=== PATIENT | female | born 1995 | race Caucasian/White ===

== ENCOUNTER 2020-07-20 09:58 | Outpatient (REF) | payer MEDICAID, SELFPAY ==
--- NOTE | 2020-07-20 | US_ITS ---
EXAMINATION: US ABDOMEN LIMITED CLINICAL INFORMATION: Hyperlipidemia. COMPARISON: Abdominal ultrasound dated 10/14/2014. CT abdomen and pelvis dated 04/20/2017. TECHNIQUE: Real-time imaging of the right upper quadrant abdominal viscera. FINDINGS: PANCREAS: Normal. LIVER: The liver is mildly enlarged. The liver contour is normal. There is mild increased echogenicity in focal areas of fatty sparing. No focal hepatic lesion. There is no intrahepatic biliary duct dilatation seen. GALLBLADDER: Normal. The gallbladder is physiologically distended without evidence of stones, sludge, polyps, wall thickening or pericholecystic fluid. COMMON BILE DUCT: Normal in caliber measuring 0.3 cm in diameter. RIGHT KIDNEY: Normal. No hydronephrosis. No renal calculi or focal parenchymal lesions. The kidney measures 10.2 cm in maximum dimension. FREE FLUID: None. IMPRESSION: Hepatomegaly with diffuse fatty infiltration and areas of focal fatty sparing. No focal lesion seen. Visualized pancreas, gallbladder and the right kidney appears unremarkable. CBD is normal caliber.
== END 2020-07-20 09:59 | disposition home or self-care (01) ==
LOC: HO.US 09:58
PROVIDERS: Visit Provider Nurse Practitioner Family
DX: E78.5 Hyperlipidemia, unspecified (principal); R79.89 Other specified abnormal findings of blood chemistry
CPT/HCPCS: 76705

== ENCOUNTER 2020-11-18 09:03 | Emergency (ER) | payer MEDICAID, SELFPAY ==
--- NOTE | ~2020-11-18 | CT_ITS ---
EXAMINATION: CT HEAD WITHOUT CONTRAST CLINICAL INFORMATION: Syncope. Hit head. COMPARISON: September 04, 2019 TECHNIQUE: Contiguous axial imaging was performed from the skull base to vertex without intravenous administration of contrast. This CT examination was performed using dose optimization techniques as appropriate, variously including the following: *Automated exposure control *Adjustment of mA and/or kV according to patient size (this includes techniques or standardized protocols for targeted exams where dose is matched to indication/reason for exam; i.e. extremities or head) *Use of iterative reconstruction technique DLP: 620 mGy-cm FINDINGS: There is no evidence of acute intracranial hemorrhage or territorial infarction. No abnormal mass effect or midline shift is seen. Rodríguez to white matter differentiation is well preserved. No extra-axial fluid collections are identified. The ventricles are normal in size. There is no abnormal attenuation within the brain parenchyma. The osseous structures and soft tissues are normal. The mastoid air cells and visualized portions of the paranasal sinuses are well aerated. CT/CT head/brain wo con IMPRESSION: No acute intracranial pathology.
[2020-11-18 09:08] VITALS: BP 127/76; BP 160/90; PULSE 65; PULSE 87; RESP 16; TEMP 36.5; O2SAT 98; O2SAT 99; BMI 28.2
--- NOTE | 2020-11-18 09:08 | ED.SYNCOPE ---
HPI - Syncope General Chief Complaint: Syncope Stated Complaint: EAKNESS,NO CONCERN FOR COVID PER EMS Time Seen by Provider: 11/18/20 09:07 Source: patient and EMS Mode of arrival: EMS Limitations: no limitations History of Present Illness HPI narrative: 25 yo female with hx of syncope - known adrenal insufficiency as well as panhypopituitarism off meds x 2 years - by her own choice, syncopal event with prodrome and chest pain - occurred while at work, hit head during event MD complaint: loss of consciousness, felt faint and collapsed Onset (ago): minute(s) (just [employer]) -: second(s) Prodromal symptoms: vision changes, lightheaded, chest pain and heart racing Witnessed: Yes - by Bystander Context: at rest Injuries sustained associated with event: head Current symptoms: lightheaded History: previous syncopal episode (has hx of syncopal episodes with chest pain in past known adrenal insufficiency - took herself off medications 2 years ago ) Treatments prior to arrival: IV fluids, medication (EMS gave 125mg solumedrol) and other Related Data Allergies Allergy/AdvReac Type Severity Reaction Status Date / Time cephalexin [From KEFLEX] Allergy Severe ANAPHYLAXIS Unverified 06/17/20 16:58 morphine [MORPHINE] Allergy Mild VOMITING Unverified 06/17/20 16:58 Review of Systems Review of Systems: Constitutional : No Weight loss, No Fever, No Chills ENT/Mouth : No sore throat, No Rhinorrhea Eyes: No Eye Pain, No Swelling Cardiovascular : pos Chest Pain, no SOB, no Dyspnea on Exertion, No Orthopnea, No Edema, No Palpitations Respiratory : No Cough, No Sputum Gastrointestinal : no Nausea, No Vomiting, No Diarrhea, No abdominal Pain, No Hematochezia, No Melena Genitourinary : No Dysuria, No Urinary Frequency Musculoskeletal : No joint pain, No Myalgias, No Joint Swelling Skin : No Skin Lesions, No rash Neuro : pos Weakness, No Numbness, No Dizziness, pos Headache Psych : No Anxiety/Panic, No Depression Heme/Lymph: No Bruising, No Lymphadenopathy Endocrine : No Polyuria, No Polydipsia All other systems reviewed and are negative PMFSH Past Medical History Attestation statement: The following information was validated with the patient. Medical History Adrenal insufficiency Hypothyroid Panhypopituitarism Social History Social History (Updated 11/18/20 @ 09:13 by Suly Day DO) Smoking Status: Never smoker Use of substances other than those prescribed or required for medical reasons: No Advance Directives: No Advance Directives Information Provided: Yes Physical Exam Vital Signs: Vital Signs: Last Vital Signs Temp 97.7 F 11/18/20 09:08 Pulse 65 11/18/20 09:08 Resp 16 11/18/20 09:08 BP 127/76 11/18/20 09:08 Pulse Ox 100 11/18/20 09:21 Body Mass Index 28.2 Appearance: Alert. Oriented X3. No acute distress. Eyes: Pupils equal, round and reactive to light. ENT: Pharynx normal. ttp along R parietal occipital area Neck: Normal inspection. Neck supple. CVS: Normal heart rate and rhythm. Pulses normal. Respiratory: No respiratory distress. Breath sounds normal. Abdomen: Soft and nontender. Skin: Skin warm and dry. Normal skin color. Normal skin turgor. Extremities: No lower extremity edema. No calf ttp Neuro: Oriented X 3. No motor deficit. No sensory deficit. Course Course Course Narrative: no signs of hypotension, will ambulate patient workup negative thus far, resting bed normal ambulation, BP stable MDM - Syncope MDM Narrative Medical decision making narrative: 25 yo female with hx of syncope with chest pain as well as AI and panhypopituitarism comes in with syncope with prodrome c/o headache after hitting head at this time will need labs, CT head to r/o trauma, EKG, IVF - states she does not like medications due to side effects Lab Data Result diagrams: 11/18/20 09:41 11/18/20 09:41 Labs: Lab Results 11/18/20 11/18/20 11/18/20 Range/Units 09:41 09:41 09:41 WBC 6.0 (4.8-10.8) X10*3/uL RBC 4.24 (4.20-5.50) X10*6/uL Hgb 11.9 L (12.0-16.0) g/dl Hct 35.5 L (37-47) % MCV 83.7 (80-98) fL MCH 28.1 (27.0-33.0) pg MCHC 33.5 (31.0-35.0) g/dl RDW 12.0 (11.0-16.0) % Plt Count 179 (160-400) X10*3/uL MPV 11.4 (9.4-12.3) fL Immature Gran % (Auto) 0.3 (0.0-0.4) % Neut % (Auto) 50.9 (45-73) % Lymph % (Auto) 39.5 (20-40) % [place] % (Auto) 4.5 (2-11) % Eos % (Auto) 4.0 (0-4) % Baso % (Auto) 0.8 (0-2) % Lymph # (Auto) 2.4 (1.2-4.9) X10*3/uL [place] # (Auto) 0.3 (0.1-1.2) X10*3/uL Eos # (Auto) 0.2 (0.0-0.4) X10*3/uL Baso # (Auto) 0.1 (0.0-0.2) X10*3/uL Abs Immat Gran (auto) 0.02 (0.00-0.03) X10*3/uL Absolute Neuts (auto) 3.0 (2.0-8.3) X10*3/uL Absolute Nucleated RBC 0.000 (0.0-0.012) X10*3/uL Nucleated RBC % (auto) 0.0 (0.0-0.2) /100WBC D-Dimer < 200 NG/ML Sodium 141 (135-145) mmol/L Potassium 4.1 (3.3-5.1) mmol/L Chloride 107 (96-108) mmol/L Carbon Dioxide 27 (22-29) mmol/L Anion Gap 11 L (12-20) BUN 14 (9-16) mg/dL Creatinine 0.72 (0.5-1.4) mg/dL Estim Creat Clear Calc 125.8 Estimated GFR > 60 Random Glucose 96 (60-115) mg/dL Calcium 8.7 (8.4-10.2) mg/dL Magnesium 2.1 (1.6-2.6) mg/dL Total Bilirubin 0.4 (0.0-1.0) mg/dL Direct Bilirubin 0.2 (0.0-0.5) mg/dL AST 46 H (5-31) U/L ALT 52 H (0-31) U/L Alkaline Phosphatase 101 (39-117) U/L Troponin I High Sens (<3.5-17.0) ng/L Total Protein 6.5 (6.5-8.0) g/dL Albumin 4.5 (3.5-5.0) g/dL Urine Test (NEGATIVE) COVID-19 ([facility]) (Negative) COVID-19 Clin Com 11/18/20 11/18/20 11/18/20 Range/Units 09:41 09:41 10:47 WBC (4.8-10.8) X10*3/uL RBC (4.20-5.50) X10*6/uL Hgb (12.0-16.0) g/dl Hct (37-47) % MCV (80-98) fL MCH (27.0-33.0) pg MCHC (31.0-35.0) g/dl RDW (11.0-16.0) % Plt Count (160-400) X10*3/uL MPV (9.4-12.3) fL Immature Gran % (Auto) (0.0-0.4) % Neut % (Auto) (45-73) % Lymph % (Auto) (20-40) % [place] % (Auto) (2-11) % Eos % (Auto) (0-4) % Baso % (Auto) (0-2) % Lymph # (Auto) (1.2-4.9) X10*3/uL [place] # (Auto) (0.1-1.2) X10*3/uL Eos # (Auto) (0.0-0.4) X10*3/uL Baso # (Auto) (0.0-0.2) X10*3/uL Abs Immat Gran (auto) (0.00-0.03) X10*3/uL Absolute Neuts (auto) (2.0-8.3) X10*3/uL Absolute Nucleated RBC (0.0-0.012) X10*3/uL Nucleated RBC % (auto) (0.0-0.2) /100WBC D-Dimer NG/ML Sodium (135-145) mmol/L Potassium (3.3-5.1) mmol/L Chloride (96-108) mmol/L Carbon Dioxide (22-29) mmol/L Anion Gap (12-20) BUN (9-16) mg/dL Creatinine (0.5-1.4) mg/dL Estim Creat Clear Calc Estimated GFR Random Glucose (60-115) mg/dL Calcium (8.4-10.2) mg/dL Magnesium (1.6-2.6) mg/dL Total Bilirubin (0.0-1.0) mg/dL Direct Bilirubin (0.0-0.5) mg/dL AST (5-31) U/L ALT (0-31) U/L Alkaline Phosphatase (39-117) U/L Troponin I High Sens < 3.5 (<3.5-17.0) ng/L Total Protein (6.5-8.0) g/dL Albumin (3.5-5.0) g/dL Urine Test NEGATIVE (NEGATIVE) COVID-19 ([facility]) Negative (Negative) COVID-19 Clin Com See Note ECG Data Attestation: I personally reviewed and interpreted this ECG as follows: ECG interpretation date: 11/18/20 ECG interpretation time: 09:39 Interpretation: Rate: 55 Rhythm: sinus bradycardia with 1st degree AVB [place]: normal Normal P waves. Normal JUDIE. Normal QRS complex. ST T wave : no BEBE, inverted V1 qTC: normal prior studies: no change, no acute ischemia The study has been interpreted contemporaneously by me. . Discharge Plan Discharge Clinical Impression: Syncope Qualifiers: Syncope type: unspecified Qualified Code(s): R55 - Syncope and collapse Patient Disposition: Home, Self-Care Instructions: Syncope (ED) Additional Instructions: return to ED for any worsening symptoms or concerns Referrals: [facility] [Primary Care Provider] - 1 day (if not better) Stand Alone Forms: Work/School Release
--- NOTE | 2020-11-18 09:10 | ECG_ITS ---
Test Reason : SYNCOPE Blood Pressure : / mmHG Vent. Rate : 055 BPM Atrial Rate : 055 BPM P-R Int : 204 ms QRS Dur : 100 ms QT Int : 424 ms P-R-T Axes : 049 059 043 degrees QTc Int : 405 ms Sinus bradycardia with marked sinus arrhythmia Otherwise normal ECG When compared with ECG of 06-SEP-2019 08:49, Vent. rate has decreased BY 64 BPM Non-specific change in ST segment in Anterolateral leads T wave inversion no longer evident in Inferior leads T wave inversion no longer evident in Anterolateral leads Referred By: Suly Day Electronically Signed By:Sukhdeep Burgess
[2020-11-18 09:21] VITALS: O2SAT 100
[2020-11-18] MEDS: 0.9 % Sodium Chloride 1,000 ML 999 ML IVCONT (09:31)
[2020-11-18 09:51] LABS: MANUAL DIFF FLAG NO
[2020-11-18 10:01] LABS: Basophils Absolute Auto 0.1 X10*3/uL (0.0-0.2); Basophils Percent Auto 0.8 % (0-2); Eosinophils Absolute Auto 0.2 X10*3/uL (0.0-0.4); Hematocrit 35.5 % (37-47); Hemoglobin 11.9 g/dl (12.0-16.0); Imm Gran Abs Auto 0.02 X10*3/uL (0.00-0.03); Imm Gran Pct Auto 0.3 % (0.0-0.4); Lymphocytes Absolute Auto 2.4 X10*3/uL (1.2-4.9); Lymphocytes Percent Auto 39.5 % (20-40); Mean Corpuscular HGB Conc 33.5 g/dl (31.0-35.0); Mean Corpuscular Hemoglobin 28.1 pg (27.0-33.0); Mean Corpuscular Volume 83.7 fL (80-98); Mean Platelet Volume 11.4 fL (9.4-12.3); Monocytes Absolute Auto 0.3 X10*3/uL (0.1-1.2); Monocytes Percent Auto 4.5 % (2-11); Neutrophils Percent Auto 50.9 % (45-73); Platelet Count 179 X10*3/uL (160-400); Red Blood Count 4.24 X10*6/uL (4.20-5.50)
[2020-11-18 10:19] LABS: D Dimer < 200 NG/ML
[2020-11-18 10:20] LABS: Alanine Aminotransferase 52 U/L (0-31); Albumin Level 4.5 g/dL (3.5-5.0); Alkaline Phosphatase 101 U/L (39-117); Anion Gap 11 (12-20); Aspartate Amino Transferase 46 U/L (5-31); Bilirubin Direct 0.2 mg/dL (0.0-0.5); Bilirubin Total 0.4 mg/dL (0.0-1.0); Blood Urea Nitrogen 14 mg/dL (9-16); Calcium 8.7 mg/dL (8.4-10.2); Carbon Dioxide 27 mmol/L (22-29); Chloride 107 mmol/L (96-108); Creatinine Clr Calc Pharmacy 125.8; Estimated Glomerular Filt Rate > 60; Glucose Random 96 mg/dL (60-115); Magnesium 2.1 mg/dL (1.6-2.6); Potassium 4.1 mmol/L (3.3-5.1); Sodium 141 mmol/L (135-145); Total Protein 6.5 g/dL (6.5-8.0)
[2020-11-18 10:22] LABS: COVID-19 Test Negative (Negative)
[2020-11-18 10:26] LABS: Troponin-I High Sensitivity < 3.5 ng/L (<3.5-17.0)
[2020-11-18 10:57] LABS: UPreg QC Valid YES; Urine Pregnancy NEGATIVE (NEGATIVE)
== END 2020-11-18 12:31 | disposition home or self-care (01) ==
PROVIDERS: Emergency Provider Emergency Medicine
DX: R55 Syncope and collapse (principal); Z20.822 Contact with and (suspected) exposure to COVID-19
CPT/HCPCS: 36415; 70450; 80048; 80076; 81025; 83735; 84484; 85025; 85379; 87635; 93005; 96360; 99284

== ENCOUNTER 2021-01-22 18:05 | Emergency (ER) | payer MEDICAID, SELFPAY ==
[2021-01-22] VITALS (7 sets, daily range): BP systolic 114–134; BP diastolic 71–89; PULSE 56–73; RESP 14–18; TEMP 36.7–37.1; O2SAT 97–99; BMI 32.5
--- NOTE | ~2021-01-22 | CT_ITS ---
EXAMINATION: CT HEAD WITHOUT CONTRAST CLINICAL INFORMATION: Fall with head strike. COMPARISON: 11/18/2020 TECHNIQUE: Contiguous axial imaging was performed from the skull base to vertex without intravenous administration of contrast. Imaging was repeated multiple times due to motion artifact, particularly near the calvarium. This CT examination was performed using dose optimization techniques as appropriate, variously including the following: *Automated exposure control *Adjustment of mA and/or kV according to patient size (this includes techniques or standardized protocols for targeted exams where dose is matched to indication/reason for exam; i.e. extremities or head) *Use of iterative reconstruction technique DLP: A 3 9 mGy-cm FINDINGS: There is no evidence of acute intracranial hemorrhage or territorial infarction. No abnormal mass effect or midline shift is seen. Rodríguez to white matter differentiation is well preserved. No extra-axial fluid collections are identified. The ventricles are normal in size. There is no abnormal attenuation within the brain parenchyma. The osseous structures and soft tissues are normal. The mastoid air cells and visualized portions of the paranasal sinuses are well aerated. CT/CT head/brain wo con IMPRESSION: No acute intracranial pathology.
--- NOTE | ~2021-01-22 | CT_ITS ---
EXAMINATION: CT ABDOMEN AND PELVIS WITHOUT CONTRAST CLINICAL INFORMATION: Severe abdominal pain. Nausea, vomiting/diarrhea COMPARISON: 04/20/2017 TECHNIQUE: Multidetector volumetric imaging was performed from the superior aspect of the liver through the pubic symphysis. Sagittal and coronal reformatted images were obtained on the technologist's workstation. This CT examination was performed using dose optimization techniques as appropriate, variously including the following: *Automated exposure control *Adjustment of mA and/or kV according to patient size (this includes techniques or standardized protocols for targeted exams where dose is matched to indication/reason for exam; i.e. extremities or head) *Use of iterative reconstruction technique DLP: 581 mGy-cm FINDINGS: LUNG BASES: The visualized lung bases are unremarkable. LIVER, GALLBLADDER, AND BILIARY TREE: Marked hypoattenuation of the hepatic parenchyma is consistent with hepatic steatosis. There is focal fatty sparing around the gallbladder fossa. No focal hepatic lesions are identified, though sensitivity is limited by the lack of intravenous contrast. The liver is abnormally enlarged, measuring 23 cm craniocaudal. Hepatic contour is normal. No biliary ductal dilatation. The gallbladder is unremarkable with no evidence of radiopaque gallstones, gallbladder wall thickening, or obvious pericholecystic inflammatory changes. PANCREAS: Unremarkable. SPLEEN: Unremarkable. ADRENAL GLANDS: Unremarkable. KIDNEYS AND URETERS: The kidneys are normal in size, shape, and attenuation. No hydronephrosis, hydroureter, or calculi seen. No perinephric stranding. BLADDER: Partially filled. Normal wall thickness. No stones. GASTROINTESTINAL TRACT: Stomach, small bowel, and colon are normal in caliber. No bowel wall thickening or surrounding inflammatory changes. Appendix is normal. No intraperitoneal free fluid or free air. ABDOMINAL WALL: No significant hernia is appreciated. LYMPH NODES: Normal. VASCULAR: Unremarkable. PELVIC VISCERA: The uterus and adnexa are unremarkable. OSSEOUS STRUCTURES: Bilateral L5 pars defects are noted, associated with mild retrolisthesis of L5 on S1. No acute osseous abnormalities. CT/CT abdomen pelvis wo con IMPRESSION: 1. No acute intra-abdominal or intrapelvic abnormalities. 2. Hepatomegaly and hepatic steatosis. 3. Bilateral L5 pars defects and grade 1 anterolisthesis of L5 on S1, unchanged.
[2021-01-22] MEDS: ondansetron HCL 4 MG/2 ML VIAL IVPUSH (18:40)
[2021-01-22] MEDS: 0.9 % Sodium Chloride 1,000 ML 999 ML IVCONT (18:43)
[2021-01-22 18:58] LABS: MANUAL DIFF FLAG NO
[2021-01-22 18:59] LABS: Basophils Absolute Auto 0.1 X10*3/uL (0.0-0.2); Basophils Percent Auto 0.8 % (0-2); Eosinophils Absolute Auto 0.4 X10*3/uL (0.0-0.4); Eosinophils Percent Auto 5.1 % (0-4); Hematocrit 31.6 % (37-47); Hemoglobin 11.1 g/dl (12.0-16.0); Imm Gran Abs Auto 0.02 X10*3/uL (0.00-0.03); Imm Gran Pct Auto 0.3 % (0.0-0.4); Lymphocytes Absolute Auto 2.6 X10*3/uL (1.2-4.9); Lymphocytes Percent Auto 35.5 % (20-40); Mean Corpuscular HGB Conc 35.1 g/dl (31.0-35.0); Mean Corpuscular Hemoglobin 29.4 pg (27.0-33.0); Mean Corpuscular Volume 83.6 fL (80-98); Mean Platelet Volume 11.3 fL (9.4-12.3); Monocytes Absolute Auto 0.4 X10*3/uL (0.1-1.2); Monocytes Percent Auto 5.3 % (2-11); Neutrophils Absolute Auto 3.8 X10*3/uL (2.0-8.3); Platelet Count 162 X10*3/uL (160-400); Red Blood Count 3.78 X10*6/uL (4.20-5.50); Red Cell Distribution Width 12.3 % (11.0-16.0); White Blood Count 7.2 X10*3/uL (4.8-10.8)
--- NOTE | 2021-01-22 19:03 | PC.NURSE ---
Pt sent to bathroom for urine sample. On the way back from the bathroom pt was found on floor. She was conscious and stated that she slipped on her slipper . She stated that she hit her head when she fell. She has no obvious injuries. Kirstin GAGNON is aware of the fall.
[2021-01-22] MEDS: Hydrocortisone Sod Succ/PF 100 MG VIAL IVPUSH (19:10)
--- NOTE | 2021-01-22 19:10 | ED.ABDPAIN ---
HPI - Abdominal Pain General Chief Complaint: Abdominal Pain Stated Complaint: ABD PAIN, WEAKNESS, SYNCOPE Time Seen by Provider: 01/22/21 18:25 Source: patient Mode of arrival: ambulatory Limitations: no limitations History of Present Illness HPI narrative: 25 y/o female with history of panhypopituitarism which has been untreated for the last 2 years, von Willebrands disease, fatty liver disease & ADHD who presents to the ED with 5 days of nausea, vomiting and diarrhea. She states every times she tries to eat or drink she vomits. She has had some small dark red blood in her vomit today with dry heaves and forceful vomiting. She vomited 6 times today. She also reports at least 2 episodes of liquid diarrhea daily for the last 5 days. She has right sided flank pain that wraps around her RUQ and to her epigastric area. She denies fever, chills, or urinary symptoms. She went to [facility] today but sat in the waiting room so she came here for evaluation. She reports not being on medications for her hypopituitarism for 2 years because her prior Endocrine doctor told her she was going to so she stopped going to them. She admits to having trouble getting in to see Endocrine now because of her non-compliance history and frequently missed appointments. MD elicited complaint: abdominal pain and other (N/V/D) Pertinent past history: other (panhypopituitarism, hypothyroidism, adrenal insufficiency, primary anmenorrhea) Onset (ago): day(s) (5) Pain Consistency: intermittent Location: R flank Severity: moderate Quality: cramping and stabbing Radiation: RUQ and epigastric Exacerbating factors: eating Relieving factors: nothing Context: history of similar episodes Associated symptoms: nausea, vomiting, diarrhea and hematemesis (mild) Related Data Previous Rx's Medication Instructions Recorded ondansetron HCl [Zofran] 4 mg PO Q8H PRN #10 tab 01/22/21 prednisone 10 mg PO DAILY #30 tab 01/22/21 prednisone 40 mg PO DAILY #20 tab 01/22/21 Allergies Allergy/AdvReac Type Severity Reaction Status Date / Time cephalexin [From KEFLEX] Allergy Severe ANAPHYLAXIS Verified 01/22/21 18:40 morphine [MORPHINE] Allergy Mild VOMITING Verified 01/22/21 18:40 Review of Systems Review of Systems Constitutional: No Fever, No Chills ENT/Mouth: No sore throat, No Rhinorrhea, No Swallowing Difficulty Cardiovascular: No Chest Pain, No SOB, No Orthopnea, No Edema Respiratory: No Cough, No Sputum, No Wheezing, No dyspnea Gastrointestinal: + Nausea, + Vomiting, + Diarrhea, + abdominal Pain, No Hematochezia, No Melena Genitourinary: No Dysuria, No Urinary Frequency, No Hematuria Musculoskeletal: No joint pain, No Myalgias Skin: No Skin Lesions, No rash Neuro: + Weakness, No Numbness, + Dizziness, No Headache Psych: No Anxiety/Panic, No Depression Heme/Lymph: No Bruising, No Lymphadenopathy Endocrine: No Polyuria, No Polydipsia Physical Exam Vital Signs: Vital Signs: Last Vital Signs Temp 98.7 F 01/22/21 18:10 Pulse 73 01/22/21 18:10 Resp 14 01/22/21 18:59 BP 117/89 01/22/21 18:59 Pulse Ox 97 01/22/21 18:10 Body Mass Index 32.5 Appearance: Alert. Oriented X3. No acute distress. Eyes: Pupils equal, round and reactive to light. ENT: Pharynx normal. Neck: Normal inspection. Neck supple. CVS: Normal heart rate and rhythm. Pulses normal. Respiratory: No respiratory distress. Breath sounds normal. Abdomen: RUQ tenderness with guarding, +epigastric tenderness, +BS x4 Skin: Skin warm and dry. Normal skin color. Normal skin turgor. No rashes. Extremities: No lower extremity edema. Neuro: Oriented X 3. No motor deficit. No sensory deficit. Course Course Course Narrative: 25 y/o female with history of untreated panhypopituitarism presenting with N/V/D and abdominal pain for 5 days. Her VS are normal. Given her acute illness and history of adrenal insufficiency will give a dose of stress dose steroids now. Will check labs to assess for electrolyte derangements. Does not appear to be in adrenal crisis based on her exam and labs. Will give IVF, Zofran and reassess. Reevaluation(s) Reevaluation #1: Patient went to go to the bathroom and was found in the hallway on the floor on her return. She states she slipped on her slipper and hit her head. She reports some headache. Will get CT head and orthostatic VS. Reevaluation #2: Patient's nausea is significantly improved however she still continues to complain of abdominal pain. Transaminases are up slightly which is chronic for her, normal bilirubins and lipase. She is diffusely tender. Will get CT scan for further evaluation. Patient is agreeable with plan. IV toradol ordered. Allergy to morphine noted - vomiting. Reevaluation #3: Pain improved. CT scan is negative for any acute abnormality. Utox + for marijuana, question cyclical vomiting however does not explain diarrhea. Possibly due to adrenal insufficiency. Will give PO trial now. If tolerates will plan to d/c on prednisone and PRN zofran. Advised to stop smoking marijuana. MDM - Abdominal Pain Lab Data Attestation: I reviewed the patient's lab results. Result diagrams: 01/22/21 18:52 01/22/21 18:52 Labs: Lab Results 01/22/21 01/22/21 01/22/21 Range/Units 18:52 18:52 18:52 WBC 7.2 (4.8-10.8) X10*3/uL RBC 3.78 L (4.20-5.50) X10*6/uL Hgb 11.1 L (12.0-16.0) g/dl Hct 31.6 L (37-47) % MCV 83.6 (80-98) fL MCH 29.4 (27.0-33.0) pg MCHC 35.1 H (31.0-35.0) g/dl RDW 12.3 (11.0-16.0) % Plt Count 162 (160-400) X10*3/uL MPV 11.3 (9.4-12.3) fL Immature Gran % (Auto) 0.3 (0.0-0.4) % Neut % (Auto) 53.0 (45-73) % Lymph % (Auto) 35.5 (20-40) % [place] % (Auto) 5.3 (2-11) % Eos % (Auto) 5.1 H (0-4) % Baso % (Auto) 0.8 (0-2) % Lymph # (Auto) 2.6 (1.2-4.9) X10*3/uL [place] # (Auto) 0.4 (0.1-1.2) X10*3/uL Eos # (Auto) 0.4 (0.0-0.4) X10*3/uL Baso # (Auto) 0.1 (0.0-0.2) X10*3/uL Abs Immat Gran (auto) 0.02 (0.00-0.03) X10*3/uL Absolute Neuts (auto) 3.8 (2.0-8.3) X10*3/uL Absolute Nucleated RBC 0.000 (0.0-0.012) X10*3/uL Nucleated RBC % (auto) 0.0 (0.0-0.2) /100WBC Hold Blue Top SEE NOTE Sodium 140 (135-145) mmol/L Potassium 3.7 (3.3-5.1) mmol/L Chloride 107 (96-108) mmol/L Carbon Dioxide 26 (22-29) mmol/L Anion Gap 11 L (12-20) BUN 12 (9-16) mg/dL Creatinine 0.75 (0.5-1.4) mg/dL Estim Creat Clear Calc 116.2 Estimated GFR > 60 POC Glucose (60-115) mg/dL Random Glucose 95 (60-115) mg/dL Calcium 9.5 D (8.4-10.2) mg/dL Magnesium 2.0 (1.6-2.6) mg/dL Total Bilirubin 0.4 (0.0-1.0) mg/dL Direct Bilirubin 0.2 (0.0-0.5) mg/dL AST 53 H (5-31) U/L ALT 55 H (0-31) U/L Alkaline Phosphatase 96 (39-117) U/L Total Protein 6.4 L (6.5-8.0) g/dL Albumin 4.3 (3.5-5.0) g/dL Lipase 34 (8-78) U/L Urine Color Urine Appearance Urine pH (5.0-8.0) Ur Specific Sikes (1.005-1.025) Urine Protein (NEG-TRACE) MG/DL Urine Glucose (UA) (NEG) MG/DL Urine Ketones (NEG) MG/DL Urine Blood (NEG) Urine Nitrite (NEG) Ur Leukocyte Esterase (NEG) Urine Test (NEGATIVE) Urine Opiates Screen (Not Detect) Ur Barbiturates Screen (Not Detect) Ur Phencyclidine Scrn (Not Detect) Ur Amphetamines Screen (Not Detect) U Benzodiazepines Scrn (Not Detect) Urine Cocaine Screen (Not Detect) U Marijuana (THC) Screen (Not Detect) 01/22/21 01/22/21 01/22/21 Range/Units 19:00 19:00 19:00 WBC (4.8-10.8) X10*3/uL RBC (4.20-5.50) X10*6/uL Hgb (12.0-16.0) g/dl Hct (37-47) % MCV (80-98) fL MCH (27.0-33.0) pg MCHC (31.0-35.0) g/dl RDW (11.0-16.0) % Plt Count (160-400) X10*3/uL MPV (9.4-12.3) fL Immature Gran % (Auto) (0.0-0.4) % Neut % (Auto) (45-73) % Lymph % (Auto) (20-40) % [place] % (Auto) (2-11) % Eos % (Auto) (0-4) % Baso % (Auto) (0-2) % Lymph # (Auto) (1.2-4.9) X10*3/uL [place] # (Auto) (0.1-1.2) X10*3/uL Eos # (Auto) (0.0-0.4) X10*3/uL Baso # (Auto) (0.0-0.2) X10*3/uL Abs Immat Gran (auto) (0.00-0.03) X10*3/uL Absolute Neuts (auto) (2.0-8.3) X10*3/uL Absolute Nucleated RBC (0.0-0.012) X10*3/uL Nucleated RBC % (auto) (0.0-0.2) /100WBC Hold Blue Top Sodium (135-145) mmol/L Potassium (3.3-5.1) mmol/L Chloride (96-108) mmol/L Carbon Dioxide (22-29) mmol/L Anion Gap (12-20) BUN (9-16) mg/dL Creatinine (0.5-1.4) mg/dL Estim Creat Clear Calc Estimated GFR POC Glucose (60-115) mg/dL Random Glucose (60-115) mg/dL Calcium (8.4-10.2) mg/dL Magnesium (1.6-2.6) mg/dL Total Bilirubin (0.0-1.0) mg/dL Direct Bilirubin (0.0-0.5) mg/dL AST (5-31) U/L ALT (0-31) U/L Alkaline Phosphatase (39-117) U/L Total Protein (6.5-8.0) g/dL Albumin (3.5-5.0) g/dL Lipase (8-78) U/L Urine Color YELLOW Urine Appearance HAZY Urine pH 7.5 (5.0-8.0) Ur Specific [place] 1.020 (1.005-1.025) Urine Protein NEG (NEG-TRACE) MG/DL Urine Glucose (UA) NEG (NEG) MG/DL Urine Ketones NEG (NEG) MG/DL Urine Blood NEG (NEG) Urine Nitrite NEG (NEG) Ur Leukocyte Esterase NEG (NEG) Urine Test NEGATIVE (NEGATIVE) Urine Opiates Screen Not Detected (Not Detect) Ur Barbiturates Screen Not Detected (Not Detect) Ur Phencyclidine Scrn Not Detected (Not Detect) Ur Amphetamines Screen Not Detected (Not Detect) U Benzodiazepines Scrn Not Detected (Not Detect) Urine Cocaine Screen Not Detected (Not Detect) U Marijuana (THC) Screen POSITIVE H (Not Detect) 01/22/21 Range/Units 20:12 WBC (4.8-10.8) X10*3/uL RBC (4.20-5.50) X10*6/uL Hgb (12.0-16.0) g/dl Hct (37-47) % MCV (80-98) fL MCH (27.0-33.0) pg MCHC (31.0-35.0) g/dl RDW (11.0-16.0) % Plt Count (160-400) X10*3/uL MPV (9.4-12.3) fL Immature Gran % (Auto) (0.0-0.4) % Neut % (Auto) (45-73) % Lymph % (Auto) (20-40) % [place] % (Auto) (2-11) % Eos % (Auto) (0-4) % Baso % (Auto) (0-2) % Lymph # (Auto) (1.2-4.9) X10*3/uL [place] # (Auto) (0.1-1.2) X10*3/uL Eos # (Auto) (0.0-0.4) X10*3/uL Baso # (Auto) (0.0-0.2) X10*3/uL Abs Immat Gran (auto) (0.00-0.03) X10*3/uL Absolute Neuts (auto) (2.0-8.3) X10*3/uL Absolute Nucleated RBC (0.0-0.012) X10*3/uL Nucleated RBC % (auto) (0.0-0.2) /100WBC Hold Blue Top Sodium (135-145) mmol/L Potassium (3.3-5.1) mmol/L Chloride (96-108) mmol/L Carbon Dioxide (22-29) mmol/L Anion Gap (12-20) BUN (9-16) mg/dL Creatinine (0.5-1.4) mg/dL Estim Creat Clear Calc Estimated GFR POC Glucose 85 (60-115) mg/dL Random Glucose (60-115) mg/dL Calcium (8.4-10.2) mg/dL Magnesium (1.6-2.6) mg/dL Total Bilirubin (0.0-1.0) mg/dL Direct Bilirubin (0.0-0.5) mg/dL AST (5-31) U/L ALT (0-31) U/L Alkaline Phosphatase (39-117) U/L Total Protein (6.5-8.0) g/dL Albumin (3.5-5.0) g/dL Lipase (8-78) U/L Urine Color Urine Appearance Urine pH (5.0-8.0) Ur Specific [place] (1.005-1.025) Urine Protein (NEG-TRACE) MG/DL Urine Glucose (UA) (NEG) MG/DL Urine Ketones (NEG) MG/DL Urine Blood (NEG) Urine Nitrite (NEG) Ur Leukocyte Esterase (NEG) Urine Test (NEGATIVE) Urine Opiates Screen (Not Detect) Ur Barbiturates Screen (Not Detect) Ur Phencyclidine Scrn (Not Detect) Ur Amphetamines Screen (Not Detect) U Benzodiazepines Scrn (Not Detect) Urine Cocaine Screen (Not Detect) U Marijuana (THC) Screen (Not Detect) ECG Data Attestation: I personally reviewed and interpreted this ECG as follows: ECG interpretation date: 01/22/21 ECG interpretation time: 20:29 Prior ECG tracings: available for review Interpretation: sinus bradycardia, HR 51 bpm, NE interval prolonged 200 ms, consistent with possible 1st degree AV block, normal QTc, T-wave inversion in V1, no ST segment elevations. Unchanged from Nov 2020 Discharge Plan Discharge Clinical Impression: Nausea & vomiting Qualifiers: Vomiting type: unspecified Vomiting Intractability: intractable Qualified Code(s): R11.2 - Nausea with vomiting, unspecified Patient Disposition: Home, Self-Care Instructions: Acute Nausea and Vomiting (ED), Hypopituitarism (DC) Additional Instructions: Your lab workup today was unremarkable. Your CT scan did not show any causes of your symptoms. Recommend STOP smoking marijuana. This can cause cyclical vomiting that can be very hard to control. Take Prednisone 40 mg per day for the next 10 days. After that take Prednisone 10 mg once daily until you are able to see an [employer]. You were given a 1 month supply of this. You NEED to see Endocrinology [facility]. Prescriptions: New prednisone 20 mg tablet 40 mg PO DAILY Qty: 20 RF: 0 prednisone 10 mg tablet 10 mg PO DAILY Qty: 30 RF: 0 ondansetron HCl [Zofran] 4 mg tablet 4 mg PO Q8H PRN (Reason: nausea and vomiting) Qty: 10 RF: 0 Referrals: Orville Rivera MD [Physician] - 2 days (panhypopit OFF MEDS) [facility] Past Medical History Attestation statement: The following information was validated with the patient. Medical History Adrenal insufficiency Hypothyroid Panhypopituitarism Social History Social History (Updated 11/18/20 @ 09:13 by Suly Day DO) Smoking Status: Never smoker Advance Directives: No Advance Directives Information Provided: Yes
[2021-01-22 19:11] LABS: Glucose Urine UA NEG (NEG); Leukocyte Esterase Urine NEG (NEG); Nitrite Urine NEG (NEG); PH 7.5 (5.0-8.0); Urine Blood NEG (NEG); Urine Ketones NEG (NEG); Urine Protein NEG (NEG-TRACE)
[2021-01-22 19:12] LABS: Appearance Urine HAZY; Color Urine YELLOW
[2021-01-22 19:13] LABS: UPreg QC Valid YES; Urine Pregnancy NEGATIVE (NEGATIVE)
[2021-01-22 19:21] LABS: Alanine Aminotransferase 55 U/L (0-31); Albumin Level 4.3 g/dL (3.5-5.0); Alkaline Phosphatase 96 U/L (39-117); Anion Gap 11 (12-20); Aspartate Amino Transferase 53 U/L (5-31); Bilirubin Direct 0.2 mg/dL (0.0-0.5); Bilirubin Total 0.4 mg/dL (0.0-1.0); Blood Urea Nitrogen 12 mg/dL (9-16); Calcium 9.5 mg/dL (8.4-10.2); Carbon Dioxide 26 mmol/L (22-29); Chloride 107 mmol/L (96-108); Creatinine Clr Calc Pharmacy 116.2; Estimated Glomerular Filt Rate > 60; Glucose Random 95 mg/dL (60-115); Lipase 34 U/L (8-78); Potassium 3.7 mmol/L (3.3-5.1); Sodium 140 mmol/L (135-145); Total Protein 6.4 g/dL (6.5-8.0)
--- NOTE | 2021-01-22 19:24 | ECG_ITS ---
Test Reason : DIZZINESS Blood Pressure : / mmHG Vent. Rate : 051 BPM Atrial Rate : 051 BPM P-R Int : 200 ms QRS Dur : 098 ms QT Int : 436 ms P-R-T Axes : 060 058 051 degrees QTc Int : 401 ms Sinus bradycardia with sinus arrhythmia Otherwise normal ECG When compared with ECG of 18-NOV-2020 09:34, No significant change was found Referred By: Kirstin Schmitt Electronically Signed By:AKANKSHA IGLESIAS MD
--- NOTE | 2021-01-22 19:26 | PC.NURSE ---
Pt resting in stretcher, NS up and running, site intact. Pt states i fell in hallway and hit right side of head no bruising or bumps to head. PA Kirstin aware of fall. Pt awake and alert, respirations easy, n/l. skin w/d. pt denies any pain/complaints to head. Pt medicated as per emar. Will continue to monitor pt.
[2021-01-22 19:31] LABS: Amphetamine Screen Urine Not Detected (Not Detect); Barbiturates, Urine Not Detected (Not Detect); Benzodiazepines Screen Urine Not Detected (Not Detect); Cannabinoid Screen Urine POSITIVE (Not Detect); Cocaine Screen Urine Not Detected (Not Detect); Opiate Screen Urine Not Detected (Not Detect); Phencyclidine Screen Urine Not Detected (Not Detect)
[2021-01-22] MEDS: Ketorolac Tromethamine 30 MG/ML VIAL IVPUSH (20:11)
[2021-01-22 20:16] LABS: Glucose, Whole Blood 85 mg/dL (60-115)
== END 2021-01-22 22:10 | disposition home or self-care (01) ==
PROVIDERS: Physician Assistant; Emergency Provider Emergency Medicine Emergency Medical Services
DX: R10.9 Unspecified abdominal pain (principal); R11.2 Nausea with vomiting, unspecified; R19.7 Diarrhea, unspecified; E27.40 Unspecified adrenocortical insufficiency; E23.0 Hypopituitarism; F12.90 Cannabis use, unspecified, uncomplicated; K76.0 Fatty (change of) liver, not elsewhere classified; Z91.14 Patient's other noncompliance with medication regimen; S09.90XA Unspecified injury of head, initial encounter; W01.0XXA Fall on same level from slipping, tripping and stumbling without subsequent striking against object, initial encounter; Y93.01 Activity, walking, marching and hiking; Y92.238 Other place in hospital as the place of occurrence of the external cause; Y99.9 Unspecified external cause status
CPT/HCPCS: 36415; 70450; 74176; 80048; 80076; 80307; 81003; 81025; 82947; 83690; 83735; 85025; 93005; 96361; 96374; 96375; 99284; J1885; J2405

== ENCOUNTER 2021-02-14 10:53 | Emergency (ER) | payer MEDICAID, SELFPAY ==
[2021-02-14 11:08] VITALS: BP 120/79; PULSE 91; RESP 18; TEMP 36.8; O2SAT 98; BMI 32.8
--- NOTE | 2021-02-14 11:31 | ED.URI ---
HPI - URI/Sore Throat General Chief Complaint: Upper Respiratory Symptoms Stated Complaint: COVID SYMPTOMS Time Seen by Provider: 02/14/21 11:04 Source: patient Mode of arrival: ambulatory Limitations: no limitations History of Present Illness HPI Narrative: 25-year-old female came in for evaluation of upper respiratory infection. Presented with generalized body aches, chills, nonproductive cough, subjective fever. No exposure to sick contact, did not receive her vaccination for COVID yet. Related Data Previous Rx's Medication Instructions Recorded ondansetron HCl [Zofran] 4 mg PO Q8H PRN #10 tab 01/22/21 prednisone 10 mg PO DAILY #30 tab 01/22/21 prednisone 40 mg PO DAILY #20 tab 01/22/21 Allergies Allergy/AdvReac Type Severity Reaction Status Date / Time cephalexin [From KEFLEX] Allergy Severe ANAPHYLAXIS Verified 01/22/21 18:40 morphine [MORPHINE] Allergy Mild VOMITING Verified 01/22/21 18:40 Review of Systems Review of Systems: All other systems are reviewed and are negative Constitutional: Reports as per HPI and Reports no additional constitutional complaints Eyes: Reports as per HPI and Reports no additional eye complaints Reports system reviewed and no additional complaints, except as documented Cardiovascular: Reports as per HPI and Reports no additional cardiovascular complaints Respiratory: Reports as per HPI and Reports no additional respiratory complaints Gastrointestinal: Reports as per HPI and Reports no additional gastrointestinal complaints Genitourinary: Reports no additional female genitourinary complaints Musculoskeletal: Reports no additional musculoskeletal complaints Skin/Breast: Reports system reviewed and no additional complaints, except as docu Psychiatric: Reports no additional psychiatric complaints Endocrine: Reports no additional endocrine complaints Hematologic/Lymphatic: Reports no additional hematologic/lymphatic complaints Allergic/Immunologic: Reports no additional allergic/immunologic complaints Reports system reviewed and no additional complaints, except as documented and Reports Abnormal speech present [facility] Past Medical History Medical History Adrenal insufficiency Hypothyroid Panhypopituitarism Social History Social History Smoking Status: Never smoker Advance Directives: No Advance Directives Information Provided: No Physical Exam Vital Signs: Vital Signs: Last Vital Signs Temp 98.3 F 02/14/21 11:08 Pulse 91 05/17/21 11:08 Resp 18 02/14/21 11:08 BP 120/79 02/14/21 11:08 Pulse Ox 98 02/14/21 11:08 Body Mass Index 32.8 Vital signs have been reviewed as appeared to be correct. Blood pressure normal. Heart rate normal. Respiration rate normal. Temperature normal. Oxygen saturation normal. Appearance: Alert. Oriented X3. No acute distress. Head: Normal external exam. Normocephalic. Atraumatic. No Cheema signs noted. No raccoon eyes noted Eyes: PERRLA. EOMI. Conjunctiva and sclera normal. Eyelids normal. ENT: TM's Normal. Pharynx normal. Uvula midline. Moist mucous membranes. No trismus noted. No drooling noted. No muffled voice noted. Neck: Normal inspection. Neck supple. FROM. No adenopathy. Thyroid Normal. No meningeal signs. No neck mass noted. CVS: Normal heart rate and rhythm. Heart sound normal. No murmurs noted. Pulses normal throughout. Respiratory: No respiratory distress. Painless inspiration. Breath sounds normal. No wheezes/rales/rhonchi noted. Chest nontender. No accessory muscle usage noted or decreased air movement noted. Abdomen: Soft and nontender. Bowel sounds normal in all 4 quadrants. No distention noted. No organomegaly noted. No visible injury noted. Back: No CVA tenderness. Full range of motion noted. Skin: Skin warm and dry. Normal skin color. Normal skin turgor. No rashes/lesions/lacerations noted. Extremities: No lower extremity edema. Extremities exhibit normal range of motion. Extremities nontender. Neuro: Oriented X 3. No motor deficit. No sensory deficit. Reflexes normal. Course Course Course Narrative: 25-year-old female came in with a viral symptoms syndrome. COVID was negative. Discharge encouraged to drink plenty of fluids, take ibuprofen/Tylenol if needed. MDM - URI/Sore Throat Lab Data Attestation: I reviewed the patient's lab results. Labs: Lab Results 02/14/21 Range/Units 12:17 Coronavirus (PCR) NEGATIVE (Negative) Influenza Type A (PCR) NEGATIVE (Negative) Influenza Type B (PCR) NEGATIVE (Negative) RSV RNA Qual (PCR) NEGATIVE (Negative) Discharge Plan Discharge Clinical Impression: Viral infection Patient Disposition: Home, Self-Care Instructions: Viral Syndrome (ED) Prescriptions: No Action prednisone 20 mg tablet 40 mg PO DAILY Qty: 20 RF: 0 prednisone 10 mg tablet 10 mg PO DAILY Qty: 30 RF: 0 ondansetron HCl [Zofran] 4 mg tablet 4 mg PO Q8H PRN (Reason: nausea and vomiting) Qty: 10 RF: 0 Referrals: [facility] [Primary Care Provider] - 2 days
[2021-02-14 13:04] LABS: Influenza A PCR NEGATIVE (Negative); Influenza B PCR NEGATIVE (Negative); Resp Syncy Virus RNA Qual PCR NEGATIVE (Negative); SARS COV2 PCR INHOUSE NEGATIVE (Negative)
== END 2021-02-14 14:38 | disposition home or self-care (01) ==
PROVIDERS: Emergency Provider Emergency Medicine
DX: B34.9 Viral infection, unspecified (principal); M79.10 Myalgia, unspecified site; R50.9 Fever, unspecified; Z20.822 Contact with and (suspected) exposure to COVID-19; Z79.899 Other long term (current) drug therapy
CPT/HCPCS: 0241U; 36415; 99283

== ENCOUNTER 2021-03-09 09:54 | Outpatient (REF) | payer MEDICAID, SELFPAY ==
--- NOTE | 2021-03-09 | EMG_ITS ---
This is a 25-year-old woman who had a syncopal episode about 9 months ago and since then, when she stands and walks, she has some tingling in her lower extremities and has constant pain. Her neurological examination is entirely normal including strength, reflexes. IMPRESSION: Rule out peripheral neuropathy. Rule out nerve entrapment. Nerve conduction EMG study: Normal electrodiagnostic study of both lower extremities with no evidence of nerve entrapment or generalized neuropathy. Normal EMG of the right L4-S1 innervated muscles. MD VALERIE Maguire/NILAY / [phone]
== END 2021-03-09 09:55 | disposition home or self-care (01) ==
LOC: HO.NEURO 09:54
PROVIDERS: Visit Provider Nurse Practitioner Family
DX: M79.604 Pain in right leg (principal); M79.605 Pain in left leg
CPT/HCPCS: 95885; 95912

== ENCOUNTER 2021-04-20 09:09 | Outpatient (REF) | payer MEDICAID, SELFPAY ==
[2021-04-21 02:40] LABS: CT PCR NOT DETECTED (Not Detect.); NG PCR NOT DETECTED (Not Detect.)
[2021-04-21 13:03] LABS: BV Int Neg Control Negative (Negative); BV Int Pos Control Positive (Positive)
== END 2021-04-20 09:10 | disposition home or self-care (01) ==
LOC: HO.LAB 09:09
PROVIDERS: Visit Provider Advanced Practice Midwife
DX: Z01.411 Encounter for gynecological examination (general) (routine) with abnormal findings (principal); Z11.3 Encounter for screening for infections with a predominantly sexual mode of transmission; N95.2 Postmenopausal atrophic vaginitis; N91.2 Amenorrhea, unspecified; Z20.2 Contact with and (suspected) exposure to infections with a predominantly sexual mode of transmission; Z72.0 Tobacco use
CPT/HCPCS: 81025; 87480; 87491; 87510; 87591; 87660

== ENCOUNTER 2021-05-18 17:34 | Emergency (ER) | payer MEDICAID, SELFPAY ==
--- NOTE | ~2021-05-18 | XR_ITS ---
EXAMINATION: XR CHEST CLINICAL INFORMATION: Syncope COMPARISON: 11/17/2019 TECHNIQUE: Frontal view of the chest was obtained. FINDINGS: No acute finding. No obvious failure or infiltrate. There is no effusion. Mediastinal contours are comparable. XR/XR chest 1V IMPRESSION: No acute finding.
--- NOTE | ~2021-05-18 | CT_ITS ---
Indication: Syncope and severe neck pain status post loss of consciousness. EXAMINATION: CT brain, CT cervical spine. Axial imaging with coronal and sagittal reformatted images. Radiation dose [address] brain; There is no midline shift. There is no mass effect. There is no hemorrhage. The basilar cisterns appear patent. The posterior fossa risk grossly within normal limits. There is no extra-axial collection. Ventricles are within normal limits. Rodríguez-white matter is felt to be within normal limits. There is no evidence for fracture on the bone windows. CT cervical spine; Mild straightening of the normal lordosis. There is no acute fracture or dislocation. CT/CT cervical spine wo con IMPRESSION: Negative acute noncontrast CT of the brain. No acute fracture or dislocation of the cervical spine.
--- NOTE | ~2021-05-18 | CT_ITS ---
Indication: Syncope and severe neck pain status post loss of consciousness. EXAMINATION: CT brain, CT cervical spine. Axial imaging with coronal and sagittal reformatted images. Radiation dose [address] brain; There is no midline shift. There is no mass effect. There is no hemorrhage. The basilar cisterns appear patent. The posterior fossa risk grossly within normal limits. There is no extra-axial collection. Ventricles are within normal limits. Rodríguez-white matter is felt to be within normal limits. There is no evidence for fracture on the bone windows. CT cervical spine; Mild straightening of the normal lordosis. There is no acute fracture or dislocation. CT/CT head/brain wo con IMPRESSION: Negative acute noncontrast CT of the brain. No acute fracture or dislocation of the cervical spine.
[2021-05-18 17:54] VITALS: BP 141/70; BP 143/80; PULSE 82; PULSE 85; RESP 16; O2SAT 98; O2SAT 99; BMI 32.8
--- NOTE | 2021-05-18 18:12 | ED.SYNCOPE ---
HPI - Syncope General Chief Complaint: Syncope Stated Complaint: FALL,+HEAD STRIKE,MUSCLE CONVULSIONS Source: patient and EMS Mode of arrival: EMS Limitations: no limitations History of Present Illness HPI narrative: 26-year-old female presents via EMS in a C-collar after being found on the bathroom floor by family member. States that she does not recall falling, does have a past history of seizures. Unknown if she hit her head, and does have a history of adrenal insufficiency. MD complaint: loss of consciousness Onset (ago): hour(s) (Within the hour of arrival) Prodromal symptoms: none Witnessed: No Injuries sustained associated with event: neck History: seizure disorder and previous syncopal episode Treatments prior to arrival: medication Related Data Previous Rx's Medication Instructions Recorded ondansetron HCl 4 mg tablet 4 mg PO Q8H PRN #10 tab 01/22/21 (Zofran) prednisone 10 mg tablet 10 mg PO DAILY #30 tab 01/22/21 prednisone 20 mg tablet 40 mg PO DAILY #20 tab 01/22/21 estradiol (Estrace) 1 g VAGINAL 2XW #42.5 g 04/20/21 norelgestromin 150 mcg-e.estradiol 1 patch TRANSDERMAL QWEEK #3 ea 04/20/21 35 mcg/24 hr weekly transderm patch (Xulane) metronidazole 500 mg tablet 500 mg PO BID 7 Days #14 tab 04/25/21 (Flagyl) Allergies Allergy/AdvReac Type Severity Reaction Status Date / Time cephalexin [From KEFLEX] Allergy Severe ANAPHYLAXIS Verified 05/18/21 17:59 morphine [MORPHINE] Allergy Mild VOMITING Verified 05/18/21 17:59 Review of Systems Review of Systems: Constitutional: Positive syncope, No Fever, No Chills ENT/Mouth: No Ear Pain, No Hoarseness, No sore throat Eyes: No Eye Pain, No Swelling, No Redness, No Foreign Body Cardiovascular: No Chest Pain, No SOB Respiratory: No Cough, No Dyspnea Gastrointestinal: No Nausea, No Vomiting, No Diarrhea, No abdominal Pain Genitourinary: No Dysuria, No Hematuria Musculoskeletal: positive neck pain, No Myalgias, No Joint Swelling Skin: No Skin lacerations, No rash Neuro: No Weakness, No Numbness, No Paresthesias, No Loss of Consciousness, No Dizziness, No Headache Psych: No Anxiety/Panic, No Depression Heme/Lymph: no easy bruising, no Lymphadenopathy Endocrine: No Polyuria, No Polydipsia Yes all other systems are reviewed and are negative [facility] Past Medical History Attestation statement: The following information was validated with the patient. Source: old records reviewed Medical History (Updated 05/19/21 @ 00:03 by Gilles Spear) Adrenal insufficiency Amenorrhea Hypothyroid Panhypopituitarism Family History Family History Maternal Grandmother History of breast cancer Maternal Aunt Ovarian cancer Maternal Grandfather Colon cancer Social History Social History Household Members Other:: Adopted her brother at 1.5yo (mother ). Polyamory-plans surrogate Alcohol intake: never Patient Tobacco Use Status: Current everyday Tobacco user Tobacco use type: Cigarette Cigarettes Per Day: 6 Use of substances other than those prescribed or required for medical reasons: No Advance Directives: No Advance Directives Information Provided: No Sexual orientation: Bisexual Gender identity: female Physical Exam Vital Signs: Vital Signs: Last Vital Signs Pulse 82 05/18/21 17:54 Resp 16 05/18/21 17:54 BP 141/70 H 05/18/21 17:54 Pulse Ox 98 05/18/21 17:54 Body Mass Index 32.8 Appearance: Alert. Oriented X3. No acute distress. Head: Normal external exam. Normocephalic. Atraumatic. No Cheema signs noted. No raccoon eyes noted Eyes: PERRLA. EOMI. Conjunctiva and sclera normal. Eyelids normal. ENT: TM's Normal. Pharynx normal. Uvula midline. Moist mucous membranes. No trismus noted. No drooling noted. No muffled voice noted. Neck: Normal inspection. Neck supple. No adenopathy. Thyroid Normal. No meningeal signs. No neck mass noted. Positive vertebral tenderness, negative step-offs. CVS: Normal heart rate and rhythm. Heart sound normal. No murmurs noted. Pulses equal to all extremities. Respiratory: No respiratory distress. Painless inspiration. Breath sounds normal. No wheezes/rales/rhonchi noted. Chest nontender. No accessory muscle usage noted or decreased air movement noted. Abdomen: Soft and nontender. Bowel sounds normal in all 4 quadrants. No distention noted. No organomegaly noted. No visible injury noted. Back: No CVA tenderness. Full range of motion noted. Skin: Skin warm and dry. Normal skin color. Normal skin turgor. No rashes/lesions/lacerations noted. Extremities: No lower extremity edema. Extremities exhibit normal range of motion. Extremities nontender. Neuro: cranial nerves 2-12 intact, no focal neural deficits, strength 5/5 to all extremities, No motor deficit. No sensory deficit. Reflexes normal. Course Course Course Narrative: 26-year-old female presents with syncopal episode versus seizure. Has a history of adrenal insufficiency. Last seen at [facility] in January, records are pending. Will order labs, CT scan of head cervical spine. Records reviewed from 02/17/2021 from [facility], has a history of congenital panhypopituitarism, hypothyroidism, adrenal insufficiency, septo-optic dysplasia, multiple syncopal episodes and possible seizure disorder, has not been taking any of her medications because she did not like the side effects and continues to be med noncompliant has transferred her care to [facility] endocrinology. Wells PE score is 0. Labs are unremarkable, EKG normal sinus, CT scan of head and neck are negative. Plan of care to discharge home with follow-up with Neurology as well as her it portfolio manager. Patient verbalized understanding of and agrees plan of care discharge home. MDM - Syncope Differential Diagnosis Differential diagnosis: Likely syncope due to orthostatic hypotension, vasovagal syncope, subarachnoid hemorrhage and dehydration Medical Records Attestation: I reviewed the patient's medical records. Lab Data Attestation: I reviewed the patient's lab results. Result diagrams: 05/18/21 18:52 05/18/21 18:52 Labs: Lab Results 05/18/21 05/18/21 05/18/21 Range/Units 18:52 18:52 18:52 WBC 7.1 (4.8-10.8) X10*3/uL RBC 4.06 L (4.20-5.50) X10*6/uL Hgb 11.7 L (12.0-16.0) g/dl Hct 33.8 L (37-47) % MCV 83.3 (80-98) fL MCH 28.8 (27.0-33.0) pg MCHC 34.6 (31.0-35.0) g/dl RDW 12.5 (11.0-16.0) % Plt Count 200 (160-400) X10*3/uL MPV 10.7 (9.4-12.3) fL Immature Gran % (Auto) 0.4 (0.0-0.4) % Neut % (Auto) 69.3 (45-73) % Lymph % (Auto) 23.3 (20-40) % [place] % (Auto) 3.1 (2-11) % Eos % (Auto) 3.2 (0-4) % Baso % (Auto) 0.7 (0-2) % Lymph # (Auto) 1.7 (1.2-4.9) X10*3/uL [place] # (Auto) 0.2 (0.1-1.2) X10*3/uL Eos # (Auto) 0.2 (0.0-0.4) X10*3/uL Baso # (Auto) 0.1 (0.0-0.2) X10*3/uL Abs Immat Gran (auto) 0.03 (0.00-0.03) X10*3/uL Absolute Neuts (auto) 4.9 (2.0-8.3) X10*3/uL Absolute Nucleated RBC 0.000 (0.0-0.012) X10*3/uL Nucleated RBC % (auto) 0.0 (0.0-0.2) /100WBC Sodium 139 (135-145) mmol/L Potassium 3.8 (3.3-5.1) mmol/L Chloride 106 (96-108) mmol/L Carbon Dioxide 25 (22-29) mmol/L Anion Gap 12 (12-20) BUN 11 (9-16) mg/dL Creatinine 0.81 (0.5-1.4) mg/dL Estim Creat Clear Calc 107.0 Estimated GFR > 60 Random Glucose 108 (60-115) mg/dL Calcium 9.7 (8.4-10.2) mg/dL Troponin I High Sens < 3.5 (<3.5-17.0) ng/L Urine Color Urine Appearance Urine pH (5.0-8.0) Ur Specific [place] (1.005-1.025) Urine Protein (NEG-TRACE) MG/DL Urine Glucose (UA) (NEG) MG/DL Urine Ketones (NEG) MG/DL Urine Blood (NEG) Urine Nitrite (NEG) Ur Leukocyte Esterase (NEG) Urine Opiates Screen (Not Detect) Urine Fentanyl Screen (Not Detect) Ur Barbiturates Screen (Not Detect) Ur Phencyclidine Scrn (Not Detect) Ur Amphetamines Screen (Not Detect) U Benzodiazepines Scrn (Not Detect) Urine Cocaine Screen (Not Detect) U Marijuana (THC) Screen (Not Detect) Ethyl Alcohol mg/dL 05/18/21 05/18/21 05/18/21 Range/Units 18:52 19:48 19:48 WBC (4.8-10.8) X10*3/uL RBC (4.20-5.50) X10*6/uL Hgb (12.0-16.0) g/dl Hct (37-47) % MCV (80-98) fL MCH (27.0-33.0) pg MCHC (31.0-35.0) g/dl RDW (11.0-16.0) % Plt Count (160-400) X10*3/uL MPV (9.4-12.3) fL Immature Gran % (Auto) (0.0-0.4) % Neut % (Auto) (45-73) % Lymph % (Auto) (20-40) % [place] % (Auto) (2-11) % Eos % (Auto) (0-4) % Baso % (Auto) (0-2) % Lymph # (Auto) (1.2-4.9) X10*3/uL [place] # (Auto) (0.1-1.2) X10*3/uL Eos # (Auto) (0.0-0.4) X10*3/uL Baso # (Auto) (0.0-0.2) X10*3/uL Abs Immat Gran (auto) (0.00-0.03) X10*3/uL Absolute Neuts (auto) (2.0-8.3) X10*3/uL Absolute Nucleated RBC (0.0-0.012) X10*3/uL Nucleated RBC % (auto) (0.0-0.2) /100WBC Sodium (135-145) mmol/L Potassium (3.3-5.1) mmol/L Chloride (96-108) mmol/L Carbon Dioxide (22-29) mmol/L Anion Gap (12-20) BUN (9-16) mg/dL Creatinine (0.5-1.4) mg/dL Estim Creat Clear Calc Estimated GFR Random Glucose (60-115) mg/dL Calcium (8.4-10.2) mg/dL Troponin I High Sens (<3.5-17.0) ng/L Urine Color YELLOW Urine Appearance CLEAR Urine pH 7.5 (5.0-8.0) Ur Specific [place] 1.015 (1.005-1.025) Urine Protein NEG (NEG-TRACE) MG/DL Urine Glucose (UA) NEG (NEG) MG/DL Urine Ketones NEG (NEG) MG/DL Urine Blood NEG (NEG) Urine Nitrite NEG (NEG) Ur Leukocyte Esterase NEG (NEG) Urine Opiates Screen Not Detected (Not Detect) Urine Fentanyl Screen Not Detected (Not Detect) Ur Barbiturates Screen Not Detected (Not Detect) Ur Phencyclidine Scrn Not Detected (Not Detect) Ur Amphetamines Screen Not Detected (Not Detect) U Benzodiazepines Scrn Not Detected (Not Detect) Urine Cocaine Screen Not Detected (Not Detect) U Marijuana (THC) Screen POSITIVE H (Not Detect) Ethyl Alcohol < 10 mg/dL Imaging Data CT head neck: Attestation: I personally reviewed and interpreted this imaging study as follows: Radiologist's impression: Indication: Syncope and severe neck pain status post loss of consciousness. EXAMINATION: CT brain, CT cervical spine. Axial imaging with coronal and sagittal reformatted images. Radiation dose [address] brain; There is no midline shift. There is no mass effect. There is no hemorrhage. The basilar cisterns appear patent. The posterior fossa risk grossly within normal limits. There is no extra-axial collection. Ventricles are within normal limits. Rodríguez-white matter is felt to be within normal limits. There is no evidence for fracture on the bone windows. CT cervical spine; Mild straightening of the normal lordosis. There is no acute fracture or dislocation. CT/CT head/brain wo con IMPRESSION: Negative acute noncontrast CT of the brain. ? No acute fracture or dislocation of the cervical spine. Chest x-ray: Attestation: I personally reviewed and interpreted this imaging study as follows: Radiologist's impression: EXAMINATION: XR CHEST CLINICAL INFORMATION: Syncope COMPARISON: 11/17/2019 TECHNIQUE: Frontal view of the chest was obtained. FINDINGS: No acute finding. No obvious failure or infiltrate. There is no effusion. Mediastinal contours are comparable. XR/XR chest 1V IMPRESSION: No acute findin ECG Data Attestation: I personally reviewed and interpreted this ECG as follows: ECG interpretation date: 05/18/21 ECG interpretation time: 18:23 Prior ECG tracings: available for review Interpretation: Vent. rate 73 BPM NE interval 194 ms QRS duration 94 ms QT/QTc 384/423 ms P-R-T axes 61 65 47 Normal sinus rhythm Normal ECG When compared with ECG of 22-JAN-2021 20:08, No significant change was found Scores Heart Score History: -0- slightly suspicious ECG: -0- normal Age: -0- < or = 45 Risk factory: -0- no risk factors known Troponin: -0- < or = normal limit Score: 0 Risk: 1.7% Discharge Plan Discharge Clinical Impression: Syncope, History of seizure Patient Disposition: Home, Self-Care Instructions: Syncope (ED), Recurrent Seizures in Adults (ED) Additional Instructions: You were evaluated for an episode of loss of consciousness. It is unknown if this was a seizure or a syncopal episode. Your lab values are normal. Your head CT and cervical spine CT are negative for acute findings requiring emergent intervention. Your chest x-ray was normal. You do have a history of seizures, you must follow-up with Neurology for further workup. Please do not drive for 6 months per [place] state Law after seizure. You were given a copy of the State Law regarding [place] driving restrictions after seizure. Thank you for choosing this emergency department for evaluation. Please follow-up with primary care physician as needed. Return to the emergency department for any new, concerning, or worsening symptoms. Prescriptions: No Action metronidazole [Flagyl] 500 mg tablet 500 mg PO BID 7 Days Qty: 14 RF: 0 prednisone 20 mg tablet 40 mg PO DAILY Qty: 20 RF: 0 prednisone 10 mg tablet 10 mg PO DAILY Qty: 30 RF: 0 ondansetron HCl [Zofran] 4 mg tablet 4 mg PO Q8H PRN (Reason: nausea and vomiting) Qty: 10 RF: 0 Xulane 150-35 mcg/24 hr patch weekly 1 patch transdermal QWEEK Qty: 3 RF: 11 estradiol [Estrace] 0.01 % (0.1 mg/gram) cream 1 g vaginal 2XW Qty: 42.5 RF: 0 Referrals: Denzel Baker MD [Physician] - 2 days (Seizure workup) Interventions: ED Discharge Assessment Last Done: 05/18/21 21:21 Discharge Date/Time: 05/18/21 21:22
--- NOTE | 2021-05-18 18:13 | ECG_ITS ---
Test Reason : SYNCOPE Blood Pressure : / mmHG Vent. Rate : 073 BPM Atrial Rate : 073 BPM P-R Int : 194 ms QRS Dur : 094 ms QT Int : 384 ms P-R-T Axes : 061 065 047 degrees QTc Int : 423 ms Normal sinus rhythm Normal ECG When compared with ECG of 22-JAN-2021 20:08, Heart rate has increased Referred By: Mayte Fung Electronically Signed By:KANDI CAVAZOS
[2021-05-18] MEDS: dexAMETHasone sod phosphate 10 MG/ML VIAL IVPUSH (18:35)
[2021-05-18 18:56] LABS: MANUAL DIFF FLAG NO
[2021-05-18 18:58] LABS: Basophils Absolute Auto 0.1 X10*3/uL (0.0-0.2); Basophils Percent Auto 0.7 % (0-2); Eosinophils Absolute Auto 0.2 X10*3/uL (0.0-0.4); Eosinophils Percent Auto 3.2 % (0-4); Hematocrit 33.8 % (37-47); Hemoglobin 11.7 g/dl (12.0-16.0); Imm Gran Abs Auto 0.03 X10*3/uL (0.00-0.03); Imm Gran Pct Auto 0.4 % (0.0-0.4); Lymphocytes Absolute Auto 1.7 X10*3/uL (1.2-4.9); Lymphocytes Percent Auto 23.3 % (20-40); Mean Corpuscular HGB Conc 34.6 g/dl (31.0-35.0); Mean Corpuscular Hemoglobin 28.8 pg (27.0-33.0); Mean Corpuscular Volume 83.3 fL (80-98); Mean Platelet Volume 10.7 fL (9.4-12.3); Monocytes Absolute Auto 0.2 X10*3/uL (0.1-1.2); Monocytes Percent Auto 3.1 % (2-11); Neutrophils Absolute Auto 4.9 X10*3/uL (2.0-8.3); Neutrophils Percent Auto 69.3 % (45-73); Platelet Count 200 X10*3/uL (160-400); Red Blood Count 4.06 X10*6/uL (4.20-5.50); Red Cell Distribution Width 12.5 % (11.0-16.0); White Blood Count 7.1 X10*3/uL (4.8-10.8)
--- NOTE | 2021-05-18 19:07 | PC.NURSE ---
Report taken from MEME Hoang. Syncopal episode with head strike. Hx of adrenal insufficiency and patient non compliant with medication. Has C-collar and awaiting imaging results
[2021-05-18 19:24] LABS: Ethanol < 10 mg/dL
[2021-05-18 19:27] LABS: Anion Gap 12 (12-20); Calcium 9.7 mg/dL (8.4-10.2); Chloride 106 mmol/L (96-108); Estimated Glomerular Filt Rate > 60; Glucose Random 108 mg/dL (60-115); Potassium 3.8 mmol/L (3.3-5.1); Sodium 139 mmol/L (135-145)
[2021-05-18 19:31] LABS: Troponin-I High Sensitivity < 3.5 ng/L (<3.5-17.0)
[2021-05-18 19:38] LABS: Blood Urea Nitrogen 11 mg/dL (9-16); Carbon Dioxide 25 mmol/L (22-29)
[2021-05-18 20:00] LABS: Glucose Urine UA NEG (NEG); Leukocyte Esterase Urine NEG (NEG); Nitrite Urine NEG (NEG); PH 7.5 (5.0-8.0); Specific Gravity - Urine 1.015 (1.005-1.025); Urine Blood NEG (NEG); Urine Ketones NEG (NEG); Urine Protein NEG (NEG-TRACE)
[2021-05-18 20:09] LABS: Appearance Urine CLEAR; Color Urine YELLOW
[2021-05-18 20:21] LABS: Amphetamine Screen Urine Not Detected (Not Detect); Barbiturates, Urine Not Detected (Not Detect); Benzodiazepines Screen Urine Not Detected (Not Detect); Cannabinoid Screen Urine POSITIVE (Not Detect); Cocaine Screen Urine Not Detected (Not Detect); Fentanyl, urine Not Detected (Not Detect); Opiate Screen Urine Not Detected (Not Detect); Phencyclidine Screen Urine Not Detected (Not Detect)
== END 2021-05-18 21:22 | disposition home or self-care (01) ==
PROVIDERS: Nurse Practitioner Family; Emergency Provider Emergency Medicine
DX: R55 Syncope and collapse (principal); Z79.899 Other long term (current) drug therapy; F17.210 Nicotine dependence, cigarettes, uncomplicated; Z71.6 Tobacco abuse counseling
CPT/HCPCS: 36415; 70450; 71045; 72125; 80048; 80307; 81003; 82077; 84484; 85025; 93005; 96374; 99284; 99285; J1100

== ENCOUNTER 2021-06-13 08:41 | Emergency (ER) | payer MEDICAID, SELFPAY ==
--- NOTE | 2021-06-13 12:10 | ED.GENADULT ---
HPI - General Adult General Stated complaint: FEVER Time Seen by Provider: 06/13/21 09:56 Source: patient Mode of arrival: ambulatory Limitations: no limitations History of Present Illness HPI narrative: Patient comes emergency room complaining of fever. Patient states that her son also has fever, runny nose. Denies chest pain or shortness of breath Related Data Previous Rx's Medication Instructions Recorded ondansetron HCl 4 mg tablet 4 mg PO Q8H PRN #10 tab 01/22/21 (Zofran) prednisone 10 mg tablet 10 mg PO DAILY #30 tab 01/22/21 prednisone 20 mg tablet 40 mg PO DAILY #20 tab 01/22/21 estradiol (Estrace) 1 g VAGINAL 2XW #42.5 g 04/20/21 norelgestromin 150 mcg-e.estradiol 1 patch TRANSDERMAL QWEEK #3 ea 04/20/21 35 mcg/24 hr weekly transderm patch (Xulane) metronidazole 500 mg tablet 500 mg PO BID 7 Days #14 tab 04/25/21 (Flagyl) Allergies Allergy/AdvReac Type Severity Reaction Status Date / Time cephalexin [From KEFLEX] Allergy Severe ANAPHYLAXIS Verified 05/18/21 17:59 morphine [MORPHINE] Allergy Mild VOMITING Verified 05/18/21 17:59 Review of Systems Review of Systems: Constitutional : No Weight loss, complaining of fever ENT/Mouth : No Hearing loss, No Ear Pain, No Nasal Congestion, No Sinus Pain, No Hoarseness, No sore throat, No Rhinorrhea, No Swallowing Difficulty Eyes: No Eye Pain, No Swelling, No Redness, No Foreign Body, No Discharge, No Vision Changes Cardiovascular : No Chest Pain, No SOB, No Dyspnea on Exertion, No Orthopnea, No Edema, No Palpitations Respiratory : Complaining of Cough, No Sputum, No Wheezing, No Smoke Exposure, No Dyspnea Gastrointestinal : No Nausea, No Vomiting, No Diarrhea, No Constipation, No abdominal Pain, No Hematochezia, No Melena Genitourinary : no irregular bleeding, No Dysuria, No Urinary Frequency, No Hematuria, No Urinary Incontinence, No Urgency, No Flank Pain, No Urinary Flow Changes, No Hesitancy Musculoskeletal : No joint pain, No Myalgias, No Joint Swelling Skin : No Skin Lesions, No rash Neuro : No Weakness, No Numbness, No Paresthesias, No Loss of Consciousness, No Dizziness, No Headache Psych : No Anxiety/Panic, No Depression, No SI/HI/AH/VH, No Social Issues, Heme/Lymph: No Bruising, No Bleeding,No Lymphadenopathy Endocrine : No Polyuria, No Polydipsia, No Temperature Intolerance [facility] Past Medical History Medical History (Updated 06/13/21 @ 12:12 by Shell Bush MD) Adrenal insufficiency Amenorrhea Hypothyroid Panhypopituitarism Family History Family History Maternal Grandmother History of breast cancer Maternal Aunt Ovarian cancer Maternal Grandfather Colon cancer Social History Social History Household Members Other:: Adopted her brother at 1.5yo (mother ). Polyamory-plans surrogate Alcohol intake: never Patient Tobacco Use Status: Current everyday Tobacco user Tobacco use type: Cigarette Cigarettes Per Day: 6 Advance Directives: Yes Advance Directives Information Provided: No Advance Directives on File: No Sexual orientation: Bisexual Gender identity: Female Course Course Course Narrative: I was informed by the patient's nurse that the patient did not wait for her COVID test and did not get her x-ray either. Patient eloped Discharge Plan Discharge Clinical Impression: Upper respiratory infection Patient Disposition: Elopement Prescriptions: No Action metronidazole [Flagyl] 500 mg tablet 500 mg PO BID 7 Days Qty: 14 RF: 0 prednisone 20 mg tablet 40 mg PO DAILY Qty: 20 RF: 0 prednisone 10 mg tablet 10 mg PO DAILY Qty: 30 RF: 0 ondansetron HCl [Zofran] 4 mg tablet 4 mg PO Q8H PRN (Reason: nausea and vomiting) Qty: 10 RF: 0 Xulane 150-35 mcg/24 hr patch weekly 1 patch transdermal QWEEK Qty: 3 RF: 11 estradiol [Estrace] 0.01 % (0.1 mg/gram) cream 1 g vaginal 2XW Qty: 42.5 RF: 0
== END 2021-06-13 12:23 | disposition left against medical advice (07) ==
PROVIDERS: Emergency Provider Emergency Medicine; PCP Nurse Practitioner Primary Care
DX: J06.9 Acute upper respiratory infection, unspecified (principal); R50.9 Fever, unspecified; F17.210 Nicotine dependence, cigarettes, uncomplicated; Z71.6 Tobacco abuse counseling; Z79.899 Other long term (current) drug therapy

== ENCOUNTER → 2021-06-23 09:13 | Outpatient (BNVA) | payer MEDICAID, SELFPAY | PROVIDERS: PCP Nurse Practitioner Primary Care; Visit Provider Advanced Practice Midwife ==

== ENCOUNTER 2021-06-23 09:47 | Emergency (ER) | payer MEDICAID, SELFPAY ==
--- NOTE | ~2021-06-23 | CT_ITS ---
EXAMINATION: CT HEAD WITHOUT CONTRAST CT CERVICAL SPINE WITHOUT CONTRAST CLINICAL INFORMATION: Fall. COMPARISON: CT head and cervical spine dated from 05/18/2021. TECHNIQUE: Contiguous axial imaging was performed from the skull base to vertex without intravenous administration of contrast. Contiguous axial imaging was performed from the upper chest through the skull base without intravenous administration of contrast. Coronal and sagittal reformats were obtained at the acquisition workstation. This CT examination was performed using dose optimization techniques as appropriate, variously including the following: *Automated exposure control *Adjustment of mA and or kV according to patient size (this includes techniques or standardized protocols for targeted exams where dose is matched to indication/reason for exam; i.e. extremities or head) *Use of iterative reconstruction technique DLP: 404 mGy-cm FINDINGS: Head: There is no evidence of acute intracranial hemorrhage or edematous territorial infarction. There is no abnormal attenuation within the brain parenchyma. Rodríguez-white matter differentiation is preserved. The ventricles are normal in size and configuration. No evidence for obstructive hydrocephalus. No abnormal mass effect or midline shift. No extra-axial fluid collections. No acute soft tissue or osseous abnormalities. There is mild mucoperiosteal thickening of the frontal sinuses and ethmoid air cells. The mastoids are well aerated. Cervical Spine: The atlantooccipital and atlantoaxial articulations remain well aligned. Straightening of the normal cervical lordosis. Otherwise, there is anatomic alignment of the vertebral bodies and posterior elements. No evidence of acute fracture or subluxation. The vertebral body heights and disc spaces are maintained. There is no prevertebral soft tissue swelling. The thyroid gland and remaining cervical soft tissues are normal in appearance. The lung apices demonstrate no abnormalities. CT/CT cervical spine wo con IMPRESSION: No acute intracranial pathology. No acute cervical abnormalities.
--- NOTE | 2021-06-23 09:52 | ECG_ITS ---
Test Reason : SEIZURE Blood Pressure : / mmHG Vent. Rate : 059 BPM Atrial Rate : 059 BPM P-R Int : 194 ms QRS Dur : 102 ms QT Int : 434 ms P-R-T Axes : 066 064 040 degrees QTc Int : 429 ms Sinus bradycardia with sinus arrhythmia Otherwise normal ECG When compared with ECG of 18-MAY-2021 18:23, Heart rate has decreased Referred By: Suly Day Electronically Signed By:KANDI CAVAZOS
--- NOTE | 2021-06-23 09:59 | ED_ITS ---
HPI - General Adult General Chief complaint: Seizure Stated complaint: Seizure Time Seen by Provider: 06/23/21 09:51 Source: patient Mode of arrival: other (outpatient response) Limitations: no limitations History of Present Illness HPI narrative: reported witnessed GTC activity in office not postictal no tongue biting, no incontinence, being worked up for possible seizures not on AEDs, hx of falls and spells related to anxiety in the past MD complaint: reported seizure activity and fall Onset (ago): minute(s) Location: head and neck Radiation: neck Severity: moderate Quality: aching Pain Consistency: constant Relieving factors: none Exacerbating factors: movement Associated symptoms: other (possible seizure activity) Treatments prior to arrival: other (cervical collar) Related Data Previous Rx's Medication Instructions Recorded ondansetron HCl 4 mg tablet 4 mg PO Q8H PRN #10 tab 01/22/21 (Zofran) prednisone 10 mg tablet 10 mg PO DAILY #30 tab 01/22/21 prednisone 20 mg tablet 40 mg PO DAILY #20 tab 01/22/21 estradiol (Estrace) 1 g VAGINAL 2XW #42.5 g 04/20/21 norelgestromin 150 mcg-e.estradiol 1 patch TRANSDERMAL QWEEK #3 ea 04/20/21 35 mcg/24 hr weekly transderm patch (Xulane) metronidazole 500 mg tablet 500 mg PO BID 7 Days #14 tab 04/25/21 (Flagyl) Allergies Allergy/AdvReac Type Severity Reaction Status Date / Time cephalexin [From KEFLEX] Allergy Severe ANAPHYLAXIS Verified 06/23/21 09:22 morphine [MORPHINE] Allergy Mild VOMITING Verified 06/23/21 09:22 Review of Systems Review of Systems: Constitutional : No Weight loss, No Fever, No Chills, No Fatigue, No Malaise ENT/Mouth : No sore throat, No Rhinorrhea Eyes: No Eye Pain, No Swelling, No Redness Cardiovascular : No Chest Pain, No SOB, No Dyspnea on Exertion, No Orthopnea, No Edema, No Palpitations Respiratory : No Cough, No Sputum, No Wheezing Gastrointestinal : No Nausea, No Vomiting, No Diarrhea, No Constipation, No abdominal Pain, No Hematochezia, No Melena Genitourinary : No Dysuria, No Urinary Frequency, No Hematuria, Musculoskeletal : No joint pain, No Myalgias, No Joint Swelling, pos neck pain Skin : No Skin Lesions, No rash Neuro : No Weakness, No Numbness, No Dizziness, pos Headache, pos seizure like movements Psych : No Anxiety/Panic, No Depression Heme/Lymph: No Bruising, No Bleeding,No Lymphadenopathy Endocrine : No Polyuria, No Polydipsia All other systems reviewed and are negative [facility] Past Medical History Attestation statement: The following information was validated with the patient. Medical History Adrenal insufficiency Amenorrhea Hypothyroid Panhypopituitarism Family History Family History Maternal Grandmother History of breast cancer Maternal Aunt Ovarian cancer Maternal Grandfather Colon cancer Social History Social History Household Members Other:: Adopted her brother at 1.5yo (mother ). Polyamory-plans surrogate Alcohol intake: never Patient Tobacco Use Status: Current everyday Tobacco user Tobacco use type: Cigarette Cigarettes Per Day: 6 Advance Directives: No Advance Directives Information Provided: Yes Patient : No Sexual orientation: Bisexual Gender identity: Female Physical Exam Vital Signs: Vital Signs: Last Vital Signs Temp 98.5 F 06/23/21 10:00 Pulse 66 06/23/21 10:00 Resp 15 06/23/21 10:00 BP 99/55 L 06/23/21 10:00 Pulse Ox 96 06/23/21 10:00 Body Mass Index 32.8 Appearance: Alert. Oriented X3. No acute distress. Eyes: Pupils equal, round and reactive to light. ENT: Pharynx normal. no tongue biting Neck: in collar CVS: Normal heart rate and rhythm. Pulses normal. Respiratory: No respiratory distress. Breath sounds normal. Abdomen: Soft and nontender. : no incontinence Skin: Skin warm and dry. Normal skin color. Normal skin turgor. Extremities: No lower extremity edema. No calf ttp Neuro: Oriented X 3. No motor deficit. No sensory deficit. not postictal Course Course Course Narrative: EKG negative, BP stable, up and walking returned to baseline can be DC at this time Medical Decision Making MDM Narrative Medical decision making narrative: 26 yo female with hx of panhypopituitarism, AI not on medications, possible seizure disorder comes in with c/o seizure movements but not postictal did hit head and c/o neck pain - labs, IVF, observat ion, CT scan of head/neck for trauma, unsure this was true epileptic seizures Lab Data Result diagrams: 06/23/21 10:02 06/23/21 10:02 Labs: Lab Results 06/23/21 06/23/21 06/23/21 Range/Units 10:02 10:02 10:39 WBC 5.7 (4.8-10.8) X10*3/uL RBC 4.22 (4.20-5.50) X10*6/uL Hgb 12.1 (12.0-16.0) g/dl Hct 35.3 L (37-47) % MCV 83.6 (80-98) fL MCH 28.7 (27.0-33.0) pg MCHC 34.3 (31.0-35.0) g/dl RDW 12.5 (11.0-16.0) % Plt Count 172 (160-400) X10*3/uL MPV 11.0 (9.4-12.3) fL Immature Gran % (Auto) 0.4 (0.0-0.4) % Neut % (Auto) 44.7 L (45-73) % Lymph % (Auto) 42.5 H (20-40) % Nelson % (Auto) 5.5 (2-11) % Eos % (Auto) 6.2 H (0-4) % Baso % (Auto) 0.7 (0-2) % Lymph # (Auto) 2.4 (1.2-4.9) X10*3/uL Nelson # (Auto) 0.3 (0.1-1.2) X10*3/uL Eos # (Auto) 0.4 (0.0-0.4) X10*3/uL Baso # (Auto) 0.0 (0.0-0.2) X10*3/uL Abs Immat Gran (auto) 0.02 (0.00-0.03) X10*3/uL Absolute Neuts (auto) 2.5 (2.0-8.3) X10*3/uL Absolute Nucleated RBC 0.000 (0.0-0.012) X10*3/uL Nucleated RBC % (auto) 0.0 (0.0-0.2) /100WBC Sodium 140 (135-145) mmol/L Potassium 3.8 (3.3-5.1) mmol/L Chloride 107 (96-108) mmol/L Carbon Dioxide 23 (22-29) mmol/L Anion Gap 14 (12-20) BUN 9 (9-16) mg/dL Creatinine 0.74 (0.5-1.4) mg/dL Estim Creat Clear Calc 117.1 Estimated GFR > 60 Random Glucose 103 (60-115) mg/dL Calcium 9.6 (8.4-10.2) mg/dL Magnesium 1.9 (1.6-2.6) mg/dL Total Bilirubin 0.3 (0.0-1.0) mg/dL Direct Bilirubin < 0.2 (0.0-0.5) mg/dL AST 57 H (5-31) U/L ALT 60 H (0-31) U/L Alkaline Phosphatase 96 (39-117) U/L Total Protein 6.6 (6.5-8.0) g/dL Albumin 4.4 (3.5-5.0) g/dL Lipase 21 (8-78) U/L Beta HCG, Quant < 2 mIU/mL COVID-19 ([facility]) Negative (Negative) COVID-19 Clin Com See Note ECG Data Attestation: I personally reviewed and interpreted this ECG as follows: Interpretation: Rate: 59 Rhythm: sinus bradycardia [place]: normal Normal P waves. Normal JUDEI. Normal QRS complex. ST T wave : normal no BEBE qTC: normal prior studies: no acute ischemi The study has been interpreted contemporaneously by me. . Discharge Plan Discharge Clinical Impression: Seizure-like activity Patient Disposition: Home, Self-Care Instructions: Recurrent Seizures in Adults (ED), Syncope (ED) Additional Instructions: return to ED for any worsening symptoms or concerns please follow up with your primary care provider and your debt counselor Prescriptions: No Action metronidazole [Flagyl] 500 mg tablet 500 mg PO BID 7 Days Qty: 14 RF: 0 prednisone 20 mg tablet 40 mg PO DAILY Qty: 20 RF: 0 prednisone 10 mg tablet 10 mg PO DAILY Qty: 30 RF: 0 ondansetron HCl [Zofran] 4 mg tablet 4 mg PO Q8H PRN (Reason: nausea and vomiting) Qty: 10 RF: 0 Xulane 150-35 mcg/24 hr patch weekly 1 patch transdermal QWEEK Qty: 3 RF: 11 estradiol [Estrace] 0.01 % (0.1 mg/gram) cream 1 g vaginal 2XW Qty: 42.5 RF: 0 Stand Alone Forms: Work/School Release
[2021-06-23 10:00] VITALS: BP 99/55; PULSE 66; RESP 15; TEMP 36.9; O2SAT 96; BMI 32.8
[2021-06-23 10:06] LABS: MANUAL DIFF FLAG NO
[2021-06-23 10:11] LABS: Basophils Percent Auto 0.7 % (0-2); Eosinophils Absolute Auto 0.4 X10*3/uL (0.0-0.4); Eosinophils Percent Auto 6.2 % (0-4); Hematocrit 35.3 % (37-47); Hemoglobin 12.1 g/dl (12.0-16.0); Imm Gran Abs Auto 0.02 X10*3/uL (0.00-0.03); Imm Gran Pct Auto 0.4 % (0.0-0.4); Lymphocytes Absolute Auto 2.4 X10*3/uL (1.2-4.9); Lymphocytes Percent Auto 42.5 % (20-40); Mean Corpuscular HGB Conc 34.3 g/dl (31.0-35.0); Mean Corpuscular Hemoglobin 28.7 pg (27.0-33.0); Mean Corpuscular Volume 83.6 fL (80-98); Monocytes Absolute Auto 0.3 X10*3/uL (0.1-1.2); Monocytes Percent Auto 5.5 % (2-11); Neutrophils Absolute Auto 2.5 X10*3/uL (2.0-8.3); Neutrophils Percent Auto 44.7 % (45-73); Platelet Count 172 X10*3/uL (160-400); Red Blood Count 4.22 X10*6/uL (4.20-5.50); Red Cell Distribution Width 12.5 % (11.0-16.0); White Blood Count 5.7 X10*3/uL (4.8-10.8)
[2021-06-23 10:22] LABS: Alanine Aminotransferase 60 U/L (0-31); Albumin Level 4.4 g/dL (3.5-5.0); Alkaline Phosphatase 96 U/L (39-117); Anion Gap 14 (12-20); Aspartate Amino Transferase 57 U/L (5-31); Bilirubin Direct < 0.2 mg/dL (0.0-0.5); Bilirubin Total 0.3 mg/dL (0.0-1.0); Blood Urea Nitrogen 9 mg/dL (9-16); Calcium 9.6 mg/dL (8.4-10.2); Carbon Dioxide 23 mmol/L (22-29); Chloride 107 mmol/L (96-108); Creatinine Clr Calc Pharmacy 117.1; Estimated Glomerular Filt Rate > 60; Glucose Random 103 mg/dL (60-115); Lipase 21 U/L (8-78); Magnesium 1.9 mg/dL (1.6-2.6); Potassium 3.8 mmol/L (3.3-5.1); Sodium 140 mmol/L (135-145); Total Protein 6.6 g/dL (6.5-8.0)
[2021-06-23] MEDS: 0.9 % Sodium Chloride 1,000 ML 999 ML IVCONT (10:28)
[2021-06-23 10:29] LABS: HCG Quantitative < 2 mIU/mL
[2021-06-23 11:08] LABS: COVID-19 Test Negative (Negative); IDNOW Serial# 08D9AD1C
[2021-06-23] MEDS: Ibuprofen 600 MG TABLET PO (11:57)
[2021-06-23 12:32] VITALS: BP 115/80; PULSE 72; RESP 15
== END 2021-06-23 12:36 | disposition home or self-care (01) ==
PROVIDERS: Emergency Provider Emergency Medicine; PCP Pediatrics
DX: R56.9 Unspecified convulsions (principal); F17.200 Nicotine dependence, unspecified, uncomplicated; Z20.822 Contact with and (suspected) exposure to COVID-19; Z71.6 Tobacco abuse counseling; Z79.899 Other long term (current) drug therapy
CPT/HCPCS: 36415; 70450; 72125; 80048; 80076; 83690; 83735; 84702; 85025; 87635; 93005; 96360; 99284

== ENCOUNTER 2021-07-18 12:57 | Outpatient (REF) | payer MEDICAID, SELFPAY ==
--- NOTE | ~2021-07-18 | MR_ITS ---
EXAMINATION: MR BRAIN WITHOUT AND WITH CONTRAST CLINICAL INFORMATION: Seizures. Hypopituitarism. COMPARISON: Head CT 06/23/2021. TECHNIQUE: Multiplanar, multisequence imaging of the brain was performed before and after the intravenous administration of 4.5 mL of Gadavist. FINDINGS: There is no acute infarction, mass, hemorrhage, or extra-axial collection. No abnormal or unexpected intracranial enhancement is seen. The ventricles, sulci, and basilar cisterns are normal in size and configuration. The brain parenchyma signal appears normal. The corpus callosum is fully formed. The cerebellar tonsils terminate normally above the foramen magnum. The upper cervical cord is normal in caliber. The hippocampi demonstrate normal size, signal, and morphology and appear symmetric. There is no evidence of focal cortical dysplasia. No heterotopic encinas matter is seen. The pituitary gland is small in size and demonstrates a partially empty configuration. The posterior pituitary bright spot/neurohypophysis is ectopic and seen along the third ventricular floor. The infundibulum is not definitively present. The flow voids of the major intracranial arteries appear intact. The bones and extracranial soft tissues are within normal limits. MR/MR head/brain wo/w con IMPRESSION: Ectopic positioning of the posterior pituitary which is seen along the floor of the third ventricle. Adenohypophysis is small in size. Infundibulum is not definitively seen. 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 No acute intracranial abnormality. No discrete epileptogenic nidus identified.
== END 2021-07-18 12:58 | disposition home or self-care (01) ==
LOC: HO.MRI 12:57
PROVIDERS: Visit Provider Psychiatry & Neurology Neurology
DX: R56.9 Unspecified convulsions (principal); E23.0 Hypopituitarism
CPT/HCPCS: 70553; A9585

== ENCOUNTER 2021-08-09 13:05 | Outpatient (REF) | payer MEDICAID, SELFPAY ==
--- NOTE | 2021-08-09 13:09 | EEG_ITS ---
24-hour ambulatory EEG: The waking background activity consists of a moderate voltage posterior 8 to 9 hertz alpha frequency, intermixed with low voltage fast frequencies anteriorly. Drowsiness is characterized by diffuse theta slowing. During sleep, symmetrical, frontal, central sleep spindles and vertex sharp transients developed over both hemispheres. During deeper stages of sleep, frontal central and frontally accentuated delta is seen. Arousals are frequent and unremarkable. Some frontal rhythmic delta with blinking are noted. At times, there was some surging of theta intermittently, left greater than right. The patient remained asymptomatic and no diary was returned. IMPRESSION: This 24-hour ambulatory EEG is considered within normal limits. MD VALERIE Maguire/NILAY / [id number]
== END 2021-08-09 13:06 | disposition home or self-care (01) ==
LOC: HO.NEURO 13:05
PROVIDERS: PCP Pediatrics; Visit Provider Psychiatry & Neurology Neurology
DX: R56.9 Unspecified convulsions (principal)
CPT/HCPCS: 95708; 95957

== ENCOUNTER 2021-08-27 06:28 | Emergency (ER) | payer MEDICAID, SELFPAY ==
--- NOTE | ~2021-08-27 | XR_ITS ---
EXAMINATION: RIGHT KNEE, RIGHT ANKLE AND RIGHT FOOT. CLINICAL INFORMATION: Fall. Pain. COMPARISON: None TECHNIQUE: Right foot 3 views. Right ankle 4 views. Right knee 4 views. FINDINGS: Right foot: There is no visible acute fracture, dislocation or subluxation. The soft tissues are normal. Right ankle: The subtalar joint and the ankle mortise is intact. There is no visible acute fracture or dislocation. There is mild lateral malleolar soft tissue swelling. Right knee: The tricompartment joint space is normal. No visible acute fracture, dislocation or subluxation seen. The soft tissues are normal.. XR/XR knee RT 4V IMPRESSION: Mild lateral malleolar soft tissue swelling. There is no acute fracture or dislocation right ankle and right foot. Unremarkable right knee exam.
--- NOTE | ~2021-08-27 | XR_ITS ---
EXAMINATION: RIGHT KNEE, RIGHT ANKLE AND RIGHT FOOT. CLINICAL INFORMATION: Fall. Pain. COMPARISON: None TECHNIQUE: Right foot 3 views. Right ankle 4 views. Right knee 4 views. FINDINGS: Right foot: There is no visible acute fracture, dislocation or subluxation. The soft tissues are normal. Right ankle: The subtalar joint and the ankle mortise is intact. There is no visible acute fracture or dislocation. There is mild lateral malleolar soft tissue swelling. Right knee: The tricompartment joint space is normal. No visible acute fracture, dislocation or subluxation seen. The soft tissues are normal.. XR/XR ankle RT min 3V IMPRESSION: Mild lateral malleolar soft tissue swelling. There is no acute fracture or dislocation right ankle and right foot. Unremarkable right knee exam.
--- NOTE | ~2021-08-27 | XR_ITS ---
EXAMINATION: RIGHT KNEE, RIGHT ANKLE AND RIGHT FOOT. CLINICAL INFORMATION: Fall. Pain. COMPARISON: None TECHNIQUE: Right foot 3 views. Right ankle 4 views. Right knee 4 views. FINDINGS: Right foot: There is no visible acute fracture, dislocation or subluxation. The soft tissues are normal. Right ankle: The subtalar joint and the ankle mortise is intact. There is no visible acute fracture or dislocation. There is mild lateral malleolar soft tissue swelling. Right knee: The tricompartment joint space is normal. No visible acute fracture, dislocation or subluxation seen. The soft tissues are normal.. XR/XR foot RT 2V IMPRESSION: Mild lateral malleolar soft tissue swelling. There is no acute fracture or dislocation right ankle and right foot. Unremarkable right knee exam.
[2021-08-27 07:00] VITALS: BP 128/78; PULSE 66; RESP 16; TEMP 36.6; O2SAT 96; BMI 30.9
--- NOTE | 2021-08-27 07:04 | ED.FALL ---
HPI - Fall General Chief Complaint: Fall Stated Complaint: leg injury + fall Time Seen by Provider: 08/27/21 06:41 Source: patient Mode of arrival: ambulatory Limitations: no limitations History of Present Illness MD complaint: fall Onset (ago): day(s) (yesterday ) Fall from: standing Fall witnessed: no Place fall occurred: home Loss of consciousness: none Prolonged down time: no Symptoms prior to fall: none Context: tripped/slipped Location of injury - extremities: right: knee, ankle and foot Severity: severe Quality: throbbing Associated symptoms (after fall): denies Related Data Previous Rx's Medication Instructions Recorded ondansetron HCl 4 mg tablet 4 mg PO Q8H PRN #10 tab 01/22/21 (Zofran) prednisone 10 mg tablet 10 mg PO DAILY #30 tab 01/22/21 prednisone 20 mg tablet 40 mg PO DAILY #20 tab 01/22/21 estradiol (Estrace) 1 g VAGINAL 2XW #42.5 g 04/20/21 norelgestromin 150 mcg-e.estradiol 1 patch TRANSDERMAL QWEEK #3 ea 04/20/21 35 mcg/24 hr weekly transderm patch (Xulane) metronidazole 500 mg tablet 500 mg PO BID 7 Days #14 tab 04/25/21 (Flagyl) cyclobenzaprine 10 mg tablet 10 mg PO TID PRN #14 tab 08/27/21 hydrocodone 5 mg-acetaminophen 325 1 tab PO Q6H PRN #8 tab 08/27/21 mg tablet ibuprofen 600 mg tablet 600 mg PO Q6H PRN #30 tab 08/27/21 ondansetron 4 mg disintegrating 4 mg PO Q8H PRN #20 tab 08/27/21 tablet Allergies Allergy/AdvReac Type Severity Reaction Status Date / Time cephalexin [From KEFLEX] Allergy Severe ANAPHYLAXIS Verified 06/23/21 09:22 morphine [MORPHINE] Allergy Mild VOMITING Verified 06/23/21 09:22 Review of Systems Review of Systems: Constitutional : No Fever, No Chills ENT/Mouth : No Ear Pain, No Hoarseness, No sore throat Eyes: No Eye Pain, No Swelling, No Redness, No Foreign Body Cardiovascular : No Chest Pain, No SOB Respiratory : No Cough, No Dyspnea Gastrointestinal : No Nausea, No Vomiting, No Diarrhea, No abdominal Pain Genitourinary : No Dysuria, No Hematuria Musculoskeletal : positive joint pain, No Myalgias, pos Joint Swelling Skin : No Skin lacerations, No rash Neuro : No Weakness, No Numbness, No Loss of Consciousness, No Dizziness, No Headache Psych : No Anxiety/Panic, No Depression PMFSH Past Medical History Attestation statement: The following information was validated with the patient. Medical History Adrenal insufficiency Amenorrhea Hypothyroid Panhypopituitarism Family History Family History Maternal Grandmother History of breast cancer Maternal Aunt Ovarian cancer Maternal Grandfather Colon cancer Social History Social History Household Members Other:: Adopted her brother at 1.5yo (mother ). Polyamory-plans surrogate Alcohol intake: never Patient Tobacco Use Status: Current everyday Tobacco user Tobacco use type: Cigarette Cigarettes Per Day: 6 Advance Directives: No Advance Directives Information Provided: Yes Sexual orientation: Bisexual Gender identity: Female Physical Exam Vital Signs: Vital Signs: Last Vital Signs Temp 97.8 F 08/27/21 07:00 Pulse 66 08/27/21 07:00 Resp 16 08/27/21 07:00 BP 128/78 08/27/21 07:00 Pulse Ox 96 08/27/21 07:00 Body Mass Index 30.9 Appearance: Alert. Oriented X3. No acute distress. Eyes: Pupils equal, round and reactive to light. ENT: Pharynx normal. Neck: Normal inspection. Neck supple. CVS: Normal heart rate and rhythm. Pulses normal. Respiratory: No respiratory distress. Breath sounds normal. Abdomen: Soft and nontender. Skin: Skin warm and dry. Normal skin color. Normal skin turgor. Extremities: R knee moderate effusion cannot range due to pain, R ankle mild swelling lateral malleolus, R foot swelling on dorsum - distal NV intact BCR in toes bounding DP/PT pulses compartments are soft and compressible, SILT intact Neuro: Oriented X 3. No motor deficit. No sensory deficit. Course Course Course Narrative: pain greatly improved with knee immobilizer Procedures Orthopedic Splinting/Casting Injury #1: Side: right Lower Extremity Injury Location: knee Lower Extremity Immobilizer: knee immobilizer Other Orthopedic Equipment: crutches MDM - Fall MDM Narrative Medical decision making narrative: 26 yo female mechanical fall - R knee ankle foot pain she is distal NV intact no other injuries reported suspect internal knee injury and ligamentous injury - will obtain xrays and provide analgesia, knee immobilizer ordered at this time. Discharge Plan Discharge Clinical Impression: Knee sprain Qualifiers: Encounter type: initial encounter Involved ligament of knee: unspecified ligament Laterality: right Qualified Code(s): S83.91XA - Sprain of unspecified site of right knee, initial encounter Effusion of knee Qualifiers: Laterality: right Qualified Code(s): M25.461 - Effusion, right knee Ankle sprain Qualifiers: Encounter type: initial encounter Involved ligament of ankle: unspecified ligament Laterality: right Qualified Code(s): S93.401A - Sprain of unspecified ligament of right ankle, initial encounter Foot sprain Qualifiers: Encounter type: initial encounter Laterality: right Qualified Code(s): S93.601A - Unspecified sprain of right foot, initial encounter Patient Disposition: Home, Self-Care Instructions: Ankle Sprain (ED), Knee Sprain (ED), Crutch Instructions (ED), Foot Sprain (ED), Swollen Knee Joint (ED), R.I.C.E. Treatment (ED) Additional Instructions: return to ED for any worsening symptoms or concerns no weight bearing until released, wear immobilizer you can take it off to shower. you will need MRI to assess the internal damage to your knee Prescriptions: New cyclobenzaprine 10 mg tablet 10 mg PO TID PRN (Reason: muscle spasm) Qty: 14 RF: 0 hydrocodone-acetaminophen 5-325 mg tablet 1 tab PO Q6H PRN (Reason: pain) Qty: 8 RF: 0 ibuprofen 600 mg tablet 600 mg PO Q6H PRN (Reason: pain) Qty: 30 RF: 0 ondansetron 4 mg tablet,disintegrating 4 mg PO Q8H PRN (Reason: nausea and vomiting) Qty: 20 RF: 0 No Action metronidazole [Flagyl] 500 mg tablet 500 mg PO BID 7 Days Qty: 14 RF: 0 prednisone 20 mg tablet 40 mg PO DAILY Qty: 20 RF: 0 prednisone 10 mg tablet 10 mg PO DAILY Qty: 30 RF: 0 ondansetron HCl [Zofran] 4 mg tablet 4 mg PO Q8H PRN (Reason: nausea and vomiting) Qty: 10 RF: 0 Xulane 150-35 mcg/24 hr patch weekly 1 patch transdermal QWEEK Qty: 3 RF: 11 estradiol [Estrace] 0.01 % (0.1 mg/gram) cream 1 g vaginal 2XW Qty: 42.5 RF: 0 Referrals: [facility] [Primary Care Provider] - 2 days
[2021-08-27] MEDS: Ketorolac Tromethamine 60 MG/2 ML VIAL IM (07:30)
[2021-08-27] MEDS: Ondansetron ODT 4 MG TAB.RAPDIS TRANSLINGU (07:30)
[2021-08-27] MEDS: Cyclobenzaprine HCl 10 MG TABLET PO (07:30)
== END 2021-08-27 08:15 | disposition home or self-care (01) ==
PROVIDERS: Emergency Provider Emergency Medicine
DX: S83.91XA Sprain of unspecified site of right knee, initial encounter (principal); M25.461 Effusion, right knee; S93.401A Sprain of unspecified ligament of right ankle, initial encounter; S93.601A Unspecified sprain of right foot, initial encounter; W01.0XXA Fall on same level from slipping, tripping and stumbling without subsequent striking against object, initial encounter; Y93.9 Activity, unspecified; Y92.009 Unspecified place in unspecified non-institutional (private) residence as the place of occurrence of the external cause; Y99.9 Unspecified external cause status
CPT/HCPCS: 73564; 73610; 73620; 96372; 99283; 99284; J1885

== ENCOUNTER 2021-09-05 13:36 | Outpatient (REF) | payer MEDICAID, SELFPAY | END 2021-09-05 13:37 | disposition home or self-care (01) | LOC: HO.HMGCLDS 13:36 | PROVIDERS: Visit Provider Internal Medicine | DX: Z20.822 Contact with and (suspected) exposure to COVID-19 (principal) | CPT/HCPCS: C9803; U0003; U0005 ==

== ENCOUNTER 2021-09-09 06:07 | Emergency (ER) | payer MEDICAID, SELFPAY ==
--- NOTE | ~2021-09-09 | CT_ITS ---
EXAMINATION: CT HEAD WITHOUT CONTRAST CLINICAL INFORMATION: Headache. Nausea and vomiting. COMPARISON: Previous head CT most recent June 2021 and brain MRI July 2021 TECHNIQUE: Contiguous axial imaging was performed from the skull base to vertex without intravenous administration of contrast. This CT examination was performed using dose optimization techniques as appropriate, variously including the following: *Automated exposure control *Adjustment of mA and/or kV according to patient size (this includes techniques or standardized protocols for targeted exams where dose is matched to indication/reason for exam; i.e. extremities or head) *Use of iterative reconstruction technique DLP: 632 mGy-cm FINDINGS: There is no evidence of acute intracranial hemorrhage or territorial infarction. No abnormal mass effect or midline shift is seen. Rodríguez to white matter differentiation is well preserved. No extra-axial fluid collections are identified. The ventricles are normal in size. There is no abnormal attenuation within the brain parenchyma. The osseous structures and soft tissues are normal. The mastoid air cells and visualized portions of the paranasal sinuses are well aerated. CT/CT head/brain wo con IMPRESSION: Unremarkable exam.
[2021-09-09 06:22] VITALS: BP 134/85; PULSE 72; RESP 18; TEMP 35.9; O2SAT 98; BMI 31.8
--- NOTE | 2021-09-09 06:49 | ED_ITS ---
HPI - General Adult General Chief complaint: General Medical Stated complaint: Vomiting, migraine Time Seen by Provider: 09/09/21 06:43 Source: patient Limitations: no limitations History of Present Illness HPI narrative: This is a 26-year-old female who has been waking up the last few mornings with a severe headache and vomiting. The headache gets better over the course the day and is gone in the afternoon. Patient denies any fever. She does have some pain down to her neck but denies neck stiffness. She denies any visual change sore numbness or weakness in her arms or legs or face. She denies any increased stress. She did have a COVID exposure but was tested 4 days ago and was negative. She denies being . She denies any cough or shortness of breath. She denies abdominal pain except soreness associated with vomiting and dry heaving. She denies diarrhea. She denies urinary symptoms. She does note the light bothers her eyes. Related Data Previous Rx's Medication Instructions Recorded ondansetron HCl 4 mg tablet 4 mg PO Q8H PRN #10 tab 01/22/21 (Zofran) prednisone 10 mg tablet 10 mg PO DAILY #30 tab 01/22/21 prednisone 20 mg tablet 40 mg PO DAILY #20 tab 01/22/21 estradiol (Estrace) 1 g VAGINAL 2XW #42.5 g 04/20/21 norelgestromin 150 mcg-e.estradiol 1 patch TRANSDERMAL QWEEK #3 ea 04/20/21 35 mcg/24 hr weekly transderm patch (Xulane) metronidazole 500 mg tablet 500 mg PO BID 7 Days #14 tab 04/25/21 (Flagyl) cyclobenzaprine 10 mg tablet 10 mg PO TID PRN #14 tab 08/27/21 hydrocodone 5 mg-acetaminophen 325 1 tab PO Q6H PRN #8 tab 08/27/21 mg tablet ibuprofen 600 mg tablet 600 mg PO Q6H PRN #30 tab 08/27/21 ondansetron 4 mg disintegrating 4 mg PO Q8H PRN #20 tab 08/27/21 tablet xycqpkcxfl-lqmqhivtyoovm-scctgoge 1 cap PO Q4H PRN #12 cap 09/09/21 50 mg-300 mg-40 mg capsule (Fioricet) prochlorperazine 25 mg rectal 25 mg UT Q12H PRN #12 ea 09/09/21 suppository (Compazine) Allergies Allergy/AdvReac Type Severity Reaction Status Date / Time cephalexin [From KEFLEX] Allergy Severe ANAPHYLAXIS Verified 06/23/21 09:22 morphine [MORPHINE] Allergy Mild VOMITING Verified 06/23/21 09:22 Review of Systems Review of Systems: Yes all other systems are reviewed and are negative Constitutional: Constitutional: Reports as per HPI, Denies fever(s) and Reports headache(s) Eyes: Eyes: Reports as per HPI and Reports no additional eye complaints ENT: Reports system reviewed and no additional complaints, except as documented, Reports as per HPI, Reports headache(s), Denies nasal congestion, Denies nasal discharge and Denies sore throat Cardiovascular: Cardiovascular: Reports as per HPI, Denies chest pain and Denies dyspnea Respiratory: Respiratory: Reports as per HPI, Denies cough and Denies dyspnea Gastrointestinal: Gastrointestinal: Reports as per HPI, Reports abdominal rigoberto n, Denies diarrhea, Reports nausea and Reports vomiting Genitourinary: Genitourinary: Reports as per HPI, Denies hematuria, Denies urinary frequency and Denies dysuria Musculoskeletal: Musculoskeletal: Reports no additional musculoskeletal complaints and Denies numbness Integumentary/Breasts: Skin/Breast: Reports as per HPI and Denies rash Neurologic: Reports headache(s), Denies focal weakness, Denies numbness and Denies Sensory deficit (Neuro) Psychiatric: Psychiatric: Reports no additional psychiatric complaints and Reports as per HPI Endocrine: Endocrine: Reports no additional endocrine complaints and Reports as per HPI Hematologic/Lymphatic: Hematologic/Lymphatic: Reports no additional hematologic/lymphatic complaints, Reports as per HPI and Reports other (No peripheral edema) [facility] Past Medical History Medical History Adrenal insufficiency Amenorrhea Hypothyroid Panhypopituitarism Family History Family History Maternal Grandmother History of breast cancer Maternal Aunt Ovarian cancer Maternal Grandfather Colon cancer Social History Social History Household Members Other:: Adopted her brother at 1.5yo (mother ). Polyamory-plans surrogate Alcohol intake: never Patient Tobacco Use Status: Never used Tobacco Tobacco use type: Cigarette Cigarettes Per Day: 6 Use of substances other than those prescribed or required for medical reasons: No Advance Directives: No Advance Directives Information Provided: Yes Patient : No Sexual orientation: Bisexual Gender identity: Female Physical Exam Vital Signs: Vital Signs: Last Vital Signs Temp 98.0 F 09/09/21 11:27 Pulse 60 09/09/21 11:27 Resp 16 09/09/21 11:27 BP 106/49 L 09/09/21 11:27 Pulse Ox 96 09/09/21 11:27 BMI result Body Mass Index 31.8 Const: Other: Patient dry heaving, appears uncomfortable General: cooperative, no acute distress and alert Orientation/consciousness: patient oriented x3 HENMT: Head: Yes normal to inspection Eyes: General: appearance normal, both eyes and all related structures Eyelids: Yes eyelids normal Conjunctivae: conjunctivae normal Pupils: Equal, round and reactive pupils present Neck: Neck: Yes normal visual inspection and Yes supple Chest: Chest palpation & inspection: normal inspection of the chest Resp: Effort & Inspection: normal respiratory effort Auscultation: clear to auscultation bilaterally Cardio: Rate: regular rate Rhythm: regular rhythm Heart sounds: S1 normal heart sound present, S2 normal heart sound present, no gallops, no murmurs and no rubs GI: Palpation (GI): Soft to palpation, nontender and Other GI palpation findings present (Non-distended) Auscultation: normal bowel sounds Skin: General skin exam: no rashes or lesions noted Neuro: General: patient oriented x3, no focal motor deficits and CN's II-XI intact bilaterally Cranial nerves: Yes Equal, round and reactive pupils present Cognition (Neuro): normal cognition Motor exam (neuro): 5/5 motor strength present throughout Sensory Exam: No Sensory deficit (Neuro) Extrem: General: Yes normal to inspection and Yes no pedal edema Psych: Appearance: grossly normal Affect: normal affect Medical Decision Making MDM Narrative Medical decision making narrative: Patient was re-evaluated at 10:20. Patient feeling somewhat better. Headache is improved but still about a 7/10. Nausea and vomiting are improved. CT of the brain negative. White blood cell count mildly elevated, likely secondary to vomiting. Mild elevation of liver transaminases, otherwise normal chemistry. Urinalysis pending Patient's workup was negative for any acute finding. Urinalysis was negative. Patient improved with medication in the ED. Patient had [employer] ?thunderclap headache?. Headache has been in the mornings recurrent not [address] negative. Low suspicion for subarachnoid hemorrhage. Discussed lumbar puncture with the patient and she declined. Will treat with Fioricet and Compazine Lab Data Result diagrams: 09/09/21 07:57 09/09/21 09:45 Labs: Lab Results 09/09/21 09/09/21 09/09/21 Range/Units 07:16 07:57 09:45 WBC 13.4 H (4.8-10.8) X10*3/uL RBC 4.63 (4.20-5.50) X10*6/uL Hgb 13.1 (12.0-16.0) g/dl Hct 39.8 (37.0-47.0) % MCV 86.0 (80.0-98.0) fL MCH 28.3 (27.0-33.0) pg MCHC 32.9 (31.0-35.0) g/dl RDW 12.7 (11.0-16.0) % Plt Count 230 (160-400) X10*3/uL MPV 10.8 (9.4-12.3) fL Immature Gran % (Auto) 0.5 H (0.0-0.4) % Neut % (Auto) 74.1 H (45-73) % Lymph % (Auto) 20.3 (20-40) % [place] % (Auto) 3.9 (2-11) % Eos % (Auto) 0.9 (0-4) % Baso % (Auto) 0.3 (0-2) % Lymph # (Auto) 2.7 (1.2-4.9) X10*3/uL [place] # (Auto) 0.5 (0.1-1.2) X10*3/uL Eos # (Auto) 0.1 (0.0-0.4) X10*3/uL Baso # (Auto) 0.0 (0.0-0.2) X10*3/uL Abs Immat Gran (auto) 0.07 H (0.00-0.03) X10*3/uL Absolute Neuts (auto) 10.0 H (2.0-8.3) x10*3/uL Absolute Nucleated RBC 0.000 (0.0-0.012) X10*3/uL Nucleated RBC % (auto) 0.0 (0.0-0.2) /100WBC Sodium 141 (135-145) mmol/L Potassium 4.1 (3.3-5.1) mmol/L Chloride 107 (96-108) mmol/L Carbon Dioxide 22 (22-29) mmol/L Anion Gap 16 (12-20) BUN 16 (9-16) mg/dL Creatinine 0.72 (0.5-1.4) mg/dL Estim Creat Clear Calc 118.7 Estimated GFR > 60 Random Glucose 70 (60-115) mg/dL Calcium 9.4 (8.4-10.2) mg/dL Total Bilirubin 0.4 (0.0-1.0) mg/dL AST 40 H (5-31) U/L ALT 47 H (0-31) U/L Alkaline Phosphatase 64 D (39-117) U/L Total Protein 7.3 (6.5-8.0) g/dL Albumin 4.6 (3.5-5.0) g/dL Beta HCG, Quant < 2 mIU/mL Urine Color Urine Appearance Urine pH (5.0-8.0) Ur Specific [place] (1.005-1.025) Urine Protein (NEG-TRACE) MG/DL Urine Glucose (UA) (NEG) MG/DL Urine Ketones (NEG) MG/DL Urine Blood (NEG) Urine Nitrite (NEG) Ur Leukocyte Esterase (NEG) Urine RBC (0) /HPF Urine WBC (0-4) /HPF Ur Squamous Epith Cells /LPF Urine Bacteria /LPF COVID-19 ([facility]) Negative (Negative) COVID-19 Clin Com See Note 09/09/21 Range/Units 11:25 WBC (4.8-10.8) X10*3/uL RBC (4.20-5.50) X10*6/uL Hgb (12.0-16.0) g/dl Hct (37.0-47.0) % MCV (80.0-98.0) fL MCH (27.0-33.0) pg MCHC (31.0-35.0) g/dl RDW (11.0-16.0) % Plt Count (160-400) X10*3/uL MPV (9.4-12.3) fL Immature Gran % (Auto) (0.0-0.4) % Neut % (Auto) (45-73) % Lymph % (Auto) (20-40) % [place] % (Auto) (2-11) % Eos % (Auto) (0-4) % Baso % (Auto) (0-2) % Lymph # (Auto) (1.2-4.9) X10*3/uL [place] # (Auto) (0.1-1.2) X10*3/uL Eos # (Auto) (0.0-0.4) X10*3/uL Baso # (Auto) (0.0-0.2) X10*3/uL Abs Immat Gran (auto) (0.00-0.03) X10*3/uL Absolute Neuts (auto) (2.0-8.3) x10*3/uL Absolute Nucleated RBC (0.0-0.012) X10*3/uL Nucleated RBC % (auto) (0.0-0.2) /100WBC Sodium (135-145) mmol/L Potassium (3.3-5.1) mmol/L Chloride (96-108) mmol/L Carbon Dioxide (22-29) mmol/L Anion Gap (12-20) BUN (9-16) mg/dL Creatinine (0.5-1.4) mg/dL Estim Creat Clear Calc Estimated GFR Random Glucose (60-115) mg/dL Calcium (8.4-10.2) mg/dL Total Bilirubin (0.0-1.0) mg/dL AST (5-31) U/L ALT (0-31) U/L Alkaline Phosphatase (39-117) U/L Total Protein (6.5-8.0) g/dL Albumin (3.5-5.0) g/dL Beta HCG, Quant mIU/mL Urine Color YELLOW Urine Appearance CLEAR Urine pH 6.5 (5.0-8.0) Ur Specific [place] 1.020 (1.005-1.025) Urine Protein NEG (NEG-TRACE) MG/DL Urine Glucose (UA) NEG (NEG) MG/DL Urine Ketones NEG (NEG) MG/DL Urine Blood TRACE (NEG) Urine Nitrite NEG (NEG) Ur Leukocyte Esterase NEG (NEG) Urine RBC 0-2 (0) /HPF Urine WBC 0-2 (0-4) /HPF Ur Squamous Epith Cells 1+ /LPF Urine Bacteria TRACE /LPF COVID-19 ([facility]) (Negative) COVID-19 Clin Com Discharge Plan Discharge Clinical Impression: Headache, Vomiting Patient Disposition: Home, Self-Care Instructions: Acute Headache (ED), Acute Nausea and Vomiting (ED) Additional Instructions: Use the Compazine suppositories for nausea and headache. You can also use the Fioricet tablets, as well as ibuprofen. Follow up with her primary care physician. Return for any new or worsened symptoms such as worse or more persistent headache, fever or neck stiffness Prescriptions: New prochlorperazine [Compazine] 25 mg suppository 25 mg UT Q12H PRN (Reason: nausea and vomiting) Qty: 12 RF: 0 cfupxrbvij-thrkikhvrlexu-nwwx [Fioricet] 50-300-40 mg capsule 1 cap PO Q4H PRN (Reason: pain) Qty: 12 RF: 0 No Action metronidazole [Flagyl] 500 mg tablet 500 mg PO BID 7 Days Qty: 14 RF: 0 prednisone 20 mg tablet 40 mg PO DAILY Qty: 20 RF: 0 prednisone 10 mg tablet 10 mg PO DAILY Qty: 30 RF: 0 ondansetron HCl [Zofran] 4 mg tablet 4 mg PO Q8H PRN (Reason: nausea and vomiting) Qty: 10 RF: 0 cyclobenzaprine 10 mg tablet 10 mg PO TID PRN (Reason: muscle spasm) Qty: 14 RF: 0 hydrocodone-acetaminophen 5-325 mg tablet 1 tab PO Q6H PRN (Reason: pain) Qty: 8 RF: 0 ibuprofen 600 mg tablet 600 mg PO Q6H PRN (Reason: pain) Qty: 30 RF: 0 ondansetron 4 mg tablet,disintegrating 4 mg PO Q8H PRN (Reason: nausea and vomiting) Qty: 20 RF: 0 Xulane 150-35 mcg/24 hr patch weekly 1 patch transdermal QWEEK Qty: 3 RF: 11 estradiol [Estrace] 0.01 % (0.1 mg/gram) cream 1 g vaginal 2XW Qty: 42.5 RF: 0 Interventions: ED Discharge Assessment Last Done: 09/09/21 11:58 Discharge Date/Time: 09/09/21 11:58
[2021-09-09 08:03] LABS: Basophils Percent Auto 0.3 % (0-2); Eosinophils Absolute Auto 0.1 X10*3/uL (0.0-0.4); Eosinophils Percent Auto 0.9 % (0-4); Hematocrit 39.8 % (37.0-47.0); Hemoglobin 13.1 g/dl (12.0-16.0); Imm Gran Abs Auto 0.07 X10*3/uL (0.00-0.03); Imm Gran Pct Auto 0.5 % (0.0-0.4); Lymphocytes Absolute Auto 2.7 X10*3/uL (1.2-4.9); Lymphocytes Percent Auto 20.3 % (20-40); MANUAL DIFF FLAG NO; Mean Corpuscular HGB Conc 32.9 g/dl (31.0-35.0); Mean Corpuscular Hemoglobin 28.3 pg (27.0-33.0); Mean Platelet Volume 10.8 fL (9.4-12.3); Monocytes Absolute Auto 0.5 X10*3/uL (0.1-1.2); Monocytes Percent Auto 3.9 % (2-11); Neutrophils Percent Auto 74.1 % (45-73); Platelet Count 230 X10*3/uL (160-400); Red Blood Count 4.63 X10*6/uL (4.20-5.50); Red Cell Distribution Width 12.7 % (11.0-16.0); White Blood Count 13.4 X10*3/uL (4.8-10.8)
[2021-09-09 08:22] LABS: COVID-19 Test Negative (Negative); IDNOW Serial# 55D5AD1C
[2021-09-09] MEDS: 0.9 % Sodium Chloride 1,000 ML 999 ML IV (08:23)
[2021-09-09] MEDS: Ketorolac Tromethamine 30 MG/ML VIAL 15 MG IVPUSH (08:25)
[2021-09-09] MEDS: Prochlorperazine Edisylate 10 MG/2 ML VIAL IVPUSH (08:27)
[2021-09-09] MEDS: 0.9 % Sodium Chloride 500 ML 999 ML IV (08:30)
[2021-09-09] MEDS: diazePAM 5 MG TABLET PO (08:30)
[2021-09-09] MEDS: Hydrocortisone Sod Succ/PF 100 MG VIAL IVPUSH (09:07)
[2021-09-09 09:59] VITALS: BP 113/54; PULSE 64; RESP 16; TEMP 36.7; O2SAT 99
[2021-09-09 10:15] LABS: Alanine Aminotransferase 47 U/L (0-31); Albumin Level 4.6 g/dL (3.5-5.0); Alkaline Phosphatase 64 U/L (39-117); Anion Gap 16 (12-20); Aspartate Amino Transferase 40 U/L (5-31); Bilirubin Total 0.4 mg/dL (0.0-1.0); Blood Urea Nitrogen 16 mg/dL (9-16); Calcium 9.4 mg/dL (8.4-10.2); Carbon Dioxide 22 mmol/L (22-29); Chloride 107 mmol/L (96-108); Creatinine Clr Calc Pharmacy 118.7; Estimated Glomerular Filt Rate > 60; Glucose Random 70 mg/dL (60-115); Potassium 4.1 mmol/L (3.3-5.1); Sodium 141 mmol/L (135-145); Total Protein 7.3 g/dL (6.5-8.0)
[2021-09-09 10:19] LABS: HCG Quantitative < 2 mIU/mL
[2021-09-09] MEDS: HYDROmorphone HCl 0.5 MG/0.5 ML SYRINGE IVPUSH (11:17)
[2021-09-09 11:27] VITALS: BP 106/49; PULSE 60; RESP 16; TEMP 36.7; O2SAT 96
[2021-09-09 11:36] LABS: Appearance Urine CLEAR; Color Urine YELLOW; Glucose Urine UA NEG (NEG); Leukocyte Esterase Urine NEG (NEG); Nitrite Urine NEG (NEG); PH 6.5 (5.0-8.0); UACC Culture Trigger NO; Urine Blood TRACE (NEG); Urine Ketones NEG (NEG); Urine Protein NEG (NEG-TRACE)
[2021-09-09 11:44] LABS: Squamous Epithelial Cell Urine 1+ /LPF; WBC Urine 0-2 /HPF (0-4)
[2021-09-09 11:45] LABS: Bacteria Urine TRACE /LPF; RBC Urine 0-2 /HPF (0)
== END 2021-09-09 11:58 | disposition home or self-care (01) ==
PROVIDERS: Emergency Provider Emergency Medicine; PCP Nurse Practitioner Primary Care
DX: R51.9 Headache, unspecified (principal); R11.10 Vomiting, unspecified; Z20.822 Contact with and (suspected) exposure to COVID-19; F17.210 Nicotine dependence, cigarettes, uncomplicated; Z71.6 Tobacco abuse counseling; Z79.899 Other long term (current) drug therapy
CPT/HCPCS: 36415; 70450; 80053; 81001; 84702; 85025; 87635; 96361; 96374; 96375; 99284; J1170; J1790; J1885

== ENCOUNTER 2021-09-11 07:32 | Emergency (ER) | payer MEDICAID, SELFPAY ==
[2021-09-11 07:36] VITALS: BP 118/80; PULSE 43; RESP 18; TEMP 36.9; O2SAT 97; BMI 32.5
--- NOTE | 2021-09-11 08:45 | ED.HA ---
HPI - Headache General Chief Complaint: Headache Stated Complaint: HEADACHE SEIZURE Time Seen by Provider: 09/11/21 08:45 Source: patient Mode of arrival: ambulatory Limitations: no limitations History of Present Illness HPI Narrative: patient was seen recently for headache. Had a head CT that was negative, now with continual headache. MD elicited complaint: headache Onset (ago): day(s) (6) Onset description: gradually Location: frontal Severity: moderate Quality & Timing: aching Context: occurred at rest Associated symptoms: nausea, vomiting and photophobia Related Data Previous Rx's Medication Instructions Recorded ondansetron HCl 4 mg tablet 4 mg PO Q8H PRN #10 tab 01/22/21 (Zofran) prednisone 10 mg tablet 10 mg PO DAILY #30 tab 01/22/21 prednisone 20 mg tablet 40 mg PO DAILY #20 tab 01/22/21 estradiol (Estrace) 1 g VAGINAL 2XW #42.5 g 04/20/21 norelgestromin 150 mcg-e.estradiol 1 patch TRANSDERMAL QWEEK #3 ea 04/20/21 35 mcg/24 hr weekly transderm patch (Xulane) metronidazole 500 mg tablet 500 mg PO BID 7 Days #14 tab 04/25/21 (Flagyl) cyclobenzaprine 10 mg tablet 10 mg PO TID PRN #14 tab 08/27/21 hydrocodone 5 mg-acetaminophen 325 1 tab PO Q6H PRN #8 tab 08/27/21 mg tablet ibuprofen 600 mg tablet 600 mg PO Q6H PRN #30 tab 08/27/21 ondansetron 4 mg disintegrating 4 mg PO Q8H PRN #20 tab 08/27/21 tablet boyiztejud-qdeaxvfeiqdlm-qcdwnbfa 1 cap PO Q4H PRN #12 cap 09/09/21 50 mg-300 mg-40 mg capsule (Fioricet) prochlorperazine 25 mg rectal 25 mg DE Q12H PRN #12 ea 09/09/21 suppository (Compazine) naproxen 500 mg tablet (Naprosyn) 500 mg PO BID #20 tab 09/11/21 Allergies Allergy/AdvReac Type Severity Reaction Status Date / Time cephalexin [From KEFLEX] Allergy Severe ANAPHYLAXIS Verified 06/23/21 09:22 morphine [MORPHINE] Allergy Mild VOMITING Verified 06/23/21 09:22 Review of Systems Constitutional: Constitutional: Reports no additional constitutional complaints Eyes: Eyes: Reports no additional eye complaints ENT: Denies dizziness Cardiovascular: Cardiovascular: Reports no additional cardiovascular complaints Respiratory: Respiratory: Reports as per HPI Gastrointestinal: Gastrointestinal: Reports no additional gastrointestinal complaints Genitourinary: Genitourinary: Reports no additional female genitourinary complaints Musculoskeletal: Musculoskeletal: Reports no additional musculoskeletal complaints Integumentary/Breasts: Skin/Breast: Denies rash Neurologic: Reports system reviewed and no additional complaints, except as documented, Denies dizziness and Denies Sensory deficit (Neuro) Psychiatric: Psychiatric: Denies anxiety [facility] Past Medical History Medical History Adrenal insufficiency Amenorrhea Hypothyroid Panhypopituitarism Family History Family History Maternal Grandmother History of breast cancer Maternal Aunt Ovarian cancer Maternal Grandfather Colon cancer Social History Social History Household Members Other:: Adopted her brother at 1.5yo (mother ). Polyamory-plans surrogate Alcohol intake: never Patient Tobacco Use Status: Never used Tobacco Tobacco use type: Cigarette Cigarettes Per Day: 6 Advance Directives: No Advance Directives Information Provided: No Sexual orientation: Bisexual Gender identity: Female Physical Exam Vital Signs: Vital Signs: Last Vital Signs Temp 98.4 F 09/11/21 07:36 Pulse 43 L 09/11/21 07:36 Resp 18 09/11/21 07:36 BP 118/80 09/11/21 07:36 Pulse Ox 97 09/11/21 07:36 BMI result Body Mass Index 32.5 Const: General: healthy appearing Nutritional Appearance: average body habitus Orientation/consciousness: oriented to person and patient oriented x3 Limitations: no limitations HENMT: Head: Yes normal to inspection Ears: external ears normal General nose exam: Normal external nose present Mouth: Normal oral and palatal mucosa present and oropharynx normal Throat: Yes posterior oropharynx normal Eyes: Other: right eye blind, 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 Neck: Other: supple Neck: Yes normal visual inspection Chest: Chest palpation & inspection: normal inspection of the chest Resp: Auscultation: clear to auscultation bilaterally Cardio: Jugular venous distension: no JVD Rate: regular rate Rhythm: regular rhythm Heart sounds: S1 normal heart sound present and S2 normal heart sound present GI: Inspection: Yes normal to inspection Palpation (GI): Soft to palpation, nontender and No hepatosplenomegaly present Auscultation: normal bowel sounds : General: Yes no CVA tenderness Back/Spine/Pelvis: Back: no CVA tenderness Skin: General skin exam: no rashes or lesions noted Neuro: General: oriented to person and patient oriented x3 Cranial nerves: Yes CN's II-XII intact bilaterally Motor exam (neuro): 5/5 motor strength present throughout Sensory Exam: No Sensory deficit (Neuro) Extrem: General: Yes normal to inspection Psych: Appearance: grossly normal Course Reevaluation(s) Reevaluation #1: patient sleeping, resting comfortably will dc home Time: 11:09 MDM - Headache Lab Data Result diagrams: 09/11/21 09:10 09/11/21 09:10 Labs: Lab Results 09/11/21 09/11/21 Range/Units 09:10 09:10 WBC 11.0 H (4.8-10.8) X10*3/uL RBC 4.43 (4.20-5.50) X10*6/uL Hgb 12.5 (12.0-16.0) g/dl Hct 38.5 (37.0-47.0) % MCV 86.9 (80.0-98.0) fL MCH 28.2 (27.0-33.0) pg MCHC 32.5 (31.0-35.0) g/dl RDW 12.7 (11.0-16.0) % Plt Count 199 (160-400) X10*3/uL MPV 10.6 (9.4-12.3) fL Immature Gran % (Auto) 0.5 H (0.0-0.4) % Neut % (Auto) 67.0 (45-73) % Lymph % (Auto) 25.2 (20-40) % [place] % (Auto) 5.0 (2-11) % Eos % (Auto) 1.8 (0-4) % Baso % (Auto) 0.5 (0-2) % Lymph # (Auto) 2.8 (1.2-4.9) X10*3/uL [place] # (Auto) 0.6 (0.1-1.2) X10*3/uL Eos # (Auto) 0.2 (0.0-0.4) X10*3/uL Baso # (Auto) 0.1 (0.0-0.2) X10*3/uL Abs Immat Gran (auto) 0.05 H (0.00-0.03) X10*3/uL Absolute Neuts (auto) 7.4 (2.0-8.3) x10*3/uL Absolute Nucleated RBC 0.000 (0.0-0.012) X10*3/uL Nucleated RBC % (auto) 0.0 (0.0-0.2) /100WBC Sodium 140 (135-145) mmol/L Potassium 3.8 (3.3-5.1) mmol/L Chloride 105 (96-108) mmol/L Carbon Dioxide 26 (22-29) mmol/L Anion Gap 13 (12-20) BUN 17 H (9-16) mg/dL Creatinine 0.88 (0.5-1.4) mg/dL Estim Creat Clear Calc 102.0 Estimated GFR > 60 Random Glucose 81 (60-115) mg/dL Calcium 9.6 (8.4-10.2) mg/dL Discharge Plan Discharge Clinical Impression: Migraine Qualifiers: Migraine type: with aura Status migrainosus presence: with status migrainosus Intractability: not intractable Qualified Code(s): G43.101 - Migraine with aura, not intractable, with status migrainosus Patient Disposition: Home, Self-Care Instructions: Migraine Headache (ED) Prescriptions: New naproxen [Naprosyn] 500 mg tablet 500 mg PO BID Qty: 20 RF: 0 No Action metronidazole [Flagyl] 500 mg tablet 500 mg PO BID 7 Days Qty: 14 RF: 0 prednisone 20 mg tablet 40 mg PO DAILY Qty: 20 RF: 0 prednisone 10 mg tablet 10 mg PO DAILY Qty: 30 RF: 0 ondansetron HCl [Zofran] 4 mg tablet 4 mg PO Q8H PRN (Reason: nausea and vomiting) Qty: 10 RF: 0 cyclobenzaprine 10 mg tablet 10 mg PO TID PRN (Reason: muscle spasm) Qty: 14 RF: 0 hydrocodone-acetaminophen 5-325 mg tablet 1 tab PO Q6H PRN (Reason: pain) Qty: 8 RF: 0 ibuprofen 600 mg tablet 600 mg PO Q6H PRN (Reason: pain) Qty: 30 RF: 0 ondansetron 4 mg tablet,disintegrating 4 mg PO Q8H PRN (Reason: nausea and vomiting) Qty: 20 RF: 0 prochlorperazine [Compazine] 25 mg suppository 25 mg [place] Q12H PRN (Reason: nausea and vomiting) Qty: 12 RF: 0 rwramvpxph-leoutpjxkkgde-cqqh [Fioricet] 50-300-40 mg capsule 1 cap PO Q4H PRN (Reason: pain) Qty: 12 RF: 0 Xulane 150-35 mcg/24 hr patch weekly 1 patch transdermal QWEEK Qty: 3 RF: 11 estradiol [Estrace] 0.01 % (0.1 mg/gram) cream 1 g vaginal 2XW Qty: 42.5 RF: 0 Referrals: Jeane Bah NP [Primary Care Provider] - 5 days
[2021-09-11 09:16] LABS: Basophils Absolute Auto 0.1 X10*3/uL (0.0-0.2); Basophils Percent Auto 0.5 % (0-2); Eosinophils Absolute Auto 0.2 X10*3/uL (0.0-0.4); Eosinophils Percent Auto 1.8 % (0-4); Hematocrit 38.5 % (37.0-47.0); Hemoglobin 12.5 g/dl (12.0-16.0); Imm Gran Abs Auto 0.05 X10*3/uL (0.00-0.03); Imm Gran Pct Auto 0.5 % (0.0-0.4); Lymphocytes Absolute Auto 2.8 X10*3/uL (1.2-4.9); Lymphocytes Percent Auto 25.2 % (20-40); MANUAL DIFF FLAG NO; Mean Corpuscular HGB Conc 32.5 g/dl (31.0-35.0); Mean Corpuscular Hemoglobin 28.2 pg (27.0-33.0); Mean Corpuscular Volume 86.9 fL (80.0-98.0); Mean Platelet Volume 10.6 fL (9.4-12.3); Monocytes Absolute Auto 0.6 X10*3/uL (0.1-1.2); Neutrophils Absolute Auto 7.4 x10*3/uL (2.0-8.3); Platelet Count 199 X10*3/uL (160-400); Red Blood Count 4.43 X10*6/uL (4.20-5.50); Red Cell Distribution Width 12.7 % (11.0-16.0)
[2021-09-11 09:31] LABS: Anion Gap 13 (12-20); Blood Urea Nitrogen 17 mg/dL (9-16); Calcium 9.6 mg/dL (8.4-10.2); Carbon Dioxide 26 mmol/L (22-29); Chloride 105 mmol/L (96-108); Estimated Glomerular Filt Rate > 60; Glucose Random 81 mg/dL (60-115); Potassium 3.8 mmol/L (3.3-5.1); Sodium 140 mmol/L (135-145)
[2021-09-11] MEDS: Ketorolac Tromethamine 30 MG/ML VIAL IVPUSH (09:41)
[2021-09-11] MEDS: 0.9 % Sodium Chloride 1,000 ML 999 ML IVCONT ×2 (09:41→11:05)
== END 2021-09-11 11:27 | disposition home or self-care (01) ==
PROVIDERS: Emergency Provider Emergency Medicine; PCP Nurse Practitioner Primary Care
DX: G43.101 Migraine with aura, not intractable, with status migrainosus (principal); F17.200 Nicotine dependence, unspecified, uncomplicated
CPT/HCPCS: 36415; 80048; 85025; 96361; 96374; 96375; 99284; J1885; J2550

== ENCOUNTER 2021-10-17 08:52 | Outpatient (REF) | payer MEDICAID, SELFPAY ==
--- NOTE | ~2021-10-17 | MR_ITS ---
EXAMINATION: MR KNEE WITHOUT CONTRAST, RIGHT CLINICAL INFORMATION: Joint laxity, popping, stable. 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 COMPARISON: X-ray 08/27/2021 TECHNIQUE: MRI of the knee without contrast was performed using routine sequences on a high-field scanner. FINDINGS: MENISCI: Medial Meniscus: Intact Lateral Meniscus: Intact LIGAMENTS: Cruciate: Intact Collateral: Intact EXTENSOR MECHANISM: Intact . Edema in the superolateral Hoffa's fat pad suggestive of patellar tendon-lateral femoral condyle friction syndrome. ARTICULAR CARTILAGE/BONE: Patellofemoral Compartment: Mild lateral patellar subluxation. Cartilage heterogeneity, thinning and fissuring in the mid/inferior aspect of the central patella. This measures approximately 0.9 cm transverse, 1 cm craniocaudal. There is a slight cortical depression of the medial aspect of the patella, with mild marrow edema. Mild T2 signal from sprain of the anterior aspect of the MPFL. There is edema in the lateral aspect lateral femoral condyle. The constellation of findings is suggestive of sequela of lateral patellar dislocation. Medial Compartment: No focal cartilage loss Lateral Compartment: No focal cartilage loss There is a T2 bright focus in the distal femoral metaphysis measuring 0.9 x 0.5 x 1.6 cm (transverse, AP, craniocaudal). The margins are slightly lobulated. Focus is T2 bright, with some internal low signal foci. There is internal T1 bright signal, which may reflect fat. No surrounding marrow edema. Overall, the appearance appears nonaggressive. This focus is not clearly evident on the prior x-ray of 08/27/2021. JOINT FLUID AND BURSAE: Small effusion. MR/MR knee RT wo con IMPRESSION: 1. Mild lateral patellar subluxation. Findings in the patellofemoral joint, retinaculum, and edema in the lateral aspect lateral femoral condyle, suggestive of sequela of lateral patellar dislocation. There is chondromalacia in the central patella measuring 0.9 x 1 cm. 2. Lesion in the distal femoral metaphysis measuring 0.9 x 0.5 x 1.6 cm, with imaging characteristics as detailed above. Overall, the appearance is suggestive of a nonaggressive lesion. This focus not clearly evident on the prior MRI. Differential consideration include low-grade chondroid lesion. Consider follow-up MRI to ensure stability. 3.Edema in the superolateral Hoffa's fat pad suggestive of patellar tendon-lateral femoral condyle friction syndrome.
== END 2021-10-17 08:53 | disposition home or self-care (01) ==
LOC: HO.MRI 08:52
PROVIDERS: Visit Provider Nurse Practitioner Primary Care
DX: M25.561 Pain in right knee (principal)
CPT/HCPCS: 73721

== ENCOUNTER 2021-11-08 09:00 | Outpatient (RCR) | payer MEDICAID, SELFPAY | END 2021-12-08 13:34 | disposition home or self-care (01) | LOC: HO.PT 09:00 | PROVIDERS: PCP Nurse Practitioner Primary Care; Visit Provider Orthopaedic Surgery | DX: M22.41 Chondromalacia patellae, right knee (principal) | CPT/HCPCS: 97110; 97162 ==

== ENCOUNTER 2022-03-01 14:17 | Emergency (ER) | payer MEDICAID, SELFPAY ==
[2022-03-01 14:27] VITALS: BP 105/69; PULSE 78; PULSE 80; TEMP 35.9; O2SAT 100; O2SAT 97; BMI 32.5
--- NOTE | 2022-03-01 14:44 | ED.GENADULT ---
HPI - General Adult General Chief complaint: Seizure Stated complaint: psedoseizure Time Seen by Provider: 03/01/22 14:31 Source: patient, family and old records reviewed Limitations: no limitations History of Present Illness HPI narrative: Patient has a long history of nonepileptic type seizures. She states they are often brought on by stress or physical exertion. She does not take anti epileptic medication. She sees her neurologist, Dr. Chris. She states yesterday she drank alcohol which is very unusual for her. This morning she was very nauseous and vomited multiple times. Positive diarrhea as well. Generalized abdominal discomfort. No fevers or chills. She states afterwards she had multiple episodes of seizure witnessed by her . No tongue biting or incontinence. He states she was not obviously conscious during her seizure activity which is unusual for her. She also had about 7 episodes in several minutes which is also unusual. No other new complaints. She attributes today's seizure activity to feeling sick post alcohol intoxication yesterday. Related Data Home Medications Medication Instructions Recorded Confirmed albuterol sulfate 90 mcg/actuation 2 puff INHALATION Q4-6H PRN 11/24/21 11/24/21 aerosol inhaler diclofenac sodium 1 % topical gel 2 g TOPICAL QID 11/24/21 11/24/21 duloxetine 20 mg capsule,delayed 1 cap PO DAILY 11/24/21 11/24/21 release levothyroxine 75 mcg tablet 1 tab PO DAILY 11/24/21 11/24/21 melatonin 3 mg capsule 3 mg PO BEDTIME PRN 11/24/21 11/24/21 omega 8-zcq-qie-fish oil 1,000 mg 1 cap PO DAILY 11/24/21 11/24/21 (120 mg-180 mg) capsule (Fish Oil) prednisone 5 mg tablet 1 tab PO DAILY 11/24/21 11/24/21 sumatriptan 20 mg/actuation nasal 20 mg INTRANASAL Q2H PRN 11/24/21 11/24/21 spray Previous Rx's Medication Instructions Recorded ondansetron HCl 4 mg tablet 4 mg PO Q8H PRN #10 tab 01/22/21 (Zofran) estradiol (Estrace) 1 g VAGINAL 2XW #42.5 g 04/20/21 norelgestromin 150 mcg-e.estradiol 1 patch TRANSDERMAL QWEEK #3 ea 04/20/21 35 mcg/24 hr weekly transderm patch (Xulane) metronidazole 500 mg tablet 500 mg PO BID 7 Days #14 tab 04/25/21 (Flagyl) cyclobenzaprine 10 mg tablet 10 mg PO TID PRN #14 tab 08/27/21 hydrocodone 5 mg-acetaminophen 325 1 tab PO Q6H PRN #8 tab 08/27/21 mg tablet ibuprofen 600 mg tablet 600 mg PO Q6H PRN #30 tab 08/27/21 zxksdvoxyu-gjbbzyaweqxzi-kplsmjex 1 cap PO Q4H PRN #12 cap 09/09/21 50 mg-300 mg-40 mg capsule (Fioricet) prochlorperazine 25 mg rectal 25 mg OH Q12H PRN #12 ea 09/09/21 suppository (Compazine) naproxen 500 mg tablet (Naprosyn) 500 mg PO BID #20 tab 09/11/21 Allergies Allergy/AdvReac Type Severity Reaction Status Date / Time cephalexin [From KEFLEX] Allergy Severe ANAPHYLAXIS Verified 06/23/21 09:22 morphine [MORPHINE] Allergy Mild VOMITING Verified 06/23/21 09:22 Review of Systems Constitutional: Comments: No fevers or chills. Positive general malaise. Cardiovascular: Comments: No chest pain Respiratory: Comments: No shortness of breath Gastrointestinal: Comments: Nausea vomiting diarrhea and abdominal pain as described Genitourinary: Comments: No urinary symptoms Integumentary/Breasts: Comments: She states her skin feels as if it is on fire. 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 Polyamory-plans surrogate Alcohol intake: never Patient Tobacco Use Status: Never used Tobacco Tobacco use type: Cigarette Cigarettes Per Day: 6 Advance Directives: No Advance Directives Information Provided: No Sexual orientation: Bisexual Gender identity: Female Physical Exam ED Vital Signs: Vital Signs - 24 hr 03/01/22 14:27 Temperature 96.6 F L Pulse Rate 78 Blood Pressure 105/69 Pulse Oximetry 97 BMI result Body Mass Index 32.5 Const Other: Awake and alert in no acute distress Resp Other: No respiratory distress GI Other: Abdomen is soft and nondistended. Mild tenderness throughout. No guarding or rebound. No focal tenderness. Skin Other: Warm pink and dry without rash Neuro Other: No focal weakness Course Course Course Narrative: Nonepileptic seizure disorder Less likely epileptic seizures Vomiting diarrhea Alcohol toxicity Gastroenteritis Pancreatitis Hepatitis Dehydration Patient had an episode here in the emergency department. Duration approximately 20 seconds. Diffuse shaking and tremors with occasional purposeful movements such as holding onto her 's hand. She awoke at the end without any postictal symptoms. No tongue biting or incontinence. Episode consistent with nonepileptic type seizure. IV fluids IV Zofran IV Ativan 18:33. Re-evaluation shows patient is feeling much better. She is currently eating a sandwich. Stable for discharge home Medical Decision Making Lab Data Result diagrams: 03/01/22 15:00 03/01/22 15:00 Labs: Lab Results 03/01/22 03/01/22 Range/Units 15:00 15:00 WBC 10.7 (4.8-10.8) X10*3/uL RBC 4.70 (4.20-5.50) X10*6/uL Hgb 13.3 (12.0-16.0) g/dl Hct 39.9 (37.0-47.0) % MCV 84.9 (80.0-98.0) fL MCH 28.3 (27.0-33.0) pg MCHC 33.3 (31.0-35.0) g/dl RDW 13.2 (11.0-16.0) % Plt Count 212 (160-400) X10*3/uL MPV 11.1 (9.4-12.3) fL Immature Gran % (Auto) 0.5 H (0.0-0.4) % Neut % (Auto) 68.5 (45-73) % Lymph % (Auto) 24.3 (20-40) % Patrick % (Auto) 5.2 (2-11) % Eos % (Auto) 1.0 (0-4) % Baso % (Auto) 0.5 (0-2) % Lymph # (Auto) 2.6 (1.2-4.9) X10*3/uL Patrick # (Auto) 0.6 (0.1-1.2) X10*3/uL Eos # (Auto) 0.1 (0.0-0.4) X10*3/uL Baso # (Auto) 0.1 (0.0-0.2) X10*3/uL Abs Immat Gran (auto) 0.05 H (0.00-0.03) X10*3/uL Absolute Neuts (auto) 7.3 (2.0-8.3) x10*3/uL Absolute Nucleated RBC 0.000 (0.0-0.012) X10*3/uL Nucleated RBC % (auto) 0.0 (0.0-0.2) /100WBC Sodium 141 (135-145) mmol/L Potassium 4.3 (3.3-5.1) mmol/L Chloride 103 (96-108) mmol/L Carbon Dioxide 24 (22-29) mmol/L Anion Gap 18 (12-20) BUN 18 H (9-16) mg/dL Creatinine 0.83 (0.5-1.4) mg/dL Estim Creat Clear Calc 108.1 Estimated GFR > 60 Random Glucose 79 (60-115) mg/dL Calcium 9.9 (8.4-10.2) mg/dL Total Bilirubin 0.6 (0.0-1.0) mg/dL AST 48 H (5-31) U/L ALT 61 H (0-31) U/L Alkaline Phosphatase 74 (39-117) U/L Total Protein 8.1 H (6.5-8.0) g/dL Albumin 5.0 (3.5-5.0) g/dL Lipase 20 (8-78) U/L Discharge Plan Discharge Clinical Impression: Seizure-like activity, Vomiting Patient Disposition: Home, Self-Care Instructions: Nonepileptic Seizures (ED), Acute Nausea and Vomiting (ED) Prescriptions: No Action metronidazole [Flagyl] 500 mg tablet 500 mg PO BID 7 Days Qty: 14 0RF Rx Instructions: Take with food, Avoid alcohol and vinegar products ondansetron HCl [Zofran] 4 mg tablet 4 mg PO Q8H PRN (Reason: nausea and vomiting) Qty: 10 0RF cyclobenzaprine 10 mg tablet 10 mg PO TID PRN (Reason: muscle spasm) Qty: 14 0RF hydrocodone-acetaminophen 5-325 mg tablet 1 tab PO Q6H PRN (Reason: pain) Qty: 8 0RF ibuprofen 600 mg tablet 600 mg PO Q6H PRN (Reason: pain) Qty: 30 0RF prochlorperazine [Compazine] 25 mg suppository 25 mg [place] Q12H PRN (Reason: nausea and vomiting) Qty: 12 0RF dwsfivbegd-rfolfsydbyocu-qkng [Fioricet] 50-300-40 mg capsule 1 cap PO Q4H PRN (Reason: pain) Qty: 12 0RF naproxen [Naprosyn] 500 mg tablet 500 mg PO BID Qty: 20 0RF prednisone 5 mg tablet 1 tab PO DAILY 0RF levothyroxine 75 mcg tablet 1 tab PO DAILY 0RF albuterol sulfate 90 mcg/actuation Hfa Aerosol Inhaler 2 puff INHALATION Q4-6H PRN (Reason: Shortness Of Breath) 0RF sumatriptan 20 mg/actuation [place],Non-Aerosol 20 mg INTRANASAL Q2H PRN (Reason: Headache) 0RF Rx Instructions: administer into one nostril as a single dose; if 2nd dose needed,administer into other nostril after at least 2 hrs, NTE 2 doses (40 mg) per episode omega 4-ypt-jil-fish oil [Fish Oil] 1,000 mg (120 mg-180 mg) Capsule 1 cap PO DAILY 0RF duloxetine 20 mg capsule,delayed release(DR/EC) 1 cap PO DAILY 0RF diclofenac sodium 1 % gel 2 g topical QID 0RF melatonin 3 mg Capsule 3 mg PO BEDTIME PRN (Reason: Insomnia) 0RF Xulane 150-35 mcg/24 hr patch weekly 1 patch transdermal QWEEK Qty: 3 11RF Rx Instructions: apply once weekly for 3 weeks of a 4-week cycle estradiol [Estrace] 0.01 % (0.1 mg/gram) cream 1 g vaginal 2XW Qty: 42.5 0RF Rx Instructions: use nightly for two weeks, then twice a week
[2022-03-01 15:05] LABS: MANUAL DIFF FLAG NO
[2022-03-01] MEDS: ondansetron HCL 4 MG/2 ML VIAL IVPUSH (15:11)
[2022-03-01] MEDS: LORazepam 2 MG/ML VIAL 1 MG IVPUSH (15:12)
[2022-03-01] MEDS: 0.9 % Sodium Chloride 1,000 ML 999 ML IV (15:12)
[2022-03-01 15:16] LABS: Basophils Absolute Auto 0.1 X10*3/uL (0.0-0.2); Basophils Percent Auto 0.5 % (0-2); Eosinophils Absolute Auto 0.1 X10*3/uL (0.0-0.4); Hematocrit 39.9 % (37.0-47.0); Hemoglobin 13.3 g/dl (12.0-16.0); Imm Gran Abs Auto 0.05 X10*3/uL (0.00-0.03); Imm Gran Pct Auto 0.5 % (0.0-0.4); Lymphocytes Absolute Auto 2.6 X10*3/uL (1.2-4.9); Lymphocytes Percent Auto 24.3 % (20-40); Mean Corpuscular HGB Conc 33.3 g/dl (31.0-35.0); Mean Corpuscular Hemoglobin 28.3 pg (27.0-33.0); Mean Corpuscular Volume 84.9 fL (80.0-98.0); Mean Platelet Volume 11.1 fL (9.4-12.3); Monocytes Absolute Auto 0.6 X10*3/uL (0.1-1.2); Monocytes Percent Auto 5.2 % (2-11); Neutrophils Absolute Auto 7.3 x10*3/uL (2.0-8.3); Neutrophils Percent Auto 68.5 % (45-73); Platelet Count 212 X10*3/uL (160-400); Red Cell Distribution Width 13.2 % (11.0-16.0); White Blood Count 10.7 X10*3/uL (4.8-10.8)
[2022-03-01 15:33] LABS: Alanine Aminotransferase 61 U/L (0-31); Alkaline Phosphatase 74 U/L (39-117); Anion Gap 18 (12-20); Aspartate Amino Transferase 48 U/L (5-31); Bilirubin Total 0.6 mg/dL (0.0-1.0); Blood Urea Nitrogen 18 mg/dL (9-16); Calcium 9.9 mg/dL (8.4-10.2); Carbon Dioxide 24 mmol/L (22-29); Chloride 103 mmol/L (96-108); Creatinine Clr Calc Pharmacy 108.1; Estimated Glomerular Filt Rate > 60; Glucose Random 79 mg/dL (60-115); Lipase 20 U/L (8-78); Potassium 4.3 mmol/L (3.3-5.1); Sodium 141 mmol/L (135-145); Total Protein 8.1 g/dL (6.5-8.0)
[2022-03-01] MEDS: Ketorolac Tromethamine 15 MG/ML VIAL 30 MG IVPUSH (16:38)
--- NOTE | 2022-03-01 18:54 | PC.NURSE ---
pt alert and verbal being d/c home. no c/o pain or dizziness.
== END 2022-03-01 18:55 | disposition home or self-care (01) ==
PROVIDERS: Emergency Provider Emergency Medicine; PCP Nurse Practitioner Primary Care
DX: R56.9 Unspecified convulsions (principal); R11.10 Vomiting, unspecified; R19.7 Diarrhea, unspecified
CPT/HCPCS: 36415; 80053; 83690; 85025; 96361; 96374; 96375; 99282; 99284; J1885; J2060; J2405

== ENCOUNTER 2022-07-21 22:56 | Emergency (ER) | payer MEDICAID, SELFPAY ==
[2022-07-21 23:26] VITALS: BP 116/64; PULSE 66; RESP 14; TEMP 38.4; O2SAT 95; BMI 34.3
[2022-07-22] MEDS: Acetaminophen 325 MG TABLET 975 MG PO (00:01)
[2022-07-22 00:11] LABS: COVID-19 Test Negative (Negative)
[2022-07-22 00:27] LABS: Influenza A Negative (Negative); Influenza B2 Negative (Negative)
--- NOTE | 2022-07-22 00:38 | ED.GENADULT ---
HPI - General Adult General Chief complaint: General Medical Stated complaint: passed out/ seizure ? Time Seen by Provider: 07/21/22 23:34 Source: patient Mode of arrival: ambulatory History of Present Illness HPI narrative: 27-year-old female with history of pseudoseizures, adrenal insufficiency presents with complaints ?not feeling well? and also stating that she has not been taking her medication for a number of days for her adrenal insufficiency because she does not like the fact that the steroids make her ?very hungry and gain weight?. She states she has had a sore throat with with fevers/chills and according to the triage note says that she has had difficulty swallowing with drooling/fever/nausea/vomiting/diarrhea/falls. Patient confirms that she does not take medication for seizures as they are considered to be ?pseudoseizures?. Related Data Home Medications Medication Instructions Recorded Confirmed albuterol sulfate 90 mcg/actuation 2 puff inhalation Q4-6H PRN 11/24/21 11/24/21 aerosol inhaler Shortness Of Breath diclofenac sodium 1 % topical gel 2 g topical QID 11/24/21 11/24/21 duloxetine 20 mg capsule,delayed 1 cap PO DAILY 11/24/21 11/24/21 release levothyroxine 75 mcg tablet 1 tab PO DAILY 11/24/21 11/24/21 melatonin 3 mg capsule 3 mg PO BEDTIME PRN Insomnia 11/24/21 11/24/21 omega 9-ldl-tfa-fish oil 1,000 mg 1 cap PO DAILY 11/24/21 11/24/21 (120 mg-180 mg) capsule (Fish Oil) prednisone 5 mg tablet 1 tab PO DAILY 11/24/21 11/24/21 sumatriptan 20 mg/actuation nasal 20 mg intranasal Q2H PRN Headache 11/24/21 11/24/21 spray Previous Rx's Medication Instructions Recorded ondansetron HCl 4 mg tablet 4 mg PO Q8H PRN nausea and 01/22/21 (Zofran) vomiting #10 tabs estradiol 0.01% (0.1 mg/gram) 1 g vaginal 2XW #42.5 grams 04/20/21 vaginal cream (Estrace) norelgestromin 150 mcg-e.estradiol 1 patch transdermal QWEEK #3 ea 04/20/21 35 mcg/24 hr weekly transderm patch (Xulane) metronidazole 500 mg tablet 500 mg PO BID 7 days #14 tabs 04/25/21 (Flagyl) cyclobenzaprine 10 mg tablet 10 mg PO TID PRN muscle spasm #14 08/27/21 tabs hydrocodone 5 mg-acetaminophen 325 1 tab PO Q6H PRN pain #8 tabs 08/27/21 mg tablet ibuprofen 600 mg tablet 600 mg PO Q6H PRN pain #30 tabs 08/27/21 scxcmwgkdf-dzgxyhrlkqagr-upfhntfk 1 cap PO Q4H PRN pain #12 caps 09/09/21 50 mg-300 mg-40 mg capsule (Fioricet) prochlorperazine 25 mg rectal 25 mg OK Q12H PRN nausea and 09/09/21 suppository (Compazine) vomiting #12 ea naproxen 500 mg tablet (Naprosyn) 500 mg PO BID #20 tabs 09/11/21 nitrofurantoin 100 mg PO Q12H 5 days #10 caps 07/22/22 monohydrate/macrocrystals 100 mg capsule (Macrobid) Allergies Allergy/AdvReac Type Severity Reaction Status Date / Time cephalexin [From KEFLEX] Allergy Severe ANAPHYLAXIS Verified 06/23/21 09:22 morphine [MORPHINE] Allergy Mild VOMITING Verified 06/23/21 09:22 Review of Systems Review of Systems: Pertinent positives and negatives as stated in HPI 10 point review of systems is otherwise negative. 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 Polyamory-plans surrogate Alcohol intake: never Patient Tobacco Use Status: Never used Tobacco Tobacco use type: Cigarette Cigarettes Per Day: 6 Advance Directives: No Advance Directives Information Provided: No Sexual orientation: Bisexual Gender identity: Female Physical Exam ED Vital Signs: Vital Signs - 24 hr 07/21/22 23:26 07/22/22 01:08 Temperature 101.2 F H 97.8 F Pulse Rate 66 73 Respiratory Rate 14 Blood Pressure 116/64 98/54 L Pulse Oximetry 95 95 Oxygen Delivery Method Room Air BMI result Body Mass Index 34.3 VITAL SIGNS: Reviewed. GENERAL: Well developed, well nourished, in no acute distress. HEAD: Normocephalic/atraumatic EYES: PERRLA, EOMI EARS: Ext canals without abnormality, TMs non-bulging and non-erythematous NOSE: Nares patent bilateral OROPHARYNX: no oral lesions noted, posterior pharynx clear but erythematous with noted tonsillar enlargement/erythema but no exudates NECK: Supple, + adenopathy LUNGS: Normal breath sounds. No adventitious sounds or accessory muscle use. SpO2<95> CARDIOVASCULAR: Regular rate and rhythm without noted murmurs ABDOMEN: Soft, non-tender, non-distended with bowel sounds. MUSCULOSKELETAL: No tenderness, deformities, or effusions noted on gross inspection. EXTREMITIES: No cyanosis, clubbing or edema. SKIN: Inspection of the skin reveals no rashes NEUROLOGIC: Alert and oriented x 4. Strength and sensation to light touch were grossly intact x 4. Course Course Course Narrative: 27-year-old female with history and clinical presentation most suspicious for possible strep throat and will rule out COVID-19 infection. Patient has endorsed that she suffers from pseudoseizures and there is no evidence of postictal symptoms. Patient also endorses that she has been off of her adrenal medication, and on review of her medication list I do not find any steroids. Will obtain lab work as well to ascertain that patient is stable for discharge to home. Review of all investigations negative for acute findings to suggest strep pharyngitis or evidence to suggest acute adrenal insufficiency. Patient does have a UTI for which she received initial antibiotics and will be discharged home in stable condition with a prescription for the remaining course. She was also strictly instructed to resume her prescribed medications. Medical Decision Making Lab Data Result diagrams: 07/22/22 00:53 07/22/22 00:53 Labs: Lab Results 07/21/22 07/22/22 07/22/22 Range/Units 23:50 00:00 00:53 WBC (4.8-10.8) X10*3/uL RBC (4.20-5.50) X10*6/uL Hgb (12.0-16.0) g/dl Hct (37.0-47.0) % MCV (80.0-98.0) fL MCH (27.0-33.0) pg MCHC (31.0-35.0) g/dl RDW (11.0-16.0) % Plt Count (160-400) X10*3/uL MPV (9.4-12.3) fL Immature Gran % (Auto) (0.0-0.4) % Neut % (Auto) (45-73) % Lymph % (Auto) (20-40) % [place] % (Auto) (2-11) % Eos % (Auto) (0-4) % Baso % (Auto) (0-2) % Lymph # (Auto) (1.2-4.9) X10*3/uL [place] # (Auto) (0.1-1.2) X10*3/uL Eos # (Auto) (0.0-0.4) X10*3/uL Baso # (Auto) (0.0-0.2) X10*3/uL Abs Immat Gran (auto) (0.00-0.03) X10*3/uL Absolute Neuts (auto) (2.0-8.3) x10*3/uL Absolute Nucleated RBC (0.0-0.012) X10*3/uL Nucleated RBC % (auto) (0.0-0.2) /100WBC Sodium (135-145) mmol/L Potassium (3.3-5.1) mmol/L Chloride (96-108) mmol/L Carbon Dioxide (22-29) mmol/L Anion Gap (12-20) BUN (9-16) mg/dL Creatinine (0.5-1.4) mg/dL Estim Creat Clear Calc Estimated GFR Random Glucose (60-115) mg/dL Calcium (8.4-10.2) mg/dL Total Bilirubin (0.0-1.0) mg/dL AST (5-31) U/L ALT (0-31) U/L Alkaline Phosphatase (39-117) U/L Total Protein (6.5-8.0) g/dL Albumin (3.5-5.0) g/dL TSH (0.32-4.0) uIU/mL Urine Color Yellow Urine Appearance Cloudy Urine pH 5.5 (5.0-9.0) Ur Specific [place] >= 1.030 H (1.005-1.025) Urine Protein Negative (Neg-Trace) mg/dL Urine Glucose (UA) Negative (Negative) mg/dL Urine Ketones Negative (Negative) mg/dL Urine Blood Negative (Negative) Urine Nitrite Negative (Negative) Ur Leukocyte Esterase Small (1+) H (Negative) Urine RBC 0-2 (0-2) /HPF Urine WBC 21-50 H (0-5) /HPF Ur Squamous Epith Cells 3-5 (0-2) /HPF Calcium Oxalate Crystal Present Urine Bacteria 1+ (None Seen) Hyaline Casts 0-2 (0-2) /LPF Urine Test (NEGATIVE) COVID-19 ([facility]) Negative (Negative) COVID-19 Clin Com See Note Monoscreen (Negative) Influenza Type A (TONY) Negative (Negative) Influenza Type B (TONY) Negative (Negative) Influenza A & B Note See Note S. pyogenes GrpA TONY (Negative) 07/22/22 07/22/22 07/22/22 Range/Units 00:53 00:53 00:53 WBC 10.0 (4.8-10.8) X10*3/uL RBC 4.35 (4.20-5.50) X10*6/uL Hgb 12.2 (12.0-16.0) g/dl Hct 36.2 L (37.0-47.0) % MCV 83.2 (80.0-98.0) fL MCH 28.0 (27.0-33.0) pg MCHC 33.7 (31.0-35.0) g/dl RDW 12.5 (11.0-16.0) % Plt Count 190 (160-400) X10*3/uL MPV 11.2 (9.4-12.3) fL Immature Gran % (Auto) 0.2 (0.0-0.4) % Neut % (Auto) 60.5 (45-73) % Lymph % (Auto) 30.9 (20-40) % [place] % (Auto) 4.6 (2-11) % Eos % (Auto) 3.2 (0-4) % Baso % (Auto) 0.6 (0-2) % Lymph # (Auto) 3.1 (1.2-4.9) X10*3/uL [place] # (Auto) 0.5 (0.1-1.2) X10*3/uL Eos # (Auto) 0.3 (0.0-0.4) X10*3/uL Baso # (Auto) 0.1 (0.0-0.2) X10*3/uL Abs Immat Gran (auto) 0.02 (0.00-0.03) X10*3/uL Absolute Neuts (auto) 6.1 (2.0-8.3) x10*3/uL Absolute Nucleated RBC 0.000 (0.0-0.012) X10*3/uL Nucleated RBC % (auto) 0.0 (0.0-0.2) /100WBC Sodium 138 (135-145) mmol/L Potassium 3.9 (3.3-5.1) mmol/L Chloride 105 (96-108) mmol/L Carbon Dioxide 22 (22-29) mmol/L Anion Gap 15 (12-20) BUN 14 (9-16) mg/dL Creatinine 0.69 (0.5-1.4) mg/dL Estim Creat Clear Calc 132.3 Estimated GFR > 60 Random Glucose 102 (60-115) mg/dL Calcium 9.6 (8.4-10.2) mg/dL Total Bilirubin 0.3 (0.0-1.0) mg/dL AST 54 H (5-31) U/L ALT 54 H (0-31) U/L Alkaline Phosphatase 68 (39-117) U/L Total Protein 7.0 (6.5-8.0) g/dL Albumin 4.6 (3.5-5.0) g/dL TSH 1.74 (0.32-4.0) uIU/mL Urine Color Urine Appearance Urine pH (5.0-9.0) Ur Specific [place] (1.005-1.025) Urine Protein (Neg-Trace) mg/dL Urine Glucose (UA) (Negative) mg/dL Urine Ketones (Negative) mg/dL Urine Blood (Negative) Urine Nitrite (Negative) Ur Leukocyte Esterase (Negative) Urine RBC (0-2) /HPF Urine WBC (0-5) /HPF Ur Squamous Epith Cells (0-2) /HPF Calcium Oxalate Crystal Urine Bacteria (None Seen) Hyaline Casts (0-2) /LPF Urine Test NEGATIVE (NEGATIVE) COVID-19 ([facility]) (Negative) COVID-19 Clin Com Monoscreen (Negative) Influenza Type A (TONY) (Negative) Influenza Type B (TONY) (Negative) Influenza A & B Note S. pyogenes GrpA TONY (Negative) 07/22/22 07/22/22 Range/Units 00:53 01:20 WBC (4.8-10.8) X10*3/uL RBC (4.20-5.50) X10*6/uL Hgb (12.0-16.0) g/dl Hct (37.0-47.0) % MCV (80.0-98.0) fL MCH (27.0-33.0) pg MCHC (31.0-35.0) g/dl RDW (11.0-16.0) % Plt Count (160-400) X10*3/uL MPV (9.4-12.3) fL Immature Gran % (Auto) (0.0-0.4) % Neut % (Auto) (45-73) % Lymph % (Auto) (20-40) % [place] % (Auto) (2-11) % Eos % (Auto) (0-4) % Baso % (Auto) (0-2) % Lymph # (Auto) (1.2-4.9) X10*3/uL [place] # (Auto) (0.1-1.2) X10*3/uL Eos # (Auto) (0.0-0.4) X10*3/uL Baso # (Auto) (0.0-0.2) X10*3/uL Abs Immat Gran (auto) (0.00-0.03) X10*3/uL Absolute Neuts (auto) (2.0-8.3) x10*3/uL Absolute Nucleated RBC (0.0-0.012) X10*3/uL Nucleated RBC % (auto) (0.0-0.2) /100WBC Sodium (135-145) mmol/L Potassium (3.3-5.1) mmol/L Chloride (96-108) mmol/L Carbon Dioxide (22-29) mmol/L Anion Gap (12-20) BUN (9-16) mg/dL Creatinine (0.5-1.4) mg/dL Estim Creat Clear Calc Estimated GFR Random Glucose (60-115) mg/dL Calcium (8.4-10.2) mg/dL Total Bilirubin (0.0-1.0) mg/dL AST (5-31) U/L ALT (0-31) U/L Alkaline Phosphatase (39-117) U/L Total Protein (6.5-8.0) g/dL Albumin (3.5-5.0) g/dL TSH (0.32-4.0) uIU/mL Urine Color Urine Appearance Urine pH (5.0-9.0) Ur Specific [place] (1.005-1.025) Urine Protein (Neg-Trace) mg/dL Urine Glucose (UA) (Negative) mg/dL Urine Ketones (Negative) mg/dL Urine Blood (Negative) Urine Nitrite (Negative) Ur Leukocyte Esterase (Negative) Urine RBC (0-2) /HPF Urine WBC (0-5) /HPF Ur Squamous Epith Cells (0-2) /HPF Calcium Oxalate Crystal Urine Bacteria (None Seen) Hyaline Casts (0-2) /LPF Urine Test (NEGATIVE) COVID-19 ([facility]) (Negative) COVID-19 Clin Com Monoscreen Negative (Negative) Influenza Type A (TONY) (Negative) Influenza Type B (TONY) (Negative) Influenza A & B Note S. pyogenes GrpA TONY Negative (Negative) Discharge Plan Discharge Clinical Impression: Pharyngitis, Pseudoseizures, Dehydration, UTI (urinary tract infection) Patient Disposition: Home, Self-Care Instructions: Dehydration (ED), Urinary Tract Infection in Women (ED), Pharyngitis (ED), Nonepileptic Seizures (ED) Additional Instructions: 1. Resume all home medications as prescribed. 2. Recommend saline gargles with warm tap water mixed with table salt, 5 minutes, 3 to 4 times a day. 3. Recommend unvn-jgz-lenjdno Tylenol/ibuprofen as needed for sore throat or body aches. 4. Recommend that you follow-up with your primary care provider by calling the office on Sunday morning. Return to the ER for worsening symptoms. Prescriptions: New nitrofurantoin monohyd/m-cryst [Macrobid] 100 mg capsule 100 mg PO Q12H 5 Days Qty: 10 0RF Rx Instructions: must administer with a meal/food No Action metronidazole [Flagyl] 500 mg tablet 500 mg PO BID 7 Days Qty: 14 0RF Rx Instructions: Take with food, Avoid alcohol and vinegar products ondansetron HCl [Zofran] 4 mg tablet 4 mg PO Q8H PRN (Reason: nausea and vomiting) Qty: 10 0RF cyclobenzaprine 10 mg tablet 10 mg PO TID PRN (Reason: muscle spasm) Qty: 14 0RF hydrocodone-acetaminophen 5-325 mg tablet 1 tab PO Q6H PRN (Reason: pain) Qty: 8 0RF ibuprofen 600 mg tablet 600 mg PO Q6H PRN (Reason: pain) Qty: 30 0RF prochlorperazine [Compazine] 25 mg suppository 25 mg OK Q12H PRN (Reason: nausea and vomiting) Qty: 12 0RF qswovztyor-rzxldxkfzbknr-cbqz [Fioricet] 50-300-40 mg capsule 1 cap PO Q4H PRN (Reason: pain) Qty: 12 0RF naproxen [Naprosyn] 500 mg tablet 500 mg PO BID Qty: 20 0RF prednisone 5 mg tablet 1 tab PO DAILY levothyroxine 75 mcg tablet 1 tab PO DAILY albuterol sulfate 90 mcg/actuation Hfa Aerosol Inhaler 2 puff INHALATION Q4-6H PRN (Reason: Shortness Of Breath) sumatriptan 20 mg/actuation [place],Non-Aerosol 20 mg INTRANASAL Q2H PRN (Reason: Headache) Rx Instructions: administer into one nostril as a single dose; if 2nd dose needed,administer into other nostril after at least 2 hrs, NTE 2 doses (40 mg) per episode omega 0-tup-cpy-fish oil [Fish Oil] 1,000 mg (120 mg-180 mg) Capsule 1 cap PO DAILY duloxetine 20 mg capsule,delayed release(DR/EC) 1 cap PO DAILY diclofenac sodium 1 % gel 2 g topical QID melatonin 3 mg Capsule 3 mg PO BEDTIME PRN (Reason: Insomnia) Xulane 150-35 mcg/24 hr patch weekly 1 patch transdermal QWEEK Qty: 3 11RF Rx Instructions: apply once weekly for 3 weeks of a 4-week cycle estradiol [Estrace] 0.01 % (0.1 mg/gram) cream 1 g vaginal 2XW Qty: 42.5 0RF Rx Instructions: use nightly for two weeks, then twice a week Referrals: Jeane Bah [employer] [Primary Care Provider] -
[2022-07-22 00:59] LABS: MANUAL DIFF FLAG NO
[2022-07-22 01:01] LABS: Appearance Urine Cloudy; Basophils Absolute Auto 0.1 X10*3/uL (0.0-0.2); Basophils Percent Auto 0.6 % (0-2); Color Urine Yellow; Eosinophils Absolute Auto 0.3 X10*3/uL (0.0-0.4); Eosinophils Percent Auto 3.2 % (0-4); Glucose Urine UA Negative (Negative); Hematocrit 36.2 % (37.0-47.0); Hemoglobin 12.2 g/dl (12.0-16.0); Imm Gran Abs Auto 0.02 X10*3/uL (0.00-0.03); Imm Gran Pct Auto 0.2 % (0.0-0.4); Leukocyte Esterase Urine Small (1+) (Negative); Lymphocytes Absolute Auto 3.1 X10*3/uL (1.2-4.9); Lymphocytes Percent Auto 30.9 % (20-40); Mean Corpuscular HGB Conc 33.7 g/dl (31.0-35.0); Mean Corpuscular Volume 83.2 fL (80.0-98.0); Mean Platelet Volume 11.2 fL (9.4-12.3); Monocytes Absolute Auto 0.5 X10*3/uL (0.1-1.2); Monocytes Percent Auto 4.6 % (2-11); Neutrophils Absolute Auto 6.1 x10*3/uL (2.0-8.3); Neutrophils Percent Auto 60.5 % (45-73); Nitrite Urine Negative (Negative); PH 5.5 (5.0-9.0); Platelet Count 190 X10*3/uL (160-400); Red Blood Count 4.35 X10*6/uL (4.20-5.50); Red Cell Distribution Width 12.5 % (11.0-16.0); Specific Gravity - Urine >= 1.030 (1.005-1.025); UMIC TRIGGER UACC YES; Urine Blood Negative (Negative); Urine Ketones Negative (Negative); Urine Protein Negative (Neg-Trace)
[2022-07-22 01:03] LABS: UPreg QC Valid YES; Urine Pregnancy NEGATIVE (NEGATIVE)
[2022-07-22 01:08] VITALS: BP 98/54; PULSE 73; TEMP 36.6; O2SAT 95
[2022-07-22 01:15] LABS: Monotest Negative (Negative)
[2022-07-22 01:17] LABS: Bacteria Urine 1+ (None Seen); Calcium Oxalate Crystals Urine Present; Hyaline Casts Urine 0-2 /LPF (0-2); RBC Urine 0-2 /HPF (0-2); UACC Culture Trigger YES; WBC Urine 21-50 /HPF (0-5)
[2022-07-22] MEDS: 0.9 % Sodium Chloride 1,000 ML 999 ML IV (01:19)
[2022-07-22 01:20] LABS: Alanine Aminotransferase 54 U/L (0-31); Albumin Level 4.6 g/dL (3.5-5.0); Alkaline Phosphatase 68 U/L (39-117); Anion Gap 15 (12-20); Aspartate Amino Transferase 54 U/L (5-31); Bilirubin Total 0.3 mg/dL (0.0-1.0); Blood Urea Nitrogen 14 mg/dL (9-16); Calcium 9.6 mg/dL (8.4-10.2); Carbon Dioxide 22 mmol/L (22-29); Chloride 105 mmol/L (96-108); Creatinine Clr Calc Pharmacy 132.3; Estimated Glomerular Filt Rate > 60; Glucose Random 102 mg/dL (60-115); Potassium 3.9 mmol/L (3.3-5.1); Sodium 138 mmol/L (135-145)
[2022-07-22 01:37] LABS: Strep A Nucleic Acid Negative (Negative)
[2022-07-22 01:40] LABS: Thyroid Stimulating Hormone 1.74 uIU/mL (0.32-4.0)
[2022-07-22] MEDS: Nitrofurantoin Monohyd/M-Cryst 100 MG CAPSULE PO (02:19)
== END 2022-07-22 02:38 | disposition home or self-care (01) ==
PROVIDERS: Emergency Provider Student in an Organized Health Care Education/Training Program; PCP Nurse Practitioner Primary Care
DX: J02.9 Acute pharyngitis, unspecified (principal); R56.9 Unspecified convulsions; N39.0 Urinary tract infection, site not specified; E86.0 Dehydration; Z20.822 Contact with and (suspected) exposure to COVID-19
CPT/HCPCS: 36415; 80053; 81001; 81003; 81025; 84443; 85025; 86308; 87086; 87502; 87635; 87651; 99283

== ENCOUNTER 2022-11-05 12:27 | Emergency (ER) | payer MEDICAID, SELFPAY ==
[2022-11-05 12:58] VITALS: BP 118/76; PULSE 82; RESP 16; TEMP 36.7; O2SAT 96; BMI 33.6
--- NOTE | 2022-11-05 12:58 | ED.GENADULT ---
HPI - General Adult General Chief complaint: Headache <KALIN Matta - Last Filed: 11/05/22 13:04> Stated complaint: headache, dizzy, light headed, blurry vision <KALIN Matta - Last Filed: 11/05/22 13:04> Time Seen by Provider: 11/05/22 15:57 <KALIN Matta - Last Filed: 11/05/22 13:04> Source: patient <Mayte Fung NP - Last Filed: 11/05/22 19:53> Mode of arrival: ambulatory <Mayte Fung NP - Last Filed: 11/05/22 19:53> Limitations: no limitations <Mayte Fung NP - Last Filed: 11/05/22 19:53> History of Present Illness HPI narrative: 27-year-old female presents with multiple concerns. States that she has been experiencing nausea, vomiting, headaches increasing intensity, blurred vision, and lightheadedness. also reports a recent contraceptive patch, and has adrenal insufficiency. <Mayte Fung NP - Last Filed: 11/05/22 19:53> Onset (ago): day(s) (3) <Mayte Fung NP - Last Filed: 11/05/22 19:53> Location: head and eyes <Mayte Fung NP - Last Filed: 11/05/22 19:53> Radiation: non-radiation <Mayte Fung NP - Last Filed: 11/05/22 19:53> Severity: severe <Mayte Fung NP - Last Filed: 11/05/22 19:53> Severity scale (1-10): 10 <Mayte Fung NP - Last Filed: 11/05/22 19:53> Quality: constant <Mayte Fung NP - Last Filed: 11/05/22 19:53> Pain Consistency: constant <Mayte Fung NP - Last Filed: 11/05/22 19:53> Relieving factors: none <Mayte Fung NP - Last Filed: 11/05/22 19:53> Exacerbating factors: movement <Mayte Fung NP - Last Filed: 11/05/22 19:53> Associated symptoms: headaches, nausea/vomiting and other ( Changes in vision) <Mayte Fung NP - Last Filed: 11/05/22 19:53> Related Data Home medications: Home Medications Medication Instructions Recorded Confirmed albuterol sulfate 90 mcg/actuation 2 puff inhalation Q4-6H PRN 11/24/21 11/24/21 aerosol inhaler Shortness Of Breath diclofenac sodium 1 % topical gel 2 g topical QID 11/24/21 11/24/21 duloxetine 20 mg capsule,delayed 1 cap PO DAILY 11/24/21 11/24/21 release levothyroxine 75 mcg tablet 1 tab PO DAILY 11/24/21 11/24/21 melatonin 3 mg capsule 3 mg PO BEDTIME PRN Insomnia 11/24/21 11/24/21 omega 7-anx-qqc-fish oil 1,000 mg 1 cap PO DAILY 11/24/21 11/24/21 (120 mg-180 mg) capsule (Fish Oil) prednisone 5 mg tablet 1 tab PO DAILY 11/24/21 11/24/21 sumatriptan 20 mg/actuation nasal 20 mg intranasal Q2H PRN Headache 11/24/21 11/24/21 spray Previous Rx's Medication Instructions Recorded ondansetron HCl 4 mg tablet 4 mg PO Q8H PRN nausea and 01/22/21 (Zofran) vomiting #10 tabs estradiol 0.01% (0.1 mg/gram) 1 g vaginal 2XW #42.5 grams 04/20/21 vaginal cream (Estrace) norelgestromin 150 mcg-e.estradiol 1 patch transdermal QWEEK #3 ea 04/20/21 35 mcg/24 hr weekly transderm patch (Xulane) metronidazole 500 mg tablet 500 mg PO BID 7 days #14 tabs 04/25/21 (Flagyl) cyclobenzaprine 10 mg tablet 10 mg PO TID PRN muscle spasm #14 08/27/21 tabs hydrocodone 5 mg-acetaminophen 325 1 tab PO Q6H PRN pain #8 tabs 08/27/21 mg tablet ibuprofen 600 mg tablet 600 mg PO Q6H PRN pain #30 tabs 08/27/21 yjpmxhjxcq-vrusufnkaytyi-rrdytmst 1 cap PO Q4H PRN pain #12 caps 09/09/21 50 mg-300 mg-40 mg capsule (Fioricet) prochlorperazine 25 mg rectal 25 mg MD Q12H PRN nausea and 09/09/21 suppository (Compazine) vomiting #12 ea naproxen 500 mg tablet (Naprosyn) 500 mg PO BID #20 tabs 09/11/21 nitrofurantoin 100 mg PO Q12H 5 days #10 caps 07/22/22 monohydrate/macrocrystals 100 mg capsule (Macrobid) hmahhohhzb-myufzsygyfuuo-zwlfiklz 1 cap PO Q4-6H PRN migraine 11/05/22 50 mg-300 mg-40 mg capsule headache #10 caps (Fioricet) <KALIN Matta Last Filed: 11/05/22 13:04> Allergies/adverse reactions: Allergies Allergy/AdvReac Type Severity Reaction Status Date / Time cephalexin [From KEFLEX] Allergy Severe ANAPHYLAXIS Verified 11/05/22 13:04 morphine [MORPHINE] Allergy Mild VOMITING Verified 11/05/22 13:04 kiwi Allergy Facial Verified 11/05/22 13:04 Swelling <KALIN Matta Last Filed: 11/05/22 13:04> Review of Systems Review of Systems: Constitutional: No Fever, No Chills ENT/Mouth: No Ear Pain, No Hoarseness, No sore throat Eyes: positive changes in vision, No Eye Pain, No Swelling, No Redness, No Foreign Body Cardiovascular: No Chest Pain, No SOB Respiratory: No Cough, No Dyspnea Gastrointestinal: positive Nausea, No Vomiting, No Diarrhea, No abdominal Pain Genitourinary: No Dysuria, No Hematuria Musculoskeletal: now joint pain, No Myalgias, No Joint Swelling Skin: No Skin lacerations, No rash Neuro: No Weakness, No Numbness, No Paresthesias, No Loss of Consciousness, No Dizziness, positive Headache <STEFANIA Sharp Last Filed: 11/05/22 19:53> Yes all other systems are reviewed and are negative <STEFANIA Sharp Last Filed: 11/05/22 19:53> [facility] Past Medical History Attestation statement: The following information was validated with the patient. 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 Polyamory-plans surrogate Alcohol intake: never Patient Tobacco Use Status: Never used Tobacco Tobacco use type: Cigarette Cigarettes Per Day: 6 Advance Directives: No Advance Directives Information Provided: No Sexual orientation: Bisexual Gender identity: Female <KALIN Matta - Last Filed: 11/05/22 13:04> Physical Exam ED Vital Signs: Vital Signs - 24 hr 11/05/22 12:58 11/05/22 15:09 Temperature 98.1 F 98.1 F Pulse Rate 82 66 Respiratory Rate 16 18 Blood Pressure 118/76 103/40 L Pulse Oximetry 96 97 Oxygen Delivery Method Room Air Room Air BMI result Body Mass Index 33.6 <KALIN Matta - Last Filed: 11/05/22 13:04> Vital Signs - 24 hr 11/05/22 12:58 11/05/22 15:09 Temperature 98.1 F 98.1 F Pulse Rate 82 66 Respiratory Rate 16 18 Blood Pressure 118/76 103/40 L Pulse Oximetry 96 97 Oxygen Delivery Method Room Air Room Air BMI result Body Mass Index 33.6 <Mayte Fung NP - Last Filed: 11/05/22 19:53> Appearance: Alert. Oriented X3. No acute distress. Eyes: Pupils equal, round and reactive to light. EOMI. No nystagmus. No indication of entrapment. ENT: Pharynx normal. Moist mucous membranes. Neck: Normal inspection. Neck supple. Full range of motion. CVS: Normal heart rate and rhythm. Pulses normal. Respiratory: No respiratory distress. Breath sounds normal. Skin: Skin warm and dry. Normal skin color. Normal skin turgor. Extremities: No lower extremity edema. Gait well-balanced well coordinated. Neuro: No motor deficit. No sensory deficit. Cranial nerves 2-12 intact. <Mayte Fugn NP - Last Filed: 11/05/22 19:53> Course Course Course Narrative: RME-- 27yo F w/PMHx adrenal insufficiency, anxiety, depression, HLD, hypothyroid, insomnia, von Willebrand's disease, presenting to the ED complaining of nausea and vomiting w/ inability to keep her meds down (concerned about her adrenal insufficiency meds) x2 days. Also reports central RIOS with assoc blurry vision x2-3 days. Not maximal at onset. Taking ibuprofen with mild relief. Takes Prednisone daily Nontoxic appearing, ambulating with steady gait EKG, labs, UA, , COVID/flu/RSV, IVF and Zofran ordered <KALIN Matta - Last Filed: 11/05/22 13:04> RME-- 27yo F w/PMHx adrenal insufficiency, anxiety, depression, HLD, hypothyroid, insomnia, von Willebrand's disease, presenting to the ED complaining of nausea and vomiting w/ inability to keep her meds down (concerned about her adrenal insufficiency meds) x2 days. Also reports central RIOS with assoc blurry vision x2-3 days. Not maximal at onset. Taking ibuprofen with mild relief. Takes Prednisone daily Nontoxic appearing, ambulating with steady gait EKG, labs, UA, , COVID/flu/RSV, IVF and Zofran ordered 27-year-old female presents with 3 days of nausea, vomiting, gradually worsening headache with changes in vision, lightheadedness, recently started a contraceptive patch. 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 Patient is describing left eye vision changes, but is neurovascularly and neurologically intact. Eye exam is Physically normal. visual acuity not completed as patient is legally blind to the right eye. Patient is able to use her phone without difficulty. NIH stroke scale is 0. [place] coma scale is 15. Will order medications for migraine headache. Shortly after my assessment, RN called this [facility] to states that patient no longer has vision in her left eye, interesting to note that patient is able to follow my finger, and pupils are reactive. Patient then amended her statement to say that she can see light, but that her peripheral vision is poor. Attending physician to assess this patient, patient has no visual field defects, funduscopic exam is normal, most likely to be complex migraine syndrome. Low to no likelihood of amaurosis fugax. patient has had multiple CT scans, 7 over the past year, and MRI of brain 2 years ago all with negative workup. Migraine medications affective. Patient states to feel significantly better. Plan of care is discharged home with migraine medications. Patient does understand that she must follow-up with primary care physician and Neurology. <Mayte Fung NP - Last Filed: 11/05/22 19:53> Medications Administered Discontinued Medications Generic Name Dose Route Start Last Admin Trade Name Elia PRN Reason Stop Dose Admin Acetaminophen/Butalbital/Caffeine 1 tab 11/05/22 16:06 11/05/22 16:25 Butalb/Acetamin/Caff 50/325/40 Tablet PO 11/05/22 16:07 1 tab ONCE ONE Administration Sodium Chloride 1,000 mls @ 999 mls/hr 11/05/22 13:00 11/05/22 17:46 Ns IV 11/05/22 14:00 Infused .Q1H1M RAYSA Infusion Ketorolac Tromethamine 15 mg 11/05/22 16:06 11/05/22 16:24 Ketorolac Tromethamine 15 Mg/Ml Vial IVPUSH 11/05/22 16:07 15 mg ONCE ONE Administration Ondansetron HCl 4 mg 11/05/22 12:58 11/05/22 15:35 Ondansetron Hcl 4 Mg/2 Ml Vial IVPUSH 11/05/22 12:59 4 mg ONCE ONE Administration Sumatriptan Succinate 6 mg 11/05/22 17:53 11/05/22 18:01 Sumatriptan Succinate 6 Mg/0.5 Ml Vial SUBCUT 11/05/22 17:54 6 mg ONCE ONE Administration <KALIN Matta - Last Filed: 11/05/22 13:04> Medications Administered Discontinued Medications Generic Name Dose Route Start Last Admin Trade Name Elia PRN Reason Stop Dose Admin Acetaminophen/Butalbital/Caffeine 1 tab 11/05/22 16:06 11/05/22 16:25 Butalb/Acetamin/Caff 50/325/40 Tablet PO 11/05/22 16:07 1 tab ONCE ONE Administration Sodium Chloride 1,000 mls @ 999 mls/hr 11/05/22 13:00 11/05/22 17:46 Ns IV 11/05/22 14:00 Infused .Q1H1M RAYSA Infusion Ketorolac Tromethamine 15 mg 11/05/22 16:06 11/05/22 16:24 Ketorolac Tromethamine 15 Mg/Ml Vial IVPUSH 11/05/22 16:07 15 mg ONCE ONE Administration Ondansetron HCl 4 mg 11/05/22 12:58 11/05/22 15:35 Ondansetron Hcl 4 Mg/2 Ml Vial IVPUSH 11/05/22 12:59 4 mg ONCE ONE Administration Sumatriptan Succinate 6 mg 11/05/22 17:53 11/05/22 18:01 Sumatriptan Succinate 6 Mg/0.5 Ml Vial SUBCUT 11/05/22 17:54 6 mg ONCE ONE Administration <Mayte Fung NP - Last Filed: 11/05/22 19:53> Medical Decision Making Differential Diagnosis Differential Diagnoses: The differential diagnosis associated with the presentation includes <Mayte Fung NP - Last Filed: 11/05/22 19:53> Optic neuritis, amaurosis fugax, migraine <Mayte Fung NP - Last Filed: 11/05/22 19:53> Lab Data MDM Lab Attestation statement: I reviewed the patient's lab results. <Mayte Fung NP - Last Filed: 11/05/22 19:53> Result Diagrams: 11/05/22 13:24 11/05/22 13:24 <KALIN Matta - Last Filed: 11/05/22 13:04> Labs: Lab Results 11/05/22 11/05/22 11/05/22 Range/Units 13:23 13:24 13:24 WBC 7.6 (4.8-10.8) X10*3/uL RBC 4.71 (4.20-5.50) X10*6/uL Hgb 13.2 (12.0-16.0) g/dl Hct 39.7 (37.0-47.0) % MCV 84.3 (80.0-98.0) fL MCH 28.0 (27.0-33.0) pg MCHC 33.2 (31.0-35.0) g/dl RDW 12.6 (11.0-16.0) % Plt Count 177 (160-400) X10*3/uL MPV 11.1 (9.4-12.3) fL Immature Gran % (Auto) 0.1 (0.0-0.4) % Neut % (Auto) 54.2 (45-73) % Lymph % (Auto) 36.6 (20-40) % [place] % (Auto) 4.1 (2-11) % Eos % (Auto) 4.3 H (0-4) % Baso % (Auto) 0.7 (0-2) % Lymph # (Auto) 2.8 (1.2-4.9) X10*3/uL [place] # (Auto) 0.3 (0.1-1.2) X10*3/uL Eos # (Auto) 0.3 (0.0-0.4) X10*3/uL Baso # (Auto) 0.1 (0.0-0.2) X10*3/uL Abs Immat Gran (auto) 0.01 (0.00-0.03) X10*3/uL Absolute Neuts (auto) 4.1 (2.0-8.3) x10*3/uL Absolute Nucleated RBC 0.000 (0.0-0.012) X10*3/uL Nucleated RBC % (auto) 0.0 (0.0-0.2) /100WBC Sodium 139 (135-145) mmol/L Potassium 4.3 (3.3-5.1) mmol/L Chloride 106 (96-108) mmol/L Carbon Dioxide 21 L (22-29) mmol/L Anion Gap 16 (12-20) BUN 13 (9-16) mg/dL Creatinine 0.82 (0.5-1.4) mg/dL Estim Creat Clear Calc 106.3 Estimated GFR > 60 Random Glucose 99 (60-115) mg/dL Calcium 10.0 (8.4-10.2) mg/dL Magnesium 2.1 (1.6-2.6) mg/dL Total Bilirubin 0.3 (0.0-1.0) mg/dL Direct Bilirubin < 0.2 (0.0-0.5) mg/dL AST 35 H (5-31) U/L ALT 39 H (0-31) U/L Alkaline Phosphatase 92 (39-117) U/L Total Protein 7.4 (6.5-8.0) g/dL Albumin 5.0 (3.5-5.0) g/dL Lipase 21 (8-78) U/L Urine Color Urine Appearance Urine pH (5.0-9.0) Ur Specific [place] (1.005-1.025) Urine Protein (Neg-Trace) mg/dL Urine Glucose (UA) (Negative) mg/dL Urine Ketones (Negative) mg/dL Urine Blood (Negative) Urine Nitrite (Negative) Ur Leukocyte Esterase (Negative) Urine RBC (0-2) /HPF Urine WBC (0-5) /HPF Ur Squamous Epith Cells (0-2) /HPF Urine Bacteria (None Seen) Hyaline Casts (0-2) /LPF Urine Test (NEGATIVE) Influenza Type A (PCR) NEGATIVE (Negative) Influenza Type B (PCR) NEGATIVE (Negative) RSV RNA Qual (PCR) NEGATIVE (Negative) SARS-CoV-2 RNA (RT-PCR) NEGATIVE (Negative) 11/05/22 11/05/22 Range/Units 15:34 15:34 WBC (4.8-10.8) X10*3/uL RBC (4.20-5.50) X10*6/uL Hgb (12.0-16.0) g/dl Hct (37.0-47.0) % MCV (80.0-98.0) fL MCH (27.0-33.0) pg MCHC (31.0-35.0) g/dl RDW (11.0-16.0) % Plt Count (160-400) X10*3/uL MPV (9.4-12.3) fL Immature Gran % (Auto) (0.0-0.4) % Neut % (Auto) (45-73) % Lymph % (Auto) (20-40) % [place] % (Auto) (2-11) % Eos % (Auto) (0-4) % Baso % (Auto) (0-2) % Lymph # (Auto) (1.2-4.9) X10*3/uL [place] # (Auto) (0.1-1.2) X10*3/uL Eos # (Auto) (0.0-0.4) X10*3/uL Baso # (Auto) (0.0-0.2) X10*3/uL Abs Immat Gran (auto) (0.00-0.03) X10*3/uL Absolute Neuts (auto) (2.0-8.3) x10*3/uL Absolute Nucleated RBC (0.0-0.012) X10*3/uL Nucleated RBC % (auto) (0.0-0.2) /100WBC Sodium (135-145) mmol/L Potassium (3.3-5.1) mmol/L Chloride (96-108) mmol/L Carbon Dioxide (22-29) mmol/L Anion Gap (12-20) BUN (9-16) mg/dL Creatinine (0.5-1.4) mg/dL Estim Creat Clear Calc Estimated GFR Random Glucose (60-115) mg/dL Calcium (8.4-10.2) mg/dL Magnesium (1.6-2.6) mg/dL Total Bilirubin (0.0-1.0) mg/dL Direct Bilirubin (0.0-0.5) mg/dL AST (5-31) U/L ALT (0-31) U/L Alkaline Phosphatase (39-117) U/L Total Protein (6.5-8.0) g/dL Albumin (3.5-5.0) g/dL Lipase (8-78) U/L Urine Color Yellow Urine Appearance Clear Urine pH 6.5 (5.0-9.0) Ur Specific [place] 1.020 (1.005-1.025) Urine Protein Negative (Neg-Trace) mg/dL Urine Glucose (UA) Negative (Negative) mg/dL Urine Ketones Negative (Negative) mg/dL Urine Blood Negative (Negative) Urine Nitrite Negative (Negative) Ur Leukocyte Esterase Small (1+) H (Negative) Urine RBC 0-2 (0-2) /HPF Urine WBC 0-5 (0-5) /HPF Ur Squamous Epith Cells 3-5 (0-2) /HPF Urine Bacteria Trace (None Seen) Hyaline Casts 0-2 (0-2) /LPF Urine Test NEGATIVE (NEGATIVE) Influenza Type A (PCR) (Negative) Influenza Type B (PCR) (Negative) RSV RNA Qual (PCR) (Negative) SARS-CoV-2 RNA (RT-PCR) (Negative) <KALIN Matta - Last Filed: 11/05/22 13:04> Lab Results 11/05/22 11/05/22 11/05/22 Range/Units 13:23 13:24 13:24 WBC 7.6 (4.8-10.8) X10*3/uL RBC 4.71 (4.20-5.50) X10*6/uL Hgb 13.2 (12.0-16.0) g/dl Hct 39.7 (37.0-47.0) % MCV 84.3 (80.0-98.0) fL MCH 28.0 (27.0-33.0) pg MCHC 33.2 (31.0-35.0) g/dl RDW 12.6 (11.0-16.0) % Plt Count 177 (160-400) X10*3/uL MPV 11.1 (9.4-12.3) fL Immature Gran % (Auto) 0.1 (0.0-0.4) % Neut % (Auto) 54.2 (45-73) % Lymph % (Auto) 36.6 (20-40) % [place] % (Auto) 4.1 (2-11) % Eos % (Auto) 4.3 H (0-4) % Baso % (Auto) 0.7 (0-2) % Lymph # (Auto) 2.8 (1.2-4.9) X10*3/uL [place] # (Auto) 0.3 (0.1-1.2) X10*3/uL Eos # (Auto) 0.3 (0.0-0.4) X10*3/uL Baso # (Auto) 0.1 (0.0-0.2) X10*3/uL Abs Immat Gran (auto) 0.01 (0.00-0.03) X10*3/uL Absolute Neuts (auto) 4.1 (2.0-8.3) x10*3/uL Absolute Nucleated RBC 0.000 (0.0-0.012) X10*3/uL Nucleated RBC % (auto) 0.0 (0.0-0.2) /100WBC Sodium 139 (135-145) mmol/L Potassium 4.3 (3.3-5.1) mmol/L Chloride 106 (96-108) mmol/L Carbon Dioxide 21 L (22-29) mmol/L Anion Gap 16 (12-20) BUN 13 (9-16) mg/dL Creatinine 0.82 (0.5-1.4) mg/dL Estim Creat Clear Calc 106.3 Estimated GFR > 60 Random Glucose 99 (60-115) mg/dL Calcium 10.0 (8.4-10.2) mg/dL Magnesium 2.1 (1.6-2.6) mg/dL Total Bilirubin 0.3 (0.0-1.0) mg/dL Direct Bilirubin < 0.2 (0.0-0.5) mg/dL AST 35 H (5-31) U/L ALT 39 H (0-31) U/L Alkaline Phosphatase 92 (39-117) U/L Total Protein 7.4 (6.5-8.0) g/dL Albumin 5.0 (3.5-5.0) g/dL Lipase 21 (8-78) U/L Urine Color Urine Appearance Urine pH (5.0-9.0) Ur Specific [place] (1.005-1.025) Urine Protein (Neg-Trace) mg/dL Urine Glucose (UA) (Negative) mg/dL Urine Ketones (Negative) mg/dL Urine Blood (Negative) Urine Nitrite (Negative) Ur Leukocyte Esterase (Negative) Urine RBC (0-2) /HPF Urine WBC (0-5) /HPF Ur Squamous Epith Cells (0-2) /HPF Urine Bacteria (None Seen) Hyaline Casts (0-2) /LPF Urine Test (NEGATIVE) Influenza Type A (PCR) NEGATIVE (Negative) Influenza Type B (PCR) NEGATIVE (Negative) RSV RNA Qual (PCR) NEGATIVE (Negative) SARS-CoV-2 RNA (RT-PCR) NEGATIVE (Negative) 11/05/22 11/05/22 Range/Units 15:34 15:34 WBC (4.8-10.8) X10*3/uL RBC (4.20-5.50) X10*6/uL Hgb (12.0-16.0) g/dl Hct (37.0-47.0) % MCV (80.0-98.0) fL MCH (27.0-33.0) pg MCHC (31.0-35.0) g/dl RDW (11.0-16.0) % Plt Count (160-400) X10*3/uL MPV (9.4-12.3) fL Immature Gran % (Auto) (0.0-0.4) % Neut % (Auto) (45-73) % Lymph % (Auto) (20-40) % [place] % (Auto) (2-11) % Eos % (Auto) (0-4) % Baso % (Auto) (0-2) % Lymph # (Auto) (1.2-4.9) X10*3/uL [place] # (Auto) (0.1-1.2) X10*3/uL Eos # (Auto) (0.0-0.4) X10*3/uL Baso # (Auto) (0.0-0.2) X10*3/uL Abs Immat Gran (auto) (0.00-0.03) X10*3/uL Absolute Neuts (auto) (2.0-8.3) x10*3/uL Absolute Nucleated RBC (0.0-0.012) X10*3/uL Nucleated RBC % (auto) (0.0-0.2) /100WBC Sodium (135-145) mmol/L Potassium (3.3-5.1) mmol/L Chloride (96-108) mmol/L Carbon Dioxide (22-29) mmol/L Anion Gap (12-20) BUN (9-16) mg/dL Creatinine (0.5-1.4) mg/dL Estim Creat Clear Calc Estimated GFR Random Glucose (60-115) mg/dL Calcium (8.4-10.2) mg/dL Magnesium (1.6-2.6) mg/dL Total Bilirubin (0.0-1.0) mg/dL Direct Bilirubin (0.0-0.5) mg/dL AST (5-31) U/L ALT (0-31) U/L Alkaline Phosphatase (39-117) U/L Total Protein (6.5-8.0) g/dL Albumin (3.5-5.0) g/dL Lipase (8-78) U/L Urine Color Yellow Urine Appearance Clear Urine pH 6.5 (5.0-9.0) Ur Specific [place] 1.020 (1.005-1.025) Urine Protein Negative (Neg-Trace) mg/dL Urine Glucose (UA) Negative (Negative) mg/dL Urine Ketones Negative (Negative) mg/dL Urine Blood Negative (Negative) Urine Nitrite Negative (Negative) Ur Leukocyte Esterase Small (1+) H (Negative) Urine RBC 0-2 (0-2) /HPF Urine WBC 0-5 (0-5) /HPF Ur Squamous Epith Cells 3-5 (0-2) /HPF Urine Bacteria Trace (None Seen) Hyaline Casts 0-2 (0-2) /LPF Urine Test NEGATIVE (NEGATIVE) Influenza Type A (PCR) (Negative) Influenza Type B (PCR) (Negative) RSV RNA Qual (PCR) (Negative) SARS-CoV-2 RNA (RT-PCR) (Negative) <Mayte Fung NP - Last Filed: 11/05/22 19:53> External Record Review External record reviewed: Outpatient record, Prior outpatient labs and Prior outpatient radiology <Mayte Fung NP - Last Filed: 11/05/22 19:53> Tests considered The following testing was considered but not selected: CT scan of head, patient has had multiple CT scans and MRI of her head over the past 2 years with negative workup. <Mayte Fung NP - Last Filed: 11/05/22 19:53> Prescription Management I considered prescription management with: Pain Medication <Mayte Fung NP - Last Filed: 11/05/22 19:53> Migraine medications <Mayte Fung NP - Last Filed: 11/05/22 19:53> Discharge Plan Discharge Clinical Impression: Migraine <KALIN Matta - Last Filed: 11/05/22 13:04> Patient Disposition: Home, Self-Care <KALIN Matta - Last Filed: 11/05/22 13:04> Instructions: Migraine Headache (ED) <KALIN Matta - Last Filed: 11/05/22 13:04> Additional Instructions: you were evaluated for Symptoms consistent with complex migraine syndrome. Please take Fioricet as directed. Follow-up with primary care physician for neurology referral. Thank you for choosing this emergency department for evaluation. Please follow-up with primary care physician as needed. Return to the emergency department for any new, concerning, or worsening symptoms. <KALIN Matta - Last Filed: 11/05/22 13:04> Prescriptions: New pknqevssas-nfulgxmxhcepb-cbeh [Fioricet] 50-300-40 mg capsule 1 cap PO Q4-6H PRN (Reason: migraine headache) Qty: 10 0RF No Action metronidazole [Flagyl] 500 mg tablet 500 mg PO BID 7 Days Qty: 14 0RF Rx Instructions: Take with food, Avoid alcohol and vinegar products ondansetron HCl [Zofran] 4 mg tablet 4 mg PO Q8H PRN (Reason: nausea and vomiting) Qty: 10 0RF cyclobenzaprine 10 mg tablet 10 mg PO TID PRN (Reason: muscle spasm) Qty: 14 0RF hydrocodone-acetaminophen 5-325 mg tablet 1 tab PO Q6H PRN (Reason: pain) Qty: 8 0RF ibuprofen 600 mg tablet 600 mg PO Q6H PRN (Reason: pain) Qty: 30 0RF prochlorperazine [Compazine] 25 mg suppository 25 mg MD Q12H PRN (Reason: nausea and vomiting) Qty: 12 0RF fvoodibpgn-wevfldcuvbhbg-wqqv [Fioricet] 50-300-40 mg capsule 1 cap PO Q4H PRN (Reason: pain) Qty: 12 0RF naproxen [Naprosyn] 500 mg tablet 500 mg PO BID Qty: 20 0RF prednisone 5 mg tablet 1 tab PO DAILY levothyroxine 75 mcg tablet 1 tab PO DAILY albuterol sulfate 90 mcg/actuation Hfa Aerosol Inhaler 2 puff INHALATION Q4-6H PRN (Reason: Shortness Of Breath) sumatriptan 20 mg/actuation [place],Non-Aerosol 20 mg INTRANASAL Q2H PRN (Reason: Headache) Rx Instructions: administer into one nostril as a single dose; if 2nd dose needed,administer into other nostril after at least 2 hrs, NTE 2 doses (40 mg) per episode omega 1-spk-poc-fish oil [Fish Oil] 1,000 mg (120 mg-180 mg) Capsule 1 cap PO DAILY duloxetine 20 mg capsule,delayed release(DR/EC) 1 cap PO DAILY diclofenac sodium 1 % gel 2 g topical QID melatonin 3 mg Capsule 3 mg PO BEDTIME PRN (Reason: Insomnia) nitrofurantoin monohyd/m-cryst [Macrobid] 100 mg capsule 100 mg PO Q12H 5 Days Qty: 10 0RF Rx Instructions: must administer with a meal/food Xulane 150-35 mcg/24 hr patch weekly 1 patch transdermal QWEEK Qty: 3 11RF Rx Instructions: apply once weekly for 3 weeks of a 4-week cycle estradiol [Estrace] 0.01 % (0.1 mg/gram) cream 1 g vaginal 2XW Qty: 42.5 0RF Rx Instructions: use nightly for two weeks, then twice a week <KALIN Matta - Last Filed: 11/05/22 13:04> Interventions: ED Discharge Assessment Last Done: 11/05/22 19:22 <KALIN Matta - Last Filed: 11/05/22 13:04> Discharge Date/Time: 11/05/22 19:22 <KALIN Matta - Last Filed: 11/05/22 13:04>
--- NOTE | 2022-11-05 12:59 | ECG_ITS ---
Test Reason : DIZZINESS Blood Pressure : / mmHG Vent. Rate : 079 BPM Atrial Rate : 079 BPM P-R Int : 172 ms QRS Dur : 088 ms QT Int : 376 ms P-R-T Axes : 059 052 023 degrees QTc Int : 431 ms Normal sinus rhythm Normal ECG When compared with ECG of 23-JUN-2021 10:36, No significant change was found Referred By: Tsering Cervantes Electronically Signed By:AKANKSHA IGLESIAS MD
[2022-11-05 13:29] LABS: MANUAL DIFF FLAG NO
--- OUTSIDE RECORDS SUMMARY | 2022-11-05 13:30 | XMS_ITS | Continuity of Care Document ---
:1994 Author Organization [facility] Address [address] [place] [address]- Care Team Providers Name Role Phone Nigel SPENCE, Orin Devries Primary Care Physician Encounter [facility] [place] Date(s): 07/05/21 - 08/04/21 [facility] Endocrinology and Diabetes [address] [place] [id number] Allergies, Adverse Reactions, Alerts Substance Reaction Severity Status morphine Active Keflex Active Medications Colace sodium 100 mg oral capsule 1 capsule = 100 mg, By Mouth, 2 times a day, PRN for constipation, # 20 capsule, 0 Refills, Maintenance, 03/26/14 2:59:47, Capsule Start Date: 03/26/14 Status: Orderedlevothyroxine 75 mcg (0.075 mg) oral tablet 1 tablet = 75 mcg, By Mouth, Daily, # 30 tablet, 4 Refills, Maintenance, 06/15/21 15:03:00 EDT, [facility] #[id number], 162, cm, 01/22/21 13:36:00 EDT, Height Start Date: 06/15/21 Status: OrderedpredniSONE 5 mg oral tablet 1 tablet = 5 mg, By Mouth, Daily, # 90 tablet, 3 Refills, Maintenance, 06/15/21 15:05:00 EDT, [facility] #[id number], Partial fill upon patient request if the prescription is for a schedule II opioid drug., 162, cm, 01/22/21 13:36:00 EDT, Height Start Date: 06/15/21 Status: OrderedRitalin Tablet By Mouth, 0, 0, 08/10/08 9:28:00, Print GUCCI Number, Constant Indicator Start Date: 08/10/08 Status: OrderedSolu-CORTEF 100 mg preservative-free injection = 50 mg, IV Infusion, Once, Please take 50 mg for stress dose for fever, surgery, trauma, # 3 each, 5 Refills, Soft Stop, 07/25/21 14:45:00 EDT, [facility] #[id number], 162, cm, 01/22/21 13:36:00 EDT, Height Start Date: 07/25/21 Status: OrderedZafemy 150 mcg-35 mcg/24 hr transdermal film, extended release See Instructions, 1 patch Topically apply a new patch weekly for 3 weeks, remove for 1 week, then repeat cycle, # 3 each, 3 Refills, Maintenance, 06/15/21 15:07:00 EDT, [facility] #[id number], Partial fill upon patient request if the prescriptio... 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
--- OUTSIDE RECORDS SUMMARY | 2022-11-05 13:30 | XMS_ITS | Continuity of Care Document ---
:1994 Author Organization [facility] Address [address] [place] [address]- Care Team Providers Name Role Phone Nigel SPENCE, Orin Devries Primary Care Physician [phone] Encounter [facility] Date(s): 11/04/21 - 12/04/21 [facility] Endocrinology and Diabetes [address] [place] [id number] Attending Physician: Admtr, [id number] Admitting Physician: Admtr, Ar8 Referring Physician: Admtr, Ar8 Allergies, Adverse Reactions, Alerts Substance Reaction Severity Status morphine Active Keflex Active Medications 3ml 23 G 1 needle 3ml 23 G 1 needle, See Instructions, # 5 each, Refills 0, Tot. Refills 0, Maintenance, Use to inject hydrocortisone for adrenal crisis, 09/16/21 10:52:00 EST, Supply, 162, cm, 01/22/21 13:36:00 EDT, Height Start Date: 09/16/21 Status: Orderedacetaminophen 325 mg oral tablet 650 mg, 2, tablet, By Mouth, Every 4 hours, PRN, Refills 0, Maintenance, Pain , Moderate, 02/19/21 10:57:00 EDT, Partial fill upon patient request if the prescription is for a schedule II opioid drug. Start Date: 02/19/21 Status: OrderedAlbuterol 0.083% inhalation ravinder 2.5 mg, 3, mL, BAND Nebulizer, Every 4 hours, PRN, Refills 0, Maintenance, Wheezing/Shortness of Breath, 02/19/21 10:57:00 EDT, Inhalation Solution Start Date: 02/19/21 Status: OrderedColace sodium 100 mg oral capsule 1 capsule = 100 mg, By Mouth, 2 times a day, PRN for constipation, # 20 capsule, 0 Refills, Maintenance, 03/26/14 2:59:47, Capsule Start Date: 03/26/14 Status: Orderedlevothyroxine 75 mcg (0.075 mg) oral tablet 1 tablet = 75 mcg, By Mouth, Daily, # 30 tablet, 4 Refills, Maintenance, 06/15/21 15:03:00 EDT, [facility] #[id number], 162, cm, 01/22/21 13:36:00 EDT, Height Start Date: 06/15/21 Status: OrderedpredniSONE 10 mg oral tablet 1 tablet = 10 mg, By Mouth, Daily, # 30 tablet, 0 Refills, Maintenance, 02/19/21 10:52:00 EDT, Tablet, [facility], Partial fill upon patient request if the prescription is for a schedule II opioid drug. Start Date: 02/19/21 Stop Date: 03/21/21 Status: OrderedpredniSONE 5 mg oral tablet 1 tablet = 5 mg, By Mouth, Daily, # 90 tablet, 5 Refills, Maintenance, 09/16/21 10:54:00 EST, [facility] #[id number], Partial fill upon patient request if the prescription is for a schedule II opioid drug., 162, cm, 01/22/21 13:36:00 EDT, Height Start Date: 09/16/21 Status: OrderedRitalin Tablet By Mouth, 0, 0, 08/10/08 9:28:00, Print GUCCI Number, Constant Indicator Start Date: 08/10/08 Status: OrderedSolu-CORTEF 100 mg preservative-free injection = 50 mg, IV Infusion, Once, Please take 50 mg for stress dose for fever, surgery, trauma, # 3 each, 5 Refills, Soft Stop, 07/25/21 14:45:00 EDT, [facility] #[id number], 162, cm, 01/22/21 13:36:00 EDT, Height Start Date: 07/25/21 Status: OrderedSolu-CORTEF Act-O-Vial 100 mg injection = 100 mg, Intramuscular, Once, Give one dose IM if unable to tolerate oral steroid for adrenal crisis, # 1 each, 2 Refills, Soft Stop, 11/11/21 10:37:00 EST, Powder, [facility] #[id number], Partial fill upon patient request if the prescription is... Start Date: 11/11/21 Status: OrderedYaz 3 mg-0.02 mg oral tablet 1 tablet, By Mouth, Daily, # 28 tablet, 11 Refills, Maintenance, 11/11/21 10:34:00 EST, Tablet, [facility] #[id number], Partial fill upon patient request if the prescription is for a schedule II opioid drug., 1 tablet By Mouth Daily,x28 days, 162... Start Date: 11/11/21 Stop Date: 10/13/22 Status: OrderedZafemy 150 mcg-35 mcg/24 hr transdermal film, extended release See Instructions, 1 patch Topically apply a new patch weekly for 3 weeks, remove for 1 week, then repeat cycle, # 3 each, 3 Refills, Maintenance, 06/15/21 15:07:00 EDT, [facility] #[id number], Partial fill upon patient request if the [...] History Social History Type Response Smoking Status 10 or more cigarettes (1/2 p ack or more)/day in last 30 days; Tobacco use times per day: 8+ per day; Number of years: 14; Started at age: 10; entered on: 02/18/21 Sex
--- OUTSIDE RECORDS SUMMARY | 2022-11-05 13:30 | XMS_ITS | Continuity of Care Document ---
:1994 Author Organization [facility] Address [address] [place] [address]- Care Team Providers Name Role Phone Nigel SPENCE, Orin Devries Primary Care Physician [phone] Encounter [facility] [place] ACCT R [id number] Date(s): 03/22/22 - 04/21/22 [facility] Endocrinology and Diabetes [address] [place] [id number] Attending Physician: AdmNavya gonzalez Admitting Physician: Admtr, Ar8 Referring Physician: Admtr, [...] 03/26/14 2:59:47, Capsule Start Date: 03/26/14 Status: OrderedEstradiol Patch 0.1 mg/24 hours weekly transdermal film, extended release 1 patch, Topically, Every week, # 12 patch, 4 Refills, Maintenance, 03/22/22 16:36:00 EDT, Patch, [facility] #[id number], Partial fill upon patient request if the prescription is for a schedule IIopioid drug., 162, cm, 01/22/21 13:36:00 EDT, Height Start Date: 03/22/22 Status: Orderedlevothyroxine 0.1 mg oral tablet 1 tablet = 100 mcg, By Mouth, Daily, # 30 tablet, 8 Refills, Maintenance, 03/22/22 16:30:00 EDT, Tablet, [facility] #[id number], Partial fill upon patient request if the prescription is for a schedule II opioid drug., 162, cm, 01/22/21 13:36:00 E... Start Date: 03/22/22 Status: OrderedpredniSONE 10 mg oral tablet 1 tablet = 10 mg, By Mouth, Daily, # 30 tablet, 0 Refills, Maintenance, 02/19/21 10:52:00 EDT, Tablet, [facility] 3, Partial fill upon patient request if the prescription is for a schedule II opioid drug. Start Date: 02/19/21 Stop Date: 03/21/21 Status: OrderedpredniSONE 5 mg oral tablet 1 tablet = 5 mg, By Mouth, Daily, # 90 tablet, 5 Refills, Maintenance, 03/22/22 16:29:00 EDT, [facility] #[id number], Partial fill upon patient request if the prescription is for a schedule II opioid drug., 162, cm, 01/22/21 13:36:00 EDT, Height Start Date: 03/22/22 Status: Orderedprogesterone 200 mg oral capsule 1 capsule = 200 mg, By Mouth, Daily, for 14 days, # 14 capsule, 11 Refills, Acute 09/06/22 16:36:00 EST, 03/22/22 16:36:00 EDT, Capsule, [facility] #[id number], Partial fill upon patient request if the prescription is for a schedule II opioid shwetha... Start Date: 03/22/22 Stop Date: 09/06/22 Status: OrderedRitalin Tablet By Mouth, 0, 0, 08/10/08 9:28:00, Print GUCCI Number, Constant Indicator Start Date: 08/10/08 Status: OrderedSolu-CORTEF 100 mg preservative-free injection = 50 mg, IV Infusion, Once, Please take 50 mg for stress dose for fever, surgery, trauma, # 3 each, 5 Refills, Soft Stop, 07/25/21 14:45:00 EDT, [facility] #[id number], 162, cm, 01/22/21 13:36:00 EDT, Height Start Date: 07/25/21 Status: OrderedSolu-CORTEF Act-O-Vial 100 mg injection = 100 mg, Intramuscular, Once, Give one dose IM if unable to tolerate oral steroid for adrenal crisis, # 1 each, 2 Refills, Soft Stop, 11/11/21 10:37:00 EST, Pow[facility], [facility] #[id number], Partial fill upon patient request if the prescription is... Start Date: 11/11/21 Status: OrderedYaz 3 mg-0.02 mg oral tablet 1 tablet, By Mouth, Daily, # 28 tablet, 11 Refills, Maintenance, 11/11/21 10:34:00 EST, Tablet, [facility] #[id number], Partial fill upon patient request if the [...] each, 3 Refills, Maintenance, 06/15/21 15:07:00 EDT, [facility] #[id number], Partial fill upon patient request if the [...]
--- OUTSIDE RECORDS SUMMARY | 2022-11-05 13:30 | XMS_ITS | Continuity of Care Document ---
:1994 Author Organization [facility] Address [address] [place] [address]- Care Team Providers Name Role Phone Nigel SPENCE, Orin Devries Primary Care Physician [phone] [place] [facility] [place] 10/21[place]21 [place] 12[place]04/21 [facility] Endocrinology and Diabetes [address] [place] [id number] Attending Physician: Heather Lake MD Admitting Physician: Heather Lake MD Referring Physician: Orin Manning MD Allergies, Adverse Reactions, Alerts Substance Reaction Severity [...] tablet, 4 Refills, Maintenance, 06/15/21 15:03:00 EDT, [facility] #[id number], 162, cm, 01/22/21 13:36:00 EDT, Height Start Date: 06/15/21 Status: OrderedpredniSONE 10 mg oral tablet 1 tablet = 10 mg, By Mouth, Daily, # 30 tablet, 0 Refills, Maintenance, 02/19/21 10:52:00 EDT, Tablet, [facility], Partial fill upon patient request if the prescription is for a schedule II opioid drug. Start Date: 02/19/21 Stop Date: 03/21/21 Status: OrderedpredniSONE 5 mg oral tablet 1 tablet = 5 mg, By Mouth, Daily, # 90 tablet, 5 Refills, Maintenance, 09/16/21 10:54:00 EST, [facility] #[id number], Partial fill upon patient request if the [...] 5 Refills, Soft Stop, 07/25/21 14:45:00 EDT, [facility] #[id number], 162, cm, 01/22/21 13:36:00 EDT, Height Start Date: 07/25/21 Status: OrderedSolu-CORTEF Act-O-Vial 100 mg injection = 100 mg, Intramuscular, Once, Give one dose IM if unable to tolerate oral steroid for adrenal crisis, # 1 each, 2 Refills, Soft Stop, 11/11/21 10:37:00 EST, Powder, [facility] #[id number], Partial fill upon patient request if the prescription is... Start Date: 11/11/21 Status: OrderedYaz 3 mg-0.02 mg oral tablet 1 tablet, By Mouth, Daily, # 28 tablet, 11 Refills, Maintenance, 11/11/21 10:34:00 EST, Tablet, [facility] #[id number], Partial fill upon patient request if the [...] each, 3 Refills, Maintenance, 06/15/21 15:07:00 EDT, [facility] #[id number], Partial fill upon patient request if the [...]
--- OUTSIDE RECORDS SUMMARY | 2022-11-05 13:30 | XMS_ITS | Continuity of Care Document ---
:1994 Author Organization [facility] Address [address] [place] [address]- Care Team Providers Name Role Phone Nigel SPECNE, Orin Devries Primary Care Physician Encounter [facility] [place] Date(s): 06/17/21 - 10/15/21 [facility] Endocrinology and Diabetes [address] [place] [id number] Attending Physician: Wei Whitt MD Admitting Physician: Wei Whitt MD Referring Physician: Olvin ENTRY LEVEL ACCOUNTANT, Jeane Kalyan Allergies, Adverse Reactions, Alerts Substance Reaction Severity Status morphine Active Keflex Active Medications 3ml 23 G 1 needle 3ml 23 G 1 needle, See Instructions, # 5 each, Refills 0, Tot. Refills 0, Maintenance, Use to inject hydrocortisone for adrenal crisis, 09/16/21 10:52:00 EST, Supply, 162, cm, 01/22/21 13:36:00 EDT, Height Start Date: 09/16/21 Status: OrderedColace sodium 100 mg oral capsule 1 capsule = 100 mg, By Mouth, 2 times a day, PRN for constipation, # 20 capsule, 0 Refills, Maintenance, 03/26/14 2:59:47, Capsule Start Date: 03/26/14 Status: Orderedlevothyroxine 75 mcg (0.075 mg) oral tablet 1 tablet = 75 mcg, By Mouth, Daily, # 30 tablet, 4 Refills, Maintenance, 06/15/21 15:03:00 EDT, [facility] #[id number], 162, cm, 01/22/21 13:36:00 EDT, Height Start Date: 06/15/21 Status: OrderedpredniSONE 5 mg oral tablet 1 tablet = 5 mg, By Mouth, Daily, # 90 tablet, 5 Refills, Maintenance, 09/16/21 10:54:00 EST, [facility] #[id number], Partial fill upon patient request if the [...] 5 Refills, Soft Stop, 07/25/21 14:45:00 EDT, [facility] #[id number], 162, cm, 01/22/21 13:36:00 EDT, Height Start Date: 07/25/21 Status: OrderedSolu-CORTEF Act-O-Vial 100 mg injection = 100 mg, Intramuscular, Once, Give one dose IM if unable to tolerate oral steroid for adrenal crisis, # 1 each, 2 Refills, Soft Stop, 09/16/21 10:51:00 EST, Powder, [facility] #[id number], Partial fill upon patient request if the prescription is... Start Date: 09/16/21 Status: OrderedZafemy 150 mcg-35 mcg/24 hr transdermal film, extended release See Instructions, 1 patch Topically apply a new patch weekly for 3 weeks, remove for 1 week, then repeat cycle, # 3 each, 3 Refills, Maintenance, 06/15/21 15:07:00 EDT, [facility] #[id number], Partial fill upon patient request if the [...]
--- OUTSIDE RECORDS SUMMARY | 2022-11-05 13:30 | XMS_ITS | Continuity of Care Document ---
:1994 Author Organization [facility] Address [address] [place] [address]- Care Team Providers Name Role Phone Nigel SPENCE, Orin Devries Primary Care Physician [phone] Encounter [facility] [place] Date(s): 07/25/21 - 08/24/21 [facility] Endocrinology and Diabetes [address] [place] [id number] Allergies, Adverse Reactions, Alerts Substance Reaction [...] tablet, 4 Refills, Maintenance, 06/15/21 15:03:00 EDT, [facility] #[id number], 162, cm, 01/22/21 13:36:00 EDT, Height Start Date: 06/15/21 Status: OrderedpredniSONE 5 mg oral tablet 1 tablet = 5 mg, By Mouth, Daily, # 90 tablet, 3 Refills, Maintenance, 06/15/21 15:05:00 EDT, [facility] #[id number], Partial fill upon patient request if the [...] 5 Refills, Soft Stop, 07/25/21 14:45:00 EDT, [facility] #[id number], 162, cm, 01/22/21 13:36:00 EDT, Height Start Date: 07/25/21 Status: OrderedZafemy 150 mcg-35 mcg/24 hr transdermal film, extended release See Instructions, 1 patch Topically apply a new patch weekly for 3 weeks, remove for 1 week, then repeat cycle, # 3 each, 3 Refills, Maintenance, 06/15/21 15:07:00 EDT, [facility] #[id number], Partial fill upon patient request if the [...]
--- OUTSIDE RECORDS SUMMARY | 2022-11-05 13:30 | XMS_ITS | Continuity of Care Document ---
:1994 Author Organization [facility] Address [address] [place] [address]- Care Team Providers Name Role Phone Nigel SPENCE, Orin Devries Primary Care Physician Encounter [facility] AC[facility] R [id number] Date(s): 12/22/21 - 04/21/22 [facility] Endocrinology and Diabetes [address] [place] [id number] Attending Physician: Ju Kim MD Admitting Physician: Ju Kim MD Referring Physician: Orin Manning MD Allergies, [...] 4 Refills, Maintenance, 03/22/22 16:36:00 EDT, Patch, [facility] #[id number], Partial fill upon patient request if the prescription is for a schedule IIopioid drug., 162, cm, 01/22/21 13:36:00 EDT, Height Start Date: 03/22/22 Status: Orderedlevothyroxine 0.1 mg oral tablet 1 tablet = 100 mcg, By Mouth, Daily, # 30 tablet, 8 Refills, Maintenance, 03/22/22 16:30:00 EDT, Tablet, [facility] #[id number], Partial fill upon patient request if the prescription is for a schedule II opioid drug., 162, cm, 01/22/21 13:36:00 E... Start Date: 03/22/22 Status: OrderedpredniSONE 10 mg oral tablet 1 tablet = 10 mg, By Mouth, Daily, # 30 tablet, 0 Refills, Maintenance, 02/19/21 10:52:00 EDT, Tablet, [facility] 3, Partial fill upon patient request if the prescription is for a schedule II opioid drug. Start Date: 02/19/21 Stop Date: 03/21/21 Status: OrderedpredniSONE 5 mg oral tablet 1 tablet = 5 mg, By Mouth, Daily, # 90 tablet, 5 Refills, Maintenance, 03/22/22 16:29:00 EDT, [facility] #[id number], Partial fill upon patient request if the prescription is for a schedule II opioid drug., 162, cm, 01/22/21 13:36:00 EDT, Height Start Date: 03/22/22 Status: Orderedprogesterone 200 mg oral capsule 1 capsule = 200 mg, By Mouth, Daily, for 14 days, # 14 capsule, 11 Refills, Acute 09/06/22 16:36:00 EST, 03/22/22 16:36:00 EDT, Capsule, [facility] #[id number], Partial fill upon patient request if the [...] 5 Refills, Soft Stop, 07/25/21 14:45:00 EDT, [facility] #[id number], 162, cm, 01/22/21 13:36:00 EDT, Height Start Date: 07/25/21 Status: OrderedSolu-CORTEF Act-O-Vial 100 mg injection = 100 mg, Intramuscular, Once, Give one dose IM if unable to tolerate oral steroid for adrenal crisis, # 1 each, 2 Refills, Soft Stop, 11/11/21 10:37:00 EST, Powder, [facility] #[id number], Partial fill upon patient request if the prescription is... Start Date: 11/11/21 Status: OrderedYaz 3 mg-0.02 mg oral tablet 1 tablet, By Mouth, Daily, # 28 tablet, 11 Refills, Maintenance, 11/11/21 10:34:00 EST, Tablet, [facility] #[id number], Partial fill upon patient request if the [...] each, 3 Refills, Maintenance, 06/15/21 15:07:00 EDT, [facility] #[id number], Partial fill upon patient request if the [...]
--- OUTSIDE RECORDS SUMMARY | 2022-11-05 13:30 | XMS_ITS | Continuity of Care Document ---
:1994 Author Organization [facility] Address [address] [place] [address]- Care Team Providers Name Role Phone Nigel SPENCE, Orin Devries Primary Care Physician [place] [facility] [place] Date(s): 06/13/22 - 07/13/22 [facility] Endocrinology and Diabetes [address] [place] [id number] Allergies, Adverse Reactions, Alerts Substance Reaction Severity [...] 4 Refills, Maintenance, 03/22/22 16:36:00 EDT, Patch, [facility] #[id number], Partial fill upon patient request if the prescription is for a schedule IIopioid drug., 162, cm, 01/22/21 13:36:00 EDT, Height Start Date: 03/22/22 Status: Orderedlevothyroxine 0.1 mg oral tablet 1 tablet = 100 mcg, By Mouth, Daily, # 30 tablet, 8 Refills, Maintenance, 03/22/22 16:30:00 EDT, Tablet, [facility] #[id number], Partial fill upon patient request if the prescription is for a schedule II opioid drug., 162, cm, 01/22/21 13:36:00 E... Start Date: 03/22/22 Status: OrderedpredniSONE 10 mg oral tablet 1 tablet = 10 mg, By Mouth, Daily, # 30 tablet, 0 Refills, Maintenance, 02/19/21 10:52:00 EDT, Tablet, [facility] 3, Partial fill upon patient request if the prescription is for a schedule II opioid drug. Start Date: 02/19/21 Stop Date: 03/21/21 Status: OrderedpredniSONE 5 mg oral tablet 1 tablet = 5 mg, By Mouth, Daily, # 90 tablet, 5 Refills, Maintenance, 03/22/22 16:29:00 EDT, [facility] #[id number], Partial fill upon patient request if the prescription is for a schedule II opioid drug., 162, cm, 01/22/21 13:36:00 EDT, Height Start Date: 03/22/22 Status: Orderedprogesterone 200 mg oral capsule 1 capsule = 200 mg, By Mouth, Daily, for 14 days, # 14 capsule, 11 Refills, Acute 09/06/22 16:36:00 EST, 03/22/22 16:36:00 EDT, Capsule, [facility] #[id number], Partial fill upon patient request if the prescription is for a schedule II opioid shwetha... Start Date: 03/22/22 Stop Date: 09/06/22 Status: OrderedRitalin Tablet By Mouth, 0, 0, 11/10/08 9:28:00, Print GUCCI Number, Constant Indicator Start Date: 08/10/08 Status: OrderedSolu-CORTEF 100 mg preservative-free injection = 50 mg, IV Infusion, Once, Please take 50 mg for stress dose for fever, surgery, trauma, # 3 each, 5 Refills, Soft Stop, 07/25/21 14:45:00 EDT, [facility] #[id number], 162, cm, 01/22/21 13:36:00 EDT, Height Start Date: 07/25/21 Status: OrderedSolu-CORTEF Act-O-Vial 100 mg injection = 100 mg, Intramuscular, Once, Give one dose IM if unable to tolerate oral steroid for adrenal crisis, # 1 each, 2 Refills, Soft Stop, 06/13/22 17:13:00 EDT, Powder, [facility] #[id number], Partial fill upon patient request if the prescription is... Start Date: 06/13/22 Status: OrderedYaz 3 mg-0.02 mg oral tablet 1 tablet, By Mouth, Daily, # 28 tablet, 11 Refills, Maintenance, 11/11/21 10:34:00 EST, Tablet, [facility] #[id number], Partial fill upon patient request if the [...] each, 3 Refills, Maintenance, 06/15/21 15:07:00 EDT, [facility] #[id number], Partial fill upon patient request if the prescriptio... Start Date: 06/15/21 Status: OrderedZofran ODT 4 mg oral tablet, disintegrating 1 tablet = 4 mg, By Mouth, Every 8 hours, PRN Nausea & Vomiting, # 10 tablet, 0 Refills, Maintenance, 03/26/14 2:59:44, Tablet Start Date: 03/26/14 Status: Ordered Problem List Condition Confirmation Course Effective Dates Status Health I nformant Status Hypopituitarism Confirmed Active Septo-optic dysplasia Confirmed Active Social History Social History Type Response Smoking Status 10 or more cigarettes (1/2 p ack or more)/day in last 30 days; Tobacco use times per day: 8+ per day; Number of years: 14; Started at age: 10; entered on: 02/18/21 Sex Patient Care team information PersonnelName: Nigel SPENCE, Orin Devries Address: Address: [address] [place] [id number]
--- OUTSIDE RECORDS SUMMARY | 2022-11-05 13:30 | XMS_ITS | Continuity of Care Document ---
:1995 Author Organization [facility] Address [address] [place] [id number]- Care Team Providers Name Role Phone Orin Manning MD Primary Care Physician Encounter [facility] [place] Date(s): 01/22/21 - 01/22/[address] [address]- Discharge Disposition: A-D/C Walkout Attending Physician: Not on Staff, Attending MD Admitting Physician: Not on Staff, Admitting MD Referring Physician: Not on Staff, Referring MD Allergies, Adverse Reactions, Alerts Substance Reaction [...] Daily, # 30 tablet, 4 Refills, Maintenance, 08/12/14 11:15:57, 1 tabletBy Mouth Daily Start Date: 08/12/14 Status: OrderedRitalin Tablet By Mouth, 0, 0, 08/10/08 9:28:00, Print GUCCI Number, Constant Indicator Start Date: 08/10/08 Status: OrderedSolu-Cortef 100 mg preservative-free injection = 50 mg, IV Infusion, Once, Please take 50 mg for stress dose for fever, surgery, trauma, # 1 kit, 5Refills, Soft Stop, 08/12/14 11:23:54, 50 mg IV Infusion Once,Instr:Please take 50 mg for stress dose for fever, surgery, trauma Start Date: 08/12/14 Status: OrderedZofran ODT 4 mg oral tablet, disintegrating 1 tablet = 4 mg, By Mouth, Every 8 hours, PRN Nausea & Vomiting, # 10 tablet, 0 Refills, Maintenance, 03/26/14 2:59:44, Tablet Start Date: 03/26/14 Status: Ordered Problem List Condition Effective Dates Status Health Status Informant 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 Vital Signs Most recent to oldest [Reference Range]: 1 2 Height 162 cm (01/22/21 1:36 PM) Weight 162 kg (01/22/21 1:36 PM) Oxygen Saturation [94-100 %] 100 % 100 % (01/22/21 1:36 PM) (01/22/21 1:23 PM) Pulse Rate [55-90 bpm] 65 bpm 71 bpm (01/22/21 1:36 PM) (01/22/21 1:23 PM) Blood Pressure [90-138/55-84 mm Hg] 131/68 mm Hg (01/22/21 1:36 PM) Temperature [96.8-100.4 DegF] 97.7 DegF (01/22/21 1:36 PM) Mode of Delivery (Oxygen) Room air Room air (01/22/21 1:36 PM) (01/22/21 1:23 PM) Blood pressure sites Arm, right (01/22/21 1:36 PM) Temperature Route Oral (01/22/21 1:36 PM) Social History Social History Type Response Smoking Status Current every day smoker entered on: 07/11/17 Sex
--- OUTSIDE RECORDS SUMMARY | 2022-11-05 13:30 | XMS_ITS | Continuity of Care Document ---
:1995 Author Organization [facility] Address [address] [place] [address]- Care Team Providers Name Role Phone Not on Staff, PCP Primary Care Physician Unavailable Encounter [facility] [place] Date(s): 02/17/21 - 02/19/[address] [address] Encounter Diagnosis Dyspnea (Final) - 02/17/21 Discharge Disposition: A-D/C Home Attending Physician: Tracy Medina MD Admitting Physician: Sangeeta Sousa MD Referring Physician: Not on Staff, Referring MD Allergies, Adverse Reactions, Alerts Substance Reaction Severity Status morphine Active Keflex Active Medications acetaminophen 325 mg oral tablet 650 mg, 2, [...] EDT, Inhalation Solution Start Date: 02/19/21 Status: OrderedguaiFENesin 100 mg/5 mL oral liquid 10 mL = 200 mg, By Mouth, 4 times a day, PRN Cough, for 3 days, # 120 mL, 0 Refills, Acute 02/22/21 10:58:00 EDT, 02/19/21 10:58:00 EDT, Syrup, [facility], Partial fill upon patient request if the prescription is for a schedule II opioid... Start Date: 02/19/21 Stop Date: 02/22/21 Status: Orderedlevothyroxine 75 mcg (0.075 mg) oral tablet 1 tablet = 75 mcg, By Mouth, Daily, # 30 tablet, 0 Refills, Maintenance, 02/19/21 10:57:00 EDT, Tablet, [facility], Partial fill upon patient request if the prescription is for a scheduleII opioid drug. Start Date: 02/19/21 Stop Date: 03/21/21 Status: Orderedmelatonin 5 mg oral tablet 1 tablet = 5 mg, By Mouth, Daily at bedtime, PRN Sleep, for 7 days, # 7 tablet, 0 Refills, Acute 02/26/21 10:58:00 EDT, 02/19/21 10:58:00 EDT, Tablet, [facility], Partial fill upon patient request if the prescription is for a schedule II... Start Date: 02/19/21 Stop Date: 02/26/21 Status: OrderedpredniSONE 10 mg oral tablet 1 tablet = 10 mg, By Mouth, Daily, # 30 tablet, 0 Refills, Maintenance, 02/19/21 10:52:00 EDT, Tablet, [facility], Partial fill upon patient request if the prescription is for a schedule II opioid drug. Start Date: 02/19/21 Stop Date: 03/21/21 Status: Ordered Results Radiology Reports Exam Date Time Procedure Performing Provider Status 02/17/21 5:01 PM Chest Portable Jos Irwin (Verified) Notes:(Chest Portable) Reason For Exam: Shortness of BreathRESULT: Chest Portable Chest Portable Hx of Present Illness: SOB; Reason: Shortness of Breath; Clinical Question(s): CHF COMPARISON: None. FINDINGS: LINES AND TUBES: None. LUNGS AND PLEURA: Clear lungs. Normal pulmonary vascularity. No pleural effusion. No pneumothorax. HEART, MEDIASTINUM AND LES: Heart is normal in size. Normal upper mediastinal and hilar contour. BONES AND SOFT TISSUES: No acute abnormality. IMPRESSION: No acute abnormality. WSN: [id number] Ordering Physician: Ulices Thakur Dictated By: Ramandeep Hardin MD Dictated Date/Time: 02/17/21 5:08 pm Reviewed By: Ramandeep Hardin MD Signed By: Ramandeep Hardin MD Signed Date/Time: 02/17/21 5:08 pm Transcribed By: ELSA Transcribed Date/Time: 02/17/21 5:07 pm Vital Signs Most recent to oldest 1 2 3 [Reference Range]: Oxygen Saturation [94-100 %] 98 % 97 % 99 % (02/19/21 7:59 AM) (02/19/21 4:07 AM) (02/18/21 11: 20 PM) Pulse Rate [55-90 bpm] 68 bpm 73 bpm 67 bpm (02/19/21 7:59 AM) (02/19/21 4:07 AM) (02/19/21 1:4 7 AM) Blood Pressure [90-138/55-84 110/56 mm Hg 124/54 mm Hg 103 /56 mm Hg mm Hg] (02/19/21 7:59 AM) (02/19/21 4:07 AM) (02/19/21 1:4 7 AM) Respiratory Rate [16-30 18 br/min 18 br/min 20 br/mi n br/min] (02/19/21 11:15 AM) (02/19/21 7:59 AM) (02/19/21 4: 07 AM) Temperature [96.8-100.4 DegF] 98.1 DegF 98.2 DegF 98 .2 DegF (02/19/21 7:59 AM) (02/19/21 4:07 AM) (02/18/21 11: 20 PM) Mode of Delivery (Oxygen) Room air Room air Room a ir (02/19/21 7:59 AM) (02/19/21 4:07 AM) (02/18/21 11: 20 PM) Blood pressure sites Arm, right Arm, left Arm, right (02/19/21 7:59 AM) (02/19/21 4:07 AM) (02/19/21 1:4 7 AM) Temperature Route Oral Oral Oral (02/19/21 7:59 AM) (02/19/21 4:07 AM) (02/18/21 11: 20 PM) Social History Social History Type Response Smoking Status 10 or more cigarettes (1/2 p ack or more)/day in last 30 days; Tobacco use times per day: 8+ per day; Number of years: 14; Started at age: 10; entered on: 02/18/21 Sex
--- OUTSIDE RECORDS SUMMARY | 2022-11-05 13:30 | XMS_ITS | Continuity of Care Document ---
:1995 Author Organization [facility] Address [address] [place] [address]- Care Team Providers Name Role Phone Nigel SPENCE, Orin Devries Primary Care Physician Encounter [facility] [place] Date(s): 11/11/21 - 12/11/21 [facility] [address] [place] [address] Attending Physician: Admtr, [id number] Admitting Physician: [...] tablet, 4 Refills, Maintenance, 06/15/21 15:03:00 EDT, [id number], 162, cm, 01/22/21 13:36:00 EDT, Height Start Date: 06/15/21 Status: OrderedpredniSONE 10 mg oral tablet 1 tablet = 10 mg, By Mouth, Daily, # 30 tablet, 0 Refills, Maintenance, 02/19/21 10:52:00 EDT, Tablet, [facility], Partial fill upon patient request if the prescription is for a schedule II opioid drug. Start Date: 02/19/21 Stop Date: 03/21/21 Status: OrderedpredniSONE 5 mg oral tablet 1 tablet = 5 mg, By Mouth, Daily, # 90 tablet, 5 Refills, Maintenance, 09/16/21 10:54:00 EST, [facility][id number], Partial fill upon patient request if the [...] 5 Refills, Soft Stop, 07/25/21 14:45:00 EDT, [facility][id number], 162, cm, 01/22/21 13:36:00 EDT, Height Start Date: 07/25/21 Status: OrderedSolu-CORTEF Act-O-Vial 100 mg injection = 100 mg, Intramuscular, Once, Give one dose IM if unable to tolerate oral steroid for adrenal crisis, # 1 each, 2 Refills, Soft Stop, 11/11/21 10:37:00 EST, Powder, [facility][id number], Partial fill upon patient request if the prescription is... Start Date: 11/11/21 Status: OrderedYaz 3 mg-0.02 mg oral tablet 1 tablet, By Mouth, Daily, # 28 tablet, 11 Refills, Maintenance, 11/11/21 10:34:00 EST, Tablet, [id number], Partial fill upon patient request if the [...] each, 3 Refills, Maintenance, 06/15/21 15:07:00 EDT, [facility][id number], Partial fill upon patient request if the [...]
[2022-11-05 13:31] LABS: Basophils Absolute Auto 0.1 X10*3/uL (0.0-0.2); Basophils Percent Auto 0.7 % (0-2); Eosinophils Absolute Auto 0.3 X10*3/uL (0.0-0.4); Eosinophils Percent Auto 4.3 % (0-4); Hematocrit 39.7 % (37.0-47.0); Hemoglobin 13.2 g/dl (12.0-16.0); Imm Gran Abs Auto 0.01 X10*3/uL (0.00-0.03); Imm Gran Pct Auto 0.1 % (0.0-0.4); Lymphocytes Absolute Auto 2.8 X10*3/uL (1.2-4.9); Lymphocytes Percent Auto 36.6 % (20-40); Mean Corpuscular HGB Conc 33.2 g/dl (31.0-35.0); Mean Corpuscular Volume 84.3 fL (80.0-98.0); Mean Platelet Volume 11.1 fL (9.4-12.3); Monocytes Absolute Auto 0.3 X10*3/uL (0.1-1.2); Monocytes Percent Auto 4.1 % (2-11); Neutrophils Absolute Auto 4.1 x10*3/uL (2.0-8.3); Neutrophils Percent Auto 54.2 % (45-73); Platelet Count 177 X10*3/uL (160-400); Red Blood Count 4.71 X10*6/uL (4.20-5.50); Red Cell Distribution Width 12.6 % (11.0-16.0); White Blood Count 7.6 X10*3/uL (4.8-10.8)
[2022-11-05 13:53] LABS: Alanine Aminotransferase 39 U/L (0-31); Alkaline Phosphatase 92 U/L (39-117); Anion Gap 16 (12-20); Aspartate Amino Transferase 35 U/L (5-31); Bilirubin Direct < 0.2 mg/dL (0.0-0.5); Bilirubin Total 0.3 mg/dL (0.0-1.0); Blood Urea Nitrogen 13 mg/dL (9-16); Carbon Dioxide 21 mmol/L (22-29); Chloride 106 mmol/L (96-108); Creatinine Clr Calc Pharmacy 106.3; Estimated Glomerular Filt Rate > 60; Glucose Random 99 mg/dL (60-115); Lipase 21 U/L (8-78); Magnesium 2.1 mg/dL (1.6-2.6); Potassium 4.3 mmol/L (3.3-5.1); Sodium 139 mmol/L (135-145); Total Protein 7.4 g/dL (6.5-8.0)
[2022-11-05 14:12] LABS: Influenza A PCR NEGATIVE (Negative); Influenza B PCR NEGATIVE (Negative); Resp Syncy Virus RNA Qual PCR NEGATIVE (Negative); SARS COV2 PCR INHOUSE NEGATIVE (Negative)
[2022-11-05 15:09] VITALS: BP 103/40; PULSE 66; RESP 18; TEMP 36.7; O2SAT 97
[2022-11-05] MEDS: 0.9 % Sodium Chloride 1,000 ML 999 ML IV (15:35)
[2022-11-05] MEDS: ondansetron HCL 4 MG/2 ML VIAL IVPUSH (15:35)
[2022-11-05 15:44] LABS: Appearance Urine Clear; Color Urine Yellow; Glucose Urine UA Negative (Negative); Leukocyte Esterase Urine Small (1+) (Negative); Nitrite Urine Negative (Negative); PH 6.5 (5.0-9.0); UMIC TRIGGER UACC YES; Urine Blood Negative (Negative); Urine Ketones Negative (Negative); Urine Protein Negative (Neg-Trace)
[2022-11-05 15:48] LABS: UPreg QC Valid YES; Urine Pregnancy NEGATIVE (NEGATIVE)
[2022-11-05 15:51] LABS: Bacteria Urine Trace (None Seen); Hyaline Casts Urine 0-2 /LPF (0-2); RBC Urine 0-2 /HPF (0-2); UACC Culture Trigger YES; WBC Urine 0-5 /HPF (0-5)
[2022-11-05] MEDS: Ketorolac Tromethamine 15 MG/ML VIAL IVPUSH (16:24)
[2022-11-05] MEDS: Butalb/Acetamin/Caff 50/325/40 TABLET 1 TAB PO (16:25)
--- NOTE | 2022-11-05 16:44 | PC.NURSE ---
Patient states sister is coming to get her son. She will be here in 5 mins.
[2022-11-05] MEDS: SUMAtriptan succinate 6 MG/0.5 ML VIAL SUBCUT (18:01)
== END 2022-11-05 19:22 | disposition home or self-care (01) ==
PROVIDERS: Physician Assistant; Emergency Provider Internal Medicine; PCP Nurse Practitioner Primary Care
DX: G43.909 Migraine, unspecified, not intractable, without status migrainosus (principal); R42 Dizziness and giddiness; H53.8 Other visual disturbances; Z20.822 Contact with and (suspected) exposure to COVID-19; Z20.828 Contact with and (suspected) exposure to other viral communicable diseases; Z87.891 Personal history of nicotine dependence; Z79.899 Other long term (current) drug therapy
CPT/HCPCS: 0241U; 80048; 80076; 81001; 81025; 83690; 83735; 85025; 87086; 93005; 96361; 96372; 96374; 96375; 96376; 99284; J1885; J2405; J3030

== ENCOUNTER 2022-12-24 16:32 | Emergency (ER) | payer MEDICAID, SELFPAY ==
--- NOTE | ~2022-12-24 | CT_ITS ---
EXAMINATION: CT CERVICAL SPINE WITHOUT CONTRAST CLINICAL INFORMATION: Neck pain COMPARISON: 12/24/2022 TECHNIQUE: Contiguous helical images of the cervical spine were obtained without IV contrast. Multiplanar reconstructions were performed. This CT examination was performed using dose optimization techniques as appropriate, variously including the following: *Automated exposure control *Adjustment of mA and/or kV according to patient size (this includes techniques or standardized protocols for targeted exams where dose is matched to indication/reason for exam; i.e. extremities or head) *Use of iterative reconstruction technique DLP: 449 mGy-cm FINDINGS: There is anatomic alignment of the vertebral bodies and posterior elements. The atlantoaxial and atlantooccipital articulations are intact. Vertebral body heights and intervertebral disc spaces are maintained. No evidence of acute fracture. No prevertebral soft tissue swelling. There is no cervical lymphadenopathy. The visualized thyroid gland is unremarkable. The visualized base of the brain is unremarkable. The visualized lung apices are clear. CT/CT cervical spine wo IV con IMPRESSION: No evidence for acute injury to the cervical spine.
--- NOTE | ~2022-12-24 | XR_ITS ---
EXAMINATION: XR CERVICAL SPINE CLINICAL INFORMATION: Neck pain COMPARISON: None available. TECHNIQUE: 4 views of the cervical spine were obtained. FINDINGS: The study is suboptimal secondary to marked inability to position the patient for the exam. C5, C6 and C7 are very poorly seen. Soft tissues cannot be adequately assessed. There is marked curvature of the cervical spine on the AP view to the right. No definite fractures or dislocations are seen XR/XR cervical spine 3V IMPRESSION: Markedly limited study with poor visualization of C5, C6 and C7. No definite fractures are seen. If suspicion is high, recommend CT scan of the cervical spine.
[2022-12-24 16:48] VITALS: BP 136/84; PULSE 78; O2SAT 97
[2022-12-24 19:05] VITALS: BP 120/78; PULSE 82; RESP 16; TEMP 36.6; O2SAT 99; BMI 34.3
--- NOTE | 2022-12-24 20:33 | ED.NECK ---
HPI - Neck Pain/Injury General Chief Complaint: Neck Pain/Injury Stated Complaint: NECK PAIN Time Seen by Provider: 12/24/22 20:10 Source: patient and EMS Mode of arrival: EMS Limitations: no limitations History of Present Illness HPI Narrative: 27-year-old female history of ocular migraines, legally blind, seizures, hypothyroidism, panhypopituitarism, adrenal insufficiency presenting to the emergency department for evaluation of atraumatic left-sided neck pain, started 3 days ago after she woke up, she tells me she feels like her neck is tight and spasming, she tells me she can only keep her neck to the right side because that is the only comfortable position. Pain is worsened by movement better at rest. Denies headache, vision changes, dizziness, nausea, vomiting, blunt trauma, fevers, chills. Related Data Home Medications Medication Instructions Recorded Confirmed albuterol sulfate 90 mcg/actuation 2 puff inhalation Q4-6H PRN 11/24/21 11/24/21 aerosol inhaler Shortness Of Breath diclofenac sodium 1 % topical gel 2 g topical QID 11/24/21 11/24/21 duloxetine 20 mg capsule,delayed 1 cap PO DAILY 11/24/21 11/24/21 release levothyroxine 75 mcg tablet 1 tab PO DAILY 11/24/21 11/24/21 melatonin 3 mg capsule 3 mg PO BEDTIME PRN Insomnia 11/24/21 11/24/21 omega 7-iml-ydz-fish oil 1,000 mg 1 cap PO DAILY 11/24/21 11/24/21 (120 mg-180 mg) capsule (Fish Oil) prednisone 5 mg tablet 1 tab PO DAILY 11/24/21 11/24/21 sumatriptan 20 mg/actuation nasal 20 mg intranasal Q2H PRN Headache 11/24/21 11/24/21 spray Previous Rx's Medication Instructions Recorded ondansetron HCl 4 mg tablet 4 mg PO Q8H PRN nausea and 01/22/21 (Zofran) vomiting #10 tabs estradiol 0.01% (0.1 mg/gram) 1 g vaginal 2XW #42.5 grams 04/20/21 vaginal cream (Estrace) norelgestromin 150 mcg-e.estradiol 1 patch transdermal QWEEK #3 ea 04/20/21 35 mcg/24 hr weekly transderm patch (Xulane) metronidazole 500 mg tablet 500 mg PO BID 7 days #14 tabs 04/25/21 (Flagyl) cyclobenzaprine 10 mg tablet 10 mg PO TID PRN muscle spasm #14 08/27/21 tabs hydrocodone 5 mg-acetaminophen 325 1 tab PO Q6H PRN pain #8 tabs 08/27/21 mg tablet ibuprofen 600 mg tablet 600 mg PO Q6H PRN pain #30 tabs 08/27/21 dqobzowugo-mptsolwrntbce-datfxmvq 1 cap PO Q4H PRN pain #12 caps 09/09/21 50 mg-300 mg-40 mg capsule (Fioricet) prochlorperazine 25 mg rectal 25 mg WA Q12H PRN nausea and 09/09/21 suppository (Compazine) vomiting #12 ea naproxen 500 mg tablet (Naprosyn) 500 mg PO BID #20 tabs 09/11/21 nitrofurantoin 100 mg PO Q12H 5 days #10 caps 07/22/22 monohydrate/macrocrystals 100 mg capsule (Macrobid) nwyoczzond-uxfytmolbdbsm-icenqfhk 1 cap PO Q4-6H PRN migraine 11/05/22 50 mg-300 mg-40 mg capsule headache #10 caps (Fioricet) cyclobenzaprine 10 mg tablet 10 mg PO BEDTIME PRN muscle spasm 12/24/22 #7 tabs lidocaine 5 % topical patch 1 patch topical DAILY PRN pain #15 12/24/22 ea Allergies Allergy/AdvReac Type Severity Reaction Status Date / Time cephalexin [From KEFLEX] Allergy Severe ANAPHYLAXIS Verified 12/24/22 19:05 morphine [MORPHINE] Allergy Mild VOMITING Verified 12/24/22 19:05 kiwi Allergy Facial Verified 12/24/22 19:05 Swelling Review of Systems Review of Systems: Constitutional : No Weight loss, No Fever, No Chills, No Fatigue, No Malaise ENT/Mouth : No sore throat, No Rhinorrhea Eyes: No Eye Pain, No Swelling, No Redness Cardiovascular : No Chest Pain, No SOB, No Dyspnea on Exertion, No Orthopnea, No Edema, No Palpitations Respiratory : No Cough, No Sputum, No Wheezing Gastrointestinal : No Nausea, No Vomiting, No Diarrhea, No Constipation, No abdominal Pain, No Hematochezia, No Melena Genitourinary : No Dysuria, No Urinary Frequency, No Hematuria, Musculoskeletal : + joint pain, No Myalgias, No Joint Swelling Skin : No Skin Lesions, No rash Neuro : No Weakness, No Numbness, No Dizziness, No Headache Psych : No Anxiety/Panic, No Depression All other systems reviewed and are negative Yes all other systems are reviewed and are negative [facility] Past Medical History Attestation statement: The following information was validated with the patient. Source: old records reviewed and nursing notes reviewed Medical History Adrenal insufficiency Amenorrhea Anxiety Depression Dyslipidemia Hypothyroid Insomnia 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 Polyamory-plans surrogate Alcohol intake: never Patient Tobacco Use Status: Never used Tobacco Tobacco use type: Cigarette Cigarettes Per Day: 6 Advance Directives: No Advance Directives Information Provided: Yes Sexual orientation: Bisexual Gender identity: Female Physical Exam Vital Signs: Vital Signs: Last Vital Signs Temp 97.7 F 12/24/22 22:08 Pulse 61 12/24/22 23:08 Resp 16 12/24/22 23:08 BP 119/57 L 12/24/22 23:08 Pulse Ox 94 12/24/22 23:08 O2 Del Method Room Air 12/24/22 23:08 BMI result Body Mass Index 34.3 vss Appearance: Alert.? Oriented X3.? No acute distress.? Head: Normocephalic, atraumatic, no step-offs or deformities Eyes: Pupils equal, round and reactive to light.? ENT: Pharynx normal.? Neck: Normal inspection. Patient has her neck favoring the right side. There is bilateral cervical paraspinous tenderness on palpation. No midline tenderness. No meningeal signs, negative Kernig and Brudzinski. CVS: Normal heart rate and rhythm.? Pulses normal.? Respiratory: No respiratory distress.? Breath sounds normal.? Abdomen: Soft and nontender.? Skin: Skin warm and dry.? Normal skin color.? Normal skin turgor.? Extremities: No lower extremity edema.? No calf ttp. 5/5 strength to bilateral upper and lower extremities Back: No midline tenderness, no C-spine tenderness, full range of motion, no CVA tenderness bilaterally Neuro: Oriented X 3.? No motor deficit.? No sensory deficit. CN 2-12 intact Course Reevaluation(s) Reevaluation #1: X-ray of cervical spine limited due to poorly visualized C5-6, 6 and 7. No definite fractures noted however. Patient is still complaining of pain therefore Dilaudid was given. CT of the cervical spine pending. Pain Time: 22:18 Reevaluation #2: Patient reports significant improvement in symptoms. Moving freely. Tells me this is the best she has felt all day. Pending CT scan read Time: 23:50 Reevaluation #3: CT scan of cervical spine with no acute findings. Patient feeling much better at this time. Resting comfortably tells me pain has pretty much resolved, freely moving neck. Will give her follow-up for [facility]. Will discharge in cyclobenzaprine, Lidoderm. Educated patient on diagnosis and treatment plan, answered all question, patient verbalizes understanding. At this time patient will be discharged home, advised to return with new or worsening symptoms. Educated on worrisome signs and symptoms and when to return. At this time I feel comfortable discharge home. Time: 00:19 Medications Administered Discontinued Medications Generic Name Dose Route Start Last Admin Trade Name Elia PRN Reason Stop Dose Admin Acetaminophen 650 mg 12/24/22 20:30 12/24/22 20:51 Acetaminophen 325 Mg Tablet PO 12/24/22 20:31 650 mg ONCE ONE Administration Diazepam 2 mg 12/24/22 20:30 12/24/22 20:52 Diazepam 2 Mg Tablet PO 12/24/22 20:31 2 mg ONCE ONE Administration Hydromorphone HCl 0.5 mg 12/24/22 22:18 12/24/22 22:37 Hydromorphone Hcl 0.5 Mg/0.5 Ml Syringe IVPUSH 12/24/22 22:19 0.5 mg ONCE ONE Administration Protocol Lidocaine 1 patch 12/24/22 20:30 12/24/22 20:49 Lidocaine 4 % Patch Adh..Patch TRANSDERMA 12/24/22 20:31 1 patch ONCE ONE Administration Protocol Oxycodone HCl 5 mg 12/24/22 20:32 12/24/22 20:51 Oxycodone Hcl Immed Release 5 Mg Tablet PO 12/24/22 20:33 5 mg ONCE ONE Administration Medical Decision Making Medical Decision Making MDM Narrative: 2030 27-year-old female presents with left-sided neck pain, described as sore/spasming pain x3 days not improving. Physical exam with Normal inspection. Patient has her neck favoring the right side. There is bilateral cervical paraspinous tenderness on palpation. No midline tenderness. No meningeal signs. Likely torticollis verses cervical paraspinous muscle spasms. Unlikely meningitis, encephalitis, fracture, dislocation or traumatic subluxations. Plan imaging and will medicate for pain/discomfort. Differential Diagnosis Differential Diagnoses: The differential diagnosis associated with the presentation includes Likely torticollis verses cervical paraspinous muscle spasms. Unlikely meningitis, encephalitis, fracture, dislocation or traumatic subluxations. Admission/Observation Consideration of admission/observation: Escalation of care including admission/observation considered Independent Interpretation I performed an independent interpretation of an: Plain X-Ray Radiology Impression Discussion of test interpretation with radiology: I have reviewed the radiologist's reading. Core Measures AMI core measures followed: Yes Measure exclusions: not indicated Critical Care Time Critical Care Time Critical Care Time: No Discharge Plan Discharge Clinical Impression: Acute torticollis Patient Disposition: Home, Self-Care Instructions: Muscle Spasm (ED), Acute Neck Pain (ED) Additional Instructions: Take your medications as prescribed. If you were prescribed antibiotics today, it is important that you take your medication to their entirety, do not skip any doses, do not finish them early. Follow-up with your primary care provider this week. Follow-up with [facility]. Return to the emergency department with new or worsening symptoms. Such as fevers, chills, chest pain, shortness of breath, nausea, vomiting, dizziness, headache, vision changes, lethargy, vision changes, dizziness weakness In case of emergency call 911 XR/XR cervical spine 3V IMPRESSION: Markedly limited study with poor visualization of C5, C6 and C7. No definite fractures are seen. If suspicion is high, recommend CT scan of the cervical spine. ? CT/CT cervical spine wo IV con IMPRESSION: No evidence for acute injury to the cervical spine. Prescriptions: New cyclobenzaprine 10 mg tablet 10 mg PO BEDTIME PRN (Reason: muscle spasm) Qty: 7 0RF lidocaine 5 % adhesive patch,medicated 1 patch topical DAILY PRN (Reason: pain) Qty: 15 0RF Rx Instructions: leave on most painful area for up to 12 hrs No Action metronidazole [Flagyl] 500 mg tablet 500 mg PO BID 7 Days Qty: 14 0RF Rx Instructions: Take with food, Avoid alcohol and vinegar products ondansetron HCl [Zofran] 4 mg tablet 4 mg PO Q8H PRN (Reason: nausea and vomiting) Qty: 10 0RF cyclobenzaprine 10 mg tablet 10 mg PO TID PRN (Reason: muscle spasm) Qty: 14 0RF hydrocodone-acetaminophen 5-325 mg tablet 1 tab PO Q6H PRN (Reason: pain) Qty: 8 0RF ibuprofen 600 mg tablet 600 mg PO Q6H PRN (Reason: pain) Qty: 30 0RF prochlorperazine [Compazine] 25 mg suppository 25 mg WA Q12H PRN (Reason: nausea and vomiting) Qty: 12 0RF vqmxylxzcn-xcokrpoyfguvk-mkmp [Fioricet] 50-300-40 mg capsule 1 cap PO Q4H PRN (Reason: pain) Qty: 12 0RF naproxen [Naprosyn] 500 mg tablet 500 mg PO BID Qty: 20 0RF prednisone 5 mg tablet 1 tab PO DAILY levothyroxine 75 mcg tablet 1 tab PO DAILY albuterol sulfate 90 mcg/actuation Hfa Aerosol Inhaler 2 puff INHALATION Q4-6H PRN (Reason: Shortness Of Breath) sumatriptan 20 mg/actuation [place],Non-Aerosol 20 mg INTRANASAL Q2H PRN (Reason: Headache) Rx Instructions: administer into one nostril as a single dose; if 2nd dose needed,administer into other nostril after at least 2 hrs, NTE 2 doses (40 mg) per episode omega 5-hbz-whq-fish oil [Fish Oil] 1,000 mg (120 mg-180 mg) Capsule 1 cap PO DAILY duloxetine 20 mg capsule,delayed release(DR/EC) 1 cap PO DAILY diclofenac sodium 1 % gel 2 g topical QID melatonin 3 mg Capsule 3 mg PO BEDTIME PRN (Reason: Insomnia) nitrofurantoin monohyd/m-cryst [Macrobid] 100 mg capsule 100 mg PO Q12H 5 Days Qty: 10 0RF Rx Instructions: must administer with a meal/food jzjrfsefmm-lsekkyykmdlbh-fkkk [Fioricet] 50-300-40 mg capsule 1 cap PO Q4-6H PRN (Reason: migraine headache) Qty: 10 0RF Xulane 150-35 mcg/24 hr patch weekly 1 patch transdermal QWEEK Qty: 3 11RF Rx Instructions: apply once weekly for 3 weeks of a 4-week cycle estradiol [Estrace] 0.01 % (0.1 mg/gram) cream 1 g vaginal 2XW Qty: 42.5 0RF Rx Instructions: use nightly for two weeks, then twice a week Referrals: [facility] [Provider Group] - 1 week Jeane Bah [employer] [Primary Care Provider] - 2 days
[2022-12-24] MEDS: Lidocaine 4 % Patch ADH..PATCH 1 PATCH TRANSDERMA (20:49)
[2022-12-24] MEDS: Acetaminophen 325 MG TABLET 650 MG PO (20:51)
[2022-12-24] MEDS: oxyCODONE HCl Immed Release 5 MG TABLET PO (20:51)
[2022-12-24] MEDS: diazePAM 2 MG TABLET PO (20:52)
[2022-12-24 22:08] VITALS: BP 125/69; PULSE 70; RESP 16; TEMP 36.5; O2SAT 96
[2022-12-24] MEDS: HYDROmorphone HCl 0.5 MG/0.5 ML SYRINGE IVPUSH (22:37)
--- NOTE | 2022-12-24 22:39 | PC.NURSE ---
pt medicated per provider order for 6/10 neck pain.
--- NOTE | 2022-12-24 22:41 | PC.NURSE ---
22g Iv placed in left wrist, pt given 0.5mg of dilaudid per order, pt resting comfortably, call hooks within reach WCTM
[2022-12-24 23:08] VITALS: BP 119/57; PULSE 61; RESP 16; O2SAT 94
--- NOTE | 2022-12-25 01:18 | PC.NURSE ---
pt a&o, no sob or chest pain, pt report improvement of symptoms. Reviewed discharge instructions, Pt verbalized understanding.
== END 2022-12-25 01:20 | disposition home or self-care (01) ==
PROVIDERS: Emergency Provider Internal Medicine; PCP Nurse Practitioner Primary Care
DX: M43.6 Torticollis (principal); M54.2 Cervicalgia; R51.9 Headache, unspecified; Z79.899 Other long term (current) drug therapy
CPT/HCPCS: 72040; 72125; 96372; 96374; 99284; J1170

== ENCOUNTER 2023-02-09 00:29 | Emergency (ER) | payer MEDICAID, SELFPAY ==
[2023-02-09 00:30] VITALS: BP 138/75; PULSE 77; RESP 18; TEMP 36.8; O2SAT 98; BMI 23.5
[2023-02-09] MEDS: Ibuprofen 600 MG TABLET PO (01:05)
--- NOTE | 2023-02-09 01:33 | PC.NURSE ---
assumed care of pt aox4 no apparent distress resting quietly while on personal phone
--- NOTE | 2023-02-09 02:23 | ED_ITS ---
HPI - Extremity Injury (Lower) General Chief Complaint: Extremity Injury, Lower Stated Complaint: Wood sticking out of foot Time Seen by Provider: 02/09/23 02:20 Source: patient Mode of arrival: ambulatory Limitations: no limitations History of Present Illness HPI Narrative: Patient comes to the emergency room complaining of left heel pain. Patient states that she was walking in her house, the floor is not finished, she got a big splinter on the left heel. Denies any other injuries Related Data Home Medications Medication Instructions Recorded Confirmed albuterol sulfate 90 mcg/actuation 2 puff inhalation Q4-6H PRN 11/24/21 11/24/21 aerosol inhaler Shortness Of Breath diclofenac sodium 1 % topical gel 2 g topical QID 11/24/21 11/24/21 duloxetine 20 mg capsule,delayed 1 cap PO DAILY 11/24/21 11/24/21 release levothyroxine 75 mcg tablet 1 tab PO DAILY 11/24/21 11/24/21 melatonin 3 mg capsule 3 mg PO BEDTIME PRN Insomnia 11/24/21 11/24/21 omega 4-tpq-mty-fish oil 1,000 mg 1 cap PO DAILY 11/24/21 11/24/21 (120 mg-180 mg) capsule (Fish Oil) prednisone 5 mg tablet 1 tab PO DAILY 11/24/21 11/24/21 sumatriptan 20 mg/actuation nasal 20 mg intranasal Q2H PRN Headache 11/24/21 11/24/21 spray Previous Rx's Medication Instructions Recorded ondansetron HCl 4 mg tablet 4 mg PO Q8H PRN nausea and 01/22/21 (Zofran) vomiting #10 tabs estradiol 0.01% (0.1 mg/gram) 1 g vaginal 2XW #42.5 grams 04/20/21 vaginal cream (Estrace) norelgestromin 150 mcg-e.estradiol 1 patch transdermal QWEEK #3 ea 04/20/21 35 mcg/24 hr weekly transderm patch (Xulane) metronidazole 500 mg tablet 500 mg PO BID 7 days #14 tabs 04/25/21 (Flagyl) cyclobenzaprine 10 mg tablet 10 mg PO TID PRN muscle spasm #14 08/27/21 tabs hydrocodone 5 mg-acetaminophen 325 1 tab PO Q6H PRN pain #8 tabs 08/27/21 mg tablet ibuprofen 600 mg tablet 600 mg PO Q6H PRN pain #30 tabs 08/27/21 ranfekmgeo-jbwhusfmwockm-awvjqewm 1 cap PO Q4H PRN pain #12 caps 09/09/21 50 mg-300 mg-40 mg capsule (Fioricet) prochlorperazine 25 mg rectal 25 mg DC Q12H PRN nausea and 09/09/21 suppository (Compazine) vomiting #12 ea naproxen 500 mg tablet (Naprosyn) 500 mg PO BID #20 tabs 09/11/21 nitrofurantoin 100 mg PO Q12H 5 days #10 caps 07/22/22 monohydrate/macrocrystals 100 mg capsule (Macrobid) noukxxgiza-feccybktdkgyc-lbsxobqo 1 cap PO Q4-6H PRN migraine 11/05/22 50 mg-300 mg-40 mg capsule headache #10 caps (Fioricet) cyclobenzaprine 10 mg tablet 10 mg PO BEDTIME PRN muscle spasm 12/24/22 #7 tabs lidocaine 5 % topical patch 1 patch topical DAILY PRN pain #15 12/24/22 ea Allergies Allergy/AdvReac Type Severity Reaction Status Date / Time cephalexin [From KEFLEX] Allergy Severe ANAPHYLAXIS Verified 12/24/22 19:05 morphine [MORPHINE] Allergy Mild VOMITING Verified 12/24/22 19:05 kiwi Allergy Facial Verified 12/24/22 19:05 Swelling Review of Systems Review of Systems: Constitutional : No Weight loss, No Fever, No Chills, No Night Sweats, No Fatigue, No Malaise ENT/Mouth : No Hearing loss, No Ear Pain, No Nasal Congestion, No Sinus Pain, No Hoarseness, No sore throat, No Rhinorrhea, No Swallowing Difficulty Eyes: No Eye Pain, No Swelling, No Redness, No Foreign Body, No Discharge, No Vision Changes Cardiovascular : No Chest Pain, No SOB, No Dyspnea on Exertion, No Orthopnea, No Edema, No Palpitations Respiratory : No Cough, No Sputum, No Wheezing, No Smoke Exposure, No Dyspnea Gastrointestinal : No Nausea, No Vomiting, No Diarrhea, No Constipation, No abdominal Pain, No Hematochezia, No Melena Genitourinary : no irregular bleeding, No Dysuria, No Urinary Frequency, No Hematuria, No Urinary Incontinence, No Urgency, No Flank Pain, No Urinary Flow Changes, No Hesitancy Musculoskeletal : No joint pain, No Myalgias, No Joint Swelling Skin : No Skin Lesions, No rash, complaining of tender in the left heel Neuro : No Weakness, No Numbness, No Paresthesias, No Loss of Consciousness, No Dizziness, No Headache Psych : No Anxiety/Panic, No Depression, No SI/HI/AH/VH, No Social Issues, Heme/Lymph: No Bruising, No Bleeding,No Lymphadenopathy Endocrine : No Polyuria, No Polydipsia, No Temperature Intolerance [facility] Past Medical History Medical History Adrenal insufficiency Amenorrhea Anxiety Depression Dyslipidemia Hypothyroid Insomnia 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 Polyamory-plans surrogate Alcohol intake: never Patient Tobacco Use Status: Never used Tobacco Tobacco use type: Cigarette Cigarettes Per Day: 6 Advance Directives: No Advance Directives Information Provided: Yes Sexual orientation: Bisexual Gender identity: Female Physical Exam Vital Signs: Vital Signs: Last Vital Signs Temp 98.2 F 02/09/23 00:30 Pulse 77 02/09/23 00:30 Resp 18 02/09/23 00:30 BP 138/75 02/09/23 00:30 Pulse Ox 98 02/09/23 00:30 O2 Del Method Room Air 02/09/23 00:30 BMI result Body Mass Index 23.5 Const: Other: Appearance: Alert. Oriented X3. No acute distress. Eyes: Pupils equal, round and reactive to light. ENT: Pharynx normal. Neck: Normal inspection. Neck supple. No lymph nodes noted. No crepitus CVS: Normal heart rate and rhythm. Pulses normal. Normal S1 and S2 Respiratory: No respiratory distress. Breath sounds normal. No Wheezing. No rales Abdomen: Soft and nontender. No rigidity. No distention. Skin: Skin warm and dry. Normal skin color. Normal skin turgor. Extremities: No lower extremity edema. No Lacerations. No Rash. There is a large splinter, approximately 4 cm in the left heel Neuro: Oriented X 3. No motor deficit. No sensory deficit. Moving all extremities. No slurred speech. CN 2 through 12 grossly intact Psych: calm, cooperative, normal affect Course Course Course Narrative: -patient requesting lidocaine prior to starting the procedure Medications Administered Discontinued Medications Generic Name Dose Route Start Last Admin Trade Name Freq PRN Reason Stop Dose Admin Ibuprofen 600 mg 02/09/23 01:00 02/09/23 01:05 Ibuprofen 600 Mg Tablet PO 02/09/23 01:01 600 mg ONCE ONE Administration Lidocaine HCl 6 ml 02/09/23 02:22 02/09/23 03:02 Lidocaine Hcl 2% 2 Ml Vial INFILTRATI 02/09/23 02:23 6 ml ONCE ONE Administration Medical Decision Making Medical Decision Making [facility] Narrative: -the left heel was infiltrated with 3 mL of 2% lidocaine without epi. -with Madina clamps, the splinter was pulled, it was approximately 3 cm long. -the heel was cleaned thoroughly Discharge Plan Discharge Clinical Impression: Splinter of foot Patient Disposition: Home, Self-Care Instructions: Puncture Wound (ED) Additional Instructions: Please follow-up with your primary care physician tomorrow. If you have any worsening or new symptoms, please return to the emergency room or call 911 Prescriptions: No Action metronidazole [Flagyl] 500 mg tablet 500 mg PO BID 7 Days Qty: 14 0RF Rx Instructions: Take with food, Avoid alcohol and vinegar products ondansetron HCl [Zofran] 4 mg tablet 4 mg PO Q8H PRN (Reason: nausea and vomiting) Qty: 10 0RF cyclobenzaprine 10 mg tablet 10 mg PO TID PRN (Reason: muscle spasm) Qty: 14 0RF hydrocodone-acetaminophen 5-325 mg tablet 1 tab PO Q6H PRN (Reason: pain) Qty: 8 0RF ibuprofen 600 mg tablet 600 mg PO Q6H PRN (Reason: pain) Qty: 30 0RF prochlorperazine [Compazine] 25 mg suppository 25 mg DC Q12H PRN (Reason: nausea and vomiting) Qty: 12 0RF ubnmufjrag-rxxvmeqlmxnau-ymxg [Fioricet] 50-300-40 mg capsule 1 cap PO Q4H PRN (Reason: pain) Qty: 12 0RF naproxen [Naprosyn] 500 mg tablet 500 mg PO BID Qty: 20 0RF prednisone 5 mg tablet 1 tab PO DAILY levothyroxine 75 mcg tablet 1 tab PO DAILY albuterol sulfate 90 mcg/actuation Hfa Aerosol Inhaler 2 puff INHALATION Q4-6H PRN (Reason: Shortness Of Breath) sumatriptan 20 mg/actuation [place],Non-Aerosol 20 mg INTRANASAL Q2H PRN (Reason: Headache) Rx Instructions: administer into one nostril as a single dose; if 2nd dose needed,administer into other nostril after at least 2 hrs, NTE 2 doses (40 mg) per episode omega 5-szv-uwa-fish oil [Fish Oil] 1,000 mg (120 mg-180 mg) Capsule 1 cap PO DAILY duloxetine 20 mg capsule,delayed release(DR/EC) 1 cap PO DAILY diclofenac sodium 1 % gel 2 g topical QID melatonin 3 mg Capsule 3 mg PO BEDTIME PRN (Reason: Insomnia) nitrofurantoin monohyd/m-cryst [Macrobid] 100 mg capsule 100 mg PO Q12H 5 Days Qty: 10 0RF Rx Instructions: must administer with a meal/food vljwtxukdu-hddmarrugkury-klfj [Fioricet] 50-300-40 mg capsule 1 cap PO Q4-6H PRN (Reason: migraine headache) Qty: 10 0RF cyclobenzaprine 10 mg tablet 10 mg PO BEDTIME PRN (Reason: muscle spasm) Qty: 7 0RF lidocaine 5 % adhesive patch,medicated 1 patch topical DAILY PRN (Reason: pain) Qty: 15 0RF Rx Instructions: leave on most painful area for up to 12 hrs Xulane 150-35 mcg/24 hr patch weekly 1 patch transdermal QWEEK Qty: 3 11RF Rx Instructions: apply once weekly for 3 weeks of a 4-week cycle estradiol [Estrace] 0.01 % (0.1 mg/gram) cream 1 g vaginal 2XW Qty: 42.5 0RF Rx Instructions: use nightly for two weeks, then twice a week
== END 2023-02-09 03:30 | disposition home or self-care (01) ==
PROVIDERS: Emergency Provider Emergency Medicine
DX: S91.342A Puncture wound with foreign body, left foot, initial encounter (principal); W45.8XXA Other foreign body or object entering through skin, initial encounter; Y93.89 Activity, other specified; Y92.039 Unspecified place in apartment as the place of occurrence of the external cause; Y99.9 Unspecified external cause status
CPT/HCPCS: 99284

== ENCOUNTER 2023-03-01 15:16 | Emergency (ER) | payer MEDICAID, SELFPAY ==
--- NOTE | ~2023-03-01 | CT_ITS ---
EXAMINATION: CT HEAD WITHOUT CONTRAST CLINICAL INFORMATION: Status post seizure with closed head injury COMPARISON: Previous dated 09/09/2021 TECHNIQUE: Contiguous axial imaging was performed from the skull base to vertex without intravenous administration of contrast. This CT examination was performed using dose optimization techniques as appropriate, variously including the following: *Automated exposure control *Adjustment of mA and/or kV according to patient size (this includes techniques or standardized protocols for targeted exams where dose is matched to indication/reason for exam; i.e. extremities or head) *Use of iterative reconstruction technique DLP: 630 mGy-cm FINDINGS: There is no midline shift. There is no mass effect. There is no hemorrhage. The basal cisterns appear patent. The posterior fossa is grossly within normal limits. No extra-axial collection. . The ventricular system is within normal limits. There is involving the left parieto-occipital region accentuated sulci. This was not the case previously. This is seen from image 29 to image 38. Findings suggest volume loss from previous and possible area of infarction or other abnormality Review of the bone windows demonstrates grossly clear sinuses. Minimal sinus disease. CT/CT head/brain wo IV con IMPRESSION: There is no midline shift, mass effect or hemorrhage. There is a new finding in the high left posterior parietal region which is new from previous. Etiology is indeterminate. This could possibly represent an area of infarction, white and/or encinas matter, or volume loss of other etiology. An underlying lesion cannot be completely excluded but this is not creating definitive mass effect in the region. Recommendation is pre and postcontrast MR to fully evaluate at this time
[2023-03-01 15:30] VITALS: BP 124/72; PULSE 74; O2SAT 100
[2023-03-01 16:10] VITALS: BP 111/68; PULSE 80; RESP 14; TEMP 36.8; O2SAT 98; BMI 36.8
--- NOTE | 2023-03-01 16:23 | PC.NURSE ---
30 sec pseudo seizure witnessed by Greg VALENTINE, no post ictal noted.
--- NOTE | 2023-03-01 16:24 | ED_ITS ---
HPI - Seizure General Chief Complaint: Seizure Stated Complaint: Seizure Time Seen by Provider: 03/01/23 16:21 Source: patient Mode of arrival: ambulatory Limitations: no limitations History of Present Illness HPI Narrative: Patient 27 years old with history of pseudoseizures/vasovagal episodes was of walking outside in the sun under the groceries to felt lightheaded with blurred vision tried to sit down then had a seizure lasted only for few seconds with slight confusion postictal no significant injuries hit her head to the ground slowly does have a history of Von Willebrand disease and adrenal insufficiency has not taken her prednisone for last 2 days Seizure History: Yes Related Data Home Medications Medication Instructions Recorded Confirmed albuterol sulfate 90 mcg/actuation 2 puff inhalation Q4-6H PRN 11/24/21 11/24/21 aerosol inhaler Shortness Of Breath diclofenac sodium 1 % topical gel 2 g topical QID 11/24/21 11/24/21 duloxetine 20 mg capsule,delayed 1 cap PO DAILY 11/24/21 11/24/21 release levothyroxine 75 mcg tablet 1 tab PO DAILY 11/24/21 11/24/21 melatonin 3 mg capsule 3 mg PO BEDTIME PRN Insomnia 11/24/21 11/24/21 omega 3-zqz-nmr-fish oil 1,000 mg 1 cap PO DAILY 11/24/21 11/24/21 (120 mg-180 mg) capsule (Fish Oil) prednisone 5 mg tablet 1 tab PO DAILY 11/24/21 11/24/21 sumatriptan 20 mg/actuation nasal 20 mg intranasal Q2H PRN Headache 11/24/21 11/24/21 spray Previous Rx's Medication Instructions Recorded ondansetron HCl 4 mg tablet 4 mg PO Q8H PRN nausea and 01/22/21 (Zofran) vomiting #10 tabs estradiol 0.01% (0.1 mg/gram) 1 g vaginal 2XW #42.5 grams 04/20/21 vaginal cream (Estrace) norelgestromin 150 mcg-e.estradiol 1 patch transdermal QWEEK #3 ea 04/20/21 35 mcg/24 hr weekly transderm patch (Xulane) metronidazole 500 mg tablet 500 mg PO BID 7 days #14 tabs 04/25/21 (Flagyl) cyclobenzaprine 10 mg tablet 10 mg PO TID PRN muscle spasm #14 08/27/21 tabs hydrocodone 5 mg-acetaminophen 325 1 tab PO Q6H PRN pain #8 tabs 08/27/21 mg tablet ibuprofen 600 mg tablet 600 mg PO Q6H PRN pain #30 tabs 08/27/21 cwxlfegzad-rscwuyraewqis-ipzeguco 1 cap PO Q4H PRN pain #12 caps 09/09/21 50 mg-300 mg-40 mg capsule (Fioricet) prochlorperazine 25 mg rectal 25 mg [place] Q12H PRN nausea and 09/09/21 suppository (Compazine) vomiting #12 ea naproxen 500 mg tablet (Naprosyn) 500 mg PO BID #20 tabs 09/11/21 nitrofurantoin 100 mg PO Q12H 5 days #10 caps 07/22/22 monohydrate/macrocrystals 100 mg capsule (Macrobid) xehodshrqf-zuoidcesyrufr-dzsyhaml 1 cap PO Q4-6H PRN migraine 11/05/22 50 mg-300 mg-40 mg capsule headache #10 caps (Fioricet) cyclobenzaprine 10 mg tablet 10 mg PO BEDTIME PRN muscle spasm 12/24/22 #7 tabs lidocaine 5 % topical patch 1 patch topical DAILY PRN pain #15 12/24/22 ea Allergies Allergy/AdvReac Type Severity Reaction Status Date / Time cephalexin [From KEFLEX] Allergy Severe ANAPHYLAXIS Verified 12/24/22 19:05 morphine [MORPHINE] Allergy Mild VOMITING Verified 12/24/22 19:05 kiwi Allergy Facial Verified 12/24/22 19:05 Swelling Review of Systems Review of Systems: Yes all other systems are reviewed and are negative 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 Polya shaw-plans surrogate Alcohol intake: never Patient Tobacco Use Status: Never used Tobacco Tobacco use type: Cigarette Cigarettes Per Day: 6 Sexual orientation: Bisexual Gender identity: Female Physical Exam Vital Signs: Vital Signs: Last Vital Signs Temp 98.2 F 03/01/23 16:10 Pulse 80 03/01/23 16:10 Resp 14 03/01/23 16:10 BP 109/66 03/01/23 16:39 Pulse Ox 98 03/01/23 16:10 O2 Del Method Room Air 03/01/23 16:10 BMI result Body Mass Index 36.8 Appearance: Alert. Oriented X3. No acute distress. Eyes: PERRLA, No Nystagmus ENT: Pharynx normal. Oral Mucosa moist Neck: Normal inspection. Neck supple. AT NC no midline tenderness CVS: Normal heart rate and rhythm. Pulses normal. Respiratory: No respiratory distress. Equal air entry bilateral, no wheezing/rales/rhonchi Abdomen: Soft and nontender. Bowel sounds are present, no mass palpable, no CVA tenderness Skin: Skin warm and dry. Normal skin color. Normal skin turgor. Extremities: No lower extremity edema. No calf tenderness Neuro: Oriented X 3. No motor deficit. No sensory deficit.No cerebellar signs , cranial nerves II-XII intact Medications Administered Discontinued Medications Generic Name Dose Route Start Last Admin Trade Name Michelq PRN Reason Stop Dose Admin Hydrocortisone Sodium Succinate 100 mg 03/01/23 16:38 03/01/23 17:17 Hydrocortisone Sod Succ/Pf 100 Mg Vial IVPUSH 03/01/23 16:39 100 mg ONCE ONE Administration Medical Decision Making Medical Decision Making [facility] Narrative: Patient likely vasovagal syncope with seizure CT scan showed nonspecific changes patient has neurologist Dr. Chris she will follow-up with him patient was given stress dose of Solu-Cortef as she missed her prednisone she does have prescription should get the medicine tomorrow Lab Data [facility] Lab Attestation statement: I reviewed the patient's lab results. 03/01/23 16:50 03/01/23 16:50 Labs: Lab Results 03/01/23 03/01/23 03/01/23 Range/Units 16:49 16:50 16:50 WBC 8.1 (4.8-10.8) X10*3/uL RBC 4.35 (4.20-5.50) X10*6/uL Hgb 12.3 (12.0-16.0) g/dl Hct 36.7 L (37.0-47.0) % MCV 84.4 (80.0-98.0) fL MCH 28.3 (27.0-33.0) pg MCHC 33.5 (31.0-35.0) g/dl RDW 12.4 (11.0-16.0) % Plt Count 191 (160-400) X10*3/uL MPV 10.5 (9.4-12.3) fL Immature Gran % (Auto) 0.2 (0.0-0.4) % Neut % (Auto) 57.4 (45-73) % Lymph % (Auto) 35.3 (20-40) % [place] % (Auto) 4.8 (2-11) % Eos % (Auto) 1.7 (0-4) % Baso % (Auto) 0.6 (0-2) % Lymph # (Auto) 2.9 (1.2-4.9) X10*3/uL [place] # (Auto) 0.4 (0.1-1.2) X10*3/uL Eos # (Auto) 0.1 (0.0-0.4) X10*3/uL Baso # (Auto) 0.1 (0.0-0.2) X10*3/uL Abs Immat Gran (auto) 0.02 (0.00-0.03) X10*3/uL Absolute Neuts (auto) 4.6 (2.0-8.3) x10*3/uL Absolute Nucleated RBC 0.000 (0.0-0.012) X10*3/uL Nucleated RBC % (auto) 0.0 (0.0-0.2) /100WBC Sodium 140 (135-145) mmol/L Potassium 3.7 (3.3-5.1) mmol/L Chloride 109 H (96-108) mmol/L Carbon Dioxide 24 (22-29) mmol/L Anion Gap 11 L (12-20) BUN 9 (9-16) mg/dL Creatinine 0.75 (0.5-1.4) mg/dL Estim Creat Clear Calc 131.0 Estimated GFR > 60 Random Glucose 96 (60-115) mg/dL Calcium 9.6 (8.4-10.2) mg/dL Total Bilirubin 0.5 (0.0-1.0) mg/dL AST 38 H (5-31) U/L ALT 44 H (0-31) U/L Alkaline Phosphatase 67 (39-117) U/L Total Protein 7.1 (6.5-8.0) g/dL Albumin 4.6 (3.5-5.0) g/dL Beta HCG, Quant < 2 mIU/mL Discharge Plan Discharge Clinical Impression: Vasovagal syncope, Seizure disorder Patient Disposition: Home, Self-Care Instructions: Syncope (ED), Recurrent Seizures in Adults (ED) Additional Instructions: Drink plenty of fluids Follow with neurologist for further management for CT scan review Taking your medication on time Prescriptions: No Action metronidazole [Flagyl] 500 mg tablet 500 mg PO BID 7 Days Qty: 14 0RF Rx Instructions: Take with food, Avoid alcohol and vinegar products ondansetron HCl [Zofran] 4 mg tablet 4 mg PO Q8H PRN (Reason: nausea and vomiting) Qty: 10 0RF cyclobenzaprine 10 mg tablet 10 mg PO TID PRN (Reason: muscle spasm) Qty: 14 0RF hydrocodone-acetaminophen 5-325 mg tablet 1 tab PO Q6H PRN (Reason: pain) Qty: 8 0RF ibuprofen 600 mg tablet 600 mg PO Q6H PRN (Reason: pain) Qty: 30 0RF prochlorperazine [Compazine] 25 mg suppository 25 mg [place] Q12H PRN (Reason: nausea and vomiting) Qty: 12 0RF xmxcrmhdkq-hugnqeqdunazd-lidb [Fioricet] 50-300-40 mg capsule 1 cap PO Q4H PRN (Reason: pain) Qty: 12 0RF naproxen [Naprosyn] 500 mg tablet 500 mg PO BID Qty: 20 0RF prednisone 5 mg tablet 1 tab PO DAILY levothyroxine 75 mcg tablet 1 tab PO DAILY albuterol sulfate 90 mcg/actuation Hfa Aerosol Inhaler 2 puff INHALATION Q4-6H PRN (Reason: Shortness Of Breath) sumatriptan 20 mg/actuation [place],Non-Aerosol 20 mg INTRANASAL Q2H PRN (Reason: Headache) Rx Instructions: administer into one nostril as a single dose; if 2nd dose needed,administer into other nostril after at least 2 hrs, NTE 2 doses (40 mg) per episode omega 8-ebf-ush-fish oil [Fish Oil] 1,000 mg (120 mg-180 mg) Capsule 1 cap PO DAILY duloxetine 20 mg capsule,delayed release(DR/EC) 1 cap PO DAILY diclofenac sodium 1 % gel 2 g topical QID melatonin 3 mg Capsule 3 mg PO BEDTIME PRN (Reason: Insomnia) nitrofurantoin monohyd/m-cryst [Macrobid] 100 mg capsule 100 mg PO Q12H 5 Days Qty: 10 0RF Rx Instructions: must administer with a meal/food dzjxyonefh-qijeeixotlwzj-pcpb [Fioricet] 50-300-40 mg capsule 1 cap PO Q4-6H PRN (Reason: migraine headache) Qty: 10 0RF cyclobenzaprine 10 mg tablet 10 mg PO BEDTIME PRN (Reason: muscle spasm) Qty: 7 0RF lidocaine 5 % adhesive patch,medicated 1 patch topical DAILY PRN (Reason: pain) Qty: 15 0RF Rx Instructions: leave on most painful area for up to 12 hrs Xulane 150-35 mcg/24 hr patch weekly 1 patch transdermal QWEEK Qty: 3 11RF Rx Instructions: apply once weekly for 3 weeks of a 4-week cycle estradiol [Estrace] 0.01 % (0.1 mg/gram) cream 1 g vaginal 2XW Qty: 42.5 0RF Rx Instructions: use nightly for two weeks, then twice a week Referrals: Denzel Baker MD [Physician] - 1 week Interventions: ED Discharge Assessment Last Done: 03/01/23 18:07
[2023-03-01 16:39] VITALS: BP 109/66
[2023-03-01 16:54] LABS: MANUAL DIFF FLAG NO
[2023-03-01 16:56] LABS: Basophils Absolute Auto 0.1 X10*3/uL (0.0-0.2); Basophils Percent Auto 0.6 % (0-2); Eosinophils Absolute Auto 0.1 X10*3/uL (0.0-0.4); Eosinophils Percent Auto 1.7 % (0-4); Hematocrit 36.7 % (37.0-47.0); Hemoglobin 12.3 g/dl (12.0-16.0); Imm Gran Abs Auto 0.02 X10*3/uL (0.00-0.03); Imm Gran Pct Auto 0.2 % (0.0-0.4); Lymphocytes Absolute Auto 2.9 X10*3/uL (1.2-4.9); Lymphocytes Percent Auto 35.3 % (20-40); Mean Corpuscular HGB Conc 33.5 g/dl (31.0-35.0); Mean Corpuscular Hemoglobin 28.3 pg (27.0-33.0); Mean Corpuscular Volume 84.4 fL (80.0-98.0); Mean Platelet Volume 10.5 fL (9.4-12.3); Monocytes Absolute Auto 0.4 X10*3/uL (0.1-1.2); Monocytes Percent Auto 4.8 % (2-11); Neutrophils Absolute Auto 4.6 x10*3/uL (2.0-8.3); Neutrophils Percent Auto 57.4 % (45-73); Platelet Count 191 X10*3/uL (160-400); Red Blood Count 4.35 X10*6/uL (4.20-5.50); Red Cell Distribution Width 12.4 % (11.0-16.0); White Blood Count 8.1 X10*3/uL (4.8-10.8)
[2023-03-01 17:17] LABS: Alanine Aminotransferase 44 U/L (0-31); Albumin Level 4.6 g/dL (3.5-5.0); Alkaline Phosphatase 67 U/L (39-117); Anion Gap 11 (12-20); Aspartate Amino Transferase 38 U/L (5-31); Bilirubin Total 0.5 mg/dL (0.0-1.0); Blood Urea Nitrogen 9 mg/dL (9-16); Calcium 9.6 mg/dL (8.4-10.2); Carbon Dioxide 24 mmol/L (22-29); Chloride 109 mmol/L (96-108); Estimated Glomerular Filt Rate > 60; Glucose Random 96 mg/dL (60-115); Potassium 3.7 mmol/L (3.3-5.1); Sodium 140 mmol/L (135-145); Total Protein 7.1 g/dL (6.5-8.0)
[2023-03-01] MEDS: Hydrocortisone Sod Succ/PF 100 MG VIAL IVPUSH (17:17)
[2023-03-01 17:33] LABS: HCG Quantitative < 2 mIU/mL
[2023-03-01 18:07] VITALS: BP 117/76; PULSE 88; RESP 18; TEMP 36.7; O2SAT 98
== END 2023-03-01 18:12 | disposition home or self-care (01) ==
PROVIDERS: Emergency Provider Internal Medicine; PCP Nurse Practitioner Primary Care
DX: R56.9 Unspecified convulsions (principal); R55 Syncope and collapse; F17.210 Nicotine dependence, cigarettes, uncomplicated; Z71.6 Tobacco abuse counseling; Z79.899 Other long term (current) drug therapy
CPT/HCPCS: 36415; 70450; 80053; 84702; 85025; 96374; 99284

== ENCOUNTER 2023-03-12 09:59 | Outpatient (REF) | payer MEDICAID, SELFPAY | END 2023-03-12 10:00 | disposition home or self-care (01) | LOC: HO.HOSX 09:59 | PROVIDERS: Visit Provider Orthopaedic Surgery | DX: Z13.89 Encounter for screening for other disorder (principal) ==

== ENCOUNTER → 2023-03-30 11:01 | Outpatient (BNVA) | payer MEDICAID, SELFPAY | PROVIDERS: PCP Nurse Practitioner Primary Care; Visit Provider Orthopaedic Surgery | DX: M25.461 Effusion, right knee (principal) | CPT/HCPCS: 99202 ==

== ENCOUNTER 2023-04-13 09:42 | Outpatient (REF) | payer MEDICAID, SELFPAY ==
--- NOTE | ~2023-04-13 | MR_ITS ---
EXAMINATION: MR KNEE WITHOUT AND WITH CONTRAST, RIGHT CLINICAL INFORMATION: Right knee pain, difficulty walking, with stairs. Pain and swelling. Lump/mass. Bone cyst/chondromalacia. COMPARISON: Most recent right knee MRI dated 10/17/2021. TECHNIQUE: MRI of the knee was performed before and after the intravenous administration of 9 mL Gadavist on a high-field scanner. FINDINGS: MENISCI: Medial meniscus: Intact. Lateral meniscus: Intact. LIGAMENTS: Cruciate: Intact. Collateral: Intact. 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 Elevated TT-TG distance measuring 2 cm. The patella is currently laterally subluxed. Intact quadriceps and patellar tendons. Edema within the superolateral aspect of Hoffa's fat pad, which can be seen in the setting of patellar tendon-lateral femoral condyle friction syndrome. ARTICULAR CARTILAGE/BONE: Patellofemoral compartment: Articular cartilage signal heterogeneity with full-thickness fissuring and underlying subchondral cystic change at the inferior aspect of the patellar median ridge measuring up to 1.3 cm in craniocaudal dimension. Minimal subchondral cystic change. Findings have slightly increased when compared to the prior examination. Medial compartment: Intact articular cartilage. Lateral compartment: Intact articular cartilage. No concerning lytic or blastic osseous lesion. No abnormal marrow enhancement. JOINT FLUID AND BURSAE: Trace joint effusion. MR/MR knee RT wo/w con IMPRESSION: 1. 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 Edema within the superolateral aspect of Hoffa's fat pad, which can be seen in the setting of patellar tendon-lateral femoral condyle friction syndrome. 2. Focal arthrosis at the inferior aspect of the patellar median ridge, slightly increased when compared to the prior examination. Trace joint effusion. 3. No acute meniscal or ligamentous injury.
== END 2023-04-13 09:43 | disposition home or self-care (01) ==
LOC: HO.MRI 09:42
PROVIDERS: PCP Nurse Practitioner Primary Care; Visit Provider Nurse Practitioner Primary Care
DX: M94.261 Chondromalacia, right knee (principal)
CPT/HCPCS: 73723; A9585

== ENCOUNTER 2023-06-01 11:04 | Outpatient (REF) | payer MEDICAID, SELFPAY ==
--- NOTE | ~2023-06-01 | MR_ITS ---
EXAMINATION: MR BRAIN WITHOUT AND WITH CONTRAST CLINICAL INFORMATION: SEIZURE DISORDER, LT PARIETAL OCCIPITAL LESION COMPARISON: CT head dated 03/01/2023. MRI brain dated 07/18/2021. TECHNIQUE: Multiplanar, multisequence MRI of the brain was obtained before and after the intravenous administration of 10 mL gadavist. FINDINGS: There are several new small (compared with brain MRI dated 07/18/2021) foci of increased T2/FLAIR signal within the cortex of the left posterior parietal / left occipital lobe. These areas of abnormal signal do not demonstrate mass effect, nor do they enhance. They do not demonstrate abnormal restricted diffusion or abnormal signal on the gradient echo sequence. The pituitary gland is small and demonstrates a partially empty configuration. The posterior pituitary bright spot/neurohypophysis is ectopic and seen along the third ventricular floor. The infundibulum is not definitively seen. These findings are unchanged compared with brain MRI dated 07/18/2021. The hippocampi demonstrate normal size, signal, and morphology and appear symmetric. There is no acute infarction, hemorrhage, or extra-axial collection. The ventricles, sulci, and basilar cisterns are normal in size and configuration. The corpus callosum is fully formed. The cerebellar tonsils terminate normally above the foramen magnum. The upper cervical cord is normal in caliber. The flow voids of the major intracranial arteries appear intact. The bones and extracranial soft tissues are within normal limits. MR/MR head/brain wo/w con IMPRESSION: There are several new small (compared with brain MRI dated 07/18/2021) foci of increased T2/FLAIR signal within the cortex of the left posterior parietal / left occipital lobe. These areas of abnormal signal do not demonstrate mass effect, nor do they enhance. They do not demonstrate abnormal restricted diffusion or abnormal signal on the gradient echo sequence. The appearance is non specific. Vascular insult is included in the differential. Low grade neoplasm cannot be excluded, however. Short term (3 months) follow up MRI brain with and without contrast should be performed to evaluate for any changes. MRA brain is also recommended, although a primary vascular abnormality is considered very low on the differential diagnosis. Ectopic positioning of the posterior pituitary which is seen along the floor of the third ventricle. Adenohypophysis is small in size. Infundibulum is not definitively seen. These findings are stable compared with prior MRI.
[2023-06-01] MEDS: gadobutroL 10 ML VIAL IVPUSH (12:12)
== END 2023-06-01 11:05 | disposition home or self-care (01) ==
LOC: HO.MRI 11:04
PROVIDERS: PCP Nurse Practitioner Primary Care; Visit Provider Psychiatry & Neurology Neurology
DX: G40.909 Epilepsy, unspecified, not intractable, without status epilepticus (principal)
CPT/HCPCS: 70553; A9585

== ENCOUNTER 2023-11-28 10:47 | Outpatient (REF) | payer MEDICAID, SELFPAY ==
--- NOTE | ~2023-11-28 | XR_ITS ---
EXAMINATION: XR SHOULDER, RIGHT CLINICAL INFORMATION: Right shoulder pain COMPARISON: None available. TECHNIQUE: AP external rotation, Grashey, scapular Y, and axillary views of the right shoulder. FINDINGS: The bones and soft tissues are normal. No fracture. Glenohumeral and acromioclavicular alignment is anatomic with normal joint space. No abnormal soft tissue calcifications. XR/XR shoulder RT min 2V IMPRESSION: Normal right shoulder.
== END 2023-11-28 10:48 | disposition home or self-care (01) ==
LOC: HO.HHCX 10:47
PROVIDERS: Visit Provider Internal Medicine
DX: M25.511 Pain in right shoulder (principal)
CPT/HCPCS: 73030

== ENCOUNTER 2023-11-28 11:27 | Outpatient (REF) | payer MEDICAID, SELFPAY ==
--- NOTE | ~2023-11-28 | US_ITS ---
EXAMINATION: US ABDOMEN LIMITED CLINICAL INFORMATION: Right upper quadrant pain. COMPARISON: CT abdomen and pelvis exam 01/22/2021 TECHNIQUE: Real-time imaging of the right upper quadrant abdominal viscera. FINDINGS: PANCREAS: Normal. LIVER: The liver is normal in size. The liver contour is normal. Parenchymal echogenicity is increased . No focal hepatic lesion. There is no intrahepatic biliary duct dilatation seen. GALLBLADDER: Normal. The gallbladder is physiologically distended without evidence of stones, sludge, polyps, wall thickening or pericholecystic fluid. COMMON BILE DUCT: Normal in caliber measuring 0.3 cm in diameter. RIGHT KIDNEY: Normal. No hydronephrosis. No renal calculi or focal parenchymal lesions. The kidney measures 10.5 cm in maximum dimension. FREE FLUID: None. US/US abdomen limited IMPRESSION: Diffuse hepatic steatosis without focal lesion. Visualized gallbladder, pancreas, CBD and right kidney are unremarkable.
== END 2023-11-28 11:28 | disposition home or self-care (01) ==
LOC: HO.US 11:27
PROVIDERS: PCP Nurse Practitioner Primary Care; Visit Provider Internal Medicine
DX: R10.11 Right upper quadrant pain (principal)
CPT/HCPCS: 73030; 76705

== ENCOUNTER 2023-11-28 14:26 | Emergency (ER) | payer MEDICAID, SELFPAY ==
--- NOTE | ~2023-11-28 | XR_ITS ---
EXAMINATION: XR CHEST CLINICAL INFORMATION: Chest pain COMPARISON: 2020 TECHNIQUE: Frontal view of the chest was obtained. FINDINGS: No significant abnormality is noted involving the heart, lungs, mediastinum, bony thorax or soft tissues. XR/XR chest 1V IMPRESSION: Normal chest x-ray.
--- NOTE | 2023-11-28 14:29 | ED.GENADULT ---
HPI - General Adult General Chief complaint: General Medical Stated complaint: Diff Breathing SOB Time Seen by Provider: 11/28/23 16:15 Source: patient and family Mode of arrival: ambulatory Limitations: no limitations History of Present Illness HPI narrative: 28-year-old female with a past medical history of hypothyroidism, fatty liver disease and Von Willebrand's presents to the emergency department, with her family, for complaints of right-sided chest wall, neck, and shoulder pain for the past several days. She reports the pain has made it difficult to take deep breaths. She reports that she has been taking 800 mg of ibuprofen every 8 hours with the last dose yesterday, with minimal relief in symptoms. She reports that she has a history of fatty liver disease and was told not to take Tylenol. She denies any recent illnesses, known sick contacts, fever, chills, trauma or overuse injury. Pertinent positives and negatives discussed in each Related Data Home Medications Medication Instructions Recorded Confirmed albuterol sulfate 90 mcg/actuation 2 puff inhalation Q4-6H PRN 11/24/21 11/24/21 aerosol inhaler Shortness Of Breath diclofenac sodium 1 % topical gel 2 g topical QID 11/24/21 11/24/21 duloxetine 20 mg capsule,delayed 1 cap PO DAILY 11/24/21 11/24/21 release levothyroxine 75 mcg tablet 1 tab PO DAILY 11/24/21 11/24/21 melatonin 3 mg capsule 3 mg PO BEDTIME PRN Insomnia 11/24/21 11/24/21 prednisone 5 mg tablet 1 tab PO DAILY 11/24/21 11/24/21 Previous Rx's Medication Instructions Recorded estradiol 0.01% (0.1 mg/gram) 1 g vaginal 2XW #42.5 grams 04/20/21 vaginal cream (Estrace) metronidazole 500 mg tablet 500 mg PO BID 7 days #14 tabs 04/25/21 (Flagyl) cyclobenzaprine 10 mg tablet 10 mg PO TID PRN muscle spasm #14 08/27/21 tabs ibuprofen 600 mg tablet 600 mg PO Q6H PRN pain #30 tabs 08/27/21 dvklirkshv-svtlpytmublsr-szwwuyxk 1 cap PO Q4H PRN pain #12 caps 09/09/21 50 mg-300 mg-40 mg capsule (Fioricet) nitrofurantoin 100 mg PO Q12H 5 days #10 caps 07/22/22 monohydrate/macrocrystals 100 mg capsule (Macrobid) skupkibqig-jthfnwvlildaq-ruubqeav 1 cap PO Q4-6H PRN migraine 11/05/22 50 mg-300 mg-40 mg capsule headache #10 caps (Fioricet) cyclobenzaprine 10 mg tablet 10 mg PO BEDTIME PRN muscle spasm 12/24/22 #7 tabs lidocaine 5 % topical patch 1 patch topical DAILY PRN pain #15 12/24/22 ea prednisone 50 mg tablet 50 mg PO DAILY 5 days #5 tabs 11/28/23 Allergies Allergy/AdvReac Type Severity Reaction Status Date / Time cephalexin [From KEFLEX] Allergy Severe ANAPHYLAXIS Verified 11/28/23 14:30 morphine [MORPHINE] Allergy Mild VOMITING Verified 11/28/23 14:30 kiwi Allergy Facial Verified 11/28/23 14:30 Swelling Review of Systems Review of Systems: Yes all other systems are reviewed and are negative PMFSH Past Medical History Attestation statement: The following information was validated with the patient. 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 Polyamory-plans surrogate Alcohol intake: never Patient Tobacco Use Status: Never used Tobacco Tobacco use type: Cigarette Cigarettes Per Day: 6 Smoked in Last 30 Days: Yes Use of substances other than those prescribed or required for medical reasons: Yes Substance Use Type: Marijuana Substance Use Frequency: Daily Last Used Substance: Just Prior to Admission Advance Directives: No Advance Directives Information Provided: No Sexual orientation: Bisexual Gender identity: Female Physical Exam ED Vital Signs: Vital Signs - 24 hr 11/28/23 14:30 11/28/23 17:18 Temperature 98 F 98.5 F Pulse Rate 81 58 Respiratory Rate 18 16 Blood Pressure 135/84 101/57 L Pulse Oximetry 98 Oxygen Delivery Method Room Air BMI result Body Mass Index 32.8 Nursing notes and vital signs reviewed. GENERAL APPEARANCE: A&0 x 4, generally well appearing, no acute distress HENMT: Normal to inspection, atraumatic, face symmetrical. Normal external ears, nose, and oropharynx clear. EYE: PERRLA, EOM intact, structures appear normal NECK: Supple without lymphadenopathy. No stiffness or restricted ROM. Pain with movement CHEST: Normal to inspection HEART: Normal rate and regular rhythm, normal S1/S2, no M/R/G LUNGS: LS CTA, moving air well. Able to speak in complete sentences. No crackles, wheezes, or rhonchi auscultated ABDOMEN: Soft, nontender, nondistended. Normal bowel sounds noted BACK: No CVAT, no obvious deformity EXTREMITIES: Moving all extremities without difficulty. No cyanosis, clubbing, or edema. Normal capillary refill. NEUROLOGICAL: Alert and oriented, moving all 4 extremities with equal strength. CN not formally tested but appearing grossly intact. Observed to ambulate with normal gait. Cognition normal SKIN: Warm and dry without any lesions, rash, or visible sores PSYCH: Cooperative, normal affect, normal thought process Course Course Course Narrative: This is a rapid medical exam: Additional HPI, ROS, PE not included below will be deferred to primary provider. Patient is a 28-year-old female presenting to the emergency department with 5 days of right anterior chest pain radiating down to abdomen and up to neck and shoulder. Denies any fall or other trauma. Patient is tearful in triage. Was at [facility] walk in this morning and had shoulder x-ray and RUQ u/s there which she was told were unremarkable. Plan: labs, UA Medications Administered Discontinued Medications Generic Name Dose Route Start Last Admin Trade Name Freq PRN Reason Stop Dose Admin Ketorolac Tromethamine 15 mg 11/28/23 17:00 11/28/23 17:21 Ketorolac Tromethamine 15 Mg/Ml Vial IM 11/28/23 17:01 15 mg ONCE ONE Administration Prednisone 60 mg 11/28/23 17:00 11/28/23 17:22 Prednisone 20 Mg Tablet PO 11/28/23 17:01 60 mg ONCE ONE Administration Medical Decision Making Medical Decision Making MDM Narrative: Old records reviewed for previous imaging, lab studies, ECGs, and notes. Patient was assessed the emergency department with no acute distress or toxicity noted. Work essentially unremarkable. LFTs consistent with known fatty liver disease and coags consistent with von Willebrand's. EKG completed which have independently interpreted as normal sinus with sinus arrhythmia at 60 beats per minute with no signs of acute ischemia or ectopy. When compared to previous EKG done on 11/05/2022, no significant changes were noted. Troponin undetectable and heart score 0, indicating low risk for ACS at this time. A chest x-ray was completed which showed no evidence of acute infection, per my interpretation. Patient was given prednisone and Toradol here in the emergency department with moderate relief in symptoms. Prescription for 5 day course of prednisone was sent to patient's pharmacy for further management of acute pain most likely due to inflammation or strain. Patient is safe for discharge at this time with plan for rjkk-wli-yrkhdra Tylenol and/or NSAID such as ibuprofen or naproxen for fever/discomfort with dosing as per packaging. HPI, PE, diagnostics, and plan discussed with patient and family with no unanswered questions at this time. Strict return precautions given to return to the emergency department with new, worsening, or concerning emergent symptoms. Recommended to follow-up with there primary care provider in 24-48 hours for further treatment and management. Differential Diagnosis Differential Diagnoses: The differential diagnosis associated with the presentation includes But not limited to to ACS, PE, sprain, strain, fracture, dislocation, cervical radiculopathy, contusion, costochondritis, pleurisy, sepsis, malignancy Lab Data 11/28/23 14:46 11/28/23 14:46 Labs: Lab Results 11/28/23 Range/Units 14:46 WBC 7.8 (4.8-10.8) X10*3/uL RBC 4.27 (4.20-5.50) X10*6/uL Hgb 12.1 (12.0-16.0) g/dl Hct 35.1 L (37.0-47.0) % MCV 82.2 (80.0-98.0) fL MCH 28.3 (27.0-33.0) pg MCHC 34.5 (31.0-35.0) g/dl RDW 12.5 (11.0-16.0) % Plt Count 186 (160-400) X10*3/uL MPV 11.3 (9.4-12.3) fL Immature Gran % (Auto) 0.3 (0.0-0.4) % Neut % (Auto) 59.7 (45-73) % Lymph % (Auto) 28.4 (20-40) % [place] % (Auto) 5.0 (2-11) % Eos % (Auto) 5.8 H (0-4) % Baso % (Auto) 0.8 (0-2) % Lymph # (Auto) 2.2 (1.2-4.9) X10*3/uL [place] # (Auto) 0.4 (0.1-1.2) X10*3/uL Eos # (Auto) 0.5 H (0.0-0.4) X10*3/uL Baso # (Auto) 0.1 (0.0-0.2) X10*3/uL Abs Immat Gran (auto) 0.02 (0.00-0.03) X10*3/uL Absolute Neuts (auto) 4.7 (2.0-8.3) x10*3/uL Absolute Nucleated RBC 0.000 (0.0-0.012) X10*3/uL Nucleated RBC % (auto) 0.0 (0.0-0.2) /100WBC PT 13.5 H (11.1-13.3) SEC INR 1.1 (0.9-1.1) Sodium 140 (135-145) mmol/L Potassium 4.0 (3.3-5.1) mmol/L Chloride 109 H (96-108) mmol/L Carbon Dioxide 25 (22-29) mmol/L Anion Gap 10 L (12-20) BUN 14 (9-16) mg/dL Creatinine 0.69 (0.5-1.4) mg/dL Estim Creat Clear Calc 132.8 Estimated GFR > 60 Random Glucose 93 (60-115) mg/dL Calcium 9.9 (8.4-10.2) mg/dL Total Bilirubin 0.5 (0.0-1.0) mg/dL AST 49 H (5-31) U/L ALT 44 H (0-31) U/L Alkaline Phosphatase 65 (39-117) U/L Troponin I High Sens < 2.7 (<3.5-17.0) ng/L Total Protein 7.3 (6.5-8.0) g/dL Albumin 4.7 (3.5-5.0) g/dL Beta HCG, Quant < 2 mIU/mL Urine Color Yellow Urine Appearance Clear Urine pH 5.5 (5.0-9.0) Ur Specific [place] 1.025 (1.005-1.025) Urine Protein Negative (Neg-Trace) mg/dL Urine Glucose (UA) Negative (Negative) mg/dL Urine Ketones Negative (Negative) mg/dL Urine Blood Negative (Negative) Urine Nitrite Negative (Negative) Ur Leukocyte Esterase Negative (Negative) Scores Heart Score History: -0- slightly suspicious ECG: -0- normal Age: -0- < or = 45 Risk factory: -0- no risk factors known Troponin: -0- < or = normal limit Score: 0 Risk: 1.7% Discharge Plan Discharge Clinical Impression: Muscle strain Patient Disposition: Home, Self-Care Instructions: Musculoskeletal Pain (ED), Neck Pain (ED) Additional Instructions: Your seen in the emergency department for concerns right-sided chest, neck, and shoulder pain. Your workup showed no evidence of heart attack or infection. You were given steroids here in the emergency department and steroids were sent to preferred pharmacy. Please take full course as directed. You may use heat or ice in addition to wewc-sqd-efavoep medications for management of discomfort. You are safe for discharge at this time with plan for management of fever or discomfort with fubx-cuj-yfjjtok Ibuprofen with dosing as per packaging. Please return to the emergency department with new, worsening, or concerning emergent symptoms. Recommended to follow-up with your primary care provider in 24-48 hours for further treatment and management. Thank you for choosing [facility]. Prescriptions: New prednisone 50 mg tablet 50 mg PO DAILY 5 Days Qty: 5 0RF No Action metronidazole [Flagyl] 500 mg tablet 500 mg PO BID 7 Days Qty: 14 0RF Rx Instructions: Take with food, Avoid alcohol and vinegar products cyclobenzaprine 10 mg tablet 10 mg PO TID PRN (Reason: muscle spasm) Qty: 14 0RF ibuprofen 600 mg tablet 600 mg PO Q6H PRN (Reason: pain) Qty: 30 0RF zlhcxjgpyq-wyxxpnymxazzo-nrre [Fioricet] 50-300-40 mg capsule 1 cap PO Q4H PRN (Reason: pain) Qty: 12 0RF prednisone 5 mg tablet 1 tab PO DAILY levothyroxine 75 mcg tablet 1 tab PO DAILY albuterol sulfate 90 mcg/actuation Hfa Aerosol Inhaler 2 puff INHALATION Q4-6H PRN (Reason: Shortness Of Breath) duloxetine 20 mg capsule,delayed release(DR/EC) 1 cap PO DAILY diclofenac sodium 1 % gel 2 g topical QID melatonin 3 mg Capsule 3 mg PO BEDTIME PRN (Reason: Insomnia) nitrofurantoin monohyd/m-cryst [Macrobid] 100 mg capsule 100 mg PO Q12H 5 Days Qty: 10 0RF Rx Instructions: must administer with a meal/food hrkafyblly-vozwoeisxmsnu-ctjc [Fioricet] 50-300-40 mg capsule 1 cap PO Q4-6H PRN (Reason: migraine headache) Qty: 10 0RF cyclobenzaprine 10 mg tablet 10 mg PO BEDTIME PRN (Reason: muscle spasm) Qty: 7 0RF lidocaine 5 % adhesive patch,medicated 1 patch topical DAILY PRN (Reason: pain) Qty: 15 0RF Rx Instructions: leave on most painful area for up to 12 hrs estradiol [Estrace] 0.01 % (0.1 mg/gram) cream 1 g vaginal 2XW Qty: 42.5 0RF Rx Instructions: use nightly for two weeks, then twice a week Referrals: Jeane Bah ASSISTANT [employer] COACH [Primary Care Provider] - Stand Alone Forms: Work/School Release Print Language: Khmer
[2023-11-28 14:30] VITALS: BP 135/84; PULSE 81; RESP 18; TEMP 36.6; O2SAT 98; BMI 32.8
--- NOTE | 2023-11-28 14:33 | ECG_ITS ---
Test Reason : cp Blood Pressure : / mmHG Vent. Rate : 068 BPM Atrial Rate : 068 BPM P-R Int : 198 ms QRS Dur : 094 ms QT Int : 384 ms P-R-T Axes : 064 059 035 degrees QTc Int : 408 ms Normal sinus rhythm with sinus arrhythmia Cannot rule out Anterior infarct , age undetermined Abnormal ECG When compared with ECG of 05-NOV-2022 13:18, No significant change was found Referred By: Delilah Yuen Electronically Signed By:RICKY WADE
[2023-11-28 14:53] LABS: MANUAL DIFF FLAG NO
[2023-11-28 14:55] LABS: Basophils Absolute Auto 0.1 X10*3/uL (0.0-0.2); Basophils Percent Auto 0.8 % (0-2); Eosinophils Absolute Auto 0.5 X10*3/uL (0.0-0.4); Eosinophils Percent Auto 5.8 % (0-4); Hematocrit 35.1 % (37.0-47.0); Hemoglobin 12.1 g/dl (12.0-16.0); Imm Gran Abs Auto 0.02 X10*3/uL (0.00-0.03); Imm Gran Pct Auto 0.3 % (0.0-0.4); Lymphocytes Absolute Auto 2.2 X10*3/uL (1.2-4.9); Lymphocytes Percent Auto 28.4 % (20-40); Mean Corpuscular HGB Conc 34.5 g/dl (31.0-35.0); Mean Corpuscular Hemoglobin 28.3 pg (27.0-33.0); Mean Corpuscular Volume 82.2 fL (80.0-98.0); Mean Platelet Volume 11.3 fL (9.4-12.3); Monocytes Absolute Auto 0.4 X10*3/uL (0.1-1.2); Neutrophils Absolute Auto 4.7 x10*3/uL (2.0-8.3); Neutrophils Percent Auto 59.7 % (45-73); Platelet Count 186 X10*3/uL (160-400); Red Blood Count 4.27 X10*6/uL (4.20-5.50); Red Cell Distribution Width 12.5 % (11.0-16.0); White Blood Count 7.8 X10*3/uL (4.8-10.8)
[2023-11-28 15:01] LABS: INTERNATIONAL NORM RATIO 1.1 (0.9-1.1); Prothrombin Time 13.5 SEC (11.1-13.3)
[2023-11-28 15:07] LABS: Appearance Urine Clear; Color Urine Yellow; Glucose Urine UA Negative (Negative); Leukocyte Esterase Urine Negative (Negative); Nitrite Urine Negative (Negative); PH 5.5 (5.0-9.0); Specific Gravity - Urine 1.025 (1.005-1.025); Urine Blood Negative (Negative); Urine Ketones Negative (Negative); Urine Protein Negative (Neg-Trace)
[2023-11-28 15:12] LABS: Alanine Aminotransferase 44 U/L (0-31); Albumin Level 4.7 g/dL (3.5-5.0); Alkaline Phosphatase 65 U/L (39-117); Anion Gap 10 (12-20); Aspartate Amino Transferase 49 U/L (5-31); Bilirubin Total 0.5 mg/dL (0.0-1.0); Blood Urea Nitrogen 14 mg/dL (9-16); Calcium 9.9 mg/dL (8.4-10.2); Carbon Dioxide 25 mmol/L (22-29); Chloride 109 mmol/L (96-108); Creatinine Clr Calc Pharmacy 132.8; Estimated Glomerular Filt Rate > 60; Glucose Random 93 mg/dL (60-115); Sodium 140 mmol/L (135-145); Total Protein 7.3 g/dL (6.5-8.0)
[2023-11-28 15:28] LABS: HCG Quantitative < 2 mIU/mL; Troponin-I High Sensitivity < 2.7 ng/L (<3.5-17.0)
[2023-11-28 17:18] VITALS: BP 101/57; PULSE 58; RESP 16; TEMP 36.9
[2023-11-28] MEDS: Ketorolac Tromethamine 15 MG/ML VIAL IM (17:21)
[2023-11-28] MEDS: predniSONE 20 MG TABLET 60 MG PO (17:22)
== END 2023-11-28 18:21 | disposition home or self-care (01) ==
PROVIDERS: Registered Nurse Emergency; Emergency Provider Emergency Medicine Emergency Medical Services; PCP Nurse Practitioner Primary Care
DX: T14.8XXA Other injury of unspecified body region, initial encounter (principal); X58.XXXA Exposure to other specified factors, initial encounter; Y93.9 Activity, unspecified; Y92.9 Unspecified place or not applicable; Y99.9 Unspecified external cause status
CPT/HCPCS: 36415; 71045; 80053; 81003; 84484; 84702; 85025; 85610; 93005; 96372; 99284; J1885

== ENCOUNTER → 2023-11-28 14:33 | Outpatient (BNV) | payer MEDICAID, SELFPAY | PROVIDERS: Emergency Provider Emergency Medicine Emergency Medical Services; PCP Nurse Practitioner Primary Care; Visit Provider Internal Medicine | DX: R07.9 Chest pain, unspecified (principal) | CPT/HCPCS: 93010 ==

== ENCOUNTER 2023-12-11 11:57 | Emergency (ER) | payer MEDICAID, SELFPAY ==
--- NOTE | ~2023-12-11 | XR_ITS ---
EXAMINATION: XR CHEST CLINICAL INFORMATION: Chest tightness. COMPARISON: Chest radiograph dated 11/28/2023. TECHNIQUE: Frontal view of the chest was obtained. FINDINGS: The trachea is in normal anatomic position. Heart size is normal. The lungs are clear bilaterally. No pleural effusion. No pneumothorax. No acute osseous abnormality. XR/XR chest 1V IMPRESSION: No acute cardiopulmonary disease. No change compared with prior study.
[2023-12-11 12:11] VITALS: BP 130/78; PULSE 127; O2SAT 98
[2023-12-11 12:27] VITALS: BP 129/75; PULSE 109; RESP 18; TEMP 36.2; O2SAT 95; BMI 33.3
--- NOTE | 2023-12-11 12:30 | ECG_ITS ---
Test Reason : CHEST TIGHT Blood Pressure : / mmHG Vent. Rate : 109 BPM Atrial Rate : 109 BPM P-R Int : 142 ms QRS Dur : 080 ms QT Int : 322 ms P-R-T Axes : 072 052 002 degrees QTc Int : 433 ms Sinus tachycardia Possible Left atrial enlargement T wave abnormality, consider inferior ischemia Abnormal ECG When compared with ECG of 28-NOV-2023 14:36, Vent. rate has increased BY 41 BPM T wave inversion now evident in Inferior leads Nonspecific T wave abnormality now evident in Lateral leads Referred By: Generic ED Physician Electronically Signed By:AKANKSHA IGLESIAS MD
--- NOTE | 2023-12-11 12:34 | ED_ITS ---
HPI - General Adult General Chief complaint: Nausea/Vomiting/Diarrhea Stated complaint: WEAK,NAUSEA,VOMITING X3 DAYS PER EMS Time Seen by Provider: 12/11/23 17:11 Source: patient Mode of arrival: ambulatory Limitations: no limitations History of Present Illness HPI narrative: 28-year-old female past medical history of adrenal insufficiency presents to ED for nausea vomiting, coughing and fatigue for the past 2 days. Patient denies any chest pain or shortness of breath. Related Data Home Medications Medication Instructions Recorded Confirmed albuterol sulfate 90 mcg/actuation 2 puff inhalation Q4-6H PRN 11/24/21 11/24/21 aerosol inhaler Shortness Of Breath diclofenac sodium 1 % topical gel 2 g topical QID 11/24/21 11/24/21 duloxetine 20 mg capsule,delayed 1 cap PO DAILY 11/24/21 11/24/21 release levothyroxine 75 mcg tablet 1 tab PO DAILY 11/24/21 11/24/21 melatonin 3 mg capsule 3 mg PO BEDTIME PRN Insomnia 11/24/21 11/24/21 prednisone 5 mg tablet 1 tab PO DAILY 11/24/21 11/24/21 Previous Rx's Medication Instructions Recorded estradiol 0.01% (0.1 mg/gram) 1 g vaginal 2XW #42.5 grams 04/20/21 vaginal cream (Estrace) metronidazole 500 mg tablet 500 mg PO BID 7 days #14 tabs 04/25/21 (Flagyl) cyclobenzaprine 10 mg tablet 10 mg PO TID PRN muscle spasm #14 08/27/21 tabs ibuprofen 600 mg tablet 600 mg PO Q6H PRN pain #30 tabs 08/27/21 lgupqxuzgm-rspubsfirylmk-uqhpoapf 1 cap PO Q4H PRN pain #12 caps 09/09/21 50 mg-300 mg-40 mg capsule (Fioricet) nitrofurantoin 100 mg PO Q12H 5 days #10 caps 07/22/22 monohydrate/macrocrystals 100 mg capsule (Macrobid) subtcccsxu-gjqeqbtaipwpf-qcreauoy 1 cap PO Q4-6H PRN migraine 11/05/22 50 mg-300 mg-40 mg capsule headache #10 caps (Fioricet) cyclobenzaprine 10 mg tablet 10 mg PO BEDTIME PRN muscle spasm 12/24/22 #7 tabs lidocaine 5 % topical patch 1 patch topical DAILY PRN pain #15 12/24/22 ea prednisone 50 mg tablet 50 mg PO DAILY 5 days #5 tabs 11/28/23 ondansetron HCl 4 mg tablet 4 mg PO Q6H PRN nausea and 12/11/23 vomiting 2 days #8 tabs Allergies Allergy/AdvReac Type Severity Reaction Status Date / Time cephalexin [From KEFLEX] Allergy Severe ANAPHYLAXIS Verified 12/11/23 12:29 morphine [MORPHINE] Allergy Mild VOMITING Verified 12/11/23 12:29 kiwi Allergy Facial Verified 12/11/23 12:29 Swelling Review of Systems 2 Review of Systems: Vomiting nausea diarrhea coughing Yes all other systems are reviewed and are negative [facility] Past Medical History Medical History Adrenal insufficiency Amenorrhea Anxiety Depression Dyslipidemia Hypothyroid Insomnia 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 Polyamory-plans surrogate Alcohol intake: never Patient Tobacco Use Status: Never used Tobacco Tobacco use type: Cigarette Cigarettes Per Day: 6 Substance Use Type: Marijuana Advance Directives: No Advance Directives Information Provided: No Sexual orientation: Bisexual Gender identity: Female Physical Exam ED Vital Signs: Vital Signs - 24 hr 12/11/23 12:27 12/11/23 13:06 Temperature 97.2 F Pulse Rate 109 H 112 H Respiratory Rate 18 22 H Blood Pressure 129/75 Pulse Oximetry 95 Oxygen Delivery Method Room Air BMI result Body Mass Index 33.3 Const General: cooperative, healthy appearing, comfortable, no acute distress, well developed, alert, awake and Physically active Orientation/consciousness: oriented to person, oriented to place, oriented to time and patient oriented x3 HENMT Head: Yes normal to inspection, Yes No palpable skull fracture present, Yes normocephalic and Yes atraumatic Ears: hearing grossly normal bilaterally, external ears normal, TM's normal bilaterally, TM normal on the right, TM normal on the left, EAC's normal, mastoids normal and no periauricular adenopathy Throat: Yes posterior oropharynx normal, Yes tonsils normal and Yes uvula midline Eyes General: appearance normal, both eyes and all related structures Visual Robb: normal visual robb by confrontation Alignment and Position: alignment normal Periorbital: periorbital findings normal Eyelids: Yes eyelids normal Conjunctivae: conjunctivae normal Sclerae: sclerae normal Corneas: corneas normal Pupils: Equal, round and reactive pupils present EOM: EOMs intact bilaterally Direct Ophthalmoscopy: normal light reflex Neck Neck: Yes normal visual inspection, Yes full ROM, Yes no lymphadenopathy, Yes no meningeal signs, Yes trachea midline, Yes supple, No anterior neck swelling and No tender Chest Chest palpation & inspection: normal inspection of the chest and normal palpation of entire chest wall Resp Effort & Inspection: normal respiratory effort and able to speak in complete sentences Auscultation: clear to auscultation bilaterally Cardio Jugular venous distension: no JVD Heart sounds: S1 normal heart sound present and S2 normal heart sound present GI Inspection: Yes normal to inspection Palpation (GI): Soft to palpation, not firm, nontender, no guarding and not rigid General: No CVA tenderness and Yes no CVA tenderness Back/Spine/Pelvis Back: no CVA tenderness, No CVA tenderness and No back tenderness Skin General skin exam: no rashes or lesions noted, elasticity normal and turgor normal Neuro General: oriented to person, oriented to place, oriented to time, patient oriented x3, gait normal, tone normal, moves all extremities, Normal light touch and pain sensation, no meningeal signs, no focal motor deficits, CN's II-XI intact bilaterally and normal sensation to monofilament Cranial nerves: Yes CN's II-XII intact bilaterally and Yes Equal, round and reactive pupils present Extrem General: Yes normal to inspection, Yes full ROM and Yes capillary refill normal Psych Appearance: grossly normal, well kempt and not disheveled Course Course Course Narrative: RME: 28-year-old female presents to ED for coughing, nausea, vomiting, shortness of breath for the past couple of days. Lungs positive for wheezing. Labs images ordered. SARS Medications Administered Discontinued Medications Generic Name Dose Route Start Last Admin Trade Name Freq PRN Reason Stop Dose Admin Albuterol Sulfate 4 puff 12/11/23 12:58 12/11/23 13:05 Albuterol Sulfate 90 Mcg 8 Gm Inhaler INHALE 12/11/23 12:59 4 puff ONCE ONE Administration Ondansetron HCl 4 mg 12/11/23 17:10 12/11/23 17:21 Ondansetron Odt 4 Mg Tab.Deb ALAMOINGU 12/11/23 17:11 4 mg ONCE ONE Administration Medical Decision Making Medical Decision Making [facility] Narrative: 28 yold female presents to the ED for abdominal pain, URI symptoms, and diarrhea. patient positive for influenza. labs, EKG normal. Symptoms for 4 days. Patient explained worrisome signs and informed to return to the ED if she has them. Patient would like to be discharged. Differential Diagnosis Differential Diagnoses: The differential diagnosis associated with the presentation includes (Influenza, COVID, RSV) Admission/Observation Consideration of admission/observation: Escalation of care including admission/observation considered Lab Data [facility] Lab Attestation statement: I reviewed the patient's lab results. 12/11/23 12:50 12/11/23 12:51 Labs: Lab Results 12/11/23 12/11/23 12/11/23 Range/Units 12:50 12:51 15:14 WBC 11.1 H (4.8-10.8) X10*3/uL RBC 5.36 D (4.20-5.50) X10*6/uL Hgb 15.4 D (12.0-16.0) g/dl Hct 44.7 D (37.0-47.0) % MCV 83.4 (80.0-98.0) fL MCH 28.7 (27.0-33.0) pg MCHC 34.5 (31.0-35.0) g/dl RDW 13.2 (11.0-16.0) % Plt Count 198 (160-400) X10*3/uL MPV 11.1 (9.4-12.3) fL Immature Gran % (Auto) 0.3 (0.0-0.4) % Neut % (Auto) 77.9 H (45-73) % Lymph % (Auto) 13.3 L (20-40) % [place] % (Auto) 7.2 (2-11) % Eos % (Auto) 0.5 (0-4) % Baso % (Auto) 0.8 (0-2) % Lymph # (Auto) 1.5 (1.2-4.9) X10*3/uL [place] # (Auto) 0.8 (0.1-1.2) X10*3/uL Eos # (Auto) 0.1 (0.0-0.4) X10*3/uL Baso # (Auto) 0.1 (0.0-0.2) X10*3/uL Abs Immat Gran (auto) 0.03 (0.00-0.03) X10*3/uL Absolute Neuts (auto) 8.6 H (2.0-8.3) x10*3/uL Absolute Nucleated RBC 0.000 (0.0-0.012) X10*3/uL Nucleated RBC % (auto) 0.0 (0.0-0.2) /100WBC Sodium 136 (135-145) mmol/L Potassium 3.8 (3.3-5.1) mmol/L Chloride 102 (96-108) mmol/L Carbon Dioxide 20 L (22-29) mmol/L Anion Gap 18 (12-20) BUN 14 (9-16) mg/dL Creatinine 1.01 (0.5-1.4) mg/dL Estim Creat Clear Calc 91.4 Estimated GFR > 60 Random Glucose 114 (60-115) mg/dL Calcium 10.1 (8.4-10.2) mg/dL Total Bilirubin 0.5 (0.0-1.0) mg/dL AST 104 H (5-31) U/L ALT 101 H (0-31) U/L Alkaline Phosphatase 76 (39-117) U/L Troponin I High Sens 9.2 D 8.3 (<3.5-17.0) ng/L Total Protein 8.7 H (6.5-8.0) g/dL Albumin 5.3 H (3.5-5.0) g/dL Beta HCG, Quant < 2 mIU/mL Influenza Type A (PCR) POSITIVE A (Negative) Influenza Type B (PCR) NEGATIVE (Negative) RSV RNA Qual (PCR) NEGATIVE (Negative) SARS-CoV-2 RNA (RT-PCR) NEGATIVE (Negative) Independent Interpretation I performed an independent interpretation of an: EKG (Sinus tach) and Plain X- Ray Radiology Impression Discussion of test interpretation with radiology: I have reviewed the radiologist's reading. Independent Historian Clinical information obtained from an independent historian. History obtained from or confirmed by: Other (patient) External Record Review External record reviewed: Other (prior visits) Prescription Management I considered prescription management with: Other (zofran) Discharge Plan Discharge Clinical Impression: Influenza A Patient Disposition: Home, Self-Care Instructions: Influenza (ED) Additional Instructions: Recommend follow-up with primary care provider. Return to the ED immediately for any weakness, dizziness, chest pain, shortness of breath, intractable fever, coughing up blood, or any other concerning symptoms. Recommend rest, oral hydration, and brat diet ( Banna, rice, apple sauce, and toast) Prescriptions: New ondansetron HCl 4 mg tablet 4 mg PO Q6H PRN (Reason: nausea and vomiting) 2 Days Qty: 8 0RF No Action metronidazole [Flagyl] 500 mg tablet 500 mg PO BID 7 Days Qty: 14 0RF Rx Instructions: Take with food, Avoid alcohol and vinegar products cyclobenzaprine 10 mg tablet 10 mg PO TID PRN (Reason: muscle spasm) Qty: 14 0RF ibuprofen 600 mg tablet 600 mg PO Q6H PRN (Reason: pain) Qty: 30 0RF vpftvfnmlt-tyzndqbyupzms-nplw [Fioricet] 50-300-40 mg capsule 1 cap PO Q4H PRN (Reason: pain) Qty: 12 0RF prednisone 5 mg tablet 1 tab PO DAILY levothyroxine 75 mcg tablet 1 tab PO DAILY albuterol sulfate 90 mcg/actuation Hfa Aerosol Inhaler 2 puff INHALATION Q4-6H PRN (Reason: Shortness Of Breath) duloxetine 20 mg capsule,delayed release(DR/EC) 1 cap PO DAILY diclofenac sodium 1 % gel 2 g topical QID melatonin 3 mg Capsule 3 mg PO BEDTIME PRN (Reason: Insomnia) nitrofurantoin monohyd/m-cryst [Macrobid] 100 mg capsule 100 mg PO Q12H 5 Days Qty: 10 0RF Rx Instructions: must administer with a meal/food vwjtgooeef-rioqjnfhdcpas-iqij [Fioricet] 50-300-40 mg capsule 1 cap PO Q4-6H PRN (Reason: migraine headache) Qty: 10 0RF prednisone 50 mg tablet 50 mg PO DAILY 5 Days Qty: 5 0RF cyclobenzaprine 10 mg tablet 10 mg PO BEDTIME PRN (Reason: muscle spasm) Qty: 7 0RF lidocaine 5 % adhesive patch,medicated 1 patch topical DAILY PRN (Reason: pain) Qty: 15 0RF Rx Instructions: leave on most painful area for up to 12 hrs estradiol [Estrace] 0.01 % (0.1 mg/gram) cream 1 g vaginal 2XW Qty: 42.5 0RF Rx Instructions: use nightly for two weeks, then twice a week Interventions: ED Discharge Assessment Last Done: 12/11/23 17:42 Discharge Date/Time: 12/11/23 17:43 Print Language: Austrian
[2023-12-11 12:59] LABS: MANUAL DIFF FLAG NO
[2023-12-11 13:02] LABS: Basophils Absolute Auto 0.1 X10*3/uL (0.0-0.2); Basophils Percent Auto 0.8 % (0-2); Eosinophils Absolute Auto 0.1 X10*3/uL (0.0-0.4); Eosinophils Percent Auto 0.5 % (0-4); Hematocrit 44.7 % (37.0-47.0); Hemoglobin 15.4 g/dl (12.0-16.0); Imm Gran Abs Auto 0.03 X10*3/uL (0.00-0.03); Imm Gran Pct Auto 0.3 % (0.0-0.4); Lymphocytes Absolute Auto 1.5 X10*3/uL (1.2-4.9); Lymphocytes Percent Auto 13.3 % (20-40); Mean Corpuscular HGB Conc 34.5 g/dl (31.0-35.0); Mean Corpuscular Hemoglobin 28.7 pg (27.0-33.0); Mean Corpuscular Volume 83.4 fL (80.0-98.0); Mean Platelet Volume 11.1 fL (9.4-12.3); Monocytes Absolute Auto 0.8 X10*3/uL (0.1-1.2); Monocytes Percent Auto 7.2 % (2-11); Neutrophils Absolute Auto 8.6 x10*3/uL (2.0-8.3); Neutrophils Percent Auto 77.9 % (45-73); Platelet Count 198 X10*3/uL (160-400); Red Blood Count 5.36 X10*6/uL (4.20-5.50); Red Cell Distribution Width 13.2 % (11.0-16.0); White Blood Count 11.1 X10*3/uL (4.8-10.8)
[2023-12-11] MEDS: Albuterol Sulfate 90 MCG 8 GM INHALER 4 PUFF INHALE (13:05)
[2023-12-11 13:06] VITALS: PULSE 112; RESP 22; O2SAT 96
[2023-12-11 13:17] LABS: Alanine Aminotransferase 101 U/L (0-31); Albumin Level 5.3 g/dL (3.5-5.0); Alkaline Phosphatase 76 U/L (39-117); Anion Gap 18 (12-20); Aspartate Amino Transferase 104 U/L (5-31); Bilirubin Total 0.5 mg/dL (0.0-1.0); Blood Urea Nitrogen 14 mg/dL (9-16); Calcium 10.1 mg/dL (8.4-10.2); Carbon Dioxide 20 mmol/L (22-29); Chloride 102 mmol/L (96-108); Creatinine Clr Calc Pharmacy 91.4; Estimated Glomerular Filt Rate > 60; Glucose Random 114 mg/dL (60-115); Potassium 3.8 mmol/L (3.3-5.1); Sodium 136 mmol/L (135-145); Total Protein 8.7 g/dL (6.5-8.0)
[2023-12-11 13:24] LABS: Troponin-I High Sensitivity 9.2 ng/L (<3.5-17.0)
[2023-12-11 13:41] LABS: Influenza A PCR POSITIVE (Negative); Influenza B PCR NEGATIVE (Negative); Resp Syncy Virus RNA Qual PCR NEGATIVE (Negative); SARS COV2 PCR INHOUSE NEGATIVE (Negative)
[2023-12-11 15:40] LABS: Troponin-I High Sensitivity 8.3 ng/L (<3.5-17.0)
[2023-12-11 16:50] LABS: HCG Quantitative < 2 mIU/mL
[2023-12-11] MEDS: Ondansetron ODT 4 MG TAB.RAPDIS TRANSLINGU (17:21)
== END 2023-12-11 17:43 | disposition home or self-care (01) ==
PROVIDERS: Physician Assistant; Emergency Provider Emergency Medicine; PCP Nurse Practitioner Primary Care
DX: J10.1 Influenza due to other identified influenza virus with other respiratory manifestations (principal); R07.89 Other chest pain; R11.2 Nausea with vomiting, unspecified; Z11.52 Encounter for screening for COVID-19; Z20.822 Contact with and (suspected) exposure to COVID-19; Z79.899 Other long term (current) drug therapy
CPT/HCPCS: 0241U; 36415; 71045; 80053; 84484; 84702; 85025; 93005; 94640; 99284

== ENCOUNTER → 2023-12-11 12:30 | Outpatient (BNV) | payer MEDICAID, SELFPAY | PROVIDERS: PCP Nurse Practitioner Primary Care; Visit Provider Internal Medicine Cardiovascular Disease | DX: R07.9 Chest pain, unspecified (principal) | CPT/HCPCS: 93010 ==

== ENCOUNTER 2024-08-18 12:28 | Outpatient (AMB) | payer MEDICAID, SELFPAY ==
[2024-08-18 12:41] VITALS: BMI 33.3
--- NOTE | 2024-08-18 12:41 | A.OFFVIS_ITS ---
Vital Signs 08/18/24 12:41 Height 5 ft 5 in Weight 200 lb BMI 33.3 Intake Visit Reasons: OV - Right Patella Dislocation Intake Note: Vickie is a 29 year old female who presents today for a follow up of her right knee. History of patella dislocation in 2020, 2021 and January of 2024. Patient reports that she continues to have pain and discomfort with getting up from a sitting position and stair use. IMPRESSION: 1. 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 Edema within the superolateral aspect of Hoffa's fat pad, which can be seen in the setting of patellar tendon-lateral femoral condyle friction syndrome. 2. Focal arthrosis at the inferior aspect of the patellar median ridge, slightly increased when compared to the prior examination. Trace joint effusion. 3. No acute meniscal or ligamentous injury. Allergies cephalexin [From KEFLEX] Allergy (Severe, Verified 08/18/24 12:58) ANAPHYLAXIS morphine [MORPHINE] Allergy (Mild, Verified 08/18/24 12:58) VOMITING kiwi Allergy (Verified 08/18/24 12:58) Facial Swelling HPI HPI OV - Right Patella Dislocation: Details: 29-year-old woman with a history of right patellar dislocation. She had an MRI about a year ago and comes in today for review. She states she does have pain with standing from a seated position and going up and downstairs but has not redislocated. She describes a remote history of physical therapy. [facility] Medical History Adrenal insufficiency Amenorrhea Anxiety Depression Dyslipidemia Hypothyroid Insomnia Panhypopituitarism Pituitary stalk interruption syndrome Septo-optic dysplasia Vitamin D deficiency Von Willebrand disease Family History Maternal Grandmother History of breast cancer Maternal Aunt Ovarian cancer Maternal Grandfather Colon cancer Social History Household Members Other:: Adopted her brother at 1.5yo (mother ). Polyamory-plans surrogate Alcohol intake: never Patient Tobacco Use Status: Never used Tobacco Tobacco use type: Cigarette Cigarettes Per Day: 6 Substance Use Type: Marijuana Sexual orientation: Bisexual Gender identity: Female Physical Exam Vital Signs: BMI result Body Mass Index 33.3 Results Reviewed Results Reviewed: I personally reviewed the MR images. 1. 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 Edema within the superolateral aspect of Hoffa's fat pad, which can be seen in the setting of patellar tendon-lateral femoral condyle friction syndrome. 2. Focal arthrosis at the inferior aspect of the patellar median ridge, slightly increased when compared to the prior examination. Trace joint effusion. 3. No acute meniscal or ligamentous injury Assessment & Plan Assessment & Plan (1) Patellar instability of right knee: Code(s): M25.361 - Other instability, right knee Category: Medical Plan: Vickie is a 29 yo with right knee patellar instability. She has not had a additional dislocation event and states that her pain is not present all the time. I reviewed with her the pathomechanics of instability and gave her a lateral bolster brace. I recommend strengthening with exercises learned in physical therapy. She does not want additional physical therapy at this time. I warned her that additional dislocations may result in a need for surgery. She expressed understanding. Coding Level of Care Code Est Pt Level 3 (15110) Diagnoses Patellar instability of right knee M25.361
== END 2024-08-18 13:21 | disposition home or self-care (01) ==
PROVIDERS: PCP Nurse Practitioner Primary Care; Visit Provider Orthopaedic Surgery
DX: M25.361 Other instability, right knee (principal)
CPT/HCPCS: 99213

== ENCOUNTER → 2024-08-18 12:28 | Outpatient (BNVA) | payer MEDICAID, SELFPAY | PROVIDERS: PCP Nurse Practitioner Primary Care; Visit Provider Orthopaedic Surgery | DX: M25.561 Pain in right knee (principal); M25.361 Other instability, right knee | CPT/HCPCS: 99212 ==

== ENCOUNTER 2024-09-11 10:09 | Emergency (ER) | payer MEDICAID, SELFPAY ==
[2024-09-11 11:08] VITALS: BP 136/45; PULSE 53; RESP 18; TEMP 36.2; O2SAT 100; BMI 33.4
--- NOTE | 2024-09-11 11:11 | ED_ITS ---
HPI - Neck Pain/Injury General Chief Complaint: General Medical Stated Complaint: stiff neck unable to move Time Seen by Provider: 09/11/24 11:10 Source: patient Limitations: no limitations History of Present Illness ED Provider: Jennifer venegas PA-C HPI Narrative: 29-year-old female with a history of prior torticollis, ocular migraines, legally blind, seizures, hypothyroidism, panhypopituitarism, adrenal insuf ficiency, presents with right-sided neck pain x3 days. Patient states she started to develop pain along right lateral neck, she woke this morning with right neck, her neck is deviated toward the right, she is unable to range her neck at this time. No preceding trauma, or overuse injury. Patient states she feels as if she ?slept incorrectly?. Patient also states she ?cracked her neck a lot?. Denies visual changes, back pain, headache, radiation of pain down the arm or paresthesia. Related Data Home Medications ?Medication ?Instructions ?Recorded ?Confirmed estradiol 0.05 mg-norethindrone 1 patch topical 2XW 08/18/24 0.25 mg/24 hr semiwkly transderm patch (CombiPatch) levothyroxine 100 mcg tablet 100 mcg PO DAILY 08/18/24 naproxen 500 mg tablet 500 mg PO BID 08/18/24 Previous Rx's ?Medication ?Instructions ?Recorded cyclobenzaprine 10 mg tablet 10 mg PO TID PRN muscle spasm #14 08/27/21 tabs prednisone 50 mg tablet 50 mg PO DAILY 5 days #5 tabs 11/28/23 cyclobenzaprine 10 mg tablet 10 mg PO TID PRN muscle spasm #10 09/11/24 tabs lidocaine 5 % topical patch 1 patch topical DAILY #7 ea 09/11/24 Allergies Allergy/AdvReac Type Severity Reaction Status Date / Time cephalexin [From KEFLEX] Allergy Severe ANAPHYLAXIS Verified 09/11/24 11:09 morphine [MORPHINE] Allergy Mild VOMITING Verified 09/11/24 11:09 kiwi Allergy Facial Verified 09/11/24 11:09 Swelling Review of Systems Review of Systems: Yes all other systems are reviewed and are negative Constitutional: Constitutional: Denies fatigue, Denies fever(s) and Denies headache(s) Eyes: Eyes: Denies change in vision ENT: Denies headache(s) and Reports neck pain Cardiovascular: Cardiovascular: Denies chest pain and Denies dyspnea Respiratory: Respiratory: Denies dyspnea Gastrointestinal: Gastrointestinal: Denies nausea and Denies vomiting Musculoskeletal: Musculoskeletal: Reports neck pain Neurologic: Denies headache(s) and Denies paresthesias Endocrine: Endocrine: Denies fatigue REPLACED BY [facility] Past Medical History Attestation statement: The following information was validated with the patient. 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 Polyamory-plans surrogate Alcohol intake: never Patient Tobacco Use Status: Never used Tobacco Tobacco use type: Cigarette Cigarettes Per Day: 6 Substance Use Type: Marijuana Advance Directives: No Advance Directives Information Provided: Yes Do you have a plan to hurt others: No Plan Sexual orientation: Bisexual Gender identity: Female Physical Exam Vital Signs: Vital Signs: Last Vital Signs Temp 97.2 F 09/11/24 11:08 Pulse 53 09/11/24 11:08 Resp 18 09/11/24 11:08 BP 136/45 L 09/11/24 11:08 Pulse Ox 100 09/11/24 11:08 O2 Del Method Room Air 09/11/24 11:08 BMI result Body Mass Index 33.4 Const: Other: Overall well-appearing Orientation/consciousness: patient oriented x3 Neck: Other: Patient's neck is deviated to the right, she is holding her ear to the shoulder, she has a unable to range the neck Resp: Other: Nonlabored respirations Cardio: Other: Normal peripheral perfusion Skin: Other: Warm dry no rash Neuro: Other: Legally blind General: patient oriented x3, gait normal and no focal motor deficits Psych: Other: Calm cooperative Medical Decision Making Medical Decision Making MDM Narrative: 29-year-old female with a history of prior torticollis, ocular migraines, legally blind, seizures, hypothyroidism, panhypopituitarism, adrenal insufficiency, presents with right-sided neck pain x3 days. Patient states she started to develop pain along right lateral neck, she woke this morning with right neck, her neck is deviated toward the right, she is unable to range her neck at this time. No preceding trauma, or overuse injury. Patient states she feels as if she ?slept incorrectly?. Patient also states she ?cracked her neck a lot?. Denies visual changes, back pain, headache, radiation of pain down the arm or paresthesia. Problem: Prior torticollis History: Per patient I have considered the following differential diagnoses: Cervical radiculopathy, cervical strain/spasm, torticollis, cervical fracture Plan: The patient here with a acute torticollis, she has had this in the past, she used Flexeril with good relief of symptoms. There was no indication for imaging, there was no actual trauma to the area. She is not having any neurologic deficits to suggest radiculopathy. She can follow up with the primary care provider as needed. Discharge Plan Discharge Clinical Impression: Acute torticollis Patient Disposition: Home, Self-Care Instructions: Spasmodic Torticollis (ED) Additional Instructions: You are being treated for torticollis. Use the Flexeril as directed, use a lidocaine patch as directed. Follow up with your primary care provider next week, you may require physical therapy. Prescriptions: New cyclobenzaprine 10 mg tablet 10 mg PO TID PRN (Reason: muscle spasm) Qty: 10 0RF lidocaine 5 % adhesive patch,medicated 1 patch topical DAILY Qty: 7 0RF Rx Instructions: leave on most painful area for up to 12 hrs No Action cyclobenzaprine 10 mg tablet 10 mg PO TID PRN (Reason: muscle spasm) Qty: 14 0RF prednisone 50 mg tablet 50 mg PO DAILY 5 Days Qty: 5 0RF CombiPatch 0.05-0.25 mg/24 hr patch semiweekly 1 patch topical 2XW naproxen 500 mg tablet 500 mg PO BID levothyroxine 100 mcg tablet 100 mcg PO DAILY Print Language: Luxembourgish
[2024-09-11 11:30] VITALS: BP 136/45; PULSE 53; RESP 18; TEMP 36.8; O2SAT 100
== END 2024-09-11 11:30 | disposition home or self-care (01) ==
PROVIDERS: Emergency Provider Student in an Organized Health Care Education/Training Program; PCP Nurse Practitioner Primary Care
DX: M43.6 Torticollis (principal)
CPT/HCPCS: 99282; 99283

== ENCOUNTER 2024-10-22 10:53 | Outpatient (REF) | payer MEDICAID, SELFPAY ==
[2024-10-22 13:31] LABS: MANUAL DIFF FLAG NO
--- OUTSIDE RECORDS SUMMARY | 2024-10-22 13:58 | XMS_ITS | Clinical Summary ---
Author Organization [facility] Address [address] [place] [address] Care Team Providers Care Health Insurance Sales Agent Name Role Phone Jeane Bah Primary Care Provider [phone] Allergies Active Allergy Reactions Criticality Noted Date [...] patient's age to complete this topic [place] [place] [address] Care Teams Health Insurance Sales Agent Relationship Specialty Start Date End Date Jeane Bah [address] [place] [address] PCP - General 05/06/22
--- OUTSIDE RECORDS SUMMARY | 2024-10-22 13:58 | XMS_ITS | Encounter Summary ---
Author Organization [employer] Address [address] [place] [address] 7 [place] [address] Care Team Providers Care Infection Control Coordinator Name Role Phone Jeane Bah Primary Care Provider [phone] Daniel Arevalo RN Unavailable [phone] Reason for Visit * Reason Onset Date Comments Results 06/05/2023 Encounter Details Date Type Department Care Team ([facility] st Contact Info) Description 06/05/2023 Telephone [facility] MEDICINE [address] [place] [address] Jeane Bah ANP 230 [place] [address] Results Social History Tobacco Use Types Packs/Day [...] results . Informs [place] [facility] [place] and got results on 06/04/23 [...] Description 12/11/2024 9:00 AM EDT Office Visit [facility] MEDICINE [address] [place] [address] Jeane Bah ANP [address] [place] [address] documented as of this encounter Visit Diagnoses Not on filedocumented in this encounter Additional Health Concerns Assessment Noted Time PHQ-9 Depression Total Score: 9 04/20/20 23 1:00 PM EDT documented as of this encounter Care Teams Infection Control Coordinator Relationship Specialty Start Date End Date Jeane Bah ANP [address] [place] [address] PCP - General Family Medicine 05/24/21 Daniel Arevalo RN [address] [place] [address] Director StarsData Sciences Director 06/19/24 09/14/24 documented as of this encounter
--- OUTSIDE RECORDS SUMMARY | 2024-10-22 13:58 | XMS_ITS | Encounter Summary ---
Author Organization [employer] Address [address] [place] [address] Care Team Providers Care Dock Hand Name Role Phone Jeane Bah Primary Care Provider [phone] Reason for Referral * Consultation (Urgent) - Closed Specialty Diagnoses / Procedures Referred By Brea sadler Referred To Contact Physical Therapy Diagnoses Torticollis Jeane Bah ANP [address] [place] [address] Phone: tel: fax: [facility] Physical Therapy [address] [place] [address] Phone: tel: fax: Referral ID Status Reason Start Date Expiration Date V isits Requested Visits Authorized [id number] Closed Specialty Services Required 10/03/2024 10/03/2025 20 20 Reason for Visit * Reason Comments Follow-up Encounter Details Date Type Department Care Team (Late st Contact Info) Description 10/03/2024 11:30 AM EST Office Visit [facility] MEDICINE 230 [place], [place] [phone] Jeane Bah ANP 230 [place], [place] [phone] Torticollis (Primary Dx); Bilateral leg edema Social [...] legally blind, seizures, hypothyroidism, panhypopituitarism, adrenal insufficiency [facility] ED visit for acute torticollis 09/11/24 Neck [...] Description 12/11/2024 9:00 AM EDT Office Visit [facility] MEDICINE [address] [place] [address] Jeane Bah ANP 230 [place] [address] Scheduled Orders Name Type Priority Associated Diagnoses [...] documented as of this encounter Care Teams Dock Hand Relationship Specialty Start Date End Date Jeane Bah ANP [address] [place] [address] PCP - General Family Medicine 05/24/21 documented as of this encounter
--- OUTSIDE RECORDS SUMMARY | 2024-10-22 13:58 | XMS_ITS | Encounter Summary ---
Author Organization [employer] Address [address] [facility] 7t [place] [address] Care Team Providers Care Rotary Shear Worker Helper Name Role Phone Jeane Bah ARNAUD Primary Care Provider [phone] Reason for Visit * Reason Onset Date Comments November recall 10/10/2024 Encounter Details Date Type Department Care Team (Late st Contact Info) Description 10/10/2024 Telephone [facility] MEDICINE [address] [place] [address] Jelani Pereira [place] November recall Social History [...] 9:00 AM EDT Office Visit [facility] MEDICINE [address] [place] [address] Jeane Bah ANP [address] [place] [address] documented as of this encounter Visit Diagnoses Not on filedocumented in this encounter Additional Health Concerns Assessment Noted Time PHQ-9 Depression Total Score: 13 024 1:08 PM EDT documented as of this encounter Care Teams Rotary Shear Worker Helper Relationship Specialty Start Date End Date Jeane Bah ANP [address] [place] [address] PCP - General Family Medicine 05/24/21 documented as of this encounter
--- OUTSIDE RECORDS SUMMARY | 2024-10-22 13:58 | XMS_ITS | Encounter Summary ---
Author Organization [employer] Address [address] [facility] 7t [place] [address] Care Team Providers Care Router Machine Operator Name Role Phone Jeane Bah Primary Care Provider [phone] Encounter Details Date Type Department Care Team ([facility] st Contact Info) Description 10/03/2024 Telephone [facility] MEDICINE 230 [place], [place] [phone] Jeane Bah ANP 230 [place], [place] [phone] Social History Tobacco Use Types Packs/Day Years [...] Description 12/11/2024 9:00 AM EDT Office Visit [facility] MEDICINE [address] [place] [address] Jeane Bah ANP [address] [place] [address] documented as of this encounter Visit Diagnoses Not on filedocumented in this encounter Additional Health Concerns Assessment Noted Time PHQ-9 Depression Total Score: 13 024 1:08 PM EDT documented as of this encounter Care Teams Router Machine Operator Relationship Specialty Start Date End Date Jeane Bah ANP [address] [place] [address] PCP - General Family Medicine 05/24/21 documented as of this encounter
--- OUTSIDE RECORDS SUMMARY | 2024-10-22 13:58 | XMS_ITS | Clinical Summary ---
Author Organization [employer] Address [address] [place] [address] 7t [place] [address] Care Team Providers Care Customer Experience Associate Name Role Phone Jeane Bah Primary Care Provider [phone] Allergies Active Allergy Reactions Criticality Noted Date [...] 03/03/20 24 Active B-D 3CC LUER-TRENTON SYR 67CU9-6/2 18G X 1-2 3 ML miscIndications:Pa nhypopituitarism [...] Type Department Care Team Description 10/10/[address] [address] Jelani Pereira [place] November recall 10/03/2024 11:30 AM EST Office Visit [facility] [place] [address] Jeane Bah ANP Torticollis (Primary Dx); Bilateral leg edema 10/03/2024 [address] [place] [address] Jeane Bah ANP 09/15/2024 [address] [place] [address] Daniel Arevalo, BONE CHAR KILN OPERATOR Follow-up 09/15/2024 [address] [place] [address] Daniel Arevalo, RN Care Management (C3CM- f/u call) 09/11/2024 Telephone [facility] [place] [place] [address] Daniel Arevalo, MEME Care Management (C3CM- f/u call ) 09/02/2024 Telephone [facility] [place] [place] [address] Daniel Arevalo, RN Care Management (C3CM- f/u call) 08/18/2024 Patient Outreach [address] [address] Jeane Bah ANP Care Coordination ([facility]/graduate) 08/18/[address] [address] Daniel Arevalo RN Care Management (C3CM- f/u call) 08/11/[address] [address] Jeane Bah ANP 08/08/2024 Patient Outreach [address] [address] Jeane Bah ANP Care Coordination (SDOH) 08/07/[address] [address] Daniel Arevalo RN Care Management (C3CM- f/u call) 08/05/2024 10:15 AM EST Office Visit [address] [address] Jeane Bah ANP Dyslipidemia (Primary Dx); Other specified hypothyroidism; NAFL (nonalcoholic fatty liver); Panhypopituitarism (CMS/HCC); Seizures (CMS/HCC); Amenorrhea; Encounter for immunization; Recurrent knee instability, right 08/05/2024 Travel 07/30/2024 Patient Outreach [address] [address] Jeane Bah ANP Care Coordination (sdoh) 07/28/2024 Patient Outreach [address] [address] Jeane Bah ANP Care Coordination (Sdoh f/u) 07/28/[address] [address] Daniel Arevalo RN Care Management (C3- f/u call) 07/22/2024 2:00 PM EDT Office Visit [facility] OPTOMETRY [address] [place] [address] Adonis, Unique, OD Regular astigmatism of left [...] Relation Name Comments Premature CHD Other Uncle [place] at 45 , Gpa [place] 48 Relation Name Status Comments Other Social [...] Description 12/11/2024 9:00 AM EDT Office Visit [facility] MEDICINE [address] [place] [address] Jeane Bah ANP 230 [place] [address] Health Maintenance Due Date Last Done Comments [...] patient's age to complete this topic Insurance [place] [facility] C3 Care Teams Customer Experience Associate Relationship Specialty Start Date End Date Jeane Bah ANP [address] [place] [address] [place] [address] PCP - General Family Medicine 05/24/21
--- OUTSIDE RECORDS SUMMARY | 2024-10-22 13:59 | XMS_ITS | Referral Summary ---
Author Organization [facility] Address [address] [place] [address] Care Team Providers Care Pan Puller Name Role Phone Jeane Bah Primary Care Provider [phone] Allergies Active Allergy Reactions Criticality Noted Date [...] Plan of Treatment Not on file Insurance [facility] Care Teams Pan Puller Relationship Specialty Start Date End Date Jeane Bah 230 [place], [place] [phone] PCP - General 05/06/22
[2024-10-22 14:00] LABS: Basophils Absolute Auto 0.1 X10*3/uL (0.0-0.2); Basophils Percent Auto 0.9 % (0-2); Eosinophils Absolute Auto 0.3 X10*3/uL (0.0-0.4); Eosinophils Percent Auto 4.7 % (0-4); Hematocrit 37.1 % (37.0-47.0); Hemoglobin 12.7 g/dl (12.0-16.0); Imm Gran Abs Auto 0.02 X10*3/uL (0.00-0.03); Imm Gran Pct Auto 0.3 % (0.0-0.4); Lymphocytes Absolute Auto 2.6 X10*3/uL (1.2-4.9); Lymphocytes Percent Auto 40.5 % (20-40); Mean Corpuscular HGB Conc 34.2 g/dl (31.0-35.0); Mean Corpuscular Hemoglobin 28.5 pg (27.0-33.0); Mean Corpuscular Volume 83.2 fL (80.0-98.0); Mean Platelet Volume 12.4 fL (9.4-12.3); Monocytes Absolute Auto 0.4 X10*3/uL (0.1-1.2); Monocytes Percent Auto 5.8 % (2-11); Neutrophils Absolute Auto 3.1 x10*3/uL (2.0-8.3); Neutrophils Percent Auto 47.8 % (45-73); Platelet Count 170 X10*3/uL (160-400); Red Blood Count 4.46 X10*6/uL (4.20-5.50); Red Cell Distribution Width 12.4 % (11.0-16.0); White Blood Count 6.4 X10*3/uL (4.8-10.8)
[2024-10-22 14:02] LABS: Estimated Average Glucose 100 mg/dL; Hemoglobin A1C 103.6298 umol/L; Hemoglobin A1c % 5.1 % (<6.0); Total Hemoglobin (HGBA1C) 3236.4396 umol/L
[2024-10-22 14:24] LABS: Alanine Aminotransferase 45 U/L (0-31); Albumin Level 4.7 g/dL (3.5-5.0); Alkaline Phosphatase 64 U/L (39-117); Anion Gap 10 (12-20); Aspartate Amino Transferase 53 U/L (5-31); Bilirubin Total 0.5 mg/dL (0.0-1.0); Blood Urea Nitrogen 12 mg/dL (9-16); Calcium 10.1 mg/dL (8.4-10.2); Carbon Dioxide 25 mmol/L (22-29); Chloride 109 mmol/L (96-108); Cholesterol 217 mg/dL (<200); Estimated Glomerular Filt Rate > 60; Glucose Random 85 mg/dL (60-115); HDL Cholesterol 33 mg/dL (>40); LDL Cholesterol Calculated 164 mg/dL (<100); Potassium 4.1 mmol/L (3.3-5.1); Sodium 140 mmol/L (135-145); Total Protein 7.6 g/dL (6.5-8.0); Triglycerides 103 mg/dL (<150)
[2024-10-22 14:26] LABS: TSH reflex Free T4 1.61 uIU/mL (0.32-4.0)
[2024-10-23 01:36] LABS: CT PCR NOT DETECTED (Not Detect.); NG PCR NOT DETECTED (Not Detect.)
[2024-10-23 21:30] LABS: Bacterial Vaginosis PCR NEGATIVE (Negative); Candida Group PCR NOT DETECTED (Not Detect); Candida glab krusei PCR NOT DETECTED (Not Detect); Trichomonas vaginalis PCR NOT DETECTED (Not Detect)
== END 2024-10-22 10:54 | disposition home or self-care (01) ==
LOC: HO.LAB 10:53
PROVIDERS: PCP Nurse Practitioner Primary Care; Visit Provider Advanced Practice Midwife
DX: N91.2 Amenorrhea, unspecified (principal); E03.9 Hypothyroidism, unspecified; E27.40 Unspecified adrenocortical insufficiency; E23.0 Hypopituitarism; E23.6 Other disorders of pituitary gland; Q04.4 Septo-optic dysplasia of brain; N89.8 Other specified noninflammatory disorders of vagina; Z20.2 Contact with and (suspected) exposure to infections with a predominantly sexual mode of transmission; R60.0 Localized edema; K76.0 Fatty (change of) liver, not elsewhere classified; E78.5 Hyperlipidemia, unspecified
CPT/HCPCS: 36415; 80053; 80061; 81515; 83036; 84443; 85025; 87491; 87591; 99385; 99459

== ENCOUNTER 2024-10-22 10:53 | Outpatient (AMB) | payer MEDICAID, SELFPAY ==
[2024-10-22 11:06] VITALS: BP 112/74; BMI 32.3
--- NOTE | 2024-10-22 11:06 | A.OFFVIS_ITS ---
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 (2X) Fruit And Vegetable Parer Required: No Fruit And Vegetable Parer Services: Fruit And Vegetable Parer Present Information Interpreted: clinical only Unit Coordinator: Unit Coordinator Present Allergies cephalexin [From KEFLEX] Allergy (Severe, Verified 10/22/24 11:09) ANAPHYLAXIS morphine [MORPHINE] Allergy (Mild, Verified 10/22/24 11:09) VOMITING kiwi Allergy (Verified 10/22/24 11:09) Facial Swelling Medication List - Last Reconciled 10/22/24 by Ruthie Muñiz CNM cyclobenzaprine 10 mg PO TID PRN levothyroxine 100 mcg PO DAILY lidocaine 5% 1 patch topical DAILY naproxen 500 mg PO BID prednisone 50 mg PO DAILY 5 days Is last menstrual period known: No HPI HPI CUSTOMER RETENTION REPRESENTATIVE,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 She was seen last by Enedelia Abdalla in 2020. She has an extensive history of pituitary issues and is legally blind. She is on prednisone and needs to be on it for the rest of her life and she says she was on control pills to help her have a period and also to provide estrogen. But she went off of them because the combination of the control pills and the prednisone she felt was contributing to weight gain and at 1 point she was 250 lb and she did not like how she felt and so she stopped pills because she felt that was the additional factor that made the most difference and she has been losing weight since she also is doing intermittent fasting with 1 meal a day and has been doing high-intensity intermittent exercise ( hit) with 45 minutes on the bike, and says this is all been working for her. She is feeling much better.. She had a visit with endocrinology at [facility] manages her endocrine issues and they recommended to her that she go back on the pills and she saw her primary just last week and he also recommended that she go back on the pills but she is thinking hard about it. She actually would like to have a but she was told that she was in fertile. Of note she says when she had been on the pills and then she stopped she did notice fertile type mucus sometime after stopping the pills. Also she says that without the estrogen she has dry as a Desert and often has a malodor that she attributes to bacterial vaginosis though she uses boric acid capsules with success today she has no itching and perhaps a little bit of an odor but it is not perceptible to this provider. [facility] Medical History (Updated 10/22/24 @ 12:13 by Ruthie Muñiz CNM) Insomnia Depression Anxiety Vitamin D deficiency Dyslipidemia Pituitary stalk interruption syndrome Septo-optic dysplasia Von Willebrand disease Amenorrhea Panhypopituitarism Hypothyroid Adrenal insufficiency Family History Maternal Grandmother History of breast cancer Maternal Aunt Ovarian cancer Maternal Grandfather Colon cancer Social History Household Members Other:: Adopted her brother at 1.5yo (mother ). Polyamory-plans surrogate Alcohol intake: never Patient Tobacco Use Status: Never used Tobacco Tobacco use type: Cigarette Cigarettes Per Day: 6 Substance Use Type: Marijuana Sexual orientation: Bisexual Gender identity: Female Female Reproductive History Menstrual control method: none Total pregnancies: 0 Physical Exam Vital Signs: Last Vital Signs BP 112/74 10/22/24 11:06 BMI result Body Mass Index 32.3 Const General: healthy appearing, comfortable, no acute distress, well developed and alert Nutritional Appearance: average body habitus Orientation/consciousness: patient oriented x3 Limitations: no limitations HEENT Head: Yes normocephalic Neck Neck: Yes normal visual inspection Chest Chest palpation & inspection: normal inspection of the chest Breast/axilla inspection: normal inspection of the breasts and normal inspection of the axillae Breast/axilla palpation: normal palpation of the breasts and normal palpation of the axillae Resp Effort & Inspection: normal respiratory effort GI Inspection: Yes normal to inspection, No Abdominal wall edema and No distended Palpation (GI): Soft to palpation and nontender Other: Vaginal mucosa is slightly bright smooth. Vagina is moist with very normal appearing healthy clear and white discharge cervix nulliparous pink smooth mobile nontender adnexa difficult to feel uterus nontender not enlarged difficult to feel midposition. Very good tone with Kegel. General: Yes bladder normal to palpation External Female Exam: normal external appearance and normal appearance of the urethra Speculum Exam - Vagina: normal appearance of the vagina, normal palpation and normal vaginal discharge Speculum Exam - Cervix: normal appearance of the cervix, normal palpation and nontender Bimanual exam- vagina & uterus: normal bimanual exam, normal palpation, uterine size normal, bladder normal to palpation, consistency normal, normal palpation, uterine mobility normal, uterine shape normal, No Cervical tenderness present, non-tender and no cervical motion tenderness Bimanual Exam- Adnexa, other: normal adnexae, no masses, normal and No adnexal tenderness Neuro General: patient oriented x3 Assessment & Plan Assessment & Plan (1) Amenorrhea: Code(s): N91.2 - Amenorrhea, unspecified Category: Medical (2) Hypothyroid: Code(s): E03.9 - Hypothyroidism, unspecified Category: Medical (3) Adrenal insufficiency: Code(s): E27.40 - Unspecified adrenocortical insufficiency Category: Medical (4) Panhypopituitarism: Code(s): E23.0 - Hypopituitarism Category: Medical (5) Pituitary stalk interruption syndrome: Comment: 08/02/2021 Code(s): E23.6 - Other disorders of pituitary gland Category: Medical (6) 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 Given the grand picture of her medical issues, we discussed what has taken place so far and what conversations have taken place as regards her hormone replacement she says both of her primary end endocrinology recommends that she resume the control pills she was wondering about a kind of implant but I shared that those do not contain estrogen which is what she was told she needs. Discussed that the patches and NuvaRing are are similar to control pills and just have a different route of delivery. I discussed that my recommendation would be that she follow the recommendations of her providers who have the full picture of her endocrine in medical history and consider resuming the control pills and that normally control pills in an up themselves do not contribute to weight gain though perhaps in combination with the prednisone there maybe some synergistic effect however the other reasons she is losing weight maybe down to her excellent efforts such as her intermittent fasting with healthy eating 1 meal and the high-intensity exercise she is doing on her stationary bike every day for 45 minutes and I applauded her efforts. Also discussed the interest in observation she made in noticing what did she described as fertile mucus after stopping the control pills. She voiced that I actually some day she would love to have her own baby and that would I suggested that she have a more complete conversation up-to-date with her current primary and then endocrine providers about what evidence there is to say that she is infertile. As regards the possibility of bacterial vaginosis we will await testing. She inquired as to whether not she could take estrogen alone and I could not recommend this, and suggest she have a more complete discussion endocrinology about what it is that she needs. We will await test results she did not have need of any other STD screening other than what was done along with pelvic exam (checking for gonorrhea chlamydia trichomoniasis bacterial vaginosis and yeast.) Full discussion about BV to place and she is very knowledgeable about it. Timeframe/Date Comment Patient to follow-up with her hardness inspector and primary care provider RTC 1 year. Orders: Orders Bacterial Vaginosis Panel Today N89.8 - Other specified noninflammatory disorders of vagina Pap Smear Today Z00.00 - Encounter for general adult medical examination without abnormal findings CT NG by PCR Today N89.8 - Other specified noninflammatory disorders of vagina, Z20.2 - Contact with and (suspected) exposure to infections with a predominantly sexual mode of transmission Coding Level of Care Code New Pt Prev Care 18-39yr([id number] Diagnoses Amenorrhea N91.2 Hypothyroid E03.9 Adrenal insufficiency E27.40 Panhypopituitarism E23.0 Pituitary stalk interruption syndrome E23.6 Septo-optic dysplasia Q04.4
--- OUTSIDE RECORDS SUMMARY | 2024-10-22 12:22 | XMS_ITS | Clinical Summary ---
Author Organization [facility] Address [address] [place] [address] Care Team Providers Care Route Rider Supervisor Name Role Phone Jeane Bah Primary Care Provider [phone] Allergies Active Allergy Reactions Criticality Noted Date Comments Cephalexin Rash 05/07/2022 Morphine Anaphylaxis High 05/07/2022 Medications No known medications Social History Tobacco Use Types Packs/Day Years Used Date Smoking Tobacco: Former Smokeless Tobacco: Never Alcohol Use Standard Drinks/Week Comments Never 0 (1 standard drink = 0.6 oz pur e alcohol) Comments No Sex and Gender Information Value Date Recorded Sex Assigned at Not on file Legal Sex Female 9:10 PM EDT Gender Identity Not on file Sexual Orientation Not on file Last Filed Vital Signs Vital Sign Reading Time Taken Comments Blood Pressure 131/67 05/08/2022 2:09 AM EDT Pulse 58 05/08/2022 2:09 AM EDT Temperature 36.4 ??C (97.6 ??F) 05/08/2022 12:02 AM E DT Respiratory Rate 16 05/08/2022 2:09 AM EDT Oxygen Saturation 99% 05/08/2022 2:09 AM EDT Inhaled Oxygen Concentration - - Weight 95.3 kg (210 lb) 05/08/2022 12:01 AM EDT Height 162.6 cm (5' 4 ) 05/08/2022 12:01 AM EDT Body Mass Index 36.05 05/08/2022 12:01 AM EDT Plan of Treatment Health Maintenance Due Date Last Done Comments Cervical Cancer Screening 1994 HIV Screening 1994 HPV and Pap Smear 1994 Hepatitis C Screening 1994 Pap Smear 1994 Hepatitis B Vaccines (1 of 3 - 19+ 3-dose series) 2013 COVID-19 Vaccine ( - 2023-25 season) 2024 Influenza Vaccine (#1) 2024 , 08/09/2019, 07/19/2018, Additional history exists Alcohol/Substance Use Screening 10/01/2024 Depression Screening and Follow-Up 10/01/2024 Social Drivers of Health Annual Screening 10/01/2024 DTaP,Tdap,and Td Vaccines (9 - Td or Tdap) 05/01/2028 05/01/2018, 02/08/2012, 03/06/2007, Additional history exists RSV Vaccine (60+ years old and patients) (1 - 1-dose 75+ series) 2069 Varicella Vaccines Completed 11/18/2008, 05/12/1999 Pneumococcal Vaccine: Pediatric (0-5 Years) and At-Risk Patients (6-64 Years) Aged Out No longer eligible based on patient's age to complete this topic [place] [address] [place] [id number] Care Teams Route Rider Supervisor Relationship Specialty Start Date End Date Jeane Bah [address] [place] [id number] PCP - General 05/06/22
--- OUTSIDE RECORDS SUMMARY | 2024-10-22 12:22 | XMS_ITS | Referral Summary ---
Author Organization [facility] Address [address] [place] [id number] Care Team Providers Care Track Liner Operator Name Role Phone Jaene Bah Primary Care Provider [phone] Allergies Active Allergy Reactions Criticality Noted Date [...] 05/08/2022 12:01 AM EDT Plan of Treatment Not on file Insurance [facility] Care Teams Track Liner Operator Relationship Specialty Start Date End Date Jeane Bah [address] [place], [place] [phone] PCP - General 05/06/22
--- OUTSIDE RECORDS SUMMARY | 2024-10-22 12:23 | XMS_ITS | Encounter Summary ---
Author Organization [employer] Address [address] [place] [address] Care Team Providers Care Efficiency Manager Name Role Phone Jeane Bah Primary Care Provider [phone] Reason for Referral * Consultation (Urgent) - Closed Specialty Diagnoses / Procedures Referred By Brea sadler Referred To Contact Physical Therapy Diagnoses Torticollis Jeane Bah ANP [address] [place] [address] Phone: tel: fax: [facility] [address] [place] [address] Phone: tel: fax: Referral ID Status Reason Start Date Expiration Date V isits Requested Visits Authorized [id number] Closed Specialty Services Required 10/03/2024 10/03/2025 20 20 Reason for Visit * Reason Comments Follow-up Encounter Details Date Type Department Care Team (Late st Contact Info) Description 10/03/2024 11:30 AM EST Office Visit [facility] MEDICINE [address] [place], [place] [phone] Jeane Bah ANP [address] [place], [place] [phone] Torticollis (Primary Dx); Bilateral leg edema Social History Tobacco Use Types Packs/Day Years Used Date Smoking Tobacco: Former Cigarettes Smokeless Tobacco: Never Tobacco Cessation:Counseling Given: Not Answered Alcohol Use Standard Drinks/Week Comments Not Currently 0 (1 standard drink = 0.6 oz pur e alcohol) Depression Answer Date Recorded Patient Health Questionnaire-9 Score 13 03/03/2024 Patient Health Questionnaire-9 Score 13 03/03/2024 Last PHQ-9: Questionnaire Data Not on file 0 03/03/2024 Housing Stability Answer Date Recorded What is your housing situation today? I have albert in 07/02/[address] you li ve. Do you have problems with any of the following? None of the above 07/02/2024 Food Insecurity Answer Date Recorded Within the past 12 months, y ou worried that your food would run out before you got money to buy more: Sometimes True 2023 Within the past 12 months,th e food you bought just didn't last and you didn't have enough money to get more: Sometimes True 07/02/2024 Transportation Answer Date Recorded In the past 12 months, has l ack of transportation kept you from medical appts, meetings, work or from getting things needed for daily living? No 07/02/2024 Utilities Answer Date Recorded In the past 12 months, has t he electric, gas, oil or water company threatened to shut off services in your home? No 07/02/2024 Depression Answer Date Recorded Patient Health Questionnaire-2 Score 4 03/03/2024 Internet Access Answer Date Recorded Internet Access Q1 Yes 07/02/2024 Internet Access Q2 Not on file 07/02/2024 Comments Unknown Sex and Gender Information Value Date Recorded Sex Assigned at Female 07/31/2022 10:30 AM EDT Legal Sex Female 10:30 AM EDT Gender Identity Female 07/31/2022 10:30 AM EDT Sexual Orientation Choose not to disclose 2021 10:30 AM EDT documented as of this encounter Last Filed Vital Signs Vital Sign Reading Time Taken Comments Blood Pressure 104/69 10/03/2024 11:41 AM EST Pulse 64 10/03/2024 11:41 AM EST Temperature 36.6 ??C (97.8 ??F) 10/03/2024 11:[address] Respiratory Rate 14 10/03/2024 11:41 AM EST Oxygen Saturation 99% 10/03/2024 11:41 AM EST Inhaled Oxygen Concentration - - Weight 88.6 kg (195 lb 6.4 oz) 10/03/2024 11:41 AM EST Height - - Body Mass Index 33.67 03/03/2024 11:22 AM EDT documented in this encounter Progress Notes * ARNAUD Monten[place] - 10/03/2024 11:30 AM EST Subjective Patient ID: Vickie Henson is a 29 y.o. female who presents for Follow-up. HPI PMH prior torticollis, ocular migraines, legally blind, seizures, hypothyroidism, panhypopituitarism, adrenal insufficiency [facility] ED visit for acute torticollis 09/11/24 Neck is still sore and ROM limited. Unable to turn head to L or to touch chin to chest. Would like PT. Flexeril has been somewhat helpful. Using heat as well w/ positive effect. Also using lidocaine patch w/ good effect. Also with ankle swelling bilaterally x1 week. Better in AM after putting feet up. Says ankles have been twice the size of normal, unable to wear shoes when it happens. Has little dots on skin on bothankles as well. Today no swelling on exam and popliteal and distal pulses are intact. Does have a few non-blanchingpinpoint petechia on dorsal surface feet bilaterally. Non-smoker Review of Systems Constitutional: Negative for chills and fever. HENT: Negative for sore throat. Respiratory: Negative for cough and shortness of breath. Cardiovascular: Negative for chest pain. Gastrointestinal: Negative for constipation and diarrhea. Endocrine: Negative for polydipsia, polyphagia and polyuria. Genitourinary: Negative for dysuria. Objective BP 104/69 (BP Location: Left arm, Patient Position: Sitting, BP Cuff Size: Adult long) Pulse 64 Temp 97.8 ??F (36.6 ??C) (Temporal) Resp 14 Wt 195 lb 6.4 oz (88.6 kg) SpO2 99% BMI 33.67 kg/m?? Physical Exam Vitals reviewed. Constitutional: General: She is not in acute distress. Appearance: Normal appearance. She is not toxic-appearing. HENT: Head: Normocephalic and atraumatic. Eyes: General: No scleral icterus. Extraocular Movements: Extraocular movements intact. Pupils: Pupils are equal, round, and reactive to light. Cardiovascular: Rate and Rhythm: Normal rate and regular rhythm. Pulmonary: Effort: Pulmonary effort is normal. Musculoskeletal: Comments: Unable to rotate head fully to L; no swelling BLE, no palpable bakers cysts; BLE distal pulses intact; +a few non-blanching pinpoint petechia on dorsal surface feet bilaterally. Neurological: Mental Status: She is alert and oriented to person, place, and time. Mental status is at baseline. Cranial Nerves: No cranial nerve deficit. Gait: Gait normal. Psychiatric: Mood and Affect: Mood normal. Behavior: Behavior normal. Assessment/Plan Diagnoses and all orders for this visit: Torticollis Recommend to continue using heat gentle stretching and Flexeril as needed. Will refer to PT. - cyclobenzaprine (Flexeril) 5 MG tablet; Take 1-2 tabs as needed up to TID for torticollis - Referral to Physical Therapy; Future Bilateral leg edema Exam reassuring today. Check labs as below and recommend OTC compression socks. TSH previously ordered for update. - Comprehensive Metabolic Panel; Future - CBC auto differential; Future documented in this encounter Plan of Treatment Upcoming Encounters Date Type Department Care Team (Late st Contact Info) Description 12/11/2024 9:00 AM EDT Office Visit [facility] MEDICINE [address] [place] [address] Jeane Bah ANP [address] [place] [address] Scheduled Orders Name Type Priority Associated Diagnoses Orde r Schedule Comprehensive Metabolic Panel Lab Routine Bilateral leg edema Expected: 10/03/2024 (Approximate), Expires: 10/03/2025 CBC auto differential Lab Routine Bilateral leg edema Expected: 10/03/2024 (Approximate), Expires: 10/03/2025 Scheduled Referrals Name Type Priority Associated Diagnoses Orde r Schedule Referral to Physical Therapy Outpatient Referral Urgent Torticollis Expected: 10/03/2024 (Approximate), Expires: 10/03/2025 documented as of this encounter Visit Diagnoses Diagnosis Torticollis- Primary Torticollis, unspecified Bilateral leg edema Edema documented in this encounter Additional Health Concerns Assessment Noted Time PHQ-9 Depression Total Score: 13 024 1:08 PM EDT documented as of this encounter Care Teams Efficiency Manager Relationship Specialty Start Date End Date Jeane Bah ANP [address] [place] [address] PCP - General Family Medicine 05/24/21 documented as of this encounter
--- OUTSIDE RECORDS SUMMARY | 2024-10-22 12:23 | XMS_ITS | Encounter Summary ---
Author Organization [employer] Address [address] [place] [address] [address] [place] [address] Care Team Providers Care Rasper Machine Operator Name Role Phone Jeane Bah Primary Care Provider [phone] Daniel Arevalo RN Unavailable [phone] Reason for Visit * Reason Onset Date Comments Results 06/05/2023 Encounter Details Date Type Department Care Team ([facility] st Contact Info) Description 06/05/2023 Telephone [facility] MEDICINE [address] [place] [address] Jeane Bah ANP [address] [place] [address] Results Social History Tobacco Use Types Packs/Day Years Used Date Smoking Tobacco: Former Cigarettes Smokeless Tobacco: Never Alcohol Use Standard Drinks/Week Comments Not Currently 0 (1 standard drink = 0.6 oz pur e alcohol) Depression Answer Date Recorded Patient Health Questionnaire-9 Score 9 04/20/2023 Depression Answer Date Recorded Patient Health Questionnaire-2 Score 1 04/20/2023 Comments Unknown Sex and Gender Information Value Date Recorded Sex Assigned at Female 07/31/2022 10:30 AM EDT Legal Sex Female 10:30 AM EDT Gender Identity Female 07/31/2022 10:30 AM EDT Sexual Orientation Choose not to disclose 2021 10:30 AM EDT documented as of this encounter Miscellaneous Notes * Telephone Encounter - Raquel Knight - 06/08/2023 10:59 AM EDT Tc from pt returning call . Regarding discussing her MRI results . Informs got them done at [facility] on 06/01/23 and got results on 06/04/23 . Pt states is very concern with results she and requested to speak with someone aurelio . * Telephone Encounter - Madison Yo - 06/07/2023 8:39 AM EDT Tc from patient re calling in regards to message below. * Telephone Encounter - Raquel Knight - 06/05/2023 9:32 AM EDT Tc from pt requesting a call back to discuss MRI results with PCP . documented in this encounter Plan of Treatment Upcoming Encounters Date Type Department Care Team (Late st Contact Info) Description 12/11/2024 9:00 AM EDT Office Visit [facility] MEDICINE [address] [place] [address] Jeane Bah ANP [address] [place] [address] documented as of this encounter Visit Diagnoses Not on filedocumented in this encounter Additional Health Concerns Assessment Noted Time PHQ-9 Depression Total Score: 9 04/20/20 23 1:00 PM EDT documented as of this encounter Care Teams Rasper Machine Operator Relationship Specialty Start Date End Date Jeane Bah ANP [address] [place] [address] PCP - General Family Medicine 05/24/21 Daniel Arevalo RN [address] [place] [address] Clubhouse AttendantLand Use Planner 06/19/24 09/14/24 documented as of this encounter
--- OUTSIDE RECORDS SUMMARY | 2024-10-22 12:23 | XMS_ITS | Clinical Summary ---
Author Organization [employer] Address [address] [place] [address] 7t [place] [address] Care Team Providers Care Energy Efficient Site Manager Name Role Phone Jeane Bah Primary Care Provider [phone] Allergies Active Allergy Reactions Criticality Noted Date Comments Cephalexin Anaphylaxis,Hives,Rash High 12/17/2014 Morphine Anaphylaxis,Other High 12/17/2014 Medications LORazepam (Ativan) 1 MG tablet Take 1 mg by mouth at bedtime. 10/23/19 23 Active Hydrocortisone Sod Suc, PF, (Solu-CORTEF) 100 MG reconstituted solution Inject 100 mg into the shoulder, thigh, or buttocks. 06/13/20 22 Active Solu-CORTEF 100 MG reconstituted solution GIVE 1 DOSE INTO THE MUSCLE IF UNABLE TO TOLERATE ORAL STEROID FOR ADRENAL CRISIS 06/13/20 22 Active lamoTRIgine (LaMICtal) 25 MG tablet TAKE 1 TABLET BY MOUTH EVERY MORNING FOR 2 WEEKS. INCREASE TO 1 TABLET BY MOUTH 2 TIMES DAILY. DISCONTINUE AND SEEK EMERGENCY CARE IF RASH PRESENTS 02/10/20 23 Active traZODone (Desyrel) 50 MG tablet TAKE 1/2 TO 1 TABLET BY MOUTH AT BEDTIME 02/03/20 23 Active hydrOXYzine HCl (Atarax) 10 MG tablet TAKE 1/2 TO 1 TABLET BY MOUTH TWICE DAILY NEEDED 01/04/20 23 Active butalbital-acetami nophen-caffeine (Fioricet) 50-300-40 MG capsuleIndications :Migraine without status migrainosus, not intractable, unspecified migraine type Take 1 capsule by mouth Every 4-6 hours as needed for headaches. 15 capsule 1 02/28/20 23 Active Blood Pressure kitIndications:Diz ziness 1 kit in the morning. 1 kit 06/12/20 23 Active levothyroxine (Synthroid, Levoxyl) 100 MCG tabletIndications: Other specified hypothyroidism Take 1 tablet (100 mcg) by mouth Once per day. 90 tablet 3 03/03/20 24 Active predniSONE (Deltasone) 5 MG tabletIndications: Panhypopituitarism (CMS/HCC) Take 1 tablet (5 mg) by mouth Once per day. 90 tablet 1 03/03/20 24 Active B-D 3CC LUER-TRENTON SYR 61GW4-4/2 18G X 1-2 3 ML miscIndications:Pa nhypopituitarism (CMS/HCC),Pituitar y stalk interruption syndrome (CMS/HCC) Use once if needed with solucortef for emergency 4 each 03/03/20 24 Active CombiPatch 0.05-0.25 MG/DAYIndications: Amenorrhea Place 1 patch on the skin 2 (two) times a week. Sunday and Sunday 24 patch 1 08/07/20 24 Active naproxen (Naprosyn) 500 MG tabletIndications: Recurrent knee instability, right Take 1 tab as needed up to twice daily for pain, take with food 60 tablet 08/05/20 24 Active cyclobenzaprine (Flexeril) 5 MG tabletIndications: Torticollis Take 1-2 tabs as needed up to TID for torticollis 45 tablet 10/03/19 25 025 Active Active Problems Problem Noted Date Diagnosed Date Seizures 03/09/2023 Overview (08/05/2024): Images from the original note were not included. from neurology summary of VEEG Jun 2024 Long-term video EEG monitoring technically limited due to the self removal of electrodes by the patient and her subsequent departure from the hospital AMA. The recorder EEG is abnormal due to the presence of mild generalized slowing of the background. This finding while nonspecific suggest the presence of a diffuse disturbance of cerebral function. The episodes of shaking of the legs head or back arching were without electroencephalographic correlate. The results of the monitoring indicate that the captured events are nonepileptic in etiology. No focal lateralized or epileptiform activity is present. 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 Encounters Date Type Department Care Team Description 10/10/[address] [address] Jelani Pereira [place] November recall 10/03/2024 11:30 AM EST Office Visit [facility] [place] [address] Jaene Bah ANP Torticollis (Primary Dx); Bilateral leg edema 10/03/20[address] [place] [place] [address] Jeane Bah ANP 09/15/2024 [address] [place] [address] Daniel Arevalo, TUGBOAT PILOT Follow-up 09/15/2024 [address] [place] [address] Daniel Arevalo, RN Care Management (C3CM- f/u call) 09/11/2024 Telephone [facility] [place] [place] [address] Daniel Arevalo, MEME Care Management (C3CM- f/u call ) 09/02/2024 Telephone [facility] [place] [address] Daniel Arevalo, RN Care Management (C3CM- f/u call) 08/18/2024 Patient Outreach [address] [address] Jeane Bah ANP Care Coordination ([facility]/graduate) 08/18/[address] [address] Daniel Arevalo RN Care Management (C3CM- f/u call) 08/11/[address] [address] Jeane Bah ANP 08/08/2024 Patient Outreach [address] [address] Jeane Bah ANP Care Coordination (SDOH) 08/07/[address] [address] Daniel Arevalo RN Care Management (C3CM- f/u call) 08/05/2024 10:15 AM EST Office Visit [address] [address] Jeane Bah ANP Dyslipidemia (Primary Dx); Other specified hypothyroidism; NAFL (nonalcoholic fatty liver); Panhypopituitarism (CMS/HCC); Seizures (CMS/HCC); Amenorrhea; Encounter for immunization; Recurrent knee instability, right 08/05/2024 Travel 07/30/2024 Patient Outreach [address] [address] Jeane Bah ANP Care Coordination (sdoh) 07/28/2024 Patient Outreach [address] [address] Jeane Bah ANP Care Coordination (Sdoh f/u) 07/28/[address] [address] Daniel Arevalo RN Care Management (C3- f/u call) 07/22/2024 2:00 PM EDT Office Visit [facility] OPTOMETRY [address] [place] [address] Adonis, Unique, OD Regular astigmatism of left eye (Primary Dx) from Last 3 Months Immunizations Name Administration Dates Next Due DTaP 03/06/2007, 9,09/12/1995,11/07,1994,1994 HPV, Quadrivalent 10/29/2013 Hep B, Adolescent or Pediatric 01/31/1995,1993,1994 Hib (HbOC) 09/12/1995, 5,1994,07/07 IPV 05/12/1999, 5,1994,07/07 Influenza injectable quadriv alent IIV4 with preservative 06/23/2016 Influenza injectable quadriv alent preservative free 08/02/2021,08/09/2019,07/19/2018,08/15 Influenza, IIV3, injectable 10/29/2013 Influenza, seasonal, injecta ble, preservative free 08/05/2024 MMR 05/12/1999,05/08/1995 Meningococcal MCV4P ACYW-135 03/19/2013,03/06/20 07 Moderna Covid-19 Vaccine 6+ Bivalent 03/09/2023 Pfizer Covid-19 Vaccine 12+ 08/05/2024 Tdap 05/01/2018,02/08/2012 Varicella 11/18/2008,05/12/1999 Family History Medical History Relation Name Comments Premature CHD Other Uncle [place] at 45 , Gpa [place] 48 Relation Name Status Comments Other Social History Tobacco Use Types Packs/Day Years [...] your housing situation today? I have albert ni 07/02/[address] you li [...] not to disclose 2021 10:30 AM EDT Last Filed Vital Signs Vital Sign Reading [...] 6.4 oz) 10/03/2024 11:41 AM EST Height 162.3 cm (5' 3.88 ) 03/03/2024 11:22 AM E DT Body Mass Index 33.67 03/03/2024 11:22 AM EDT Plan of Treatment Upcoming Encounters Date Type Department Care Team (Late st Contact Info) Description 12/11/2024 9:00 AM EDT Office Visit [facility] MEDICINE [address] [place] [address] Jeane Bah ANP [address] [place] [address] Health Maintenance Due Date Last Done Comments HIV Screening 1994 Alcohol/Substance Use Screening 2006 Hepatitis C Screening 2012 Hepatitis A Vaccines (1 of 2 - Risk 2-dose series) 2013 HPV Vaccines (2 - 3-dose series) 11/26/2013 10/29/2013 Pap Smear 2015 Cervical Cancer Screening 2024 HPV/Cotest 2024 Depression Monitoring (PHQ-9) 09/02/2024 03/03/2024, 03/03/2024 Depression Screening 03/03/2025 03/03/2024, 03/03/20 24 SDOH Screening 07/02/2025 07/02/2024 Tobacco Screening 10/03/2025 10/03/2024 DTaP/Tdap/Td Vaccines (9 - Td or Tdap) 05/01/2028 05/01/2018, 02/08/2012, 03/06/2007, Additional history exists Zoster Vaccines (1 of 2) 2044 RSV Patients and Patients Aged 60 years or older (1 - 1-dose 75+ series) 2069 Hepatitis B Vaccines Completed 01/31/1995, 1994, 1994 HIB Vaccines Completed 09/12/1995, 03/1995, 1994, Additional history exists IPV Vaccines Completed 05/12/1999, 11/1994, 1994, Additional history exists Meningococcal Vaccine Completed 03/19/2013, 007 COVID-19 Vaccine Completed 08/05/2024, 03/09/2023 Influenza Vaccine Completed 08/05/2024, , 08/09/2019, Additional history exists Pneumococcal Vaccine: Pediatrics (0 to 5 Years) and At-Risk Patients (6 to 64 Years) Aged Out No longer eligible based on patient's age to complete this topic RSV under 20 months Aged Out No longe r eligible based on patient's age to complete this topic Rotavirus Vaccines Aged Out No longer eligible based on patient's age to complete this topic Insurance [place] [facility] C3 Care Teams Energy Efficient Site Manager Relationship Specialty Start Date End Date Jeane Bah ANP [address] [place] [address] [place] [address] PCP - General Family Medicine 05/24/21
--- OUTSIDE RECORDS SUMMARY | 2024-10-22 12:23 | XMS_ITS | Encounter Summary ---
Author Organization [employer] Address [address] [facility] 7t [place] [address] Care Team Providers Care Truck Bracer Name Role Phone Jeane Bah Primary Care Provider [phone] Encounter Details Date Type Department Care Team ([facility] st Contact Info) Description 10/03/[address] [facility] MEDICINE [address] [place], [place] [phone] Jeane Bah ANP 230 [place], [place] [phone] Social History Tobacco Use Types Packs/Day Years [...] AM EDT documented as of this encounter Plan of Treatment Upcoming Encounters Date Type Department Care Team (Late st Contact Info) Description 12/11/2024 9:00 AM EDT Office Visit [facility] MEDICINE [address] [place] [address] Jeane Bah ANP [address] [place] [address] documented as of this encounter Visit Diagnoses Not on filedocumented in this encounter Additional Health Concerns Assessment Noted Time PHQ-9 Depression Total Score: 13 024 1:08 PM EDT documented as of this encounter Care Teams Truck Bracer Relationship Specialty Start Date End Date Jeane Bah ANP [address] [place] [address] PCP - General Family Medicine 05/24/21 documented as of this encounter
--- OUTSIDE RECORDS SUMMARY | 2024-10-22 12:23 | XMS_ITS | Encounter Summary ---
Author Organization [employer] Address [address] [facility] 7t [place] [address] Care Team Providers Care Product Safety Specialist Name Role Phone Jeane Bah ARNAUD Primary Care Provider [phone] Reason for Visit * Reason Onset Date Comments November recall 10/10/2024 Encounter Details Date Type Department Care Team (Late st Contact Info) Description 10/10/2024 Telephone [facility] MEDICINE [address] [place] [address] Jelani Pereira [place] November recall Social History Tobacco Use Types Packs/Day Years [...] encounter Miscellaneous Notes * Telephone Encounter - Jelani Pereira MA - 10/10/2024 12:31 PM EST T/C to pt to schedule a recall f/u PTSD. PT agreed to come in on 12/11/24 at 9am. documented in this encounter Plan of Treatment Upcoming Encounters Date Type Department Care Team (Late st Contact Info) Description 12/11/2024 9:00 AM EDT Office Visit [facility] MEDICINE [address] [place] [address] Jeane Bah ANP [address] [place] [address] documented as of this encounter Visit Diagnoses Not on filedocumented in this encounter Additional Health Concerns Assessment Noted Time PHQ-9 Depression Total Score: 13 024 1:08 PM EDT documented as of this encounter Care Teams Product Safety Specialist Relationship Specialty Start Date End Date Jeane Bah ANP [address] [place] [address] PCP - General Family Medicine 05/24/21 documented as of this encounter
== END 2024-10-22 11:59 | disposition home or self-care (01) ==
PROVIDERS: PCP Nurse Practitioner Primary Care; Visit Provider Advanced Practice Midwife
DX: Z01.419 Encounter for gynecological examination (general) (routine) without abnormal findings (principal); N91.2 Amenorrhea, unspecified; E03.9 Hypothyroidism, unspecified; E27.40 Unspecified adrenocortical insufficiency; E23.0 Hypopituitarism; E23.6 Other disorders of pituitary gland; Q04.4 Septo-optic dysplasia of brain
CPT/HCPCS: 99385; 99459

== ENCOUNTER 2024-10-22 11:53 | Outpatient (REF) | payer MEDICAID, SELFPAY ==
[2024-10-28 12:42] LABS: HPV Genotype 16 Negative (Negative); HPV Genotype 18 Negative (Negative); HPV High Risk Negative (Negative)
== END 2024-10-22 11:54 | disposition home or self-care (01) ==
LOC: HO.LNP 11:53
PROVIDERS: Visit Provider Advanced Practice Midwife
DX: Z00.00 Encounter for general adult medical examination without abnormal findings (principal)
CPT/HCPCS: 87626; 88175

== ENCOUNTER 2024-10-22 12:06 | Outpatient (REF) | payer MEDICAID, SELFPAY | END 2024-10-22 12:07 | disposition home or self-care (01) | LOC: HO.HHCL 12:06 | PROVIDERS: Visit Provider Advanced Practice Midwife | DX: Z13.89 Encounter for screening for other disorder (principal) ==

== ENCOUNTER 2024-10-24 08:46 | Outpatient (RCR) | payer MEDICAID, SELFPAY | END 2024-12-05 14:26 | disposition home or self-care (01) | LOC: HO.PT 08:46 | PROVIDERS: PCP Nurse Practitioner Primary Care; Visit Provider Nurse Practitioner Primary Care | DX: M43.6 Torticollis (principal) | CPT/HCPCS: 97110; 97140; 97162 ==